=== PATIENT | female | born 1945 | race Caucasian/White ===

== ENCOUNTER 2020-06-10 08:52 | Outpatient (REF) | payer MEDICARE, SELFPAY ==
--- NOTE | 2020-06-10 09:02 | MM_ITS ---
EXAMINATION: MM SCREENING DIGITAL BREAST TOMOSYNTHESIS, BILATERAL CLINICAL INFORMATION: Screening. Asymptomatic. The lifetime risk of breast cancer based on the Tyrer-Cuzick Model is 2%. COMPARISON: Mammography: 06/05/2019, 04/11/2018, 03/24/2017 TECHNIQUE: Digital breast tomosynthesis is performed in both the craniocaudal and mediolateral oblique views along with computer-aided detection (CAD). Synthesized 2D images are generated from the tomosynthesis. Additional left MLO view is provided. FINDINGS: There are scattered areas of fibroglandular density (ACR BI-RADS breast composition Category b). Parenchymal pattern is similar to prior exams. There is chronic bilateral nipple retraction. No developing density, interval mass, or interval architectural abnormality. There are scattered benign calcifications. Pacemaker generator overlies and partly obscures left axilla on MLO view. No significant changes. MM/MM tomosynthesis screening BI IMPRESSION: No significant changes from prior studies. ASSESSMENT: BI-RADS 2: Benign RECOMMENDATION: Routine annual mammography screening. This patient's information was entered into a reminder system with a target due date for their next mammogram.
--- NOTE | 2020-06-10 09:02 | MM_ITS ---
EXAMINATION: BONE DENSITOMETRY CLINICAL INDICATION: Osteoporosis. COMPARISON: Previous BD dated 02/26/2016 and baseline BD dated 07/21/2008 (left hip), 05/27/2003 (lumbar spine). TECHNIQUE: Using a [employer] DXA System (software version: 13.1) manufactured by [employer], dual-energy x-ray absorptiometry was performed of the lumbar spine and left hip. The images are of good technical quality. Summary results are attached. FINDINGS: AP SPINE L1-L2 (excluding L3 and L4): The data of L1-L4 has been changed to exclude the L3 and L4 vertebral bodies, because at these levels may cause overestimation of lumbar spine density. Current: BMD 0.862 g/cm2, Z-score -1.0, T-score -2.5, osteoporosis, 2.3% increase from previous, 8.2% increase from baseline (<5% change is not significant). Prior: BMD 0.843 g/cm2. Baseline: BMD 0.797 g/cm2. LEFT FEMUR, NECK: Current: BMD 0.773 g/cm2, Z-score -0.2, T-score -1.9, osteopenia. Prior: BMD 0.796 g/cm2. Baseline: BMD 0.836 g/cm2. LEFT FEMUR, TOTAL: Current: BMD 0.888 g/cm2, Z-score 0.6, T-score -1.0, normal, 0.1% increase from previous, 4.2% increase from baseline (<5% change is not significant). Prior: BMD 0.887 g/cm2. Baseline: BMD 0.852 g/cm2. IDENTIFIED RISK FACTORS: Early menopause, hysterectomy, bilateral oophorectomy, osteoporosis. HISTORY OF FRACTURE: None listed. MEDICATIONS: Vitamin D, bisphosphonates. MM/XR DEXA axial skeleton IMPRESSION: 1. DIAGNOSIS: Osteoporosis based on the lowest T-score value of -2.5 in the lumbar spine applying World Health Organization criteria. 2. 10-YEAR FRACTURE RISK PREDICTION, FRAX: Major osteoporotic fracture (clinical spine, forearm, hip or shoulder) 12.1%. Hip fracture 2.8%. 3. Treatment Recommendations: NOF guidelines recommend consideration for treatment in postmenopausal women and men age 50 and older presenting with the following: -A hip or vertebral (clinical or morphometric) fracture. -T-score less than or equal to -2.5 at the femoral neck or spine after appropriate evaluation to exclude secondary causes. -Low bone mass at the hip or spine and a 10-year fracture probability by FRAX of greater than or equal to 3% for hip fracture or greater than or equal to 20% for major osteoporotic fracture based on the [place] adapted WHO algorithm. 4. Other Recommendations: All treatment decisions require clinical judgment and consideration of individual patient factors, including patient preferences, comorbidities, previous drug use, risk factors not captured in the FRAX model (e.g. frailty, falls, vitamin D deficiency, increased bone turnover, interval significant decline in bone density) and possible under or overestimation of fracture risk by FRAX. Additional medical evaluation for secondary cause of low bone mineral density may be appropriate. FUTURE SCAN RECOMMENDATION: People with diagnosed cases of osteoporosis or at high risk for fracture should have regular bone mineral density tests. For patients eligible for Medicare, routine testing is allowed once every 2 years. The testing frequency can be increased to one year for patients who have rapidly progressing disease, those who are receiving or discontinuing medical therapy to restore bone mass, or have additional risk factors.
== END 2020-06-10 08:53 | disposition home or self-care (01) ==
LOC: HO.MAMMO 08:52
PROVIDERS: PCP Internal Medicine; Visit Provider Nurse Practitioner Family
DX: Z12.31 Encounter for screening mammogram for malignant neoplasm of breast (principal); M81.0 Age-related osteoporosis without current pathological fracture; Z78.0 Asymptomatic menopausal state; Z90.710 Acquired absence of both cervix and uterus; Z90.722 Acquired absence of ovaries, bilateral
CPT/HCPCS: 77063; 77067; 77080

== ENCOUNTER → 2020-08-14 09:02 | Outpatient (BNVA) | payer MEDICARE, SELFPAY | PROVIDERS: PCP Internal Medicine; Visit Provider Internal Medicine Cardiovascular Disease | DX: Z45.018 Encounter for adjustment and management of other part of cardiac pacemaker (principal); I42.2 Other hypertrophic cardiomyopathy | CPT/HCPCS: 93005; 99212 ==

== ENCOUNTER → 2021-01-29 09:16 | Outpatient (REF) | payer MEDICARE, SELFPAY ==
--- NOTE | 2021-01-29 09:19 | CA_ITS ---
Transthoracic Echocardiogram Patient (Last, First, Middle): Kaycee Florence M Gender: Female Date of : 1945 Age: 75 Procedure Date: 01/29/2021 Procedure Type: Transthoracic Echocardiogram Location: OP Height: 154.94 cm Weight: 71.67 kg BSA: 1.71 m2 Heart Rate: bpm BP: 140 / 80 mmHg Field Map Technician: ABEL Referring MD: Gabe Tang MD Symptoms: I42.2 - Other hypertrophic cardiomyopathy Study Quality: Fair ECG Rhythm: Sinus Conclusions: - The left ventricular systolic function is normal. The calculated ejection fraction is 59% by biplane method. - Septal thickness is difficult to assess. In parasternal long, it appears severe, but in other views there is only mild hypertrophy. - No obvious valvular pathology seen on this study. - Consider cardiac MRI if clinically indicated. Findings Left Ventricle Normal left ventricular cavity size. The left ventricular systolic function is normal. The calculated ejection fraction is 59% by biplane method. There is no evidence of regional wall motion abnormalities. Evidence suggests grade I (mild) diastolic dysfunction. There is severe septal asymmetric hypertrophy. Septal thickness is difficult to assess. In parasternal long, it appears severe, but in other views there is only mild hypertrophy. Right Ventricle Normal right ventricular cavity size and systolic function. Atria Both atria are normal in size. Aortic Valve There is a normal trileaflet aortic valve. There is no aortic valve stenosis. There is trace (trivial) aortic valve regurgitation. Mitral Valve The mitral valve appears normal. There is no mitral valve regurgitation. There is no mitral valve stenosis. Pulmonic Valve The pulmonic valve was not well visualized. Tricuspid Valve There is mild tricuspid valve regurgitation. The pulmonary artery systolic pressure is normal. Great Vessels The asc aorta is normal in size. Venous The inferior vena cava is normal in size and collapses greater than 50% with inspiration. Pericardium/Pleural There is no evidence of pericardial effusion. Prior Study Comparison Changes noted compared to prior study dated: 01/11/2019. See comments on septum. Recommendations, Care & Conclusions No obvious valvular pathology seen on this study. Measurements 2D Linear Measurements IVSd: 1.00 0.6-0.9/0.6-1.0 cm LVIDd: 4.61 3.9-5.3/4.2-5.9 cm LVIDd Index: 2.70 2.4-3.2/2.2-3.1 cm/m2 LVIDs: 2.92 2.0-3.6 cm LVPWd: 1.04 0.7-1.1 cm Ao Root: 3.40 2.1-3.5 cm LA Diam: 3.70 2.7-3.8/3.0-4.0 cm LAIDs Index: 2.16 1.5-2.3 cm/m2 LV Mass: 203.95 67-162/88-224 g LV Mass Index: 119.27 43-95/49-115 g/m2 LVOT Diam: 2.00 3.0+(-)1.3 cm 2D Systolic Function EF 4C: 57.60 >55% EF 2C: 59.50 >55% EF BiP: 59.30 >55% Mitral Valve MV Pk E: 0.69 MV PK A: 0.85 MV Decel Time: 319.00 E/A: 0.80 E'Lateral: 6.42 E'Medial: 4.35 E/E' Med: 15.90 E/E' Lat: 10.80 PHT: 93.00 MVA PHT: 2.37 Decel [place]: 2.17 Aortic Valve AoV Pk Cheng: 1.62 AoV Mn Cheng: 0.96 AoV VTI: 0.33 AoV Pk Grad: 10.00 Aov Mn Grad: 4.00 KIP Cont.VTI: 2.45 LVOT LVOT Pk Cheng: 1.25 LVOT Mn Cheng: 0.73 LVOT VTI: 0.25 LVOT Pk Grad: 6.00 LVOT Mn Grad: 3.00 LVOT Diam: 2.00 LVOT Area: 3.14 Diastolic Function MV Pk E: 0.69 MV Pk A: 0.85 E/A: 0.80 E'Medial: 4.35 E/E' Med: 15.90 E' Laterial: 6.42 E/E' Lat: 10.80 Tricuspid Valve TR Pk Cheng: 2.29 TR Pk Grad: 21.00 RA Press: 3.00 RVSP: 24.00 Great Vessels Aorta Ao Root-2D: 3.40 2.0-3.7 cm Ao Asc: 3.30 2.1-3.4 cm Ao Arch: 2.80 Updated in Other Vendor System with Status of Final Jhon Cho MD electronically signed on 01/30/2021 1:10:12 PM with status of Final
== END ==
LOC: HO.CARD 09:16
PROVIDERS: PCP Internal Medicine; Visit Provider Internal Medicine Cardiovascular Disease
DX: I42.2 Other hypertrophic cardiomyopathy (principal); I10 Essential (primary) hypertension
CPT/HCPCS: 93306

== ENCOUNTER → 2021-02-17 10:07 | Outpatient (BNVA) | payer MEDICARE, SELFPAY | PROVIDERS: PCP Internal Medicine; Referring Provider Internal Medicine; Visit Provider Internal Medicine Cardiovascular Disease | DX: I42.2 Other hypertrophic cardiomyopathy (principal); Z45.018 Encounter for adjustment and management of other part of cardiac pacemaker | CPT/HCPCS: 99212 ==

== ENCOUNTER 2021-04-02 11:30 | Inpatient (IN) | payer MEDICARE, SELFPAY ==
[2021-04-02] VITALS (10 sets, daily range): BP systolic 91–140; BP diastolic 50–77; PULSE 60–208; RESP 16–20; TEMP 36.4–37.3; O2SAT 97–98; BMI 28.8; BMI 28.4
--- NOTE | 2021-04-02 | ECG_ITS ---
Test Reason : CP Blood Pressure : / mmHG Vent. Rate : 183 BPM Atrial Rate : 214 BPM P-R Int : 000 ms QRS Dur : 102 ms QT Int : 270 ms P-R-T Axes : 000 -54 114 degrees QTc Int : 471 ms Atrial fibrillation with rapid ventricular response Left anterior fascicular block Moderate voltage criteria for LVH, may be normal variant Cannot rule out Septal infarct , age undetermined Marked ST abnormality, possible lateral subendocardial injury Abnormal ECG No previous ECGs available Referred By: Generic ED Physician Electronically Signed By:LIV COLLAZO
--- NOTE | ~2021-04-02 | XR_ITS ---
EXAMINATION: XR CHEST CLINICAL INFORMATION: Dyspnea COMPARISON: None TECHNIQUE: Frontal view of the chest was obtained. FINDINGS: Lungs are clear. No focal consolidation or mass. Normal pulmonary vascularity. No pleural effusion or pneumothorax. Normal heart size. 2-lead pacemaker with contiguous, intact leads. XR/XR chest 1V IMPRESSION: No acute pulmonary disease.
--- NOTE | 2021-04-02 11:37 | ED_ITS ---
HPI - SOB/Dyspnea General Chief Complaint: Chest Pain Stated Complaint: SOB Time Seen by Provider: 04/02/21 11:37 Source: patient Mode of arrival: ambulatory Limitations: no limitations History of Present Illness MD elicited complaint: shortness of breath (weakness, malaise) Onset (ago): month(s) (1) Timing: constant Severity: moderate Exacerbating factors: exertion and movement Relieving factors: rest Known history of: other (HTN, DM, PPM) Associated symptoms: dizziness and other (weakness, shortness of breath, fatigue) Treatment prior to arrival: none Related Data Home Medications Medication Instructions Recorded Confirmed alendronate 70 mg tablet 70 mg PO QWEEK 08/14/20 04/02/21 atorvastatin 80 mg tablet 80 mg PO DAILY 08/14/20 04/02/21 cetirizine 5 mg tablet 5 mg PO DAILY 08/14/20 04/02/21 glipizide 10 mg tablet, extended 10 mg PO DAILY 08/14/20 04/02/21 release 24 hr hydrochlorothiazide 25 mg tablet 25 mg PO DAILY 08/14/20 04/02/21 lisinopril 40 mg tablet 40 mg PO DAILY 08/14/20 04/02/21 omeprazole 20 mg capsule,delayed 20 mg PO DAILY 08/14/20 04/02/21 release metformin 750 mg tablet,extended 750 mg PO DAILY 02/17/21 04/02/21 release 24 hr albuterol sulfate 90 mcg/actuation 1 - 2 puff PO Q4H PRN 04/02/21 04/02/21 aerosol inhaler cefpodoxime 200 mg tablet 1 tab PO BID 04/02/21 04/02/21 cholecalciferol (vitamin D3) 50 50 mcg PO DAILY 04/02/21 04/02/21 mcg (2,000 unit) tablet Allergies Allergy/AdvReac Type Severity Reaction Status Date / Time codeine [CODEINE] Allergy Unknown HIVES Unverified 04/09/20 14:36 Review of Systems Review of Systems: Constitutional : No Weight loss, No Fever, No Chills, pos malaise ENT/Mouth : No sore throat, No Rhinorrhea Eyes: No Eye Pain, No Swelling Cardiovascular :no Chest Pain, pos SOB, no Dyspnea on Exertion, No Orthopnea, No Edema, No Palpitations Respiratory : No Cough, No Sputum Gastrointestinal : no Nausea, No Vomiting, No Diarrhea, No abdominal Pain, No Hematochezia, No Melena Genitourinary : No Dysuria, No Urinary Frequency Musculoskeletal : No joint pain, No Myalgias, No Joint Swelling Skin : No Skin Lesions, No rash Neuro : pos Weakness, No Numbness, No Dizziness, No Headache Psych : No Anxiety/Panic, No Depression Heme/Lymph: No Bruising, No Lymphadenopathy Endocrine : No Polyuria, No Polydipsia All other systems reviewed and are negative [facility] Past Medical History Attestation statement: The following information was validated with the patient. Medical History Asymmetric septal hypertrophy Cardiac pacemaker in situ HTN (hypertension) Sick sinus syndrome Surgical History History of permanent cardiac pacemaker placement Hx of cataract Family History Family History Father CHF (congestive heart failure) Mother Diabetes Social History Social History Alcohol intake: never Patient Tobacco Use Status: Never used Tobacco Smoked in Last 30 Days: No Use of substances other than those prescribed or required for medical reasons: No Advance Directives: No Advance Directives Information Provided: No Physical Exam Vital Signs: Vital Signs: Last Vital Signs Temp 98.8 F 04/02/21 14:45 Pulse 141 H 04/02/21 14:45 Resp 17 04/02/21 14:45 BP 103/77 04/02/21 14:45 Pulse Ox 97 04/02/21 14:45 Body Mass Index 28.8 Appearance: Alert. Oriented X3. No acute distress. Eyes: Pupils equal, round and reactive to light. ENT: Pharynx normal. Neck: Normal inspection. Neck supple. CVS: irregular tachycardic heart rate and rhythm. Pulses normal. Respiratory: No respiratory distress. Breath sounds normal. Abdomen: Soft and nontender. Skin: Skin warm and dry. Normal skin color. Normal skin turgor. Extremities: No lower extremity edema. No calf ttp Neuro: Oriented X 3. No motor deficit. No sensory deficit. Course Course Course Narrative: on gtt down to 120-130s from 180s Marquis aware 1232 will come see patient denies bleeding issues - lovenox ordered recommends IV loading dose of 0.25 - Dr. Cho, 5mg of eliquis, if no improvement 2.5mg of lopressor cardioverted 303pm MDM - SOB/Dyspnea MDM Narrative Medical decision making narrative: 75 yo female with HTN, DM, PPM [facility] [facility] dual chamber for SSS low battery life in January comes in with 1 month of feelling isaac melchor, weak - found to be in afib with RVR is not reporting palpitations - IV dilt and gtt ordered, labs, lytes, will discuss with Cardiology Lab Data Result diagrams: 04/02/21 12:07 04/02/21 12:07 Labs: Lab Results 04/02/21 04/02/21 04/02/21 Range/Units 12:07 12:07 12:07 WBC 13.7 H (4.8-10.8) X10*3/uL RBC 5.28 (4.20-5.50) X10*6/uL Hgb 14.9 (12.0-16.0) g/dl Hct 44.3 (37-47) % MCV 83.9 (80-98) fL MCH 28.2 (27.0-33.0) pg MCHC 33.6 (31.0-35.0) g/dl RDW 13.9 (11.0-16.0) % Plt Count 346 (160-400) X10*3/uL MPV 9.8 (9.4-12.3) fL Immature Gran % (Auto) 1.9 H (0.0-0.4) % Neut % (Auto) 76.5 H (45-73) % Lymph % (Auto) 14.5 L (20-40) % [place] % (Auto) 6.1 (2-11) % Eos % (Auto) 0.6 (0-4) % Baso % (Auto) 0.4 (0-2) % Lymph # (Auto) 2.0 (1.2-4.9) X10*3/uL [place] # (Auto) 0.8 (0.1-1.2) X10*3/uL Eos # (Auto) 0.1 (0.0-0.4) X10*3/uL Baso # (Auto) 0.1 (0.0-0.2) X10*3/uL Abs Immat Gran (auto) 0.26 H (0.00-0.03) X10*3/uL Absolute Neuts (auto) 10.5 H (2.0-8.3) X10*3/uL Absolute Nucleated RBC 0.000 (0.0-0.012) X10*3/uL Nucleated RBC % (auto) 0.0 (0.0-0.2) /100WBC PT 11.3 (9.9-13.0) SEC INR 1.0 (0.9-1.1) APTT 30.3 (24.1-38.0) SEC Sodium 134 L (135-145) mmol/L Potassium 5.0 (3.3-5.1) mmol/L Chloride 100 (96-108) mmol/L Carbon Dioxide 22 (22-29) mmol/L Anion Gap 17 (12-20) BUN 39 H (9-16) mg/dL Creatinine 1.70 H (0.5-1.4) mg/dL Estim Creat Clear Calc 24.4 Estimated GFR 29 Random Glucose 522 H* (60-115) mg/dL Lactic Acid (0.5-2.0) mmol/L Calcium 11.3 H (8.4-10.2) mg/dL Magnesium 1.9 (1.6-2.6) mg/dL Total Bilirubin 0.9 (0.0-1.0) mg/dL Direct Bilirubin 0.3 (0.0-0.5) mg/dL AST 19 (5-31) U/L ALT 28 (0-31) U/L Alkaline Phosphatase 62 (39-117) U/L Troponin I High Sens (<3.5-17.0) ng/L B-Natriuretic Peptide (<100) pg/mL Total Protein 7.2 (6.5-8.0) g/dL Albumin 4.2 (3.5-5.0) g/dL Lipase 82 H (8-78) U/L TSH 1.24 (0.32-4.0) uIU/mL COVID-19 (RAEGAN) (Negative) COVID-19 Clin Com 04/02/21 04/02/21 04/02/21 Range/Units 12:07 12:07 12:07 WBC (4.8-10.8) X10*3/uL RBC (4.20-5.50) X10*6/uL Hgb (12.0-16.0) g/dl Hct (37-47) % MCV (80-98) fL MCH (27.0-33.0) pg MCHC (31.0-35.0) g/dl RDW (11.0-16.0) % Plt Count (160-400) X10*3/uL MPV (9.4-12.3) fL Immature Gran % (Auto) (0.0-0.4) % Neut % (Auto) (45-73) % Lymph % (Auto) (20-40) % [place] % (Auto) (2-11) % Eos % (Auto) (0-4) % Baso % (Auto) (0-2) % Lymph # (Auto) (1.2-4.9) X10*3/uL [place] # (Auto) (0.1-1.2) X10*3/uL Eos # (Auto) (0.0-0.4) X10*3/uL Baso # (Auto) (0.0-0.2) X10*3/uL Abs Immat Gran (auto) (0.00-0.03) X10*3/uL Absolute Neuts (auto) (2.0-8.3) X10*3/uL Absolute Nucleated RBC (0.0-0.012) X10*3/uL Nucleated RBC % (auto) (0.0-0.2) /100WBC PT (9.9-13.0) SEC INR (0.9-1.1) APTT (24.1-38.0) SEC Sodium (135-145) mmol/L Potassium (3.3-5.1) mmol/L Chloride (96-108) mmol/L Carbon Dioxide (22-29) mmol/L Anion Gap (12-20) BUN (9-16) mg/dL Creatinine (0.5-1.4) mg/dL Estim Creat Clear Calc Estimated GFR Random Glucose (60-115) mg/dL Lactic Acid 1.9 (0.5-2.0) mmol/L Calcium (8.4-10.2) mg/dL Magnesium (1.6-2.6) mg/dL Total Bilirubin (0.0-1.0) mg/dL Direct Bilirubin (0.0-0.5) mg/dL AST (5-31) U/L ALT (0-31) U/L Alkaline Phosphatase (39-117) U/L Troponin I High Sens 62.3 H* (<3.5-17.0) ng/L B-Natriuretic Peptide 255 H (<100) pg/mL Total Protein (6.5-8.0) g/dL Albumin (3.5-5.0) g/dL Lipase (8-78) U/L TSH (0.32-4.0) uIU/mL COVID-19 (RAEGAN) Negative (Negative) COVID-19 Clin Com See Note ECG Data Attestation: I personally reviewed and interpreted this ECG as follows: ECG interpretation date: 04/02/21 ECG interpretation time: 12:22 Interpretation: Rate: 180s Rhythm: afib with RVR [place]: left , LVH Normal P waves. Normal DERREK. wide QRS complex. ST T wave : no KYLIE, nonspecific qTC: normal prior studies: changed from prior The study has been interpreted contemporaneously by me. Rate: 60 Rhythm: NSR ?atrial paced - some spikes seen [place]: left LVH Normal P waves. Normal DERREK. Normal QRS complex. ST T wave : nonspecific, no KYLIE qTC: normal prior studies: The study has been interpreted contemporaneously by me. . Critical Care Time Critical Care Time Critical Care Time: Yes Total Critical Care Time: 60 Attestation: IV diltiazem boluses, IVF, IV insulin, medical consult I attest to this time spent taking care of the patient Discharge Plan Discharge Clinical Impression: CRUZ (acute kidney injury), Atrial fibrillation with rapid ventricular response, Acute hyperglycemia Patient Disposition: Admitted As Inpatient
[2021-04-02] MEDS: dilTIAZem HCL 50 MG/10 ML VIAL 10 MG IVPUSH (11:44)
[2021-04-02] MEDS: dilTIAZem HCL 125 MG in 0.9 % Sodium Chloride 100 ML 10 MG IVCONT (11:51)
[2021-04-02 12:20] LABS: MANUAL DIFF FLAG NO
[2021-04-02 12:23] LABS: Basophils Absolute Auto 0.1 X10*3/uL (0.0-0.2); Basophils Percent Auto 0.4 % (0-2); Eosinophils Absolute Auto 0.1 X10*3/uL (0.0-0.4); Eosinophils Percent Auto 0.6 % (0-4); Hematocrit 44.3 % (37-47); Hemoglobin 14.9 g/dl (12.0-16.0); Imm Gran Abs Auto 0.26 X10*3/uL (0.00-0.03); Imm Gran Pct Auto 1.9 % (0.0-0.4); Lymphocytes Percent Auto 14.5 % (20-40); Mean Corpuscular HGB Conc 33.6 g/dl (31.0-35.0); Mean Corpuscular Hemoglobin 28.2 pg (27.0-33.0); Mean Corpuscular Volume 83.9 fL (80-98); Mean Platelet Volume 9.8 fL (9.4-12.3); Monocytes Absolute Auto 0.8 X10*3/uL (0.1-1.2); Monocytes Percent Auto 6.1 % (2-11); Neutrophils Absolute Auto 10.5 X10*3/uL (2.0-8.3); Neutrophils Percent Auto 76.5 % (45-73); Platelet Count 346 X10*3/uL (160-400); Red Blood Count 5.28 X10*6/uL (4.20-5.50); Red Cell Distribution Width 13.9 % (11.0-16.0); White Blood Count 13.7 X10*3/uL (4.8-10.8)
[2021-04-02 12:29] LABS: Prothrombin Time 11.3 SEC (9.9-13.0)
[2021-04-02 12:31] LABS: Partial Thromboplastin Time 30.3 SEC (24.1-38.0)
[2021-04-02 12:37] LABS: COVID-19 Test Negative (Negative)
[2021-04-02 12:39] LABS: Lactic Acid 1.9 mmol/L (0.5-2.0)
[2021-04-02 12:48] LABS: Alanine Aminotransferase 28 U/L (0-31); Albumin Level 4.2 g/dL (3.5-5.0); Alkaline Phosphatase 62 U/L (39-117); Anion Gap 17 (12-20); Aspartate Amino Transferase 19 U/L (5-31); Bilirubin Direct 0.3 mg/dL (0.0-0.5); Bilirubin Total 0.9 mg/dL (0.0-1.0); Blood Urea Nitrogen 39 mg/dL (9-16); Carbon Dioxide 22 mmol/L (22-29); Chloride 100 mmol/L (96-108); Creatinine Clr Calc Pharmacy 24.4; Estimated Glomerular Filt Rate 29; Lipase 82 U/L (8-78); Magnesium 1.9 mg/dL (1.6-2.6); Sodium 134 mmol/L (135-145); Total Protein 7.2 g/dL (6.5-8.0)
--- NOTE | 2021-04-02 12:49 | PHA.MEDREC ---
Pharmacy Consult ? Medication Reconciliation Pharmacy has completed the medication reconciliation. There are no remarkable issue for provider's attention. Karena Marin, LisetteD
[2021-04-02 12:52] LABS: B Type Natriuretic Peptide 255 pg/mL (<100); Calcium 11.3 mg/dL (8.4-10.2); Glucose Random 522 mg/dL (60-115); Troponin-I High Sensitivity 62.3 ng/L (<3.5-17.0)
[2021-04-02] MEDS: 0.9 % Sodium Chloride 1,000 ML 999 ML IV ×2 (13:00→15:32)
[2021-04-02 13:04] LABS: TSH reflex Free T4 1.24 uIU/mL (0.32-4.0)
--- NOTE | 2021-04-02 13:36 | PM.CNCAR ---
History of Present Illness History of Present Illness Date of Service: 04/02/21 Chief complaint: SOB Narrative: This is a cardiology consultation regarding atrial fibrillation. Based on the last office note by Dr. Tang, she has a history of asymmetric septal hypertrophy but no congestive heart failure. She also has a pacemaker in place but better life was less than 3 months on the last check. She states that for the last few days, she has not been doing good. Multiple complaints including a pressure-type sensation in the chest, shortness of breath, palpitations, feeling dizzy, numbness in hands among others. In the ER, she has been found to have atrial fibrillation with rapid rate. She is currently on Cardizem drip. Review nausea. Based on review of records, it appears that this is a new finding. Review of Systems Review of Systems: Yes all other systems are reviewed and are negative Cardiovascular: Cardiovascular: Reports as per HPI, Reports no additional cardiovascular complaints, Denies acrocyanosis, Denies cool extremities, Denies painful fingertips, Reports chest pain, Denies chest pain at rest, Denies diaphoresis, Denies syncope, Reports irregular heart rhythm, Denies claudication, Denies leg edema, Reports lightheadedness, Reports palpitations and Reports dyspnea Respiratory: Respiratory: Reports dyspnea Neurologic: Denies syncope Endocrine: Endocrine: Reports palpitations PMFSH Past Medical History Medical History Asymmetric septal hypertrophy Cardiac pacemaker in situ HTN (hypertension) Sick sinus syndrome Family History Family History Father CHF (congestive heart failure) Mother Diabetes Surgical History Surgical History History of permanent cardiac pacemaker placement Hx of cataract Social History Social History Alcohol intake: never Patient Tobacco Use Status: Never used Tobacco Smoked in Last 30 Days: No Use of substances other than those prescribed or required for medical reasons: No Advance Directives: No Advance Directives Information Provided: No Meds Allergies Allergy/AdvReac Type Severity Reaction Status Date / Time codeine [CODEINE] Allergy Unknown HIVES Unverified 04/09/20 14:36 Active Medications: Current Medications Generic Name Dose Route Start Last Admin Trade Name Freq PRN Reason Stop Dose Admin Diltiazem HCl 125 mg/ Sodium 125 mls @ 0 mls/hr 04/02/21 12:00 04/02/21 12:01 Chloride IVCONT 15 mg/hr .Q0M IRISH 15 mls/hr Titration Protocol Per Protocol Sodium Chloride 1,000 mls @ 999 mls/hr 04/02/21 13:00 Ns IV 04/02/21 14:00 .Q1H1M [facility] Pharmacy Consult 1 each 04/02/21 11:38 Consult Rx Perform Med Rec MISCELLANE ONCE PRN Consult order Home Medications Medication Instructions Recorded Confirmed Last Taken Type alendronate 70 mg tablet 70 mg PO QWEEK 08/14/20 04/02/21 04/01/21 History atorvastatin 80 mg tablet 80 mg PO DAILY 08/14/20 04/02/21 04/01/21 History cetirizine 5 mg tablet 5 mg PO DAILY 08/14/20 04/02/21 04/01/21 History glipizide 10 mg tablet, extended 10 mg PO DAILY 08/14/20 04/02/21 04/01/21 History release 24 hr hydrochlorothiazide 25 mg tablet 25 mg PO DAILY 08/14/20 04/02/21 04/01/21 History lisinopril 40 mg tablet 40 mg PO DAILY 08/14/20 04/02/21 04/01/21 History omeprazole 20 mg capsule,delayed 20 mg PO DAILY 08/14/20 04/02/21 04/01/21 History release metformin 750 mg tablet,extended 750 mg PO DAILY 02/17/21 04/02/21 04/01/21 History release 24 hr albuterol sulfate 90 mcg/actuation 1 - 2 puff PO Q4H PRN 04/02/21 04/02/21 04/01/21 History aerosol inhaler cefpodoxime 200 mg tablet 1 tab PO BID 04/02/21 04/02/21 04/01/21 History cholecalciferol (vitamin D3) 50 50 mcg PO DAILY 04/02/21 04/02/21 04/01/21 History mcg (2,000 unit) tablet Physical Exam Vital Signs: Vital Signs: Last Vital Signs Temp 98.2 F 04/02/21 11:44 Pulse 160 H 04/02/21 11:51 Resp 16 04/02/21 11:44 BP 102/58 L 04/02/21 11:51 Pulse Ox 98 04/02/21 11:44 Body Mass Index 28.8 Const: General: cooperative and no acute distress HENMT: Other: Unremarkable Neck: Neck: Yes normal visual inspection Chest: Chest palpation & inspection: normal inspection of the chest Resp: Auscultation: clear to auscultation bilaterally, no crackles and no wheezes Cardio: Jugular venous distension: no JVD Palpation: normal PMI Heart sounds: S1 normal heart sound present, S2 normal heart sound present, no gallops, no murmurs and no rubs GI: Palpation (GI): Soft to palpation Back/Spine/Pelvis: Other: unremarkable Skin: General skin exam: no rashes or lesions noted Neuro: Cranial nerves: Yes Other cranial nerve findings present Extrem: General: Yes no clubbing, cyanosis or edema Psych: Mental Status: other Results Labs and Meds Result diagrams: 04/02/21 12:07 04/02/21 12:07 Lab results: Laboratory Results - last 24 hr 04/02/21 04/02/21 04/02/21 12:07 12:07 12:07 WBC 13.7 H RBC 5.28 Hgb 14.9 Hct 44.3 MCV 83.9 MCH 28.2 MCHC 33.6 RDW 13.9 Plt Count 346 MPV 9.8 Immature Gran % (Auto) 1.9 H Neut % (Auto) 76.5 H Lymph % (Auto) 14.5 L [place] % (Auto) 6.1 Eos % (Auto) 0.6 Baso % (Auto) 0.4 Lymph # (Auto) 2.0 [place] # (Auto) 0.8 Eos # (Auto) 0.1 Baso # (Auto) 0.1 Abs Immat Gran (auto) 0.26 H Absolute Neuts (auto) 10.5 H Absolute Nucleated RBC 0.000 Nucleated RBC % (auto) 0.0 PT 11.3 INR 1.0 APTT 30.3 Sodium 134 L Potassium 5.0 Chloride 100 Carbon Dioxide 22 Anion Gap 17 BUN 39 H Creatinine 1.70 H Estim Creat Clear Calc 24.4 Estimated GFR 29 Random Glucose 522 H* Lactic Acid Calcium 11.3 H Magnesium 1.9 Total Bilirubin 0.9 Direct Bilirubin 0.3 AST 19 ALT 28 Alkaline Phosphatase 62 Troponin I High Sens B-Natriuretic Peptide Total Protein 7.2 Albumin 4.2 Lipase 82 H TSH 1.24 COVID-19 ([facility]EGAN) COVID-19 Clin Com 04/02/21 04/02/21 04/02/21 12:07 12:07 12:07 WBC RBC Hgb Hct MCV MCH MCHC RDW Plt Count MPV Immature Gran % (Auto) Neut % (Auto) Lymph % (Auto) [place] % (Auto) Eos % (Auto) Baso % (Auto) Lymph # (Auto) [place] # (Auto) Eos # (Auto) Baso # (Auto) Abs Immat Gran (auto) Absolute Neuts (auto) Absolute Nucleated RBC Nucleated RBC % (auto) PT INR APTT Sodium Potassium Chloride Carbon Dioxide Anion Gap BUN Creatinine Estim Creat Clear Calc Estimated GFR Random Glucose Lactic Acid 1.9 Calcium Magnesium Total Bilirubin Direct Bilirubin AST ALT Alkaline Phosphatase Troponin I High Sens 62.3 H* B-Natriuretic Peptide 255 H Total Protein Albumin Lipase TSH COVID-19 ([facility]EGAN) Negative COVID-19 Clin Com See Note ECG Interpretation: EKG with atrial fibrillation at a rate of 183/Min. Imaging Radiologist's impression: Impressions Chest X-Ray 04/02/21 11:38 IMPRESSION: No acute pulmonary disease. Assessment and Plan (1) Atrial fibrillation with rapid ventricular response: Status: Acute (2) Asymmetric septal hypertrophy: Status: Acute (3) Cardiac pacemaker in situ: Status: Acute (4) CRUZ (acute kidney injury): Status: Acute (5) Acute hyperglycemia: Status: Acute Pertinent data reviewed. Creatinine is 1.7. BUN is 39. Potassium is 5. Sodium is 134. Glucose is 522. High sensitive troponin is 62. Cardiac BNP 255. TSH is 1.24. Pacemaker was checked and this shows better life between 0 2 3 months. With regard to the atrial fibrillation episode time of onset seems to be April 01 although patient's symptoms date back several days prior to that. Hence not clear. May hydrate the patient with IV fluids. Continue IV Cardizem drip at maximum tolerated dose. Can give a dose of digoxin 250 mcg. If blood pressure tolerates, some IV beta-blockers as well. Start Eliquis. If continues to be in atrial fibrillation with rapid rate, then we will need to do a KATLYN/cardioversion. Timing to be decided. We will follow up as an inpatient. Procedures Date of Service Date of Service: 04/02/21
[2021-04-02] MEDS: Insulin Regular, Human 100 UNIT/ML 3 ML VIAL 10 UNIT IVPUSH (13:39)
[2021-04-02] MEDS: Apixaban 5 MG TABLET PO (13:40)
[2021-04-02] MEDS: Digoxin 0.5 MG/2 ML AMPUL 0.25 MG IVPUSH (13:41)
--- NOTE | 2021-04-02 14:25 | PC.NURSE ---
dr. valentin at bedside, pt aware of plan of care
[2021-04-02 14:52] LABS: Glucose, Whole Blood 360 mg/dL (60-115)
--- NOTE | 2021-04-02 15:04 | PC.NURSE ---
dilt down to 5 per md montez, pt converted to nsr hr 60
--- NOTE | 2021-04-02 15:05 | ECG_ITS ---
Test Reason : REPEAT Blood Pressure : / mmHG Vent. Rate : 060 BPM Atrial Rate : 060 BPM P-R Int : 150 ms QRS Dur : 106 ms QT Int : 384 ms P-R-T Axes : 011 -38 077 degrees QTc Int : 384 ms Atrial-paced rhythm Left axis deviation Left ventricular hypertrophy with repolarization abnormality Lateral infarct , age undetermined Abnormal ECG When compared with ECG of 02-APR-2021 11:32, Atrial-paced rhythm has replaced Atrial fibrillation with rapid ventricular response Heart rate has decreased ST no longer depressed in Lateral leads Referred By: Adelaida Muniz Electronically Signed By:LIV COLLAZO
--- NOTE | 2021-04-02 15:53 | PM.IMHP ---
History of Present Illness Date of Service: 04/02/21 Chief Complaint: AFib with RVR, CRUZ, uncontrolled diabetes. 75-year-old female who has history of AFib, has pacemaker-question probably due to sick sinus syndrome, also diagnosed with diabetes recently: She said she is having 3-4 weeks of symptom of chest pressure lightheadedness specially with the walking and feeling generalized weak, she went to [facility] last week and she was told that she has UTI and given antibiotic she does not remember the name. Subsequently she went home but her symptoms was getting worse, so decided to come to the hospital. She says the chest pain is pressure/burning type, reproducible, nonradiating, continuously could not give will give me that time how much, says that her symptom of lightheadedness and palpitations and chest tightness worse with exertion, does not change with breathing. In addition feels generalized weak. Denies any new complaint of or shortness of breath or abdominal pain or fever or chills or nausea or vomiting Denies any cough Denies any weakness or numbness. Lab imaging and EKG reviewed personally and interpreted. In the ED: Patient was found to have hyperglycemia fingersticks in 522 range uncontrolled diabetes, CRUZ, AFib with RVR. Also has mild leukocytosis EKG showed: Initially AFib with RVR and repeated EKG also showed the paced rhythm. Patient received fluids 1 L normal saline bolus, digoxin IV, diltiazem drip in ED right now heart rate is running in 100-110 range and her symptoms of lightheadedness and chest pressure are improving, admission was called due to above reasons. Social history: Lives alone, independent, does not require any help with in ADLs. Review of Systems Review of Systems: Review of system is as per HPI ,all other review of system is negative. Yes all other systems are reviewed and are negative [facility] Medical History Asymmetric septal hypertrophy Cardiac pacemaker in situ HTN (hypertension) Sick sinus syndrome Family History Father CHF (congestive heart failure) Mother Diabetes Pertinent family history: Her brother and her father both because of PR per the patient. Father at is of 76 and brother dyes dies at the is of 61. Surgical History History of permanent cardiac pacemaker placement Hx of cataract Social History Household Members: Family Housing: House Do you presently have visiting nurse or other home services: No Alcohol intake: never Patient Tobacco Use Status: Never used Tobacco Smoked in Last 30 Days: No Use of substances other than those prescribed or required for medical reasons: No Have you been hit, kicked, punched, or otherwise hurt by someone within the past year? If so, by whom?: No Do you feel safe in your current relationship?: Yes Is there a partner from a previous relationship who is making you feel unsafe now?: No Are you made to feel afraid or neglected: No Advance Directives: No Advance Directives Information Provided: No Do you have thoughts of harming others: None Do you have a plan to hurt others: No Plan Recently lost weight without trying: No Patient : No : No Poor oral hygiene: No Meds Allergies Allergy/AdvReac Type Severity Reaction Status Date / Time codeine [CODEINE] Allergy Unknown HIVES Verified 04/02/21 17:41 Active Medications: Current Medications Generic Name Dose Route Start Last Admin Trade Name Freq PRN Reason Stop Dose Admin Dextrose 25 gm 04/02/21 15:48 Dextrose 50 % 25 Gm/50 Ml Vial IVPUSH Q15M PRN per Hypoglycemia Standing Ord. Protocol Glucose 15 gm 04/02/21 15:48 Glucose Gel 15 Gm Gel..Gram. PO Q15M PRN per Hypoglycemia Standing Ord. Protocol Diltiazem HCl 125 mg/ Sodium 125 mls @ 0 mls/hr 04/02/21 12:00 04/02/21 15:04 Chloride IVCONT 5 mg/hr .Q0M IRISH 5 mls/hr Titration Protocol Per Protocol Sodium Chloride 1,000 mls @ 999 mls/hr 04/02/21 15:00 04/02/21 15:32 Ns IV 04/02/21 16:00 999 mls/hr .Q1H1M IRISH Administration Lactated Ringer's 500 mls @ 80 mls/hr 04/02/21 16:00 Lr IV 04/02/21 16:00 .Q6H15M IRISH Lactated Ringer's 1,000 mls @ 80 mls/hr 04/02/21 16:00 Lr IVCONT .[id number] [facility] Insulin Human Lispro 0 unit 04/02/21 16:30 Insulin Lispro 100 Unit/Ml 3 Ml Vial SUBCUT QIDACHS [facility] Protocol Pharmacy Consult 1 each 04/02/21 11:38 Consult Rx Perform Med Rec MISCELLANE ONCE PRN Consult order Sodium Chloride 3 ml 04/02/21 16:00 04/02/21 15:33 0.9 % Sodium Chloride Flush 3 Ml Syringe IVFLUSH Not Given QSHIFT [facility] Home Medications Medication Instructions Recorded Confirmed Last Taken Type alendronate 70 mg tablet 70 mg PO QWEEK 08/14/20 04/02/21 04/01/21 History atorvastatin 80 mg tablet 80 mg PO DAILY 08/14/20 04/02/21 04/01/21 History cetirizine 5 mg tablet 5 mg PO DAILY 08/14/20 04/02/21 04/01/21 History glipizide 10 mg tablet, extended 10 mg PO DAILY 08/14/20 04/02/21 04/01/21 History release 24 hr hydrochlorothiazide 25 mg tablet 25 mg PO DAILY 08/14/20 04/02/21 04/01/21 History lisinopril 40 mg tablet 40 mg PO DAILY 08/14/20 04/02/21 04/01/21 History omeprazole 20 mg capsule,delayed 20 mg PO DAILY 08/14/20 04/02/21 04/01/21 History release metformin 750 mg tablet,extended 750 mg PO DAILY 02/17/21 04/02/21 04/01/21 History release 24 hr albuterol sulfate 90 mcg/actuation 1 - 2 puff PO Q4H PRN 04/02/21 04/02/21 04/01/21 History aerosol inhaler cefpodoxime 200 mg tablet 1 tab PO BID 04/02/21 04/02/21 04/01/21 History cholecalciferol (vitamin D3) 50 50 mcg PO DAILY 04/02/21 04/02/21 04/01/21 History mcg (2,000 unit) tablet Physical Exam Vital Signs and Narrative: Vital Signs: Last Vital Signs Temp 98 F 04/02/21 15:46 Pulse 60 04/02/21 15:46 Resp 18 04/02/21 15:46 BP 102/52 L 04/02/21 15:46 Pulse Ox 97 04/02/21 15:46 Body Mass Index 28.8 Physical exam: Constitutional: Not in acute distress but seems anxious HEENT: Eyes: Anicteric, no discharge Cvs: Regular rhythm [id number] , no murmur res: clear to auscultation ,no rhonchii or wheezing abd: no rebound or guarding ,nt, bs present. ext pulses present , no cyanosis neuro: axo3 , nonfocal. Results Labs CBC and Chem 7: 04/02/21 12:07 04/02/21 12:07 Labs: Laboratory Results - last 24 hr 04/02/21 04/02/21 04/02/21 12:07 12:07 12:07 MCV 83.9 MCH 28.2 MCHC 33.6 RDW 13.9 Plt Count 346 MPV 9.8 Immature Gran % (Auto) 1.9 H Neut % (Auto) 76.5 H Lymph % (Auto) 14.5 L [place] % (Auto) 6.1 Eos % (Auto) 0.6 Baso % (Auto) 0.4 Lymph # (Auto) 2.0 [place] # (Auto) 0.8 Eos # (Auto) 0.1 Baso # (Auto) 0.1 Abs Immat Gran (auto) 0.26 H Absolute Neuts (auto) 10.5 H Absolute Nucleated RBC 0.000 Nucleated RBC % (auto) 0.0 PT 11.3 INR 1.0 APTT 30.3 Anion Gap 17 Estim Creat Clear Calc 24.4 Estimated GFR 29 POC Glucose Random Glucose 522 H* Lactic Acid Calcium 11.3 H Magnesium 1.9 Total Bilirubin 0.9 Direct Bilirubin 0.3 AST 19 ALT 28 Alkaline Phosphatase 62 Troponin I High Sens B-Natriuretic Peptide Total Protein 7.2 Albumin 4.2 Lipase 82 H TSH 1.24 COVID-19 ([facility]) COVID-19 Clin Com 04/02/21 04/02/21 04/02/21 12:07 12:07 12:07 MCV MCH MCHC RDW Plt Count MPV Immature Gran % (Auto) Neut % (Auto) Lymph % (Auto) [place] % (Auto) Eos % (Auto) Baso % (Auto) Lymph # (Auto) [place] # (Auto) Eos # (Auto) Baso # (Auto) Abs Immat Gran (auto) Absolute Neuts (auto) Absolute Nucleated RBC Nucleated RBC % (auto) PT INR APTT Anion Gap Estim Creat Clear Calc Estimated GFR POC Glucose Random Glucose Lactic Acid 1.9 Calcium Magnesium Total Bilirubin Direct Bilirubin AST ALT Alkaline Phosphatase Troponin I High Sens 62.3 H* B-Natriuretic Peptide 255 H Total Protein Albumin Lipase TSH COVID-19 ([facility]EGAN) Negative COVID-19 Clin Com See Note 04/02/21 14:43 MCV MCH MCHC RDW Plt Count MPV Immature Gran % (Auto) Neut % (Auto) Lymph % (Auto) [place] % (Auto) Eos % (Auto) Baso % (Auto) Lymph # (Auto) [place] # (Auto) Eos # (Auto) Baso # (Auto) Abs Immat Gran (auto) Absolute Neuts (auto) Absolute Nucleated RBC Nucleated RBC % (auto) PT INR APTT Anion Gap Estim Creat Clear Calc Estimated GFR POC Glucose 360 H* Random Glucose Lactic Acid Calcium Magnesium Total Bilirubin Direct Bilirubin AST ALT Alkaline Phosphatase Troponin I High Sens B-Natriuretic Peptide Total Protein Albumin Lipase TSH COVID-19 ([facility]EGAN) COVID-19 Clin Com Imaging Radiologist's Impressions: Impressions Chest X-Ray 04/02/21 11:38 IMPRESSION: No acute pulmonary disease. Assessment and Plan (1) CRUZ (acute kidney injury): Status: Acute (2) Atrial fibrillation with rapid ventricular response: Status: Acute (3) Acute hyperglycemia: Status: Acute (4) HTN (hypertension): Status: Acute (5) Asymmetric septal hypertrophy: Status: Acute (6) Cardiac pacemaker in situ: Status: Acute 75-year-old female who came to the hospital because of uncontrolled diabetes, CRUZ, AFib with RVR. 1. AFib with RVR On Cardizem drip heart rate is improving to 100 and 110 range will continue to monitor. Troponin flat probably related to AFib, cruz. Cardiology evaluation TSH chadvasc around 2-3 Patient received dose of Eliquis already. In the ED echo:recent 04/01/21 The left ventricular systolic function is normal.? The ? calculated ejection fraction is 59% by biplane method. ? - Septal thickness is difficult to assess.? In parasternal long, it appears severe, but in other views there is only mild ? hypertrophy. ? - No obvious valvular pathology seen on this study.? - Consider cardiac MRI if clinically indicated.? 2. Uncontrolled diabetes Hemoglobin A1c Sliding scale coverage with insulin 3. CRUZ:? Question multifactorial Will check UA Hydration gentle Repeat BMP in the morning 4. Sick sinus syndrome: Status post pacemaker She says that she was supposed to get battery change in April Cardiology follow up. Patient management discussed with patient in detail length she understand and in agreement with the above plan, in addition goal of care was discussed with her in detail she is full code, also her management medically including AFib , uncontrolled diabetes acute kidney injury discussed with her also, total time spent 70 minutes. Quality Stroke Does the patient have a stroke diagnosis?: No VTE Prior VTE?: No VTE Risk Level:: Medical - moderate - high VTE Device Contraindication: N/A - Device Ordered VTE Drug Contraindication: N/A - Med Ordered
[2021-04-02 16:37] LABS: Troponin-I High Sensitivity 71.7 ng/L (<3.5-17.0)
--- NOTE | 2021-04-02 17:30 | PC.NURSE ---
Pt arrived to unit denying chest pain. cardizem drip at 5mg/hr HR 60S nsr. Stopped drip at 1730, MD aware. WALKED from wheelchair to bed 10 feet no issue.
[2021-04-02] MEDS: Lactated Ringers 1,000 ML 80 ML IVCONT (17:45)
[2021-04-02] MEDS: Insulin Lispro 100 UNIT/ML 3 ML VIAL SUBCUT ×2 (17:45→20:40)
[2021-04-02 17:46] LABS: Glucose, Whole Blood 248 mg/dL (60-115)
[2021-04-02 20:26] LABS: Glucose, Whole Blood 275 mg/dL (60-115)
[2021-04-02] MEDS: Apixaban 2.5 MG TABLET PO (20:39)
[2021-04-02] MEDS: 0.9 % Sodium Chloride Flush 3 ML SYRINGE IVFLUSH (20:51)
[2021-04-03 01:55] LABS: Appearance Urine CLEAR; Color Urine YELLOW; Glucose Urine UA >=1000 MG/DL (NEG); Leukocyte Esterase Urine TRACE (NEG); Nitrite Urine NEG (NEG); PH 5.5 (5.0-8.0); Specific Gravity - Urine 1.015 (1.005-1.025); Urine Blood NEG (NEG); Urine Ketones NEG (NEG); Urine Protein NEG (NEG-TRACE)
[2021-04-03 02:21] LABS: Mucus Urine TRACE /LPF; RBC Urine 0-2 /HPF (0); Squamous Epithelial Cell Urine TRACE /LPF
[2021-04-03 03:21] VITALS: BP 125/60; PULSE 60; RESP 18; TEMP 36.6; O2SAT 98
[2021-04-03] MEDS: Lactated Ringers 1,000 ML 80 ML IVCONT (03:47)
[2021-04-03 07:00] LABS: MANUAL DIFF FLAG NO
[2021-04-03 07:13] LABS: Basophils Percent Auto 0.3 % (0-2); Eosinophils Absolute Auto 0.1 X10*3/uL (0.0-0.4); Eosinophils Percent Auto 0.9 % (0-4); Hematocrit 35.9 % (37-47); Hemoglobin 12.6 g/dl (12.0-16.0); Imm Gran Abs Auto 0.12 X10*3/uL (0.00-0.03); Lymphocytes Absolute Auto 2.2 X10*3/uL (1.2-4.9); Lymphocytes Percent Auto 19.4 % (20-40); Mean Corpuscular HGB Conc 35.1 g/dl (31.0-35.0); Mean Corpuscular Hemoglobin 29.6 pg (27.0-33.0); Mean Corpuscular Volume 84.3 fL (80-98); Mean Platelet Volume 9.4 fL (9.4-12.3); Monocytes Absolute Auto 0.7 X10*3/uL (0.1-1.2); Monocytes Percent Auto 5.7 % (2-11); Neutrophils Absolute Auto 8.3 X10*3/uL (2.0-8.3); Neutrophils Percent Auto 72.7 % (45-73); Platelet Count 220 X10*3/uL (160-400); Red Blood Count 4.26 X10*6/uL (4.20-5.50); Red Cell Distribution Width 13.9 % (11.0-16.0); White Blood Count 11.5 X10*3/uL (4.8-10.8)
[2021-04-03 07:21] LABS: Glucose, Whole Blood 170 mg/dL (60-115)
[2021-04-03 07:27] LABS: Anion Gap 12 (12-20); Blood Urea Nitrogen 27 mg/dL (9-16); Calcium 9.1 mg/dL (8.4-10.2); Carbon Dioxide 19 mmol/L (22-29); Chloride 112 mmol/L (96-108); Creatinine Clr Calc Pharmacy 47.3; Estimated Glomerular Filt Rate > 60; Glucose Random 178 mg/dL (60-115); Potassium 4.5 mmol/L (3.3-5.1); Sodium 138 mmol/L (135-145)
[2021-04-03 07:40] LABS: Thyroid Stimulating Hormone 0.55 uIU/mL (0.32-4.0)
[2021-04-03 07:40] LABS: Estimated Average Glucose 332 mg/dL; Hemoglobin A1c % 13.2 %
[2021-04-03 08:00] VITALS: BP 117/58; PULSE 64; RESP 16; TEMP 36.4; O2SAT 98
[2021-04-03] MEDS: Insulin Lispro 100 UNIT/ML 3 ML VIAL SUBCUT ×2 (08:00→11:28)
[2021-04-03] MEDS: Apixaban 2.5 MG TABLET PO (08:01)
[2021-04-03] MEDS: 0.9 % Sodium Chloride Flush 3 ML SYRINGE IVFLUSH (08:01)
[2021-04-03] MEDS: Metoprolol Tartrate 25 MG TABLET PO (08:05)
--- NOTE | 2021-04-03 10:57 | MHC.CM.PN ---
IMM 04/03/21 Female 75 DX Afib RVR DM She lives with her family. She states that she does not require an A.D.. She is independent with all functional mobility. DP home no services with family providing transportation. HCP not on file, copy requested. CM will follow to assess for a change in needs at discharge.
[2021-04-03 11:14] LABS: Glucose, Whole Blood 223 mg/dL (60-115)
--- NOTE | 2021-04-03 11:18 | PM.PNCARD ---
Subjective Subjective Date of Service: 04/03/21 Interval history: She feels OK. No cardiac complaints. Review of Systems Review of Systems Yes all other systems are reviewed and are negative Cardiovascular: Reports as per HPI, Reports no additional cardiovascular complaints, Denies acrocyanosis, Denies cool extremities, Denies painful fingertips, Denies chest pain, Denies chest pain at rest, Denies diaphoresis, Denies syncope, Denies irregular heart rhythm, Denies claudication, Denies leg edema, Denies lightheadedness, Denies palpitations and Denies dyspnea Respiratory: Denies dyspnea Denies syncope Endocrine: Denies palpitations Physical Exam Vital Signs: Last Vital Signs Temp 97.6 F 04/03/21 08:00 Pulse 64 04/03/21 08:00 Resp 16 04/03/21 08:00 BP 117/58 L 04/03/21 08:00 Pulse Ox 98 04/03/21 08:00 Body Mass Index 28.4 Const General: cooperative and no acute distress HENSD Other: Unremarkable Neck Neck: Yes normal visual inspection Chest Chest palpation & inspection: normal inspection of the chest Resp Auscultation: clear to auscultation bilaterally, no crackles and no wheezes Cardio Jugular venous distension: no JVD Palpation: normal PMI Heart sounds: S1 normal heart sound present, S2 normal heart sound present, no gallops, no murmurs and no rubs GI Palpation (GI): Soft to palpation Back/Spine/Pelvis Other: unremarkable Skin General skin exam: no rashes or lesions noted Neuro Cranial nerves: Yes Other cranial nerve findings present Extrem General: Yes no clubbing, cyanosis or edema Psych Mental Status: other Results Labs and Meds Result diagrams: 04/03/21 06:53 04/03/21 06:53 Lab results: Laboratory Results - last 24 hr 04/02/21 04/02/21 04/02/21 12:07 12:07 12:07 WBC 13.7 H RBC 5.28 Hgb 14.9 Hct 44.3 MCV 83.9 MCH 28.2 MCHC 33.6 RDW 13.9 Plt Count 346 MPV 9.8 Immature Gran % (Auto) 1.9 H Neut % (Auto) 76.5 H Lymph % (Auto) 14.5 L [place] % (Auto) 6.1 Eos % (Auto) 0.6 Baso % (Auto) 0.4 Lymph # (Auto) 2.0 [place] # (Auto) 0.8 Eos # (Auto) 0.1 Baso # (Auto) 0.1 Abs Immat Gran (auto) 0.26 H Absolute Neuts (auto) 10.5 H Absolute Nucleated RBC 0.000 Nucleated RBC % (auto) 0.0 PT 11.3 INR 1.0 APTT 30.3 Sodium 134 L Potassium 5.0 Chloride 100 Carbon Dioxide 22 Anion Gap 17 BUN 39 H Creatinine 1.70 H Estim Creat Clear Calc 24.4 Estimated GFR 29 POC Glucose Random Glucose 522 H* Estimat Average Glucose Hemoglobin A1c % Lactic Acid Calcium 11.3 H Magnesium 1.9 Total Bilirubin 0.9 Direct Bilirubin 0.3 AST 19 ALT 28 Alkaline Phosphatase 62 Troponin I High Sens B-Natriuretic Peptide Total Protein 7.2 Albumin 4.2 Lipase 82 H TSH 1.24 Urine Color Urine Appearance Urine pH Ur Specific [place] Urine Protein Urine Glucose (UA) Urine Ketones Urine Blood Urine Nitrite Ur Leukocyte Esterase Urine RBC Urine WBC Ur Squamous Epith Cells Urine Bacteria Urine Mucus Urine Yeast COVID-19 (RAEGAN) [employer] 04/02/21 04/02/21 04/02/21 12:07 12:07 12:07 WBC RBC Hgb Hct MCV MCH MCHC RDW Plt Count MPV Immature Gran % (Auto) Neut % (Auto) Lymph % (Auto) [place] % (Auto) Eos % (Auto) Baso % (Auto) Lymph # (Auto) [place] # (Auto) Eos # (Auto) Baso # (Auto) Abs Immat Gran (auto) Absolute Neuts (auto) Absolute Nucleated RBC Nucleated RBC % (auto) PT INR APTT Sodium Potassium Chloride Carbon Dioxide Anion Gap BUN Creatinine Estim Creat Clear Calc Estimated GFR POC Glucose Random Glucose Estimat Average Glucose Hemoglobin A1c % Lactic Acid 1.9 Calcium Magnesium Total Bilirubin Direct Bilirubin AST ALT Alkaline Phosphatase Troponin I High Sens 62.3 H* B-Natriuretic Peptide 255 H Total Protein Albumin Lipase TSH Urine Color Urine Appearance Urine pH Ur Specific [place] Urine Protein Urine Glucose (UA) Urine Ketones Urine Blood Urine Nitrite Ur Leukocyte Esterase Urine RBC Urine WBC Ur Squamous Epith Cells Urine Bacteria Urine Mucus Urine Yeast COVID-19 (RAEGAN) Negative [employer] See Note 04/02/21 04/02/21 04/02/21 12:07 14:43 16:09 WBC RBC Hgb Hct MCV MCH MCHC RDW Plt Count MPV Immature Gran % (Auto) Neut % (Auto) Lymph % (Auto) [place] % (Auto) Eos % (Auto) Baso % (Auto) Lymph # (Auto) [place] # (Auto) Eos # (Auto) Baso # (Auto) Abs Immat Gran (auto) Absolute Neuts (auto) Absolute Nucleated RBC Nucleated RBC % (auto) PT INR APTT Sodium Potassium Chloride Carbon Dioxide Anion Gap BUN Creatinine Estim Creat Clear Calc Estimated GFR POC Glucose 360 H* Random Glucose Estimat Average Glucose 332 Hemoglobin A1c % 13.2 Lactic Acid Calcium Magnesium Total Bilirubin Direct Bilirubin AST ALT Alkaline Phosphatase Troponin I High Sens 71.7 H* B-Natriuretic Peptide Total Protein Albumin Lipase TSH Urine Color Urine Appearance Urine pH Ur Specific [place] Urine Protein Urine Glucose (UA) Urine Ketones Urine Blood Urine Nitrite Ur Leukocyte Esterase Urine RBC Urine WBC Ur Squamous Epith Cells Urine Bacteria Urine Mucus Urine Yeast COVID-19 (RAEGAN) COVID-19 [employer] 04/02/21 04/02/21 04/03/21 17:39 20:17 01:42 WBC RBC Hgb Hct MCV MCH MCHC RDW Plt Count MPV Immature Gran % (Auto) Neut % (Auto) Lymph % (Auto) [place] % (Auto) Eos % (Auto) Baso % (Auto) Lymph # (Auto) [place] # (Auto) Eos # (Auto) Baso # (Auto) Abs Immat Gran (auto) Absolute Neuts (auto) Absolute Nucleated RBC Nucleated RBC % (auto) PT INR APTT Sodium Potassium Chloride Carbon Dioxide Anion Gap BUN Creatinine Estim Creat Clear Calc Estimated GFR POC Glucose 248 H 275 H Random Glucose Estimat Average Glucose Hemoglobin A1c % Lactic Acid Calcium Magnesium Total Bilirubin Direct Bilirubin AST ALT Alkaline Phosphatase Troponin I High Sens B-Natriuretic Peptide Total Protein Albumin Lipase TSH Urine Color YELLOW Urine Appearance CLEAR Urine pH 5.5 Ur Specific [place] 1.015 Urine Protein NEG Urine Glucose (UA) >=1000 H Urine Ketones NEG Urine Blood NEG Urine Nitrite NEG Ur Leukocyte Esterase TRACE H Urine RBC 0-2 Urine WBC 1-4 Ur Squamous Epith Cells TRACE Urine Bacteria NONE Urine Mucus TRACE Urine Yeast 1+ COVID-19 (RAEGAN) COVID-19 [employer] 04/03/21 04/03/21 04/03/21 06:53 06:53 07:05 WBC 11.5 H RBC 4.26 Hgb 12.6 Hct 35.9 L MCV 84.3 MCH 29.6 MCHC 35.1 H RDW 13.9 Plt Count 220 D MPV 9.4 Immature Gran % (Auto) 1.0 H Neut % (Auto) 72.7 Lymph % (Auto) 19.4 L [place] % (Auto) 5.7 Eos % (Auto) 0.9 Baso % (Auto) 0.3 Lymph # (Auto) 2.2 [place] # (Auto) 0.7 Eos # (Auto) 0.1 Baso # (Auto) 0.0 Abs Immat Gran (auto) 0.12 H Absolute Neuts (auto) 8.3 Absolute Nucleated RBC 0.000 Nucleated RBC % (auto) 0.0 PT INR APTT Sodium 138 Potassium 4.5 Chloride 112 H Carbon Dioxide 19 L Anion Gap 12 BUN 27 H Creatinine 0.87 Estim Creat Clear Calc 47.3 Estimated GFR > 60 POC Glucose 170 H Random Glucose 178 H D Estimat Average Glucose Hemoglobin A1c % Lactic Acid Calcium 9.1 D Magnesium Total Bilirubin Direct Bilirubin AST ALT Alkaline Phosphatase Troponin I High Sens B-Natriuretic Peptide Total Protein Albumin Lipase TSH 0.55 Urine Color Urine Appearance Urine pH Ur Specific [place] Urine Protein Urine Glucose (UA) Urine Ketones Urine Blood Urine Nitrite Ur Leukocyte Esterase Urine RBC Urine WBC Ur Squamous Epith Cells Urine Bacteria Urine Mucus Urine Yeast COVID-19 (RAEGAN) COVID-19 [employer] 04/03/21 11:04 WBC RBC Hgb Hct MCV MCH MCHC RDW Plt Count MPV Immature Gran % (Auto) Neut % (Auto) Lymph % (Auto) [place] % (Auto) Eos % (Auto) Baso % (Auto) Lymph # (Auto) [place] # (Auto) Eos # (Auto) Baso # (Auto) Abs Immat Gran (auto) Absolute Neuts (auto) Absolute Nucleated RBC Nucleated RBC % (auto) PT INR APTT Sodium Potassium Chloride Carbon Dioxide Anion Gap BUN Creatinine Estim Creat Clear Calc Estimated GFR POC Glucose 223 H Random Glucose Estimat Average Glucose Hemoglobin A1c % Lactic Acid Calcium Magnesium Total Bilirubin Direct Bilirubin AST ALT Alkaline Phosphatase Troponin I High Sens B-Natriuretic Peptide Total Protein Albumin Lipase TSH Urine Color Urine Appearance Urine pH Ur Specific [place] Urine Protein Urine Glucose (UA) Urine Ketones Urine Blood Urine Nitrite Ur Leukocyte Esterase Urine RBC Urine WBC Ur Squamous Epith Cells Urine Bacteria Urine Mucus Urine Yeast COVID-19 (RAEGAN) COVID-19 [employer] Imaging Radiologist's impression: Impressions Chest X-Ray 04/02/21 11:38 IMPRESSION: No acute pulmonary disease. Progress Note: A&P Assessment and plan (1) Atrial fibrillation with rapid ventricular response: Status: Acute (2) Asymmetric septal hypertrophy: Status: Acute (3) Cardiac pacemaker in situ: Status: Acute (4) CRUZ (acute kidney injury): Status: Acute (5) Acute hyperglycemia: Status: Acute Assessment and Plan: She is back in normal sinus rhythm. Kidney function is also improved. Elevated troponins are probably from the atrial fibrillation with rapid rate but she may need a stress test as outpatient due to accompanying chest pain during atrial fibrillation. Last stress test from 2017 did not show any ischemia. Otherwise, with regard to atrial fibrillation, she is back in normal sinus rhythm. Metoprolol has been added. Eliquis is also new. On telemetry, she is atrially paced at about 60/Min. From cardiac, could be discharged home. We will arrange follow-up in the office. Fall Risk Details Current Medications: Current Medications Generic Name Dose Route Start Last Admin Trade Name Freq PRN Reason Stop Dose Admin Apixaban 5 mg 04/03/21 21:00 Apixaban 5 Mg Tablet PO BID [facility] Dextrose 25 gm 04/02/21 15:48 Dextrose 50 % 25 Gm/50 Ml Vial IVPUSH Q15M PRN per Hypoglycemia Standing Ord. Protocol Glucose 15 gm 04/02/21 15:48 Glucose Gel 15 Gm Gel..Gram. PO Q15M PRN per Hypoglycemia Standing Ord. Protocol Insulin Human Lispro 0 unit 04/02/21 16:30 04/03/21 08:00 Insulin Lispro 100 Unit/Ml 3 Ml Vial SUBCUT 2 unit QIDACHS [facility] Administration Protocol Metoprolol Tartrate 25 mg 04/03/21 09:00 04/03/21 08:05 Metoprolol Tartrate 25 Mg Tablet PO 25 mg BID [facility] Administration Protocol Nystatin 1 appl 04/03/21 09:00 Nystatin Cream 15 Gm Tube TOPICAL BID [facility] Protocol Pharmacy Consult 1 each 04/02/21 11:38 Consult Rx Perform Med Rec MISCELLANE ONCE PRN Consult order Sodium Chloride 3 ml 04/02/21 16:00 04/03/21 08:01 0.9 % Sodium Chloride Flush 3 Ml Syringe IVFLUSH 3 ml QSHIFT IRISH Administration Time Spent With Patient Time: Total time spent is greater than 50% in coordination of care (as documented) at patient's floor/unit and/or counseling patient: Time with patient: less than 15 minutes Progress Note: Quality Stroke Does the patient have a stroke diagnosis?: No Procedures Date of Service Date of Service: 04/03/21
[2021-04-03] MEDS: Nystatin Cream 15 GM TUBE 1 APPL TOPICAL (11:28)
--- NOTE | 2021-04-03 12:10 | P.DS_ITS ---
DS: Providers Provider Date of Service: 04/03/21 Date of admission: 04/02/21 14:02 Date of discharge: 04/03/21 Primary care physician: Michael Joiner MD Consults: 04/02/21 12:52 Consult to Cardiology Stat Consulting Provider: Jhon Cho Reason for consultation: afib with RVR Has provider been notified: Yes 04/02/21 16:08 Consult to Cardiology Routine Consulting Provider: Jhon Cho Reason for consultation: afib Has provider been notified: No DS: Diagnosis Discharge Diagnosis (1) Atrial fibrillation with rapid ventricular response: Status: Acute (2) Asymmetric septal hypertrophy: Status: Acute (3) Cardiac pacemaker in situ: Status: Acute (4) CRUZ (acute kidney injury): Status: Acute (5) Acute hyperglycemia: Status: Acute DS: Summary Hospital Course Hospital Course: 75-year-old female who has history of AFib,? has pacemaker-question probably due to sick sinus syndrome, also diagnosed with diabetes recently:? She said she is having 3-4 weeks of symptom of chest pressure lightheadedness specially with the walking and feeling generalized weak, she went to [facility] last week and she was told that she has UTI and given antibiotic she does not remember the name.? Subsequently she went home but her symptoms was getting worse, so decided to come to the hospital. She says the chest pain is pressure/burning type, reproducible, nonradiating, continuously could not give will give me that time how much, says that her symptom of lightheadedness and palpitations and chest tightness worse with exertion, does not change with breathing Hospital course: patient admitted to the hospital because of Afib, diabetes uncontrolled, acute kidney injury: Subsequently patient was started on parenteral rate control medications, gentle hydration and insulin sliding scale: subsequently patient's heart rate seems to be improving, also acute kidney injury seems to be improved significantly. HTn: Her blood pressure medications adjusted because blood pressure seems to be on softer side and as well as to avoid any further Cruz acute kidney injury- DC hydrochlorothiazide, and decrease lisinopril to 20 mg daily. Diabetes gee will continue home diabetic medication regimen advised for diet control as well as continue to use her home medications.Hba1c: 9 recently diagnosed with diabetes, advised to her in detail that she needs to follow strict diabetic diet and she needs to continue her medications, diabetic education given in detail. Above management discussed with the patient in detail length she understand and in agreement with the above plan, time spent 50 minutes and 50% time spent on counseling. Significant findings: As above. Procedures performed: None. Treatment and response: As above. Complications: None. Time Spent with Patient Time attestation: Total time spent providing and/or coordinating discharge services: Discharge coordination time: Greater than 30 minutes Quality: Stroke Does the patient have a stroke diagnosis?: No Physical Exam Vital Signs: Vital Signs: Last Vital Signs Temp 97.6 F 04/03/21 08:00 Pulse 64 04/03/21 08:00 Resp 16 04/03/21 08:00 BP 117/58 L 04/03/21 08:00 Pulse Ox 98 04/03/21 08:00 Body Mass Index 28.4 Physical exam: Appearance: Alert.? Oriented X3.? not in distress.? Eyes: Pupils equal, round and reactive to light.? Sclera nonicteric.? ENT: Pharynx normal.? Moist mucous membranes. cvs: rrr, [id number] , no murmur res: clear to auscultation ,no rhonchii or wheezing abd: no rebound or guarding ,nt, bs present. ext pulses present , no cyanosis ,Gait well balanced well coordinated. neuro: axo3 , nonfocal. DS: Data Data Completed and Pending Labs on day of discharge: Laboratory Results - last 24 hr 04/02/21 04/02/21 04/02/21 12:07 12:07 12:07 WBC 13.7 H RBC 5.28 Hgb 14.9 Hct 44.3 MCV 83.9 MCH 28.2 MCHC 33.6 RDW 13.9 Plt Count 346 MPV 9.8 Immature Gran % (Auto) 1.9 H Neut % (Auto) 76.5 H Lymph % (Auto) 14.5 L [place] % (Auto) 6.1 Eos % (Auto) 0.6 Baso % (Auto) 0.4 Lymph # (Auto) 2.0 [place] # (Auto) 0.8 Eos # (Auto) 0.1 Baso # (Auto) 0.1 Abs Immat Gran (auto) 0.26 H Absolute Neuts (auto) 10.5 H Absolute Nucleated RBC 0.000 Nucleated RBC % (auto) 0.0 PT 11.3 INR 1.0 APTT 30.3 Sodium 134 L Potassium 5.0 Chloride 100 Carbon Dioxide 22 Anion Gap 17 BUN 39 H Creatinine 1.70 H Estim Creat Clear Calc 24.4 Estimated GFR 29 POC Glucose Random Glucose 522 H* Estimat Average Glucose Hemoglobin A1c % Lactic Acid Calcium 11.3 H Magnesium 1.9 Total Bilirubin 0.9 Direct Bilirubin 0.3 AST 19 ALT 28 Alkaline Phosphatase 62 Troponin I High Sens B-Natriuretic Peptide Total Protein 7.2 Albumin 4.2 Lipase 82 H TSH 1.24 Urine Color Urine Appearance Urine pH Ur Specific [place] Urine Protein Urine Glucose (UA) Urine Ketones Urine Blood Urine Nitrite Ur Leukocyte Esterase Urine RBC Urine WBC Ur Squamous Epith Cells Urine Bacteria Urine Mucus Urine Yeast COVID-19 (RAEGAN) [employer] 04/02/21 04/02/21 04/02/21 12:07 12:07 12:07 WBC RBC Hgb Hct MCV MCH MCHC RDW Plt Count MPV Immature Gran % (Auto) Neut % (Auto) Lymph % (Auto) [place] % (Auto) Eos % (Auto) Baso % (Auto) Lymph # (Auto) [place] # (Auto) Eos # (Auto) Baso # (Auto) Abs Immat Gran (auto) Absolute Neuts (auto) Absolute Nucleated RBC Nucleated RBC % (auto) PT INR APTT Sodium Potassium Chloride Carbon Dioxide Anion Gap BUN Creatinine Estim Creat Clear Calc Estimated GFR POC Glucose Random Glucose Estimat Average Glucose Hemoglobin A1c % Lactic Acid 1.9 Calcium Magnesium Total Bilirubin Direct Bilirubin AST ALT Alkaline Phosphatase Troponin I High Sens 62.3 H* B-Natriuretic Peptide 255 H Total Protein Albumin Lipase TSH Urine Color Urine Appearance Urine pH Ur Specific [place] Urine Protein Urine Glucose (UA) Urine Ketones Urine Blood Urine Nitrite Ur Leukocyte Esterase Urine RBC Urine WBC Ur Squamous Epith Cells Urine Bacteria Urine Mucus Urine Yeast COVID-19 (RAEGAN) Negative COVID-19 [employer] See Note 04/02/21 04/02/21 04/02/21 12:07 14:43 16:09 WBC RBC Hgb Hct MCV MCH MCHC RDW Plt Count MPV Immature Gran % (Auto) Neut % (Auto) Lymph % (Auto) [place] % (Auto) Eos % (Auto) Baso % (Auto) Lymph # (Auto) [place] # (Auto) Eos # (Auto) Baso # (Auto) Abs Immat Gran (auto) Absolute Neuts (auto) Absolute Nucleated RBC Nucleated RBC % (auto) PT INR APTT Sodium Potassium Chloride Carbon Dioxide Anion Gap BUN Creatinine Estim Creat Clear Calc Estimated GFR POC Glucose 360 H* Random Glucose Estimat Average Glucose 332 Hemoglobin A1c % 13.2 Lactic Acid Calcium Magnesium Total Bilirubin Direct Bilirubin AST ALT Alkaline Phosphatase Troponin I High Sens 71.7 H* B-Natriuretic Peptide Total Protein Albumin Lipase TSH Urine Color Urine Appearance Urine pH Ur Specific [place] Urine Protein Urine Glucose (UA) Urine Ketones Urine Blood Urine Nitrite Ur Leukocyte Esterase Urine RBC Urine WBC Ur Squamous Epith Cells Urine Bacteria Urine Mucus Urine Yeast COVID-19 (RAEGAN) COVID-19 [employer] 04/02/21 04/02/21 04/03/21 17:39 20:17 01:42 WBC RBC Hgb Hct MCV MCH MCHC RDW Plt Count MPV Immature Gran % (Auto) Neut % (Auto) Lymph % (Auto) [place] % (Auto) Eos % (Auto) Baso % (Auto) Lymph # (Auto) [place] # (Auto) Eos # (Auto) Baso # (Auto) Abs Immat Gran (auto) Absolute Neuts (auto) Absolute Nucleated RBC Nucleated RBC % (auto) PT INR APTT Sodium Potassium Chloride Carbon Dioxide Anion Gap BUN Creatinine Estim Creat Clear Calc Estimated GFR POC Glucose 248 H 275 H Random Glucose Estimat Average Glucose Hemoglobin A1c % Lactic Acid Calcium Magnesium Total Bilirubin Direct Bilirubin AST ALT Alkaline Phosphatase Troponin I High Sens B-Natriuretic Peptide Total Protein Albumin Lipase TSH Urine Color YELLOW Urine Appearance CLEAR Urine pH 5.5 Ur Specific [place] 1.015 Urine Protein NEG Urine Glucose (UA) >=1000 H Urine Ketones NEG Urine Blood NEG Urine Nitrite NEG Ur Leukocyte Esterase TRACE H Urine RBC 0-2 Urine WBC 1-4 Ur Squamous Epith Cells TRACE Urine Bacteria NONE Urine Mucus TRACE Urine Yeast 1+ COVID-19 (RAEGAN) COVID-19 [employer] 04/03/21 04/03/21 04/03/21 06:53 06:53 07:05 WBC 11.5 H RBC 4.26 Hgb 12.6 Hct 35.9 L MCV 84.3 MCH 29.6 MCHC 35.1 H RDW 13.9 Plt Count 220 D MPV 9.4 Immature Gran % (Auto) 1.0 H Neut % (Auto) 72.7 Lymph % (Auto) 19.4 L [place] % (Auto) 5.7 Eos % (Auto) 0.9 Baso % (Auto) 0.3 Lymph # (Auto) 2.2 [place] # (Auto) 0.7 Eos # (Auto) 0.1 Baso # (Auto) 0.0 Abs Immat Gran (auto) 0.12 H Absolute Neuts (auto) 8.3 Absolute Nucleated RBC 0.000 Nucleated RBC % (auto) 0.0 PT INR APTT Sodium 138 Potassium 4.5 Chloride 112 H Carbon Dioxide 19 L Anion Gap 12 BUN 27 H Creatinine 0.87 Estim Creat Clear Calc 47.3 Estimated GFR > 60 POC Glucose 170 H Random Glucose 178 H D Estimat Average Glucose Hemoglobin A1c % Lactic Acid Calcium 9.1 D Magnesium Total Bilirubin Direct Bilirubin AST ALT Alkaline Phosphatase Troponin I High Sens B-Natriuretic Peptide Total Protein Albumin Lipase TSH 0.55 Urine Color Urine Appearance Urine pH Ur Specific [place] Urine Protein Urine Glucose (UA) Urine Ketones Urine Blood Urine Nitrite Ur Leukocyte Esterase Urine RBC Urine WBC Ur Squamous Epith Cells Urine Bacteria Urine Mucus Urine Yeast COVID-19 (RAEGAN) [employer] 04/03/21 11:04 WBC RBC Hgb Hct MCV MCH MCHC RDW Plt Count MPV Immature Gran % (Auto) Neut % (Auto) Lymph % (Auto) [place] % (Auto) Eos % (Auto) Baso % (Auto) Lymph # (Auto) [place] # (Auto) Eos # (Auto) Baso # (Auto) Abs Immat Gran (auto) Absolute Neuts (auto) Absolute Nucleated RBC Nucleated RBC % (auto) PT INR APTT Sodium Potassium Chloride Carbon Dioxide Anion Gap BUN Creatinine Estim Creat Clear Calc Estimated GFR POC Glucose 223 H Random Glucose Estimat Average Glucose Hemoglobin A1c % Lactic Acid Calcium Magnesium Total Bilirubin Direct Bilirubin AST ALT Alkaline Phosphatase Troponin I High Sens B-Natriuretic Peptide Total Protein Albumin Lipase TSH Urine Color Urine Appearance Urine pH Ur Specific [place] Urine Protein Urine Glucose (UA) Urine Ketones Urine Blood Urine Nitrite Ur Leukocyte Esterase Urine RBC Urine WBC Ur Squamous Epith Cells Urine Bacteria Urine Mucus Urine Yeast COVID-19 (RAEGAN) [employer] Discharge Plan Discharge Patient Disposition: Home, Self-Care Discharge Diagnosis: afib, dm, cruz Referrals: Michael Joiner MD [Primary Care Provider] - 1 Week Discharge Medications: New metoprolol tartrate 25 mg Tablet 25 mg PO BID Qty: 60 RF: 0 Eliquis 5 mg Tablet 5 mg PO BID Qty: 60 RF: 0 Continued albuterol sulfate 90 mcg/actuation HFA aerosol inhaler 1 - 2 puff PO Q4H PRN (Reason: wheezing) RF: 0 cholecalciferol (vitamin D3) 50 mcg (2,000 unit) Tablet 50 mcg PO DAILY RF: 0 omeprazole 20 mg capsule,delayed release(DR/EC) 20 mg PO DAILY RF: 0 atorvastatin 80 mg tablet 80 mg PO DAILY RF: 0 alendronate 70 mg tablet 70 mg PO QWEEK RF: 0 glipizide 10 mg tablet extended release 24hr 10 mg PO DAILY RF: 0 cetirizine 5 mg tablet 5 mg PO DAILY RF: 0 metformin 750 mg tablet extended release 24 hr 750 mg PO DAILY RF: 0 Changed lisinopril 40 mg tablet 20 mg PO DAILY Qty: 0 RF: 0 Discontinued cefpodoxime 200 mg tablet 1 tab PO BID RF: 0 hydrochlorothiazide 25 mg tablet 25 mg PO DAILY RF: 0 Discharge Orders: Discharge Order (Routine); Ordered 04/03/21 Ordered By: Mariana Bah Diet: advance to usual diet, diabetic diet, low fat, low cholesterol and low salt diet Activity on Discharge: As tolerated Stand Alone Forms: Patient Portal Discharge page Other Ambulatory Orders: Basic Metabolic Panel Fasting (Routine) Timeframe: [id number] Facility: [facility] - Location: Laboratory Ordered By: Mariana Bah Care Plan Goals: patient admitted to the hospital because of irregular heartbeat, diabetes uncontrolled, acute kidney injury: Subsequently patient was started on parenteral rate control medications, gentle hydration and insulin sliding scale: subsequently patient's heart rate seems to be improving, also acute kidney injury seems to be improved significantly. Her blood pressure medications adjusted because blood pressure seems to be on softer side and as well as to avoid any further Cruz acute kidney injury- DC hydrochlorothiazide, and decrease lisinopril to 20 mg daily. Diabetes gee will continue home diabetic medication regimen advised for diet control as well as continue to use her home medications.Hba1c: 9 recently diagnosed with diabetes, advised to her in detail that she needs to follow strict diabetic diet and she needs to continue her medications, diabetic education given in detail. follow up bmp with pcp in 1 week, Also advised to and and encouraged adequate hydration. Health Concerns: as above . Plan of Treatment: as above. Assessment: as above.
--- NOTE | 2021-04-03 12:43 | MHC.CM.PN ---
IMM 04/03/21 Female DX Afib w RVR. Patient is discharged to home today. She has been given a coupon for her new blood thinner, Eliquis. No services have been ordered. Family is proving transportation home.
== END 2021-04-03 14:10 | disposition home or self-care (01) | DRG 309 ==
LOC: HO.ED 13:03 → HO.EDOVER 14:46 → HO.IMC 16:37
PROVIDERS: Admitting Provider Internal Medicine; Emergency Provider Emergency Medicine; PCP Internal Medicine; Visit Provider Internal Medicine
DX: I48.91 Unspecified atrial fibrillation (principal); N17.9 Acute kidney failure, unspecified; E11.65 Type 2 diabetes mellitus with hyperglycemia; I42.2 Other hypertrophic cardiomyopathy; I49.5 Sick sinus syndrome; Z20.822 Contact with and (suspected) exposure to COVID-19; Z95.0 Presence of cardiac pacemaker; Z79.01 Long term (current) use of anticoagulants; Z79.84 Long term (current) use of oral hypoglycemic drugs; Z79.899 Other long term (current) drug therapy
CPT/HCPCS: 36415; 71045; 80048; 80076; 81001; 82947; 83036; 83605; 83690; 83735; 83880; 84443; 84484; 85025; 85610; 85730; 87635; 93005; 96361; 96365; 96375; 99285; 99291; J1160

== ENCOUNTER 2021-04-06 09:25 | Outpatient (REF) | payer MEDICARE, SELFPAY ==
[2021-04-06 11:34] LABS: Anion Gap 12 (12-20); Blood Urea Nitrogen 25 mg/dL (9-16); Calcium 9.8 mg/dL (8.4-10.2); Carbon Dioxide 22 mmol/L (22-29); Chloride 110 mmol/L (96-108); Estimated Glomerular Filt Rate 59; Glucose Fasting 118 mg/dL (60-99); Potassium 4.4 mmol/L (3.3-5.1); Sodium 140 mmol/L (135-145)
== END 2021-04-06 09:26 | disposition home or self-care (01) ==
LOC: HO.LAB 09:25
PROVIDERS: PCP Internal Medicine; Visit Provider Internal Medicine
DX: N17.9 Acute kidney failure, unspecified (principal)
CPT/HCPCS: 36415; 80048

== ENCOUNTER → 2021-04-26 13:38 | Outpatient (BNVA) | payer MEDICARE, SELFPAY | PROVIDERS: Referring Provider Internal Medicine; Visit Provider Internal Medicine Cardiovascular Disease ==

== ENCOUNTER → 2021-05-24 13:27 | Outpatient (BNVA) | payer MEDICARE, SELFPAY | PROVIDERS: PCP Internal Medicine; Referring Provider Internal Medicine; Visit Provider Internal Medicine Cardiovascular Disease ==

== ENCOUNTER → 2021-06-09 13:53 | Outpatient (BNVA) | payer MEDICARE, SELFPAY | PROVIDERS: PCP Internal Medicine; Referring Provider Internal Medicine; Visit Provider Nurse Practitioner Family | DX: Z45.010 Encounter for checking and testing of cardiac pacemaker pulse generator [battery] (principal); I48.91 Unspecified atrial fibrillation; I42.2 Other hypertrophic cardiomyopathy | CPT/HCPCS: 99212 ==

== ENCOUNTER 2021-07-01 06:04 | Day surgery (SDC) | payer MEDICARE, SELFPAY ==
--- NOTE | 2021-06-30 12:19 | P.CONAN_ITS ---
Documented by User: Sheryl Josue NP 06/30/21 12:30 HPI - Anesthesia Eval Consult details Narrative: 75yo F for Pacemaker Generator Change Pacer for SSS Xarelto for afib PMFSH Active Problems Active Problems: All Active Problems (Updated 06/10/21 @ 12:18 by Teresa Alves NP-C) Pacemaker at end of battery life (Acute) CRUZ (acute kidney injury) (Acute) Atrial fibrillation with rapid ventricular response (Acute) Acute hyperglycemia (Acute) HTN (hypertension) (Acute) Asymmetric septal hypertrophy (Acute) Cardiac pacemaker in situ (Acute) Past Medical History Medical History CRUZ (acute kidney injury) Asymmetric septal hypertrophy Atrial fibrillation with rapid ventricular response Cardiac pacemaker in situ Diabetes HTN (hypertension) Sick sinus syndrome Family History Family History Father CHF (congestive heart failure) Mother Diabetes Surgical History Surgical History History of permanent cardiac pacemaker placement Hx of cataract Social History Social History Household Members: Family Housing: House Do you presently have visiting nurse or other home services: No Alcohol intake: never Patient Tobacco Use Status: Never used Tobacco Use of substances other than those prescribed or required for medical reasons: No Are you DNR?: No Advance Directives: No Advance Directives Information Provided: Yes Recently lost weight without trying: No How much weight loss: 2-13 pounds Nutrition Risks: No Nutritional Risk Patient : No service: No Current occupational status: retired [employer] Allergies Allergy/AdvReac Type Severity Reaction Status Date / Time codeine [CODEINE] Allergy Unknown HIVES Verified 04/02/21 17:41 Home Medications Medication Instructions Recorded Confirmed Last Taken Type alendronate 70 mg tablet 70 mg PO QWEEK 08/14/20 06/10/21 04/01/21 History atorvastatin 80 mg tablet 80 mg PO DAILY 08/14/20 06/10/21 04/01/21 History cetirizine 5 mg tablet 5 mg PO DAILY 08/14/20 06/10/21 04/01/21 History glipizide 10 mg tablet, extended 10 mg PO DAILY 08/14/20 06/10/21 04/01/21 History release 24 hr omeprazole 20 mg capsule,delayed 20 mg PO DAILY 08/14/20 06/10/21 04/01/21 History release metformin 750 mg tablet,extended 750 mg PO DAILY 02/17/21 06/10/21 04/01/21 History release 24 hr albuterol sulfate 90 mcg/actuation 1 - 2 puff PO Q4H PRN 04/02/21 06/10/21 07/01/21 History aerosol inhaler cholecalciferol (vitamin D3) 50 50 mcg PO DAILY 04/02/21 06/10/21 04/01/21 History mcg (2,000 unit) tablet dulaglutide 1.5 mg/0.5 mL 1.5 mg SUBCUT QWEEK 06/09/21 06/10/21 Unknown History subcutaneous pen injector (Trulicity) Exam Exam Date and Time: June 30, 2021 1219 Narrative Narrative: EKG 03/2021 Vent. Rate : 060 BPM ? ? Atrial Rate : 060 BPM ?? P-R Int : 150 ms? QRS Dur : 106 ms ? ? QT Int : 384 ms ? ? ? P-R-T Axes : 011 -38 077 degrees ?? QTc Int : 384 ms ? Atrial-paced rhythm Left axis deviation Left ventricular hypertrophy with repolarization abnormality Lateral infarct , age undetermined Abnormal ECG When compared with ECG of 02-APR-2021 11:32, Atrial-paced rhythm has replaced Atrial fibrillation with rapid ventricular response Heart rate has decreased ST no longer depressed in Lateral leads ECHO 01/2021 Conclusions: - The left ventricular systolic function is normal.? The ? calculated ejection fraction is 59% by biplane method. ? - Septal thickness is difficult to assess.? In parasternal long, it appears severe, but in other views there is only mild ? hypertrophy. ? - No obvious valvular pathology seen on this study.? - Consider cardiac MRI if clinically indicated.? ?? Assessment and Plan Assessment Anesthesia Assessment: Chart Reviewed Documented by User: Sarina Vick MD 07/01/21 08:02 [facility] Past Medical History Medical History CRUZ (acute kidney injury) Asymmetric septal hypertrophy Atrial fibrillation with rapid ventricular response Cardiac pacemaker in situ Diabetes HTN (hypertension) Sick sinus syndrome Family History Family History Father CHF (congestive heart failure) Mother Diabetes Surgical History Surgical History History of permanent cardiac pacemaker placement Hx of cataract History of Problems with Anesthesia: No Social History Social History Household Members: Family Housing: House Do you presently have visiting nurse or other home services: No Alcohol intake: never Patient Tobacco Use Status: Never used Tobacco Use of substances other than those prescribed or required for medical reasons: No Are you DNR?: No Advance Directives: No Advance Directives Information Provided: Yes Recently lost weight without trying: No How much weight loss: 2-13 pounds Nutrition Risks: No Nutritional Risk Patient : No service: No Current occupational status: retired Meds Allergies Allergy/AdvReac Type Severity Reaction Status Date / Time codeine [CODEINE] Allergy Unknown HIVES Verified 04/02/21 17:41 Home Medications Medication Instructions Recorded Confirmed Last Taken Type alendronate 70 mg tablet 70 mg PO QWEEK 08/14/20 06/10/21 04/01/21 History atorvastatin 80 mg tablet 80 mg PO DAILY 08/14/20 06/10/21 04/01/21 History cetirizine 5 mg tablet 5 mg PO DAILY 08/14/20 06/10/21 04/01/21 History glipizide 10 mg tablet, extended 10 mg PO DAILY 08/14/20 06/10/21 04/01/21 History release 24 hr omeprazole 20 mg capsule,delayed 20 mg PO DAILY 08/14/20 06/10/21 04/01/21 History release metformin 750 mg tablet,extended 750 mg PO DAILY 02/17/21 06/10/21 04/01/21 History release 24 hr albuterol sulfate 90 mcg/actuation 1 - 2 puff PO Q4H PRN 04/02/21 06/10/21 07/01/21 History aerosol inhaler cholecalciferol (vitamin D3) 50 50 mcg PO DAILY 04/02/21 06/10/21 04/01/21 History mcg (2,000 unit) tablet dulaglutide 1.5 mg/0.5 mL 1.5 mg SUBCUT QWEEK 06/09/21 06/10/21 Unknown History subcutaneous pen injector (Trulicity) Exam Airway Mallampati Class: II TM Dist: >3cm Neck ROM: Full Heart: RRR Lungs: CTA Assessment and Plan Assessment Anesthesia Assessment: Anesthesia Plan Discussed Final Anesthetic Review History of Problems with Anesthesia: No NPO: Yes ASA Class: III Final Preanesthetic Review: Meds/Allgs Chart Reviewed, Consent Obtained/Reviewed and Anes Risks/Benef Reviewed Patient Risk: Intermediate Procedure Risk: Low Anesthetic Plan Anesthetic Plan: MAC: Disposition: Standard PACU
[2021-07-01 06:24] VITALS: BMI 28.0
[2021-07-01 06:34] VITALS: BP 169/67; PULSE 62; RESP 16; TEMP 36.9; O2SAT 96
[2021-07-01] MEDS: Lactated Ringers 1,000 ML 50 ML IVCONT (06:48)
[2021-07-01 06:51] LABS: Glucose, Whole Blood 193 mg/dL (60-115)
--- NOTE | 2021-07-01 07:19 | MHC.SHP ---
Pre-Procedural Eval Section A Date of Service: 07/01/21 The patient is an INPATIENT: No The History & Physical has been completed within 30 days and I have reviewed it.: Yes Section B Chief Complaint: end of life battery Allergies: Allergies Allergy/AdvReac Type Severity Reaction Status Date / Time codeine [CODEINE] Allergy Unknown HIVES Verified 04/02/21 17:41 Plan I have reviewed the history and physical and performed a pertinent physical examination on my patient. No changes have occurred unless specified. Cardiology note reviewed and no changes. Plan is for a pacemaker generator change.
--- NOTE | 2021-07-01 08:27 | P.OP_ITS ---
Operative Note Operative Note Date of Service: 07/01/21 Narrative: Preoperative diagnosis: Pacemaker end of life Postoperative diagnosis: Same Operation: Dual-chamber pacemaker generator change Surgeon: Derrick Gillette MD Anesthesia: Local with sedation Specimens: None EBL: Minimal Operative findings: The generator were removed was a [employer] with serial number [id number]. Pacemaker lead parameters were in the atrial lead threshold of 0.625 volts at 0.5 milliseconds, 400 Ohms impedance, 2.5 mV for P wave. In the ventricular lead threshold 0.75 volts at 0.5 milliseconds, 530 Ohms impedance, R-wave 6.6 mV. Patient tolerated the procedure well. Operation in detail: The patient was brought the operating room, placed supine on the operative table, anesthesia monitoring devices were placed, and the patient was gently sedated. The left infraclavicular area was then prepped and draped in a standard sterile fashion and a time-out was performed confirming the correct patient, site, and procedure. After injection of local anesthetic, a 3 cm incision was made directly over the old pacemaker generator which was palpable. This was carried down with combination of sharp dissection and minimal electrocautery to open up the capsule at the generator was within. The generator was were then removed from its pocket and the leads were taken out of the receptacles and placed directly into the new generator. These leads were then tested and were working appropriately. The pocket was then copiously irrigated with antibiotic solution and the excess wire and generator were then placed back into the pocket. The wound was then closed with a deep running 3-0 Vicryl suture followed by running 3-0 Vicryl suture and Dermabond glue on the skin. Patient tolerated the procedure well. Patient was then awoken from anesthesia and brought to the recovery room in stable condition.
[2021-07-01 08:35] VITALS: BP 133/50; PULSE 60; RESP 16; TEMP 37.2; O2SAT 96
[2021-07-01 08:50] VITALS: BP 156/62; PULSE 62; RESP 16; O2SAT 98
[2021-07-01 09:05] VITALS: BP 158/73; PULSE 61; RESP 16; TEMP 36.8; O2SAT 97
== END 2021-07-01 09:42 | disposition home or self-care (01) ==
PROVIDERS: PCP Internal Medicine; Visit Provider Surgery
PROC: (CPT 33228; principal; 2021-07-01 07:30)
DX: Z45.010 Encounter for checking and testing of cardiac pacemaker pulse generator [battery] (principal); I49.5 Sick sinus syndrome; I48.0 Paroxysmal atrial fibrillation; I42.2 Other hypertrophic cardiomyopathy; Z79.01 Long term (current) use of anticoagulants; I10 Essential (primary) hypertension; E11.9 Type 2 diabetes mellitus without complications; Z79.84 Long term (current) use of oral hypoglycemic drugs; Z79.899 Other long term (current) drug therapy; Z88.8 Allergy status to other drugs, medicaments and biological substances
CPT/HCPCS: 33228; 82947; C1785; J0690; J3010; J3370

== ENCOUNTER → 2021-07-09 10:20 | Outpatient (BNVA) | payer MEDICARE, SELFPAY | PROVIDERS: PCP Internal Medicine; Visit Provider Surgery | DX: I48.0 Paroxysmal atrial fibrillation (principal); I42.2 Other hypertrophic cardiomyopathy; Z95.0 Presence of cardiac pacemaker | CPT/HCPCS: 93005; 99212 ==

== ENCOUNTER → 2021-07-15 13:06 | Outpatient (BNVA) | payer MEDICARE, SELFPAY | PROVIDERS: PCP Internal Medicine; Referring Provider Internal Medicine; Visit Provider Internal Medicine Cardiovascular Disease ==

== ENCOUNTER → 2021-07-21 12:35 | Outpatient (BNVA) | payer MEDICARE, SELFPAY | PROVIDERS: PCP Internal Medicine; Referring Provider Internal Medicine; Visit Provider Internal Medicine Cardiovascular Disease ==

== ENCOUNTER → 2021-08-11 13:14 | Outpatient (BNVA) | payer MEDICARE, SELFPAY | PROVIDERS: PCP Internal Medicine; Referring Provider Internal Medicine; Visit Provider Nurse Practitioner Family | DX: I48.91 Unspecified atrial fibrillation (principal); I42.2 Other hypertrophic cardiomyopathy; Z95.0 Presence of cardiac pacemaker | CPT/HCPCS: 93005; 99212 ==

== ENCOUNTER 2021-08-13 11:30 | Outpatient (REF) | payer MEDICARE, SELFPAY ==
[2021-08-13 11:44] LABS: MANUAL DIFF FLAG NO
[2021-08-13 12:03] LABS: Basophils Absolute Auto 0.1 X10*3/uL (0.0-0.2); Basophils Percent Auto 0.9 % (0-2); Eosinophils Absolute Auto 0.1 X10*3/uL (0.0-0.4); Eosinophils Percent Auto 1.7 % (0-4); Hematocrit 43.6 % (37.0-47.0); Imm Gran Abs Auto 0.03 X10*3/uL (0.00-0.03); Imm Gran Pct Auto 0.4 % (0.0-0.4); Lymphocytes Absolute Auto 1.4 X10*3/uL (1.2-4.9); Lymphocytes Percent Auto 17.6 % (20-40); Mean Corpuscular HGB Conc 32.1 g/dl (31.0-35.0); Mean Corpuscular Hemoglobin 27.9 pg (27.0-33.0); Mean Corpuscular Volume 86.9 fL (80.0-98.0); Mean Platelet Volume 9.5 fL (9.4-12.3); Monocytes Absolute Auto 0.5 X10*3/uL (0.1-1.2); Monocytes Percent Auto 6.5 % (2-11); Neutrophils Absolute Auto 5.9 x10*3/uL (2.0-8.3); Neutrophils Percent Auto 72.9 % (45-73); Platelet Count 356 X10*3/uL (160-400); Red Blood Count 5.02 X10*6/uL (4.20-5.50); White Blood Count 8.1 X10*3/uL (4.8-10.8)
[2021-08-13 12:07] LABS: INTERNATIONAL NORM RATIO 1.6 (0.9-1.1)
[2021-08-13 12:43] LABS: Alanine Aminotransferase 15 U/L (0-31); Albumin Level 4.3 g/dL (3.5-5.0); Alkaline Phosphatase 64 U/L (39-117); Anion Gap 14 (12-20); Aspartate Amino Transferase 17 U/L (5-31); Bilirubin Total 0.3 mg/dL (0.0-1.0); Blood Urea Nitrogen 18 mg/dL (9-16); Calcium 10.4 mg/dL (8.4-10.2); Carbon Dioxide 26 mmol/L (22-29); Chloride 103 mmol/L (96-108); Estimated Glomerular Filt Rate 50; Glucose Random 161 mg/dL (60-115); Sodium 138 mmol/L (135-145); Total Protein 7.4 g/dL (6.5-8.0)
[2021-08-13 12:44] LABS: TSH reflex Free T4 1.21 uIU/mL (0.32-4.0)
== END 2021-08-13 11:31 | disposition home or self-care (01) ==
LOC: HO.LAB 11:30
PROVIDERS: PCP Internal Medicine; Visit Provider Nurse Practitioner Family
DX: I48.0 Paroxysmal atrial fibrillation (principal); Z95.0 Presence of cardiac pacemaker
CPT/HCPCS: 36415; 80053; 84443; 85025; 85610

== ENCOUNTER 2021-09-24 09:32 | Outpatient (REF) | payer MEDICARE, SELFPAY ==
[2021-09-24 10:30] LABS: Estimated Average Glucose 209 mg/dL; Hemoglobin A1c % 8.9 %
[2021-09-24 10:54] LABS: Cholesterol 210 mg/dL; HDL Cholesterol 68 mg/dL; LDL Cholesterol Calculated 121 mg/dl; Triglycerides 106 mg/dL
== END 2021-09-24 09:33 | disposition home or self-care (01) ==
LOC: HO.LAB 09:32
PROVIDERS: PCP Internal Medicine; Visit Provider Registered Nurse
DX: E11.65 Type 2 diabetes mellitus with hyperglycemia (principal); E78.5 Hyperlipidemia, unspecified
CPT/HCPCS: 36415; 80061; 83036

== ENCOUNTER → 2021-11-15 09:34 | Outpatient (BNVA) | payer MEDICARE, SELFPAY | PROVIDERS: PCP Internal Medicine; Referring Provider Internal Medicine; Visit Provider Internal Medicine Cardiovascular Disease | DX: I48.0 Paroxysmal atrial fibrillation (principal); I42.2 Other hypertrophic cardiomyopathy; Z79.01 Long term (current) use of anticoagulants; Z79.899 Other long term (current) drug therapy; Z45.018 Encounter for adjustment and management of other part of cardiac pacemaker | CPT/HCPCS: 93005; 99212 ==

== ENCOUNTER 2022-01-18 09:31 | Outpatient (REF) | payer MEDICARE, SELFPAY ==
[2022-01-18 09:49] LABS: MANUAL DIFF FLAG NO
[2022-01-18 10:33] LABS: Basophils Absolute Auto 0.1 X10*3/uL (0.0-0.2); Eosinophils Absolute Auto 0.2 X10*3/uL (0.0-0.4); Eosinophils Percent Auto 2.1 % (0-4); Hematocrit 41.4 % (37.0-47.0); Hemoglobin 13.5 g/dl (12.0-16.0); Imm Gran Abs Auto 0.03 X10*3/uL (0.00-0.03); Imm Gran Pct Auto 0.4 % (0.0-0.4); Lymphocytes Absolute Auto 1.7 X10*3/uL (1.2-4.9); Lymphocytes Percent Auto 22.4 % (20-40); Mean Corpuscular HGB Conc 32.6 g/dl (31.0-35.0); Mean Corpuscular Hemoglobin 28.7 pg (27.0-33.0); Mean Corpuscular Volume 87.9 fL (80.0-98.0); Mean Platelet Volume 9.6 fL (9.4-12.3); Monocytes Absolute Auto 0.5 X10*3/uL (0.1-1.2); Neutrophils Absolute Auto 5.2 x10*3/uL (2.0-8.3); Neutrophils Percent Auto 68.1 % (45-73); Platelet Count 326 X10*3/uL (160-400); Red Blood Count 4.71 X10*6/uL (4.20-5.50); Red Cell Distribution Width 13.7 % (11.0-16.0); White Blood Count 7.6 X10*3/uL (4.8-10.8)
[2022-01-18 10:55] LABS: INTERNATIONAL NORM RATIO 1.1 (0.9-1.1); Prothrombin Time 12.8 SEC (9.9-13.0)
[2022-01-18 11:16] LABS: Anion Gap 11 (12-20); Blood Urea Nitrogen 21 mg/dL (9-16); Calcium 9.8 mg/dL (8.4-10.2); Carbon Dioxide 27 mmol/L (22-29); Chloride 107 mmol/L (96-108); Estimated Glomerular Filt Rate 55; Glucose Random 133 mg/dL (60-115); Potassium 4.8 mmol/L (3.3-5.1); Sodium 140 mmol/L (135-145)
== END 2022-01-18 09:32 | disposition home or self-care (01) ==
LOC: HO.LAB 09:31
PROVIDERS: Nurse Practitioner Family; PCP Internal Medicine; Visit Provider Internal Medicine Cardiovascular Disease
DX: I49.5 Sick sinus syndrome (principal); Z95.0 Presence of cardiac pacemaker
CPT/HCPCS: 36415; 80048; 85025; 85610

== ENCOUNTER → 2022-01-31 10:07 | Outpatient (REF) | payer MEDICARE, SELFPAY ==
--- NOTE | 2022-01-31 10:10 | CA_ITS ---
Transthoracic Echocardiogram Patient (Last, First, Middle): Kaycee Florence M Gender: Female Date of : 1945 Age: 76 Procedure Date: 01/31/2022 Procedure Type: Transthoracic Echocardiogram Location: OP Height: 152.4 cm Weight: 58.97 kg BSA: 1.55 m2 Heart Rate: 60 bpm BP: 140 / 70 mmHg Objective C Developer: [email or web address] Referring MD: Gabe Tang MD [employer] Salesperson: Gabe Tang MD Symptoms: I42.2 - Other hypertrophic cardiomyopathy Study Quality: Fair ECG Rhythm: Sinus Conclusions: - 1. Normal LV systolic function with moderate asymmetric septal hypertrophy with grade 1 diastolic dysfunction, with reduced global longitudinal strain which is suggestive of systolic dysfunction 2. Mildly dilated left atrium 3. Mild aortic regurgitation 4. Normal RV systolic pressure 5. No pericardial effusion Findings Left Ventricle Normal left ventricular size and systolic function. The visually estimated ejection fraction is between 55-60%. Spectral Doppler is indicative of an impaired relaxation filling pattern. E/E prime ratio is <8, consistent with normal filling pressures. Evidence suggests grade I (mild) diastolic dysfunction. There is moderate septal asymmetric hypertrophy. Peak GLS is 10.2% which is reduced. Right Ventricle Normal right ventricular cavity size and systolic function. Atria The left atrium is mildly dilated. There is no evidence of interatrial shunt. The right atrium is normal in size. Aortic Valve The aortic valve structure and function is likely normal. There is no aortic valve stenosis. There is mild aortic valve regurgitation. Mitral Valve Normal mitral valve structure and function. There is trace mitral valve regurgitation. There is no mitral valve stenosis. Pulmonic Valve The pulmonic valve was not well visualized. Tricuspid Valve Likely normal tricuspid valve structure and function. There is mild tricuspid valve regurgitation. The right ventricular systolic pressure is normal. The right ventricular systolic pressure is 22 mmHg. Normal right atrial pressure. There is no evidence of pulmonary hypertension. Great Vessels All visible segments of the aorta are normal in size. The pulmonary artery was not well visualized. Venous The inferior vena cava is normal in size and collapses greater than 50% with inspiration. Pericardium/Pleural There is no evidence of pericardial effusion. Prior Study Comparison No significant change compared to prior study dated: 01/29/2021. Measurements 2D Linear Measurements IVSd: 1.60 0.6-0.9/0.6-1.0 cm LVIDd: 4.81 3.9-5.3/4.2-5.9 cm LVIDd Index: 3.10 2.4-3.2/2.2-3.1 cm/m2 LVIDs: 3.47 2.0-3.6 cm LVPWd: 0.83 0.7-1.1 cm LA Diam: 4.00 2.7-3.8/3.0-4.0 cm LAIDs Index: 2.58 1.5-2.3 cm/m2 LV Mass: 279.60 67-162/88-224 g LV Mass Index: 180.39 43-95/49-115 g/m2 LVOT Diam: 1.80 3.0+(-)1.3 cm 2D Systolic Function EF 4C: 51.90 >55% EF 2C: 62.00 >55% EF BiP: 56.60 >55% Mitral Valve MV Pk E: 0.54 MV PK A: 0.63 MV Decel Time: 270.00 E/A: 0.90 E'Lateral: 7.35 E'Medial: 3.71 E/E' Med: 14.70 E/E' Lat: 7.40 PHT: 79.00 MVA PHT: 2.78 Decel Dolores: 2.01 Aortic Valve AoV Pk Cheng: 1.38 AoV Mn Cheng: 0.89 AoV VTI: 0.25 AoV Pk Grad: 8.00 Aov Mn Grad: 4.00 KIP Cont.VTI: 2.41 LVOT LVOT Pk Cheng: 1.09 LVOT Mn Cheng: 0.77 LVOT VTI: 0.24 LVOT Pk Grad: 5.00 LVOT Mn Grad: 3.00 LVOT Diam: 1.80 LVOT Area: 2.54 Diastolic Function MV Pk E: 0.54 MV Pk A: 0.63 E/A: 0.90 E'Medial: 3.71 E/E' Med: 14.70 E' Laterial: 7.35 E/E' Lat: 7.40 Right Ventricle TAPSE (mm): 18.20 TVS' Cheng: 9.58 Tricuspid Valve TR Pk Cheng: 2.16 TR Pk Grad: 19.00 RA Press: 3.00 RVSP: 22.00 Great Vessels Aorta Sinus of Valsalva: 3.30 2.0-3.[address] Ridge: 2.83 1.7-3.4 cm Ao Asc: 3.50 2.1-3.4 cm Pulmonary Valve PV Pk Cheng: 1.08 Peak PV Grad: 5.00 Updated in Other Vendor System with Status of Final Gabe Tang MD electronically signed on 01/31/2022 5:25:51 PM with status of Final
== END ==
LOC: HO.CARD 10:07
PROVIDERS: PCP Internal Medicine; Visit Provider Internal Medicine Cardiovascular Disease
DX: I42.2 Other hypertrophic cardiomyopathy (principal)
CPT/HCPCS: 93306; 93356

== ENCOUNTER → 2022-02-14 10:32 | Outpatient (BNVA) | payer MEDICARE, SELFPAY | PROVIDERS: PCP Internal Medicine; Referring Provider Internal Medicine; Visit Provider Internal Medicine Cardiovascular Disease | DX: Z45.018 Encounter for adjustment and management of other part of cardiac pacemaker (principal); I48.0 Paroxysmal atrial fibrillation; I42.2 Other hypertrophic cardiomyopathy | CPT/HCPCS: 93005; 93280; 99212 ==

== ENCOUNTER 2022-06-24 10:37 | Outpatient (REF) | payer MEDICARE, SELFPAY ==
--- NOTE | ~2022-06-24 | MM_ITS ---
EXAMINATION: MM SCREENING DIGITAL BREAST TOMOSYNTHESIS, BILATERAL CLINICAL INFORMATION: Screening. Asymptomatic. The lifetime risk of breast cancer based on the Tyrer-Cuzick Model is 2%. COMPARISON: Mammography: 06/10/2020, 06/05/2019, 04/11/2018 TECHNIQUE: Digital breast tomosynthesis is performed in both the craniocaudal and mediolateral oblique views along with computer-aided detection (CAD). Synthesized 2D images are generated from the tomosynthesis. FINDINGS: There are scattered areas of fibroglandular density (ACR BI-RADS breast composition Category b). Parenchymal pattern is similar to prior exams and there is no developing density or interval mass or architectural abnormality. Chronic bilateral nipple retraction is again noted. No skin thickening or coarsening of the Cal's ligaments. No abnormal calcifications. There is a pacemaker generator overlying and partially obscuring the left axilla on MLO view. No significant changes. MM/MM tomosynthesis screening BI IMPRESSION: No mammographic evidence of malignancy. ASSESSMENT: BI-RADS 2: Benign RECOMMENDATION: Routine annual mammography screening. This patient's information was entered into a reminder system with a target due date for their next mammogram.
== END 2022-06-24 10:38 | disposition home or self-care (01) ==
LOC: HO.MAMMO 10:37
PROVIDERS: PCP Internal Medicine; Visit Provider Internal Medicine
DX: Z12.31 Encounter for screening mammogram for malignant neoplasm of breast (principal)
CPT/HCPCS: 77063; 77067

== ENCOUNTER 2022-08-01 10:46 | Outpatient (REF) | payer MEDICARE, SELFPAY ==
[2022-08-01 13:10] LABS: Anion Gap 13 (12-20); Blood Urea Nitrogen 19 mg/dL (9-16); Calcium 10.2 mg/dL (8.4-10.2); Carbon Dioxide 26 mmol/L (22-29); Chloride 106 mmol/L (96-108); Estimated Glomerular Filt Rate > 60; Glucose Random 137 mg/dL (60-115); Potassium 4.8 mmol/L (3.3-5.1); Sodium 140 mmol/L (135-145)
== END 2022-08-01 10:47 | disposition home or self-care (01) ==
LOC: HO.LAB 10:46
PROVIDERS: PCP Internal Medicine; Referring Provider Internal Medicine; Visit Provider Internal Medicine Cardiovascular Disease
DX: I48.0 Paroxysmal atrial fibrillation (principal)
CPT/HCPCS: 36415; 80048; 93005; 93280; 99212

== ENCOUNTER 2022-08-03 11:26 | Emergency (ER) | payer MEDICARE, SELFPAY ==
--- NOTE | ~2022-08-03 | XR_ITS ---
EXAMINATION: XR LUMBOSACRAL SPINE CLINICAL INFORMATION: Low back pain. COMPARISON: None TECHNIQUE: 3 views of the lumbar spine FINDINGS: Grade 1 anterolisthesis of L5 on S1 by 8 mm. There is marked degenerative facet arthropathy at this level. Mild degenerative disc disease at L5-S1 characterized by loss of vertebral disc height. Endplate osteophytes are evident at a few other levels including L4-L5. Vertebral bodies are well-preserved. No acute fractures. More moderate facet arthropathy is evident at L4-L5. SI joints appear relatively well-preserved. Bones are osteopenic. Calcific atherosclerosis in the abdominal aorta and iliac arteries. XR/XR lumbar spine 2-3V IMPRESSION: 1. Marked degenerative facet arthropathy in the lower lumbar spine with grade 1 anterolisthesis of L5 on S1. 2. Mild multilevel degenerative disc disease. 3. No acute osseous findings.
[2022-08-03 11:42] VITALS: BP 177/69; PULSE 60; RESP 18; TEMP 36.4; O2SAT 98; BMI 24.6
--- NOTE | 2022-08-03 11:42 | ED.BACK ---
HPI - Back Pain/Injury General Chief Complaint: Back Pain/Injury <CODY Davies - Last Filed: 08/03/22 11:47> Stated Complaint: hard to walk <CODY Davies - Last Filed: 08/03/22 11:47> Time Seen by Provider: 08/03/22 14:10 <CODY Davies - Last Filed: 08/03/22 11:47> Source: patient and family <Carlie Robledo NP - Last Filed: 08/03/22 16:35> Mode of arrival: ambulatory <Carlie Robledo NP - Last Filed: 08/03/22 16:35> Limitations: no limitations <Carlie Robledo NP - Last Filed: 08/03/22 16:35> History of Present Illness HPI Narrative: 76-year-old female with past medical history paroxysmal a fib, HTN, asymmetric septal hypertrophy, sick sinus syndrome, status post intrinsic pacemaker, and osteoporosis presents to the emergency department today complaining of low back pain that radiates to her shoulder that began 07/29/2022. She states she he bent over to shredder picker her shoes been heard a 'crack' at the time and was unable to stand back up. She denies falling at the time. Since Monday she has been having ongoing pain, difficulty getting out of bed, and difficulty walking due to pain and weakness. She denies any recent trauma or falls. She reports numbness at her left medial and lateral thigh. She states she has a history of urinary incontinence, however; she denies any worsening of symptoms. She denies any perineal numbness. She denies any recent illness, fever, infections, or sick contacts. <Carlie Robledo NP - Last Filed: 08/03/22 16:35> MD elicited complaint: back pain and back injury <Carlie Robledo NP - Last Filed: 08/03/22 16:35> Pertinent past history: arthritis <Carlie Robledo NP - Last Filed: 08/03/22 16:35> Onset (ago): day(s) (5) <Carlie Robledo NP - Last Filed: 08/03/22 16:35> Timing: constant <Carlie Robledo NP - Last Filed: 08/03/22 16:35> Severity: severe <Carlie Robledo NP - Last Filed: 08/03/22 16:35> Pain scale (0-10): 8 <Carlie Robledo NP - Last Filed: 08/03/22 16:35> Similar Symptoms Previously: No <Carlie Robledo NP - Last Filed: 08/03/22 16:35> Quality: sharp and aching <Carlie Robledo NP - Last Filed: 08/03/22 16:35> Location: lumbar spine and left lower back <Carlie Robledo NP - Last Filed: 08/03/22 16:35> Radiation: other (Left shoulder) <Carlie Robledo NP - Last Filed: 08/03/22 16:35> Exacerbating factors: movement, walking, deep breaths, coughing/sneezing and lifting <Carlie Robledo NP - Last Filed: 08/03/22 16:35> Relieving factors: none <Carlie Robledo NP - Last Filed: 08/03/22 16:35> Context: bending <Carlie Robledo NP - Last Filed: 08/03/22 16:35> Associated symptoms: denies other symptoms <Carlie Robledo NP - Last Filed: 08/03/22 16:35> Work related injury: No <Carlie Robledo NP - Last Filed: 08/03/22 16:35> Related Data Home Medications: Home Medications Medication Instructions Recorded Confirmed alendronate 70 mg tablet 70 mg PO QWEEK 08/14/20 08/01/22 atorvastatin 80 mg tablet 80 mg PO DAILY 08/14/20 08/01/22 cetirizine 5 mg tablet 5 mg PO DAILY 08/14/20 08/01/22 glipizide 10 mg tablet, extended 10 mg PO DAILY 08/14/20 08/01/22 release 24 hr omeprazole 20 mg capsule,delayed 20 mg PO DAILY 08/14/20 08/01/22 release metformin 750 mg tablet,extended 750 mg PO DAILY 02/17/21 08/01/22 release 24 hr albuterol sulfate 90 mcg/actuation 1 - 2 puff PO Q4H PRN wheezing 04/02/21 08/01/22 aerosol inhaler cholecalciferol (vitamin D3) 50 50 mcg PO DAILY 04/02/21 08/01/22 mcg (2,000 unit) tablet dulaglutide 1.5 mg/0.5 mL 1.5 mg subcut QWEEK 06/09/21 08/01/22 subcutaneous pen injector (Trulicity) blood sugar diagnostic (FreeStyle #10 ea 08/11/21 08/01/22 Lite Strips) methenamine hippurate 1 gram tablet 1 g PO BID 08/11/21 08/01/22 dulaglutide 3 mg/0.5 mL 3 mg subcut QWEEK 02/14/22 08/01/22 subcutaneous pen injector (Trulicity) Previous Rx's Medication Instructions Recorded metoprolol tartrate 25 mg tablet 25 mg PO BID #60 tabs 04/03/21 rivaroxaban 20 mg tablet (Xarelto) 20 mg PO DAILY #30 tabs 05/17/21 amiodarone 200 mg tablet 100 mg PO DAILY 30 days #20 tabs 08/01/22 lisinopril 10 mg tablet 10 mg PO DAILY #30 tabs 08/01/22 <CODY Davies - Last Filed: 08/03/22 11:47> Allergies/Adverse Reactions: Allergies Allergy/AdvReac Type Severity Reaction Status Date / Time codeine [CODEINE] Allergy Unknown HIVES Verified 08/03/22 11:46 <CODY Davies - Last Filed: 08/03/22 11:47> Review of Systems Review of Systems: In addition to documented HPI above, the additional ROS was obtained: Constitutional: No Weight loss, No Fever, No Chills ENT/Mouth: No Ear Pain, No Nasal Congestion, No Sinus Pain, No Hoarseness, No sore throat, No Rhinorrhea, No Swallowing Difficulty Cardiovascular: No Chest Pain, No SOB Respiratory: No Cough, No Sputum, No Wheezing Gastrointestinal: No Nausea, No Vomiting, No Diarrhea, No Constipation, No Abdominal pain Genitourinary: No Dysuria, No Urinary Frequency, No Hematuria, No Urinary Incontinence/retention, No Urgency, No Flank Pain Musculoskeletal: No joint pain, No Joint Swelling Skin: No Skin Lesions, No rash Neuro: No loss of consciousness. Denies headache. No dizziness. <Carlie Robledo NP - Last Filed: 08/03/22 16:35> Yes all other systems are reviewed and are negative <Carlie Robledo NP - Last Filed: 08/03/22 16:35> [facility] Past Medical History Attestation statement: The following information was validated with the patient. 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 Diabetes HTN (hypertension) Osteoporosis (~2013) Pacemaker at end of battery life Paroxysmal atrial fibrillation Sick sinus syndrome <CODY Davies - Last Filed: 08/03/22 11:47> Surgical History: Surgical History History of permanent cardiac pacemaker placement (~2008) Hx of cataract <CODY Davies - Last Filed: 08/03/22 11:47> Family History Family History: Family History Father CHF (congestive heart failure) Mother Diabetes <CODY Davies - Last Filed: 08/03/22 11:47> Social History Social History: Social History Household Members: Family Housing: House Do you presently have visiting nurse or other home services: No Alcohol intake: current Patient Tobacco Use Status: Never used Tobacco Smoked in Last 30 Days: No Advance Directives: Yes Advance Directives Information Provided: No Advance Directives on File: No service: No Current occupational status: retired <CODY Davies - Last Filed: 08/03/22 11:47> Physical Exam Vital Signs: Vital Signs: Last Vital Signs Temp 97.5 F 08/03/22 11:42 Pulse 65 08/03/22 15:00 Resp 16 08/03/22 15:00 BP 165/92 H 08/03/22 15:00 Pulse Ox 100 08/03/22 15:00 O2 Del Method 08/03/22 15:00 BMI result Body Mass Index 24.6 <CODY Davies - Last Filed: 08/03/22 11:47> Vital Signs: Last Vital Signs Temp 97.5 F 08/03/22 11:42 Pulse 65 08/03/22 15:00 Resp 16 08/03/22 15:00 BP 165/92 H 08/03/22 15:00 Pulse Ox 100 08/03/22 15:00 O2 Del Method 08/03/22 15:00 BMI result Body Mass Index 24.6 <Carlie Robledo NP - Last Filed: 08/03/22 16:35> Nursing notes and vital signs reviewed. GENERAL APPEARANCE: A&0 x 4, generally well appearing, no acute distress HENMT: Normal to inspection, atraumatic, face symmetrical. Normal external ears, nose, and oropharynx clear. EYE: PERRLA, EOM intact, structures appear normal NECK: Supple without lymphadenopathy. No stiffness or restricted ROM. CHEST: Normal to inspection HEART: Normal rate and regular rhythm, normal S1/S2, no M/R/G LUNGS: LS CTA, moving air well. Able to speak in complete sentences. No crackles, wheezes, or rhonchi auscultated ABDOMEN: Soft, nontender, nondistended. Normal bowel sounds noted BACK: No CVAT, no obvious deformity EXTREMITIES: Moving all extremities equally with diminished strength, 3/5, which is baseline for pt per her report and pt's . No cyanosis, clubbing, or edema. Normal capillary refill. NEUROLOGICAL: Alert and oriented, moving all 4 extremities with equal strength. CN not formally tested but appearing grossly intact. Observed to ambulate with normal gait. Cognition normal SKIN: Warm and dry without any lesions, rash, or visible sores PSYCH: Cooperative, normal affect, normal thought process <Carlie Robledo NP - Last Filed: 08/03/22 16:35> Course Course Course Narrative: RME - 76 yo female presents to the ER c/o lower back pain, worse on the left since 1/6 after bending down to pick something up. She heard a crack at the time and was unable to get up. Did not fall. Has had ongoing pain since, difficulty getting out of bed and walking. Hx osteoporosis. XR lumbar spine pending. <CODY Davies - Last Filed: 08/03/22 11:47> RME - 76 yo female presents to the ER c/o lower back pain, worse on the left since 1/6 after bending down to pick something up. She heard a crack at the time and was unable to get up. Did not fall. Has had ongoing pain since, difficulty getting out of bed and walking. Hx osteoporosis. XR lumbar spine pending. <Carlie Robledo NP - Last Filed: 08/03/22 16:35> Medical Decision Making Medical Decision Making MDM Narrative: 76-year-old female with past medical history paroxysmal a fib, HTN, asymmetric septal hypertrophy, sick sinus syndrome, status post intrinsic pacemaker, and osteoporosis presents to the emergency department today complaining of low back pain that radiates to her shoulder that began 07/29/2022. She states she he bent over to shredder picker her shoes been heard a 'crack' at the time and was unable to stand back up. She denies falling at the time. Since Monday she has been having ongoing pain, difficulty getting out of bed, and difficulty walking due to pain and weakness. Lumbar spine xray with marked degenerative facet arthropathy in the lower spine with grade 1 anterolisthesis of L5 on S1, mild multilevel degenerative disc disease, with no acute osseous findings. Physical exam with no step-offs or red flag symptoms.? Low back pain consistent with muscle strain.? Low suspicion of cauda equina, epidural abscess, lumbar stenosis. Pt is safe for discharge with plan for symptom management?with [id number] Tylenol and NSAIDs. Discussed pain management with narcotic pain medication and declined by patient. Educated to rest and use heat or ice packs for pain. HPI, physical exam, plan discussed with patient and family with no answer questions at this time.? Educated to return to the emergency department with new numbness, tingling, weakness, falls, fever, chills, or any other concerning symptoms.? Recommended follow-up with her primary care provider for further treatment and management. <Carlie Robledo NP - Last Filed: 08/03/22 16:35> Radiology Impression Radiologist Impression: EXAMINATION: XR LUMBOSACRAL SPINE CLINICAL INFORMATION: Low back pain. COMPARISON: None TECHNIQUE: 3 views of the lumbar spine FINDINGS: Grade 1 anterolisthesis of L5 on S1 by 8 mm. There is marked degenerative facet arthropathy at this level. Mild degenerative disc disease at L5-S1 characterized by loss of vertebral disc height. Endplate osteophytes are evident at a few other levels including L4-L5. Vertebral bodies are well-preserved.? No acute fractures. More moderate facet arthropathy is evident at L4-L5. SI joints appear relatively well-preserved. Bones are osteopenic. Calcific atherosclerosis in the abdominal aorta and iliac arteries. XR/XR lumbar spine 2-3V IMPRESSION: 1.? Marked degenerative facet arthropathy in the lower lumbar spine with grade 1 anterolisthesis of L5 on S1. 2.? Mild multilevel degenerative disc disease. 3.? No acute osseous findings. ? Dictated By: n Signed By: <Electronically signed by n in OV> 08/03/22 1403 DD/ 1240 TD/TT:? Lotus Notes Administrator: ANISH <Carlie Robledo NP - Last Filed: 08/03/22 16:35> Discharge Plan Discharge Clinical Impression: Acute lumbar back pain <CODY Davies - Last Filed: 08/03/22 11:47> Patient Disposition: Home, Self-Care <CODY Davies - Last Filed: 08/03/22 11:47> Instructions: Muscle Strain (ED), Fall Prevention for Older Adults (ED), Acute Low Back Pain (ED) <CODY Davies - Last Filed: 08/03/22 11:47> Additional Instructions: Your lumbar spine x-ray is negative for fracture. Your x-ray shows degenerative disc disease on on multiple levels of the spine and osteopenic bone. You may manage her discomfort at home with over the counter Tylenol and NSAID pain medication such as ibuprofen or Aleve. Please be cautious walking to prevent falls. Please follow-up with your primary care provider for further treatment and management <CODY Davies - Last Filed: 08/03/22 11:47> Prescriptions: No Action Xarelto 20 mg tablet 20 mg PO DAILY Qty: 30 5RF Rx Instructions: must administer with evening meal albuterol sulfate 90 mcg/actuation HFA aerosol inhaler 1 - 2 puff PO Q4H PRN (Reason: wheezing) cholecalciferol (vitamin D3) 50 mcg (2,000 unit) Tablet 50 mcg PO DAILY metoprolol tartrate 25 mg Tablet 25 mg PO BID Qty: 60 0RF Protocol: Hold for SBP/HR < HOLD for SBP < : 90 HOLD for HR < : 60 omeprazole 20 mg capsule,delayed release(DR/EC) 20 mg PO DAILY atorvastatin 80 mg tablet 80 mg PO DAILY alendronate 70 mg tablet 70 mg PO QWEEK glipizide 10 mg tablet extended release 24hr 10 mg PO DAILY cetirizine 5 mg tablet 5 mg PO DAILY metformin 750 mg tablet extended release 24 hr 750 mg PO DAILY Trulicity 1.5 mg/0.5 mL pen injector 1.5 mg subcut QWEEK Trulicity 3 mg/0.5 mL pen injector 3 mg subcut QWEEK amiodarone 200 mg tablet 100 mg PO DAILY 30 Days Qty: 20 5RF lisinopril 10 mg tablet 10 mg PO DAILY Qty: 30 5RF (DME) FreeStyle Lite Strips Strip See Rx Instructions Not Applicable DAILY Qty: 10 Rx Instructions: As directed methenamine hippurate 1 gram tablet 1 g PO BID <CODY Davies - Last Filed: 08/03/22 11:47> Referrals: Michael Joiner MD [Primary Care Provider] - <CODY Davies - Last Filed: 08/03/22 11:47> Stand Alone Forms: Work/School Release <CODY Davies - Last Filed: 08/03/22 11:47> Interventions: ED Discharge Assessment Last Done: 08/03/22 16:13 <CODY Davies - Last Filed: 08/03/22 11:47> Discharge Date/Time: 08/03/22 16:13 <CODY Davies - Last Filed: 08/03/22 11:47> Print Language: Czech <CODY Davies - Last Filed: 08/03/22 11:47>
[2022-08-03 15:00] VITALS: BP 165/92; PULSE 65; RESP 16; O2SAT 100
--- NOTE | 2022-08-03 16:12 | PC.NURSE ---
Patient discharged by provider .
== END 2022-08-03 16:13 | disposition home or self-care (01) ==
PROVIDERS: Emergency Provider Student in an Organized Health Care Education/Training Program; PCP Internal Medicine
DX: M54.50 Low back pain, unspecified (principal)
CPT/HCPCS: 72100; 99283; 99284

== ENCOUNTER → 2022-08-15 09:44 | Outpatient (BNVA) | payer MEDICARE, SELFPAY | PROVIDERS: PCP Internal Medicine; Referring Provider Internal Medicine; Visit Provider Internal Medicine Cardiovascular Disease | DX: Z13.89 Encounter for screening for other disorder (principal) ==

== ENCOUNTER 2023-02-08 10:52 | Outpatient (AMB) | payer MEDICARE, SELFPAY ==
[2023-02-08 10:58] VITALS: BP 120/80; PULSE 60; BMI 28.0
--- NOTE | 2023-02-08 10:58 | A.OFFVIS_ITS ---
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 Allergies codeine [CODEINE] Allergy (Unknown, Verified 08/15/22 10:13) HIVES Medication List - Last Reconciled 02/08/23 by Gabe Tang MD albuterol sulfate 90 mcg/actuation 1 - 2 puffs PO Q4H PRN alendronate 70 mg PO QWEEK amiodarone 100 mg (1/2 x 200 mg) PO DAILY 90 days blood sugar diagnostic (FreeStyle Lite Strips) As directed cetirizine 5 mg PO DAILY cholecalciferol (vitamin D3) 50 mcg PO DAILY glipizide ER 10 mg PO DAILY lisinopril 10 mg PO DAILY metformin ER 750 mg PO DAILY methenamine hippurate 1 g PO BID metoprolol tartrate 25 mg See Protocol PO BID omeprazole 20 mg PO DAILY pioglitazone 15 mg PO DAILY rivaroxaban (Xarelto) 20 mg PO DAILY rosuvastatin 40 mg PO DAILY HPI HPI Comments History of Present Illness Details Kaycee comes for follow-up. Patient denies any symptoms of palpitations. Denies any irregular heartbeat or prolonged fast heart rate. Denies any bleeding issues or neurologic events. Takes all her medications. Denies any exertional chest pain. No lightheadedness, syncope. Denies any heart failure symptoms. [facility] Medical History CRUZ (acute kidney injury) Asymmetric septal hypertrophy Atrial fibrillation with rapid ventricular response Cardiac pacemaker in situ (~2008) Current use of intermediate anticoagulation Diabetes HTN (hypertension) Osteoporosis (~2013) Pacemaker at end of battery life Paroxysmal atrial fibrillation Sick sinus syndrome Surgical History History of permanent cardiac pacemaker placement (~2008) Hx of cataract Family History Father CHF (congestive heart failure) Mother Diabetes Social History Household Members: Family Housing: House Do you presently have visiting nurse or other home services: No Alcohol intake: current Patient Tobacco Use Status: Never used Tobacco service: No Current occupational status: retired Review of Systems Const Denies chills, Denies fatigue, Denies fever(s), Denies frequent falls, Denies weakness, Denies weight gain and Denies weight loss ENT Denies dizziness Card Denies chest pain, Denies leg edema, Denies lightheadedness, Denies palpitations, Denies dyspnea, Denies dyspnea on exertion, Denies orthopnea and Denies other (loss of consciousness) Resp Denies cough, Denies dyspnea and Denies dyspnea on exertion GI Denies hematochezia and Denies change in stool character Musc Denies abnormal gait, Denies muscle weakness, Denies numbness, Denies radiating pain into limb and Denies tingling Neuro Denies abnormal gait, Denies dizziness, Denies frequent falls, Denies numbness, Denies tingling and Denies weakness Endo Denies fatigue and Denies palpitations Physical Exam Vital Signs: Last Vital Signs Pulse 60 02/08/23 10:58 BP 120/80 02/08/23 10:58 BMI result Body Mass Index 28.0 Const General: cooperative, comfortable and no acute distress Orientation/consciousness: patient oriented x3 Neck Neck: Yes normal visual inspection and Yes no JVD Resp Effort & Inspection: normal respiratory effort Auscultation: clear to auscultation bilaterally, no crackles, no rales, no rhonchi and no wheezes Cardio Rate: regular rate Rhythm: regular rhythm Heart sounds: S1 normal heart sound present, S2 normal heart sound present, no gallops, no murmurs and no rubs GI Inspection: Yes normal to inspection Neuro General: patient oriented x3 Extrem General: Yes normal to inspection and No no pedal edema Office Procedures Cardiac Device Check Cardiac Device Check Details: Dual-chamber [employer] pacemaker in place. Programmed in DDDR at 60 beats per minute. Atrial pacing 99% time. Minimal ventricular pacing noted. Minimal burden of atrial fibrillation noted. Atrial pacing thresholds are adequate and in our capture mode. RV pacing thresholds excellent and reprogrammed to enhance battery life. Atrial ventricular sensing is excellent. Pacing lead impedance is stable. Battery life is about 10 years 78062-[id number] Cardiac Device Check, pacemaker dual lead Procedure code (CPT) selection complete EKG Details: EKG shows atrially paced rhythm with left ventricular hypertrophy with left axis deviation with normal QT interval [id number], Complete Assessment & Plan Assessment & Plan (1) Paroxysmal atrial fibrillation: Code(s): I48.0 - Paroxysmal atrial fibrillation Plan: Paroxysmal atrial fibrillation highly symptomatic with prior lacunar stroke. Has remained with rhythm control after ablation and low-dose amiodarone therapy. Will switch to Multaq therapy to reduce long-term toxicity associated with amiodarone. Continue full oral anticoagulation, currently on Xarelto 20 mg daily. Semi annual renal function test should be pursued. Will follow for atrial fibrillation recurrence why a pacer telemetry every 3 months. Continue blood pressure control which is currently well optimized target goal blood pressure less than 130/84. Avoidance of stimulants was discussed. (2) Cardiac pacemaker in situ: Onset Date: ~2008 Comment: ([employer] DCPP - placed 2008, changed 2020) Code(s): Z95.0 - Presence of cardiac pacemaker Plan: Cardiac pacemaker in-situ for sick sinus syndrome. Pacemaker working well. Reprogrammed for adequate function. Follow-up remotely in 3 months. Follow up in the clinic in 6 months time. (3) Asymmetric septal hypertrophy: Code(s): I42.2 - Other hypertrophic cardiomyopathy Plan: Asymmetric septal hypertrophy without any obstructive physiology. Will follow- up by echocardiogram 6 months time. Continue aggressive control blood pressure. Will follow up in the clinic in 6 months time, sooner p.r.n.. Thank you for allowing me to partake in her care Orders: Orders Basic Metabolic Panel Today I48.0 - Paroxysmal atrial fibrillation CA echo transthoracic complete 6 Months I42.2 - Other hypertrophic car diomyopathy Medications: New dronedarone (Multaq) must administer with a meal/food 400 mg PO BID 60 tabs 5RF Coding Level of Care Code Est Pt Level 4 (19631) Diagnoses Paroxysmal atrial fibrillation I48.0 Cardiac pacemaker in situ Z95.0 Asymmetric septal hypertrophy I42.2 CPT Codes Cardiac Device Check - Cardiac Device 2: [id number] Cardiac Device Check, pacemaker dual lead ([id number]) EKG - CPT: 72187-[id number], Complete ([id number])
== END 2023-02-08 11:19 | disposition home or self-care (01) ==
PROVIDERS: PCP Internal Medicine; Visit Provider Internal Medicine Cardiovascular Disease
DX: I48.0 Paroxysmal atrial fibrillation (principal); Z95.0 Presence of cardiac pacemaker; I42.2 Other hypertrophic cardiomyopathy
CPT/HCPCS: 93010; 93280; 99214

== ENCOUNTER → 2023-02-08 10:52 | Outpatient (BNVA) | payer MEDICARE, SELFPAY | PROVIDERS: PCP Internal Medicine; Visit Provider Internal Medicine Cardiovascular Disease | DX: Z45.018 Encounter for adjustment and management of other part of cardiac pacemaker (principal); I48.0 Paroxysmal atrial fibrillation; I42.2 Other hypertrophic cardiomyopathy | CPT/HCPCS: 93005; 93280; 99212 ==

== ENCOUNTER 2023-02-24 09:51 | Outpatient (REF) | payer MEDICARE, SELFPAY ==
[2023-02-24 11:10] LABS: Anion Gap 15 (12-20); Blood Urea Nitrogen 25 mg/dL (9-16); Calcium 10.1 mg/dL (8.4-10.2); Carbon Dioxide 22 mmol/L (22-29); Chloride 108 mmol/L (96-108); Estimated Glomerular Filt Rate > 60; Glucose Random 154 mg/dL (60-115); Potassium 4.6 mmol/L (3.3-5.1); Sodium 140 mmol/L (135-145)
== END 2023-02-24 09:52 | disposition home or self-care (01) ==
LOC: HO.LAB 09:51
PROVIDERS: PCP Internal Medicine; Visit Provider Internal Medicine Cardiovascular Disease
DX: I48.0 Paroxysmal atrial fibrillation (principal)
CPT/HCPCS: 36415; 80048

== ENCOUNTER → 2023-04-05 23:59 | Outpatient (BNV) | payer MEDICARE, SELFPAY ==
--- NOTE | 2023-04-05 12:49 | MHC.OFFVIS ---
Intake Intake Visit Reasons: Remote Device Check- 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 Diabetes HTN (hypertension) Osteoporosis (~2013) Pacemaker at end of battery life Paroxysmal atrial fibrillation Sick sinus syndrome Surgical History History of permanent cardiac pacemaker placement (~2008) Hx of cataract Family History Father CHF (congestive heart failure) Mother Diabetes Social History Household Members: Family Housing: House Do you presently have visiting nurse or other home services: No Alcohol intake: current Patient Tobacco Use Status: Never used Tobacco service: No Current occupational status: retired Office Procedures Cardiac Device Check Cardiac Device Check Details: Remote pacemaker report generated 04/05/2023. Pacemaker function is adequate [id number] Cardiac Device Interrogation, pacemaker Procedure code (CPT) selection complete Coding Level of Care Code Procedure Only CPT Codes Cardiac Device Check - Cardiac Device 12: [id number] Cardiac Device Interrogation, pacemaker ([id number])
== END ==
PROVIDERS: PCP Internal Medicine; Visit Provider Internal Medicine Cardiovascular Disease
DX: I48.0 Paroxysmal atrial fibrillation (principal); Z95.0 Presence of cardiac pacemaker
CPT/HCPCS: 93294

== ENCOUNTER 2023-04-12 13:15 | Outpatient (REF) | payer MEDICARE, SELFPAY ==
--- NOTE | ~2023-04-12 | MM_ITS ---
EXAMINATION: BONE DENSITOMETRY CLINICAL INDICATION: Age-related osteoporosis without current pathological fracture. COMPARISON: Previous BD dated 06/10/2020 and baseline BD dated 07/21/2008, left hip; 05/27/2003, spine. TECHNIQUE: Using a [employer] DXA System (software version: 13.1) manufactured by [employer], dual-energy x-ray absorptiometry was performed of the lumbar spine and left hip. The images are of good technical quality. Summary results are attached. FINDINGS: LEFT FEMUR, NECK: Current: BMD 0.742 g/cm2, Z-score 0.0, T-score -2.1, osteopenia. Prior: BMD 0.773 g/cm2. Baseline: BMD 0.836 g/cm2. LEFT FEMUR, TOTAL: Current: BMD 0.747 g/cm2, Z-score -0.1, T-score -2.1, osteopenia, 15.9% decrease from previous, 12.3% decrease from baseline (<5% change is not significant). Prior: BMD 0.888 g/cm2. Baseline: BMD 0.852 g/cm2. AP SPINE L1-L2 (excluding L3 and L4): The data of L1-L4 has been changed to exclude the L3 and L4 vertebral bodies, because at these levels may cause overestimation of lumbar spine density. Current: BMD 0.810 g/cm2, Z-score -1.0, T-score -3.0, osteoporosis, 6.0% decrease from previous, 1.6% increase from baseline (<5% change is not significant). Prior: BMD 0.862 g/cm2. Baseline: BMD 0.797 g/cm2. IDENTIFIED RISK FACTORS: Early menopause, secondary osteoporosis, bilateral oophorectomy, hysterectomy, height loss, osteoporosis. HISTORY OF FRACTURE: None listed. MEDICATIONS: Vitamin D, bisphosphonate. MM/XR DEXA axial skeleton IMPRESSION: 1. DIAGNOSIS: Osteoporosis based on the lowest T-score value of -3.0 in the lumbar spine applying World Health Organization criteria. 2. 10-YEAR FRACTURE RISK PREDICTION, FRAX: According to the guidelines, FRAX calculation should only be performed on patients in the osteopenia bone density category. Therefore, FRAX was not performed on this patient. 3. Treatment Recommendations: NOF guidelines recommend consideration for treatment in postmenopausal women and men age 50 and older presenting with the following: -A hip or vertebral (clinical or morphometric) fracture. -T-score less than or equal to -2.5 at the femoral neck or spine after appropriate evaluation to exclude secondary causes. -Low bone mass at the hip or spine and a 10-year fracture probability by FRAX of greater than or equal to 3% for hip fracture or greater than or equal to 20% for major osteoporotic fracture based on the [place] adapted WHO algorithm. 4. Other Recommendations: All treatment decisions require clinical judgment and consideration of individual patient factors, including patient preferences, comorbidities, previous drug use, risk factors not captured in the FRAX model (e.g. frailty, falls, vitamin D deficiency, increased bone turnover, interval significant decline in bone density) and possible under or overestimation of fracture risk by FRAX. Additional medical evaluation for secondary cause of low bone mineral density may be appropriate. FUTURE SCAN RECOMMENDATION: People with diagnosed cases of osteoporosis or at high risk for fracture should have regular bone mineral density tests. For patients eligible for Medicare, routine testing is allowed once every 2 years. The testing frequency can be increased to one year for patients who have rapidly progressing disease, those who are receiving or discontinuing medical therapy to restore bone mass, or have additional risk factors.
== END 2023-04-12 13:16 | disposition home or self-care (01) ==
LOC: HO.MAMMO 13:15
PROVIDERS: PCP Internal Medicine; Visit Provider Internal Medicine Endocrinology, Diabetes & Metabolism
DX: Z13.820 Encounter for screening for osteoporosis (principal); M81.0 Age-related osteoporosis without current pathological fracture; Z78.0 Asymptomatic menopausal state
CPT/HCPCS: 77080

== ENCOUNTER 2023-06-28 09:29 | Outpatient (REF) | payer MEDICARE, SELFPAY ==
--- NOTE | ~2023-06-28 | MM_ITS ---
EXAMINATION: MM SCREENING DIGITAL BREAST TOMOSYNTHESIS, BILATERAL CLINICAL INFORMATION: Screening. Asymptomatic. COMPARISON: Mammography: This study is compared with prior exams dating back to 2018. TECHNIQUE: Digital breast tomosynthesis is performed in both the craniocaudal and mediolateral oblique views along with computer-aided detection (CAD). Synthesized 2D images are generated from the tomosynthesis. FINDINGS: There are scattered areas of fibroglandular density (ACR BI-RADS breast composition Category b). There is a pacemaker in the superior aspect of the left breast. There are no significant masses, abnormal calcifications, or other abnormalities. The patient has known, bilateral, nonpathologic, chronic nipple retraction. There are a few, bilateral, benign calcifications. MM/MM tomosynthesis screening BI IMPRESSION: No mammographic evidence of malignancy. ASSESSMENT: BI-RADS BI-RADS 2 - Benign Findings RECOMMENDATION: Routine annual mammography screening. 1 year F/U This examination should not preclude the clinical evaluation of a suspicious palpable abnormality. This patient's information was entered into a reminder system with a target due date for their next mammogram.
== END 2023-06-28 09:30 | disposition home or self-care (01) ==
LOC: HO.MAMMO 09:29
PROVIDERS: PCP Internal Medicine; Visit Provider Internal Medicine
DX: Z12.31 Encounter for screening mammogram for malignant neoplasm of breast (principal)
CPT/HCPCS: 77063; 77067

== ENCOUNTER → 2023-06-28 09:45 | Outpatient (BNV) | payer MEDICARE, SELFPAY | PROVIDERS: PCP Internal Medicine; Visit Provider Radiology Diagnostic Radiology | DX: Z12.31 Encounter for screening mammogram for malignant neoplasm of breast (principal) | CPT/HCPCS: 77063; 77067 ==

== ENCOUNTER → 2023-07-03 10:36 | Outpatient (REF) | payer MEDICARE, SELFPAY ==
--- NOTE | 2023-07-03 10:38 | CA_ITS ---
Transthoracic Echocardiogram Patient (Last, First, Middle): Kaycee Florence M Gender: Female Date of : 1945 Age: 77 Procedure Date: 07/03/2023 Procedure Type: Transthoracic Echocardiogram Location: OP Height: 149.86 cm Weight: 65.77 kg BSA: 1.61 m2 Heart Rate: bpm BP: 124 / 74 mmHg Milking Machine Mechanic: [id number] Referring MD: Gabe Tang MD Symptoms: I42.2 - Other hypertrophic cardiomyopathy Study Quality: Adequate Conclusions: - The left ventricular systolic function is normal. The calculated ejection fraction is 66% by biplane method. - There is severe septal asymmetric hypertrophy(2.1cm). However, not clear if this technical as it is not seen in all views. - No obvious valvular pathology seen on this study. Findings Left Ventricle Normal left ventricular cavity size. The left ventricular systolic function is normal. The calculated ejection fraction is 66% by biplane method. There is no evidence of regional wall motion abnormalities. Diastolic function is indeterminate on the basis of available data. There is severe septal asymmetric hypertrophy. Right Ventricle Normal right ventricular cavity size and systolic function. There is a pacemaker wire seen in the right ventricle. Atria The left atrium is mildly dilated. The right atrium is normal in size. Aortic Valve There is a normal trileaflet aortic valve. There is no aortic valve stenosis. There is trace (trivial) aortic valve regurgitation. Mitral Valve The mitral valve appears normal. There is no mitral valve regurgitation. There is no mitral valve stenosis. Pulmonic Valve The pulmonic valve is likely normal. Tricuspid Valve Normal tricuspid valve structure. There is mild tricuspid valve regurgitation. Mild pulmonary hypertension is present. Great Vessels The asc aorta and aortic arch are normal in size. Venous The inferior vena cava is normal in size and collapses greater than 50% with inspiration. Pericardium/Pleural There is no evidence of pericardial effusion. Prior Study Comparison No significant change compared to prior study dated: 01/31/2022. Recommendations, Care & Conclusions No obvious valvular pathology seen on this study. Measurements 2D Linear Measurements IVSd: 2.15 0.6-0.9/0.6-1.0 cm LVIDd: 4.02 3.9-5.3/4.2-5.9 cm LVIDd Index: 2.50 2.4-3.2/2.2-3.1 cm/m2 LVIDs: 2.56 2.0-3.6 cm LVPWd: 1.23 0.7-1.1 cm LA Diam: 4.00 2.7-3.8/3.0-4.0 cm LAIDs Index: 2.48 1.5-2.3 cm/m2 LV Mass: 353.87 67-162/88-224 g LV Mass Index: 219.79 43-95/49-115 g/m2 LVOT Diam: 1.90 3.0+(-)1.3 cm 2D Systolic Function EF 4C: 67.60 >55% EF 2C: 63.50 >55% EF BiP: 66.30 >55% Mitral Valve MV Pk E: 0.82 MV PK A: 0.37 MV Decel Time: 259.00 E/A: 2.20 E'Lateral: 12.60 E'Medial: 5.19 E/E' Med: 15.80 E/E' Lat: 6.50 PHT: 76.00 MVA PHT: 2.89 Decel Levy: 3.16 Aortic Valve AoV Pk Cheng: 1.58 AoV Pk Grad: 10.00 KIP: 2.10 AI Pk Cheng: 3.28 AI Levy: 1.36 LVOT LVOT Pk Cheng: 1.23 LVOT Mn Cheng: 0.80 LVOT VTI: 0.27 LVOT Pk Grad: 6.00 LVOT Mn Grad: 3.00 LVOT Diam: 1.90 LVOT Area: 2.84 Diastolic Function MV Pk E: 0.82 MV Pk A: 0.37 E/A: 2.20 E'Medial: 5.19 E/E' Med: 15.80 E' Laterial: 12.60 E/E' Lat: 6.50 Right Ventricle TAPSE (mm): 29.50 TVS' Cheng: 14.70 Tricuspid Valve TR Pk Cheng: 2.87 TR Pk Grad: 33.00 RA Press: 3.00 RVSP: 36.00 Great Vessels Aorta Sinus of Valsalva: 3.30 2.0-3.5 cm Ao Asc: 3.40 2.1-3.4 cm Ao Arch: 3.40 Pulmonary Valve PV Pk Cheng: 1.22 Peak PV Grad: 6.00 Updated in Other Vendor System with Status of Final Jhon Cho MD electronically signed on 07/03/2023 12:25:04 PM with status of Final
== END ==
LOC: HO.CARD 10:36
PROVIDERS: PCP Internal Medicine; Visit Provider Internal Medicine Cardiovascular Disease
DX: I42.2 Other hypertrophic cardiomyopathy (principal)
CPT/HCPCS: 93306

== ENCOUNTER → 2023-07-03 10:38 | Outpatient (BNV) | payer MEDICARE, SELFPAY | PROVIDERS: PCP Internal Medicine; Visit Provider Internal Medicine | DX: I42.2 Other hypertrophic cardiomyopathy (principal) | CPT/HCPCS: 93306 ==

== ENCOUNTER → 2023-07-04 23:59 | Outpatient (BNV) | payer MEDICARE, SELFPAY ==
--- NOTE | 2023-07-06 16:04 | A.OFFVIS_ITS ---
Intake Intake Visit Reasons: Remote Device Check- 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 Diabetes HTN (hypertension) Osteoporosis (~2013) Pacemaker at end of battery life Paroxysmal atrial fibrillation Sick sinus syndrome Surgical History History of permanent cardiac pacemaker placement (~2008) Hx of cataract Family History Father CHF (congestive heart failure) Mother Diabetes Social History Household Members: Family Housing: House Do you presently have visiting nurse or other home services: No Alcohol intake: current Patient Tobacco Use Status: Never used Tobacco service: No Current occupational status: retired Office Procedures Cardiac Device Check Cardiac Device Check Details: Remote pacemaker report generated 07/04/2023. Pacemaker function is adequate. Two high ventricular rate episode consistent with either PMT or SVT. [id number] Cardiac Device Interrogation, pacemaker Procedure code (CPT) selection complete Assessment & Plan Assessment & Plan (1) Cardiac pacemaker in situ: Onset Date: ~2008 Comment: ([facility] [facility] DCPP - placed 2008, changed 2020) Code(s): Z95.0 - Presence of cardiac pacemaker Plan: See above Coding Level of Care Code Procedure Only Diagnoses Cardiac pacemaker in situ Z95.0 CPT Codes Cardiac Device Check - Cardiac Device 12: [id number] Cardiac Device Interrogation, pacemaker ([id number])
== END ==
PROVIDERS: PCP Internal Medicine; Visit Provider Internal Medicine Cardiovascular Disease
DX: I48.0 Paroxysmal atrial fibrillation (principal); Z95.0 Presence of cardiac pacemaker
CPT/HCPCS: 93294

== ENCOUNTER 2023-08-28 14:01 | Outpatient (AMB) | payer MEDICARE, SELFPAY ==
[2023-08-28 14:44] VITALS: BP 124/82; PULSE 60; BMI 29.7
--- NOTE | 2023-08-28 14:44 | MHC.OFFVIS ---
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: No Allergies codeine [CODEINE] Allergy (Unknown, Verified 08/28/23 14:47) HIVES Medication List - Last Reconciled 08/28/23 by Teresa Alves NP-C albuterol sulfate 90 mcg/actuation 1 - 2 puffs PO Q4H PRN alendronate 70 mg PO QWEEK amiodarone 100 mg (1/2 x 200 mg) PO DAILY 90 days cetirizine 5 mg PO DAILY cholecalciferol (vitamin D3) 50 mcg PO DAILY glipizide ER 10 mg PO DAILY insulin glargine U-300 conc (Toujeo SoloStar U-300 Insulin) units subcut lisinopril 10 mg PO DAILY metformin ER 750 mg PO DAILY methenamine hippurate 1 g PO BID metoprolol tartrate 25 mg See Protocol PO BID omeprazole 20 mg PO DAILY pioglitazone 15 mg PO DAILY rivaroxaban (Xarelto) 20 mg PO DAILY rosuvastatin 40 mg PO DAILY HPI 6 mth fu w/ st josh HPI Romina Benoit is a 77-year-old female with past medical history of hypertension, diabetes, sick sinus syndrome status post pacemaker placement, asymmetric septal hypertrophy, symptomatic paroxysmal atrial fibrillation status post AFib ablation 03/24/2023 who presents for follow-up. Today she reports that she has been feeling generally well. She has no chest discomfort, shortness of breath, palpitations, lightheadedness, presyncope, syncope, PND, orthopnea or edema. She has no bleeding issues reported. Takes meds as directed. Maintains light physical activity. She continues to work part-time at [employer], 15-20 hours weekly. 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 Diabetes Pacemaker at end of battery life Atrial fibrillation with rapid ventricular response CRUZ (acute kidney injury) HTN (hypertension) Asymmetric septal hypertrophy Cardiac pacemaker in situ (~2008) Sick sinus syndrome Surgical History History of permanent cardiac pacemaker placement (~2008) Hx of cataract Family History Father CHF (congestive heart failure) Mother Diabetes Social History Household Members: Family Housing: House Do you presently have visiting nurse or other home services: No Alcohol intake: current Patient Tobacco Use Status: Never used Tobacco service: No Current occupational status: retired Review of Systems Const All systems reviewed & are unremarkable except as noted in HPI and below ENT Denies dizziness Card Denies chest pain, Denies chest pain at rest, Denies chest pain with activity, Denies rapid heart rate, Denies pedal edema, Denies edema, Denies leg edema, Denies lightheadedness, Denies palpitations, Denies dyspnea, Denies dyspnea on exertion and Denies orthopnea Resp Denies cough, Denies dyspnea and Denies dyspnea on exertion GI Denies hematochezia and Denies change in stool character Musc Denies abnormal gait, Denies limited range of motion, Denies muscle cramps, Denies muscle weakness, Denies numbness, Denies radiating pain into limb, Denies stiffness and Denies tingling Neuro Denies abnormal gait, Denies dizziness, Denies numbness and Denies tingling Endo Denies palpitations Physical Exam Vital Signs: Last Vital Signs Pulse 60 08/28/23 14:44 BP 124/82 08/28/23 14:44 BMI result Body Mass Index 29.7 Const General: cooperative, healthy appearing, comfortable and no acute distress Orientation/consciousness: patient oriented x3 Neck Neck: Yes normal visual inspection Resp Effort & Inspection: normal respiratory effort Auscultation: clear to auscultation bilaterally, no crackles, no rales, no rhonchi and no wheezes Cardio Jugular venous distension: no JVD Rate: regular rate Rhythm: regular rhythm Heart sounds: S1 normal heart sound present, S2 normal heart sound present, no gallops, Murmur heart sound present (systolic) and no rubs Neuro General: patient oriented x3 Extrem General: Yes normal to inspection, No no pedal edema and No calf tenderness Psych Appearance: grossly normal Mental Status: mental status grossly normal Speech and movement: Normal speech and movement present Office Procedures Cardiac Device Check Cardiac Device Check Details: [facility] [employer] dual-chamber pacemaker in place, interrogation today, battery 10 years, DDDR mode, low rate 60, a threshold 0.75 volts at 0.5 milliseconds, V threshold 0.75 volts at 0.5 milliseconds, no alerts, brief high V rates consistent with atrial tach and atrial flutter AF burden less than 1%, a paced 96%, V paced 1.1% [id number] Cardiac Device Check, pacemaker dual lead Procedure code (CPT) selection complete EKG Details: Today, read by me, atrial paced, ventricular sensed rhythm, left axis LVH can not exclude septal infarct, rate 60, QTC 432 millisecond [id number], Complete Assessment & Plan Assessment & Plan (1) Paroxysmal atrial fibrillation: Code(s): I48.0 - Paroxysmal atrial fibrillation Plan: History of paroxysmal atrial fibrillation, symptomatic. She was initially treated with heart rate control then amiodarone added for rhythm control. She is currently on low-dose amiodarone. She underwent AFib ablation with Dr. Johnson hernandez on 03/24/2023. Pacemaker interrogation today does show short runs of mode switch consistent with atrial fibrillation/flutter with overall burden less than 1% since 04/05/2023. She denies having heart palpitations consistent with AFib. She is due for lab work as part of amiodarone monitoring. Will give her lab slip today for CMP, TSH. She tells me she will be having lab work done in 2 weeks for her dietitian. She is on Xarelto for anticoagulation. No bleeding issues reported. At this time will continue on low-dose metoprolol, amiodarone 100 mg daily and Xarelto 20 mg daily. Cardiology follow-up in 6 months, sooner if needed (2) Asymmetric septal hypertrophy: Code(s): I42.2 - Other hypertrophic cardiomyopathy Plan: History of asymmetric septal hypertrophy. Last echo done 07/03/2023 shows EF 66%, severe septal asymmetric hypertrophy, overall no change from 01/31/2022. She denies symptoms of shortness of breath. On exam she has no clinical signs of heart failure. Blood pressure is currently well controlled. (3) Cardiac pacemaker in situ: Onset Date: ~2008 Comment: ([employer] DCPP - placed 2008, changed 2020) Code(s): Z95.0 - Presence of cardiac pacemaker Plan: [facility] [employer] dual-chamber pacemaker in place. Interrogation today shows device is functioning normally. Battery life approximately 10 years. Remote monitoring in use. Next office interrogation due in 6 months. Pacer site benign. (4) HTN (hypertension): Code(s): I10 - Essential (primary) hypertension Plan: Well controlled at present. No med changes made. (5) Current use of residential anticoagulation: Comment: (Xarelto) Code(s): Z79.01 - senior living (current) use of anticoagulants Plan: On Xarelto for stroke risk reduction with paroxysmal AFib Plan Time spent on chart review, documentation, interview and assessment Orders: Orders Comprehensive Met. Panel 08/28/23 I48.0 - Paroxysmal atrial fibrillation TSH reflex Free T4 08/28/23 I48.0 - Paroxysmal atrial fibrillation Lipid Panel 08/28/23 I42.2 - Other hypertrophic cardiomyopathy, I48.0 - Paroxysmal atrial fibrillation Coding Level of Care Code Est Pt Level 4 (75891) Diagnoses Paroxysmal atrial fibrillation I48.0 Asymmetric septal hypertrophy I42.2 Cardiac pacemaker in situ Z95.0 HTN (hypertension) I10 Current use of residential anticoagulation Z79.01 CPT Codes Cardiac Device Check - Cardiac Device 2: 75053-[id number] Cardiac Device Check, pacemaker dual lead ([id number]) EKG - CPT: 34879-[id number], Complete ([id number]) Time Spent (min) 28
== END 2023-08-28 15:24 | disposition home or self-care (01) ==
PROVIDERS: PCP Internal Medicine; Visit Provider Nurse Practitioner Family
DX: I48.0 Paroxysmal atrial fibrillation (principal); Z95.0 Presence of cardiac pacemaker
CPT/HCPCS: 93280; 99214

== ENCOUNTER → 2023-08-28 14:01 | Outpatient (BNVA) | payer MEDICARE, SELFPAY | PROVIDERS: PCP Internal Medicine; Visit Provider Nurse Practitioner Family | DX: I48.0 Paroxysmal atrial fibrillation (principal); I42.2 Other hypertrophic cardiomyopathy; I10 Essential (primary) hypertension; Z79.01 Long term (current) use of anticoagulants; Z79.899 Other long term (current) drug therapy; Z45.018 Encounter for adjustment and management of other part of cardiac pacemaker | CPT/HCPCS: 93005; 93280; 99212 ==

== ENCOUNTER 2023-09-25 09:30 | Outpatient (REF) | payer MEDICARE, SELFPAY ==
[2023-09-25 11:38] LABS: Alanine Aminotransferase 12 U/L (0-31); Albumin Level 3.9 g/dL (3.5-5.0); Alkaline Phosphatase 56 U/L (39-117); Anion Gap 11 (12-20); Aspartate Amino Transferase 16 U/L (5-31); Bilirubin Total 0.4 mg/dL (0.0-1.0); Blood Urea Nitrogen 26 mg/dL (9-16); Calcium 10.4 mg/dL (8.4-10.2); Carbon Dioxide 27 mmol/L (22-29); Chloride 106 mmol/L (96-108); Cholesterol 193 mg/dL (<200); Estimated Glomerular Filt Rate > 60; Glucose Random 112 mg/dL (60-115); HDL Cholesterol 69 mg/dL (>40); LDL Cholesterol Calculated 112 mg/dL (<100); Potassium 4.2 mmol/L (3.3-5.1); Sodium 140 mmol/L (135-145); Total Protein 6.7 g/dL (6.5-8.0); Triglycerides 63 mg/dL (<150)
[2023-09-25 11:42] LABS: TSH reflex Free T4 1.19 uIU/mL (0.32-4.0)
== END 2023-09-25 09:31 | disposition home or self-care (01) ==
LOC: HO.LAB 09:30
PROVIDERS: PCP Internal Medicine; Visit Provider Nurse Practitioner Family
DX: I48.0 Paroxysmal atrial fibrillation (principal); I42.2 Other hypertrophic cardiomyopathy
CPT/HCPCS: 36415; 80053; 80061; 84443

== ENCOUNTER 2024-02-26 13:48 | Outpatient (AMB) | payer MEDICARE, SELFPAY ==
--- NOTE | 2024-02-26 15:01 | A.OFFVIS_ITS ---
Vital Signs 02/26/24 15:02 Height 4 ft 11 in Weight 139 lb BMI 28.1 BP 114/70 Blood Pressure Location Rt brachial Position Sitting Pulse 113 H Pulse Source Monitor Intake Visit Reasons: [facility] check Technical Delivery Manager: Technical Delivery Manager Present Allergies codeine [CODEINE] Allergy (Unknown, Verified 02/26/24 15:06) HIVES Medication List - Last Reconciled 02/27/24 by FAUZIA Nicole albuterol sulfate 90 mcg/actuation 1 - 2 puffs PO Q4H PRN amiodarone 200 mg orally 2 tabs twice a day for 1 week, then reduce dose to 1 tab daily; 30 days apixaban (Eliquis) 5 mg PO BID cetirizine 5 mg PO DAILY cholecalciferol (vitamin D3) 50 mcg PO DAILY glipizide ER 10 mg PO DAILY insulin glargine U-300 conc ([employer]ou[employer] SoloStar U-300 Insulin) units subcut lisinopril 10 mg PO DAILY metformin ER 750 mg PO DAILY methenamine hippurate 1 g PO BID metoprolol tartrate 25 mg See Protocol PO BID omeprazole 20 mg PO DAILY pioglitazone 15 mg PO DAILY rosuvastatin 40 mg PO DAILY HPI HPI [facility] with [facility] check: Details: Kaycee is a 78-year-old female with past medical history of hypertension, diabetes, sick sinus syndrome status post pacemaker placement, asymmetric septal hypertrophy, symptomatic paroxysmal atrial fibrillation status post AFib ablation 03/24/2023 who was recently noted to have recurrent AFib on remote pacemaker monitoring. She was on amiodarone 100 mg daily and she was started on a partial amiodarone load with plan for follow-up in office. Days after that she was out shopping and became lightheaded. Her son brought her to the emergency room where she collapsed and was found to have AFib RVR. It was found at that time she was not taking her anticoagulation as directed. They did a transesophageal echo as part of plan for cardioversion and a clot was noted on her pacer lead. She was treated with metoprolol for heart rate control and continued on her amiodarone load. Today she reports that she has been doing well since her hospital discharge on 02/13/2024. She will notice occasional heart palpitations. She has not had any recurrent lightheadedness. No presyncope, recurrent syncope or falls. No chest discomfort at rest or with activity. No shortness of breath, PND, orthopnea or edema. She has been doing only light physical activities. She tells me she was not taking her Xarelto because of the high co-pay. She has since been changed to Eliquis and is able to afford the co-pay. She has been on a leave of absence from her part-time job at [employer]. Significant other is present. [facility] Medical History Paroxysmal atrial fibrillation Osteoporosis (~2013) Current use of long-term anticoagulation Diabetes Pacemaker at end of battery life Atrial fibrillation with rapid ventricular response CRUZ (acute kidney injury) HTN (hypertension) Asymmetric septal hypertrophy Cardiac pacemaker in situ (~2008) Sick sinus syndrome Surgical History History of permanent cardiac pacemaker placement (~2008) Hx of cataract Family History Father CHF (congestive heart failure) Mother Diabetes Social History Household Members: Family Housing: House Do you presently have visiting nurse or other home services: No Alcohol intake: current Patient Tobacco Use Status: Never used Tobacco service: No Current occupational status: retired Review of Systems Const All systems reviewed & are unremarkable except as noted in HPI and below ENT Denies dizziness Card Details: heart palpitations at times Denies chest pain, Denies chest pain at rest, Denies chest pain with activity, Denies rapid heart rate, Denies pedal edema, Denies edema, Denies leg edema, Denies lightheadedness, Denies palpitations, Denies dyspnea, Denies dyspnea on exertion and Denies orthopnea Resp Denies cough, Denies dyspnea and Denies dyspnea on exertion GI Denies hematochezia and Denies change in stool character Musc Denies abnormal gait, Denies limited range of motion, Denies muscle cramps, Denies muscle weakness, Denies numbness, Denies radiating pain into limb, Denies stiffness and Denies tingling Neuro Denies abnormal gait, Denies dizziness, Denies numbness and Denies tingling Endo Denies palpitations Physical Exam Vital Signs: Last Vital Signs Pulse 113 H 02/26/24 15:02 BP 114/70 02/26/24 15:02 BMI result Body Mass Index 28.1 Const General: cooperative, healthy appearing, comfortable and no acute distress Orientation/consciousness: patient oriented x3 Neck Neck: Yes normal visual inspection Resp Effort & Inspection: normal respiratory effort Auscultation: clear to auscultation bilaterally, no crackles, no rales, no rhonchi and no wheezes Cardio Jugular venous distension: no JVD Rate: tachycardic Rhythm: abnormal rhythm Heart sounds: S1 normal heart sound present, S2 normal heart sound present, no gallops, Murmur heart sound present (systolic) and no rubs Neuro General: patient oriented x3 Extrem General: Yes normal to inspection, No no pedal edema and No calf tenderness Psych Appearance: grossly normal Mental Status: mental status grossly normal Speech and movement: Normal speech and movement present Office Procedures Cardiac Device Check Cardiac Device Check Details: [employer] dual-chamber pacemaker interrogation today shows battery 6.8-7.3 years, DDDR mode, low rate 60, atrial threshold 0.75 volts at 0.5 milliseconds, atrial paced 38%, ventricular paced 4.6%, atrial burden 38% on 02/25 44801-[id number] Cardiac Device Check, pacemaker dual lead Procedure code (CPT) selection complete EKG Details: Today, read by me, atrial flutter, left axis deviation, LVH with QRS widening, Q-wave lead 1 and aVL, can not exclude prior infarct, rate 113, QTC 455 milliseconds [id number], Complete Assessment & Plan Assessment & Plan (1) Paroxysmal atrial fibrillation: Code(s): I48.0 - Paroxysmal atrial fibrillation Category: Medical Plan: History of paroxysmal atrial fibrillation, symptomatic. Her condition had been stable and AFib suppressed with low-dose amiodarone. She underwent AFib ablation with Dr. Nix on 03/24/2023. Remote monitoring of her pacemaker recently showed recurrent and seemingly persistent AFib. She was directed to take a partial load of amiodarone, 400 mg b.i.d. for 1 week then go back to 200 mg daily. Days later she had lightheadedness and collapsed in the [facility] emergency room. Notes reviewed. She was found to have AFib RVR. She admitted to not taking her anticoagulation as directed due to high co-pay days. They did do a transesophageal echocardiogram which showed a thrombus on her pacemaker lead. They were unable to do a cardioversion. They treated her with heart rate control using IV Lopressor then discharged her with metoprolol and continued her amiodarone load. She was directed to follow-up with her pediatric np. Today she reports that she has been doing well since her hospital discharge on 02/12. She has not had recurrent syncope, falls. She will feel intermittent heart palpitations. EKG done today has computer reading of sinus tachycardia however appears to be atrial flutter, rate 113, QTC 455 milliseconds. Device interrogation shows frequent episodes of paroxysmal atrial fibrillation however I still have concerns for possible persistent AFib as V rates have been elevated recently. At this time will have her start on amiodarone 200 mg daily. Will increase metoprolol up to 50 mg b.i.d. from 25 mg b.i.d. to help with rate cont rol. Instructed to continue Eliquis 5 mg b.i.d. without interruption. That dose is appropriate for her age and current weight. Will continue to watch rhythm remotely. If she is confirmed to have persistent AFib then will plan for cardioversion after a minimum of 1 month uninterrupted anticoagulation, after 03/16/2024 she is agreeable to this plan. Will plan for Holter monitor after cardioversion with follow-up 4 weeks postprocedure. (2) Asymmetric septal hypertrophy: Code(s): I42.2 - Other hypertrophic cardiomyopathy Category: Medical Plan: History of asymmetric septal hypertrophy. Last echo done in our system 07/03/2023 shows EF 66%, severe septal asymmetric hypertrophy, overall no change from 01/31/2022. She denies symptoms of shortness of breath. On exam she has no clinical signs of heart failure. Blood pressure is currently well controlled. (3) Cardiac pacemaker in situ: Onset Date: ~2008 Comment: (St[employer] Josh DCPP - placed 2008, changed 2020) Code(s): Z95.0 - Presence of cardiac pacemaker Category: Medical Plan: [employer] dual-chamber pacemaker in place. Interrogation today shows device is functioning normally. Battery life approximately 6.8-7.3 years. Remote monitoring in use. Next office interrogation due in 6 months. Pacer site benign. (4) HTN (hypertension): Code(s): I10 - Essential (primary) hypertension Category: Medical Plan: Well controlled at present. Increasing metoprolol to help with heart rate co ntrol. 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 She previously stopped her Xarelto on her own due to high co-pay. A KATLYN that was done at [facility] on 02/13/2024 did show thrombus on pacemaker lead. She now reports taking Eliquis without interruption since that time. (6) Syncope: Code(s): R55 - Syncope and collapse Category: Medical Plan: Patient reports she collapsed in the [facility] emergency room 02/13/2024 and was found to have AFib RVR. (7) Hospital discharge follow-up: Code(s): Z09 - Encounter for follow-up examination after completed treatment for conditions other than malignant neoplasm Category: Medical Plan: As above Plan Time spent on chart review, documentation, interview and assessment Medications: New metoprolol tartrate dose increase 50 mg PO BID 60 tabs 3RF Changed From amiodarone 200 mg orally 2 tabs twice a day for 1 week, then reduce dose to 1 tab daily; 30 days 49 tabs 1RF To amiodarone 200 mg PO DAILY 30 tabs 5RF 30 days Discontinued metoprolol tartrate Discontinued Reason: Doctor's Order 25 mg See Protocol PO BID 60 tabs 0RF Coding Level of Care Code Est Pt Level 4 (95791) Diagnoses Paroxysmal atrial fibrillation I48.0 Asymmetric septal hypertrophy I42.2 Cardiac pacemaker in situ Z95.0 HTN (hypertension) I10 Current use of adjunct faculty for medical terminology anticoagulation Z79.01 Syncope R55 Hospital discharge follow-up Z09 CPT Codes Cardiac Device Check - Cardiac Device 2: [id number] Cardiac Device Check, pacemaker dual lead ([id number]) EKG - CPT: 47630-[id number], Complete ([id number]) Time Spent (min) 36
[2024-02-26 15:02] VITALS: BP 114/70; PULSE 113; BMI 28.1
== END 2024-02-26 15:31 | disposition home or self-care (01) ==
PROVIDERS: PCP Internal Medicine; Visit Provider Nurse Practitioner Family
DX: I48.0 Paroxysmal atrial fibrillation (principal); I42.2 Other hypertrophic cardiomyopathy; Z95.0 Presence of cardiac pacemaker; I10 Essential (primary) hypertension; Z79.01 Long term (current) use of anticoagulants; R55 Syncope and collapse; Z09 Encounter for follow-up examination after completed treatment for conditions other than malignant neoplasm
CPT/HCPCS: 93010; 93280; 99214

== ENCOUNTER → 2024-02-26 13:48 | Outpatient (BNVA) | payer MEDICARE, SELFPAY | PROVIDERS: PCP Internal Medicine; Visit Provider Nurse Practitioner Family | DX: I10 Essential (primary) hypertension (principal); I48.0 Paroxysmal atrial fibrillation; I42.2 Other hypertrophic cardiomyopathy; R55 Syncope and collapse; Z45.018 Encounter for adjustment and management of other part of cardiac pacemaker; Z79.01 Long term (current) use of anticoagulants | CPT/HCPCS: 36415; 80048; 82040; 93005; 93280; 99212 ==

== ENCOUNTER 2024-02-26 15:53 | Outpatient (REF) | payer MEDICARE, SELFPAY ==
[2024-02-26 17:26] LABS: Albumin Level 3.9 g/dL (3.5-5.0); Anion Gap 15 (12-20); Blood Urea Nitrogen 50 mg/dL (9-16); Calcium 10.2 mg/dL (8.4-10.2); Carbon Dioxide 19 mmol/L (22-29); Chloride 110 mmol/L (96-108); Estimated Glomerular Filt Rate 37; Glucose Random 254 mg/dL (60-115); Sodium 139 mmol/L (135-145)
== END 2024-02-26 15:54 | disposition home or self-care (01) ==
LOC: HO.LAB 15:53
PROVIDERS: PCP Internal Medicine; Visit Provider Internal Medicine
DX: Z13.89 Encounter for screening for other disorder (principal)
CPT/HCPCS: 36415; 80048; 82040

== ENCOUNTER 2024-03-14 09:07 | Outpatient (REF) | payer MEDICARE, SELFPAY ==
[2024-03-14 09:17] LABS: MANUAL DIFF FLAG NO
[2024-03-14 09:31] LABS: Basophils Absolute Auto 0.1 X10*3/uL (0.0-0.2); Basophils Percent Auto 0.5 % (0-2); Eosinophils Absolute Auto 0.1 X10*3/uL (0.0-0.4); Eosinophils Percent Auto 0.7 % (0-4); Hematocrit 37.2 % (37.0-47.0); Hemoglobin 12.2 g/dl (12.0-16.0); Imm Gran Abs Auto 0.18 X10*3/uL (0.00-0.03); Imm Gran Pct Auto 1.5 % (0.0-0.4); Lymphocytes Absolute Auto 1.2 X10*3/uL (1.2-4.9); Lymphocytes Percent Auto 9.9 % (20-40); Mean Corpuscular HGB Conc 32.8 g/dl (31.0-35.0); Mean Corpuscular Hemoglobin 29.2 pg (27.0-33.0); Mean Platelet Volume 8.8 fL (9.4-12.3); Monocytes Percent Auto 8.2 % (2-11); Neutrophils Absolute Auto 9.6 x10*3/uL (2.0-8.3); Neutrophils Percent Auto 79.2 % (45-73); Platelet Count 281 X10*3/uL (160-400); Red Blood Count 4.18 X10*6/uL (4.20-5.50); Red Cell Distribution Width 15.8 % (11.0-16.0); White Blood Count 12.1 X10*3/uL (4.8-10.8)
[2024-03-14 09:58] LABS: Anion Gap 14 (12-20); Blood Urea Nitrogen 27 mg/dL (9-16); Carbon Dioxide 25 mmol/L (22-29); Chloride 107 mmol/L (96-108); Estimated Glomerular Filt Rate 49; Glucose Random 174 mg/dL (60-115); Potassium 4.5 mmol/L (3.3-5.1); Sodium 141 mmol/L (135-145)
== END 2024-03-14 09:08 | disposition home or self-care (01) ==
LOC: HO.LAB 09:07
PROVIDERS: PCP Internal Medicine; Visit Provider Internal Medicine
DX: R04.0 Epistaxis (principal)
CPT/HCPCS: 36415; 80048; 85025

== ENCOUNTER → 2024-04-03 23:59 | Outpatient (BNV) | payer MEDICARE, SELFPAY ==
--- NOTE | 2024-04-15 09:35 | A.OFFVIS_ITS ---
Intake Visit Reasons: Remote Device Check- [facility] Allergies codeine [CODEINE] Allergy (Unknown, Verified 04/12/24 10:29) HIVES [facility] Medical History Paroxysmal atrial fibrillation Osteoporosis (~2013) Current use of residential anticoagulation Diabetes Pacemaker at end of battery life Atrial fibrillation with rapid ventricular response CRUZ (acute kidney injury) HTN (hypertension) Asymmetric septal hypertrophy Cardiac pacemaker in situ (~2008) Sick sinus syndrome Surgical History History of permanent cardiac pacemaker placement (~2008) Hx of cataract Family History Father CHF (congestive heart failure) Mother Diabetes Social History Household Members: Family Housing: House Do you presently have visiting nurse or other home services: No Alcohol intake: current Alcohol intake frequency: does not drink Patient Tobacco Use Status: Never used Tobacco Smoked in Last 30 Days: No Patient Interested in Nicotine Replacement: No Patient Given Instructions on How to Stop Smoking: No Second Hand Smoke Exposure: No Use of substances other than those prescribed or required for medical reasons: No Currently Displaying Signs/Symptoms of Drug Intoxication Withdrawal: No Any prior treatment program specific to substance use: No Have you been hit, kicked, punched, or otherwise hurt by someone within the past year? If so, by whom?: No Do you feel safe in your current relationship?: Yes Is there a partner from a previous relationship who is making you feel unsafe now?: No Are you made to feel afraid or neglected: No Advance Directives: No Advance Directives Information Provided: Yes Do you have a plan to hurt others: No Plan Recently lost weight without trying: No Nutrition Risks: No Nutritional Risk Patient : No : No Poor oral hygiene: No service: No Current occupational status: retired Office Procedures Cardiac Device Check Cardiac Device Check Details: Remote pacemaker report generated 04/03/2024. I was requested to read this report on 04/12/2024. Underlying persistent atrial fibrillation noted. Pacemaker function otherwise adequate [id number] Cardiac Device Interrogation, pacemaker Procedure code (CPT) selection complete Assessment & Plan Assessment & Plan (1) Cardiac pacemaker in situ: Onset Date: ~2008 Comment: ([facility] [facility] DCPP - placed 2008, changed 2020) Code(s): Z95.0 - Presence of cardiac pacemaker Category: Medical Plan: See above Coding Level of Care Code Procedure Only Diagnoses Cardiac pacemaker in situ Z95.0 CPT Codes Cardiac Device Check - Cardiac Device 12: [id number] Cardiac Device Interrogation, pacemaker ([id number])
== END ==
PROVIDERS: PCP Internal Medicine; Visit Provider Internal Medicine Cardiovascular Disease
DX: I48.19 Other persistent atrial fibrillation (principal); Z95.0 Presence of cardiac pacemaker
CPT/HCPCS: 93294

== ENCOUNTER 2024-04-10 09:55 | Day surgery (SDC) | payer MEDICARE, SELFPAY ==
[2024-04-10] VITALS (7 sets, daily range): BP systolic 101–167; BP diastolic 47–93; PULSE 60–188; RESP 16–20; TEMP 36.1–37.1; O2SAT 97–98; BMI 26.9
[2024-04-10 10:59] LABS: Glucose, Whole Blood 163 mg/dL (60-115)
--- NOTE | 2024-04-10 11:23 | MHC.SHP ---
Pre-Procedural Eval Section A - 24 Hr Update-Section A only Date of Service: 04/10/24 Section B - Complete if H&P > 30 days Chief Complaint: Shortness of breath Details of Present Illness: Patient with prior history of paroxysmal atrial fibrillation with recent recurrence after hospitalization remaining persistent atrial fibrillation. Has been on oral anticoagulation since January. Persistent atrial fibrillation with symptoms of shortness of breath. Plan for synchronized cardioversion to achieve rhythm control. She was loaded with amiodarone again Relevant Family History (Specify if Yes): No Relevant Social History: None Present Medications: see Short Stay Collaborative assessment Medical History: Significant History (As before) Allergies: Allergies Allergy/AdvReac Type Severity Reaction Status Date / Time codeine [CODEINE] Allergy Unknown HIVES Verified 02/26/24 15:06 Review of Systems Sugical H&P ROS: Negative: Constitution, Neurological, Psychiatric, Hem-Onc, Allergic/Immunologic, Gastrointestinal, Genitourinary, Musculoskeletal, Integumentary, Endocrine and Eyes/Ears/Nose/Throat and Yes, Specify: Cardiovascular (Fast heart rate) and Respiratory (Shortness of breath) Exam Surgical H&P Exam: Normal: HEENT, Normal: Lungs, Normal: Extremities, Normal: Abdomen, Normal: Skin and Normal: Neurological and Significant Findings: Heart (Rapid irregular heartbeat, elevated blood pressure) Plan Diagnosis/Plan: Unchanged I have reviewed the history and physical and performed a pertinent physical examination on my patient. Plan cardioversion to achieve AV synchrony. Pacemaker will be reprogrammed after cardioversion Time Spent With Patient Time: Total time managing care of this patient today ____ minutes.
[2024-04-10] MEDS: dilTIAZem HCL 50 MG/10 ML VIAL 10 MG IVPUSH (11:29)
[2024-04-10] MEDS: Amiodarone/Dextrose 150 MG/100 ML PLAST..BAG 600 MG IV (11:39)
--- NOTE | 2024-04-10 11:40 | HO.ANESPROP2 ---
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 Diabetes Pacemaker at end of battery life Atrial fibrillation with rapid ventricular response CRUZ (acute kidney injury) HTN (hypertension) Asymmetric septal hypertrophy Cardiac pacemaker in situ (~2008) Sick sinus syndrome Family History Family History Father CHF (congestive heart failure) Mother Diabetes Surgical History Surgical History History of permanent cardiac pacemaker placement (~2008) Hx of cataract History of Problems with Anesthesia: No Social History Social History Household Members: Family Housing: House Do you presently have visiting nurse or other home services: No Alcohol intake: current Alcohol intake frequency: does not drink Patient Tobacco Use Status: Never used Tobacco Have you been hit, kicked, punched, or otherwise hurt by someone within the past year? If so, by whom?: No Are you DNR?: No Advance Directives: No Advance Directives Information Provided: Yes Recently lost weight without trying: No Nutrition Risks: No Nutritional Risk service: No Current occupational status: retired Meds Allergies Allergy/AdvReac Type Severity Reaction Status Date / Time codeine [CODEINE] Allergy Unknown HIVES Verified 02/26/24 15:06 Home Medications ?Medication ?Instructions ?Recorded ?Confirmed ?Last Taken ?Type cetirizine 5 mg tablet 5 mg PO DAILY 08/14/20 02/27/24 04/09/24 History glipizide 10 mg tablet, extended 10 mg PO DAILY 08/14/20 02/27/24 04/09/24 History release 24 hr omeprazole 20 mg capsule,delayed 20 mg PO DAILY 08/14/20 02/27/24 04/09/24 History release metformin 750 mg tablet,extended 750 mg PO DAILY 02/17/21 02/27/24 04/09/24 History release 24 hr albuterol sulfate 90 mcg/actuation 1 - 2 puff PO Q4H PRN wheezing 04/02/21 02/27/24 04/09/24 History aerosol inhaler cholecalciferol (vitamin D3) 50 50 mcg PO DAILY 04/02/21 02/27/24 04/09/24 History mcg (2,000 unit) tablet methenamine hippurate 1 gram tablet 1 g PO BID 08/11/21 02/27/24 04/09/24 History pioglitazone 15 mg tablet 15 mg PO DAILY 02/08/23 02/27/24 04/09/24 History rosuvastatin 40 mg tablet 40 mg PO DAILY 02/08/23 02/27/24 04/09/24 History insulin glargine U-300 conc 300 unit subcut 08/28/23 02/27/24 04/09/24 History unit/mL (1.5 mL) subcutaneous pen ([place] [employer] SoloStar U-300 Insulin) apixaban 5 mg tablet (Eliquis) 5 mg PO BID 02/27/24 02/27/24 04/10/24 History Exam Pertinent Lab Results Pertinent Lab Results: Laboratory Tests 03/14/24 09:15 WBC 12.1 H Hgb 12.2 Hct 37.2 Plt Count 281 Sodium 141 Potassium 4.5 Chloride 107 Carbon Dioxide 25 BUN 27 H Creatinine 1.08 Narrative Narrative: Cardiac Device Check 02/2024 Details: [employer] dual-chamber pacemaker interrogation today shows battery 6.8-7.3 years, DDDR mode, low rate 60, atrial threshold 0.75 volts at 0.5 milliseconds, atrial paced 38%, ventricular paced 4.6%, atrial burden 38% on 02/25 [id number] Cardiac Device Check, pacemaker dual lead Procedure code (CPT) selection complete EKG 02/2024 Details: atrial flutter, left axis deviation, LVH with QRS widening, Q-wave lead 1 and aVL, can not exclude prior infarct, rate 113, QTC 455 milliseconds ECHO 06/2023 Conclusions: - The left ventricular systolic function is normal. The calculated ejection fraction is 66% by biplane method. - There is severe septal asymmetric hypertrophy(2.1cm). However, not clear if this technical as it is not seen in all views. - No obvious valvular pathology seen on this study. 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 Diabetes Pacemaker at end of battery life Atrial fibrillation with rapid ventricular response CRUZ (acute kidney injury) HTN (hypertension) Asymmetric septal hypertrophy Cardiac pacemaker in situ (~2008) Sick sinus syndrome Family History Family History Father CHF (congestive heart failure) Mother Diabetes Family history of problems with anesthesia: No Surgical History Surgical History History of permanent cardiac pacemaker placement (~2008) Hx of cataract History of Problems with Anesthesia: No Social History Social History Household Members: Family Housing: House Do you presently have visiting nurse or other home services: No Alcohol intake: current Alcohol intake frequency: does not drink Patient Tobacco Use Status: Never used Tobacco Have you been hit, kicked, punched, or otherwise hurt by someone within the past year? If so, by whom?: No Are you DNR?: No Advance Directives: No Advance Directives Information Provided: Yes Recently lost weight without trying: No Nutrition Risks: No Nutritional Risk service: No Current occupational status: retired Meds Allergies Allergy/AdvReac Type Severity Reaction Status Date / Time codeine [CODEINE] Allergy Unknown HIVES Verified 02/26/24 15:06 Home Medications ?Medication ?Instructions ?Recorded ?Confirmed ?Last Taken ?Type cetirizine 5 mg tablet 5 mg PO DAILY 08/14/20 02/27/24 04/09/24 History glipizide 10 mg tablet, extended 10 mg PO DAILY 08/14/20 02/27/24 04/09/24 History release 24 hr omeprazole 20 mg capsule,delayed 20 mg PO DAILY 08/14/20 02/27/24 04/09/24 History release metformin 750 mg tablet,extended 750 mg PO DAILY 02/17/21 02/27/24 04/09/24 History release 24 hr albuterol sulfate 90 mcg/actuation 1 - 2 puff PO Q4H PRN wheezing 04/02/21 02/27/24 04/09/24 History aerosol inhaler cholecalciferol (vitamin D3) 50 50 mcg PO DAILY 04/02/21 02/27/24 04/09/24 History mcg (2,000 unit) tablet methenamine hippurate 1 gram tablet 1 g PO BID 08/11/21 02/27/24 04/09/24 History pioglitazone 15 mg tablet 15 mg PO DAILY 02/08/23 02/27/24 04/09/24 History rosuvastatin 40 mg tablet 40 mg PO DAILY 02/08/23 02/27/24 04/09/24 History insulin glargine U-300 conc 300 unit subcut 08/28/23 02/27/24 04/09/24 History unit/mL (1.5 mL) subcutaneous pen (Naun Talley U-300 Insulin) apixaban 5 mg tablet (Eliquis) 5 mg PO BID 02/27/24 02/27/24 04/10/24 History Exam Exam Date and Time: 04/10/24 1145 Height,Weight and Vital Signs: Height 4 ft 11 in Weight 60.419 kg Vital Signs Temperature 98.7 F 04/10/24 11:04 Pulse Rate 169 H 04/10/24 11:04 Respiratory Rate 20 04/10/24 11:04 Blood Pressure 167/87 H 04/10/24 11:04 Pulse Oximetry 97 04/10/24 11:04 Oxygen Delivery Method Room Air 04/10/24 11:04 Temperature 98.7 F 04/10/24 11:10 Pulse Rate 172 H 04/10/24 11:29 Respiratory Rate 18 04/10/24 11:10 Blood Pressure 155/93 H 04/10/24 11:29 Pulse Oximetry 97 04/10/24 11:10 Oxygen Delivery Method Room Air 04/10/24 11:10 Airway Mallampati Class: II TM Dist: >3cm Neck ROM: Full Loose/Missing/Broken Teeth: No (patient denies any loose or broken teeth) Heart: S1S2 Lungs: CTAB Assessment and Plan Assessment Anesthesia Assessment: Anesthesia Plan Discussed and Chart Reviewed Final Anesthetic Review Family History of Problems with Anesthesia: No History of Problems with Anesthesia: No NPO: Yes ASA Class: III Final Preanesthetic Review: No Changes in Pt Med Stat, Meds/Allgs Chart Reviewed, Consent Obtained/Reviewed and Anes Risks/Benef Reviewed Patient Risk: Intermediate Procedure Risk: Low Anesthetic Plan Anesthetic Plan: MAC: and Agree w/ Assess. and Plan Disposition: Standard PACU
--- NOTE | 2024-04-10 12:09 | ECG_ITS ---
Test Reason : POST CARDIOVERSION Blood Pressure : / mmHG Vent. Rate : 060 BPM Atrial Rate : 060 BPM P-R Int : 160 ms QRS Dur : 112 ms QT Int : 438 ms P-R-T Axes : 000 -38 -85 degrees QTc Int : 438 ms Atrial-paced rhythm Left axis deviation Incomplete left bundle branch block Moderate voltage criteria for LVH, may be normal variant ( R in aVL , [place] product ) ST & T wave abnormality, consider anterolateral ischemia Abnormal ECG When compared with ECG of 02-APR-2021 15:10, Nonspecific T wave abnormality now evident in Inferior leads T wave inversion more evident in Anterolateral leads QT has lengthened Referred By: Gabe Tang Electronically Signed By:LIV COLLAZO
--- NOTE | 2024-04-10 13:05 | HO.CARDIVERS ---
Cardioversion Procedure Note Cardioversion Date of Procedure: Today Ordering Provider: Teresa Alves Performing Provider: Myself Indication for Procedure: Persistent symptomatic atrial fibrillation with difficult control rate Pre-Op Diagnosis: Same Post-Op Diagnosis: Atrially paced rhythm Performed with Transesophageal Echo: No History: See the office note Consent: Verbal and Written consent was obtained from the patient before starting and after confirming oral anticoagulation use. The patient was made aware of the risk of synchronized cardioversion including benefits and risks Procedure: After consent obtained, cardioversion pads were attached in anteroposterior configuration and the patient was sedated by the anesthesia team. Once adequate sedation achieved, patient was delivered 200 joules of biphasic synchronized energy in anteroposterior configuration. Pacemaker was checked post cardioversion. Pacing lead impedance remained stable. Rhythm converted from rapid atrial flutter to atrially paced rhythm. Atrial ventricular sensing was excellent. Complications: None Impression: Successful conversion to atrially paced rhythm Recommendations: 1. Will increase amiodarone to 400 mg daily for 2 weeks 2. Continue full oral anticoagulation with Eliquis 3. Follow up in the office in 4 weeks
== END 2024-04-10 13:16 | disposition home or self-care (01) ==
PROVIDERS: PCP Internal Medicine; Visit Provider Internal Medicine Cardiovascular Disease
PROC: 5A2204Z Restoration of Cardiac Rhythm, Single (ICD-10-PCS; principal; 2024-04-10 12:00)
DX: R06.02 Shortness of breath (principal); I48.19 Other persistent atrial fibrillation; Z45.018 Encounter for adjustment and management of other part of cardiac pacemaker; I10 Essential (primary) hypertension; E11.9 Type 2 diabetes mellitus without complications; Z79.01 Long term (current) use of anticoagulants; Z79.4 Long term (current) use of insulin; Z79.84 Long term (current) use of oral hypoglycemic drugs; Z79.899 Other long term (current) drug therapy; Z88.5 Allergy status to narcotic agent
CPT/HCPCS: 82947; 92960; 93005; J0283; J2704

== ENCOUNTER → 2024-04-10 09:55 | Outpatient (BNV) | payer MEDICARE, SELFPAY | PROVIDERS: PCP Internal Medicine; Visit Provider Internal Medicine Cardiovascular Disease | DX: I48.19 Other persistent atrial fibrillation (principal) | CPT/HCPCS: 92960 ==

== ENCOUNTER 2024-04-12 10:03 | Inpatient (IN) | payer MEDICARE, SELFPAY ==
[2024-04-12] VITALS (7 sets, daily range): BP systolic 123–181; BP diastolic 69–85; PULSE 60; RESP 16–23; TEMP 36.4–36.9; O2SAT 94–97; BMI 30.1
--- NOTE | ~2024-04-12 | XR_ITS ---
EXAMINATION: XR CHEST CLINICAL INFORMATION: Pain. COMPARISON: Chest radiograph 04/02/2021. TECHNIQUE: Frontal view of the chest was obtained. FINDINGS: Left-sided pacer with leads overlying the expected location of the right atrium and right ventricle. Prominent cardiomediastinal silhouette, increased since prior. Increased central peribronchial thickening and bibasilar streaky opacities. No dense consolidation. Equivocal trace amount of bilateral pleural fluid. No acute osseous findings. XR/XR chest 1V IMPRESSION: 1. Findings are suggestive of infectious/inflammatory small airways disease or pulmonary edema with bibasilar subsegmental atelectasis. 2. Suspect trace amount of bilateral pleural fluid. 3. Prominent cardiomediastinal silhouette which could indicate cardiomegaly in the appropriate clinical context. Electronically signed by: Krista Velazquez MD 04/12/2024 01:04 PM EDT
--- NOTE | 2024-04-12 10:05 | ECG_ITS ---
Test Reason : cp Blood Pressure : / mmHG Vent. Rate : 060 BPM Atrial Rate : 060 BPM P-R Int : 188 ms QRS Dur : 118 ms QT Int : 522 ms P-R-T Axes : 018 -44 -66 degrees QTc Int : 522 ms Atrial-paced rhythm Left axis deviation Left ventricular hypertrophy with QRS widening ( R in aVL , [place] product ) T wave abnormality, consider inferior ischemia T wave abnormality, consider anterolateral ischemia Prolonged QT Abnormal ECG When compared with ECG of 10-APR-2024 12:09, Inverted T waves have replaced nonspecific T wave abnormality in Inferior leads QT has lengthened Referred By: Generic ED Physician Electronically Signed By:LIV COLLAZO
--- NOTE | 2024-04-12 10:14 | ED.CHESTPAIN ---
HPI - Chest Pain General Chief Complaint: Chest Pain Stated Complaint: Chest pressure Time Seen by Provider: 04/12/24 10:13 Source: patient and old records reviewed Mode of arrival: ambulatory Limitations: no limitations History of Present Illness ED Provider: CHARLENE VILLAFUERTE narrative: 78 yo female with PMH of PAF on eliquis s/p cardioversion on 04/10 200J DC on continued eliquis and amiodarone 400mg daily for 2 weeks, DM, hypertrophic cardiomyopathy, HTN, SSS s/p PPM, prior cardiac ablation 2021, who presents today with c/o chest pain. She notes last night she started to have central chest pressure worsening with any exertion she felt a little short of breath and then nauseated. She couldn't sleep all night. She notes the pain returns any time she exerts herself. She has no pain currently. No prior cardiac cath per her reports. She has had dry cough but no fevers or sputum. Onset (ago): day(s) (last night) Timing of current episode: now resolved Prior episodes: No Onset: during exertion Pain location: substernal Pain radiation: none Severity: moderate Quality: other (pressure) Relieving factors: rest Exacerbating factors: exertion Context: other Associated symptoms: nausea and dyspnea Treatment prior to arrival: none Related Data Home Medications ?Medication ?Instructions ?Recorded ?Confirmed cetirizine 5 mg tablet 5 mg PO DAILY 08/14/20 02/27/24 glipizide 10 mg tablet, extended 10 mg PO DAILY 08/14/20 02/27/24 release 24 hr omeprazole 20 mg capsule,delayed 20 mg PO DAILY 08/14/20 02/27/24 release metformin 750 mg tablet,extended 750 mg PO DAILY 02/17/21 02/27/24 release 24 hr albuterol sulfate 90 mcg/actuation 1 - 2 puff PO Q4H PRN wheezing 04/02/21 02/27/24 aerosol inhaler cholecalciferol (vitamin D3) 50 50 mcg PO DAILY 04/02/21 02/27/24 mcg (2,000 unit) tablet methenamine hippurate 1 gram tablet 1 g PO BID 08/11/21 02/27/24 pioglitazone 15 mg tablet 15 mg PO DAILY 02/08/23 02/27/24 rosuvastatin 40 mg tablet 40 mg PO DAILY 02/08/23 02/27/24 insulin glargine U-300 conc 300 unit subcut 08/28/23 02/27/24 unit/mL (1.5 mL) subcutaneous pen (Touravino SoloStar U-300 Insulin) apixaban 5 mg tablet (Eliquis) 5 mg PO BID 02/27/24 02/27/24 Previous Rx's ?Medication ?Instructions ?Recorded lisinopril 10 mg tablet 10 mg PO DAILY #90 tabs 07/14/23 amiodarone 200 mg tablet 200 mg PO DAILY 30 days #30 tabs 02/27/24 metoprolol tartrate 50 mg tablet 50 mg PO BID #60 tabs 02/27/24 Allergies Allergy/AdvReac Type Severity Reaction Status Date / Time codeine [CODEINE] Allergy Unknown HIVES Verified 04/12/24 10:29 Review of Systems Review of Systems: Constitutional : No Weight loss, No Fever, No Chills ENT/Mouth : No sore throat, No Rhinorrhea Eyes: No Eye Pain, No Swelling Cardiovascular : pos Chest Pain, pos SOB, no Dyspnea on Exertion, No Orthopnea, No Edema, No Palpitations Respiratory : pos Cough, No Sputum Gastrointestinal : pos Nausea, No Vomiting, No Diarrhea, No abdominal Pain, No Hematochezia, No Melena Genitourinary : No Dysuria, No Urinary Frequency Musculoskeletal : No joint pain, No Myalgias, No Joint Swelling Skin : No Skin Lesions, No rash Neuro : No Weakness, No Numbness, No Dizziness, No Headache Psych : No Anxiety/Panic, No Depression All other systems reviewed and are negative [facility] Past Medical History Attestation statement: The following information was validated with the patient. Source: old records reviewed Medical History Paroxysmal atrial fibrillation Osteoporosis (~2013) Current use of usp anticoagulation Diabetes Pacemaker at end of battery life Atrial fibrillation with rapid ventricular response CRUZ (acute kidney injury) HTN (hypertension) Asymmetric septal hypertrophy Cardiac pacemaker in situ (~2008) Sick sinus syndrome Surgical History History of permanent cardiac pacemaker placement (~2008) Hx of cataract Family History Family History Father CHF (congestive heart failure) Mother Diabetes Social History Social History Household Members: Family Housing: House Do you presently have visiting nurse or other home services: No Alcohol intake: current Alcohol intake frequency: does not drink Patient Tobacco Use Status: Never used Tobacco Advance Directives: No Advance Directives Information Provided: Yes Do you have a plan to hurt others: No Plan service: No Current occupational status: retired Physical Exam Vital Signs: Vital Signs: Last Vital Signs Temp 98.4 F 04/12/24 11:29 Pulse 60 04/12/24 12:30 Resp 16 04/12/24 12:30 BP 170/82 H 04/12/24 12:30 Pulse Ox 96 04/12/24 12:30 O2 Del Method Room Air 04/12/24 12:30 BMI result Body Mass Index 30.1 Appearance: Alert. Oriented X3. No acute distress. Eyes: Pupils equal, round and reactive to light. ENT: Pharynx normal. Neck: Normal inspection. Neck supple. CVS: Normal heart rate and rhythm. Pulses normal. Respiratory: No respiratory distress. Breath sounds rales in both bases. Abdomen: Soft and nontender. Skin: Skin warm and dry. Normal skin color. Normal skin turgor. Extremities: No lower extremity edema. No calf ttp Neuro: Oriented X 3. No motor deficit. No sensory deficit. Medications Administered Discontinued Medications Generic Name Dose Route Start Last Admin Trade Name Freq PRN Reason Stop Dose Admin Furosemide 40 mg 04/12/24 11:12 04/12/24 11:28 Furosemide 40 Mg/4 Ml Vial IVPUSH 04/12/24 11:13 40 mg STAT STA Administration Protocol Nitroglycerin 0.5 inch 04/12/24 11:47 04/12/24 12:32 Nitroglycerin 2 % Oint 1 Gm Packet TRANSDERMA 04/12/24 11:48 0.5 inch ONCE ONE Administration Procedures Procedure Narrative Procedure Narrative: bedside limited ECHO - apical parasternal no effusion overall her EF appears low on my limited exam under 40% Medical Decision Making Medical Decision Making MDM Narrative: 78 yo female with PMH of PAF on eliquis s/p cardioversion on 04/10 200J DC on continued eliquis and amiodarone 400mg daily for 2 weeks, DM, hypertrophic cardiomyopathy, HTN, SSS s/p PPM, prior cardiac ablation 2021 here with chest pressure all night, dyspnea and nausea. She has dry cough. She has no effusion on bedside ECHO. She has not missed a dose of eliquis doubt VTE. Pain is related to exertion which is concerning. At this time she is currently pain free. Will obtain labs, troponin, CXR, viral panel, discuss with cardiology her bedside ECHO as well shows what I suspect is poor EF Differential Diagnosis Differential Diagnoses: The differential diagnosis associated with the presentation includes ACS, angina, doubt VTE compliant with eliquis, URI Admission/Observation Consideration of admission/observation: Escalation of care including admission/observation considered admit for ECHO, IV diuresis Consult Healthcare Provider Management of the patient was discussed with: Hospitalist (will admit for further workup) and [facility] Dr. Tang aware admit for CHF, get ECHO patient already on eliquis this AM I am going to hold aspirin start nitro paste as well could be takotsubo per ECHO Lab Data MDM Lab Attestation statement: I reviewed the patient's lab results. 04/12/24 10:18 04/12/24 10:18 Labs: Lab Results 04/12/24 Range/Units 10:18 WBC 6.9 (4.8-10.8) X10*3/uL RBC 3.86 L (4.20-5.50) X10*6/uL Hgb 11.7 L (12.0-16.0) g/dl Hct 35.5 L (37.0-47.0) % MCV 92.0 (80.0-98.0) fL MCH 30.3 (27.0-33.0) pg MCHC 33.0 (31.0-35.0) g/dl RDW 17.4 H (11.0-16.0) % Plt Count 300 (160-400) X10*3/uL MPV 8.8 L (9.4-12.3) fL Immature Gran % (Auto) 1.4 H (0.0-0.4) % Neut % (Auto) 69.3 (45-73) % Lymph % (Auto) 22.1 (20-40) % Wilkinson % (Auto) 6.4 (2-11) % Eos % (Auto) 0.4 (0-4) % Baso % (Auto) 0.4 (0-2) % Lymph # (Auto) 1.5 (1.2-4.9) X10*3/uL Wilkinson # (Auto) 0.4 (0.1-1.2) X10*3/uL Eos # (Auto) 0.0 (0.0-0.4) X10*3/uL Baso # (Auto) 0.0 (0.0-0.2) X10*3/uL Abs Immat Gran (auto) 0.10 H (0.00-0.03) X10*3/uL Absolute Neuts (auto) 4.8 (2.0-8.3) x10*3/uL Absolute Nucleated RBC 0.000 (0.0-0.012) X10*3/uL Nucleated RBC % (auto) 0.0 (0.0-0.2) /100WBC Smear Tech's Comments VERIFIED PT 15.0 H (10.9-12.4) SEC INR 1.3 H (0.9-1.1) APTT 39.7 H (26.0-36.8) SEC Sodium 138 (135-145) mmol/L Potassium 4.2 (3.3-5.1) mmol/L Chloride 109 H (96-108) mmol/L Carbon Dioxide 22 (22-29) mmol/L Anion Gap 11 L (12-20) BUN 16 (9-16) mg/dL Creatinine 0.80 (0.5-1.4) mg/dL Estim Creat Clear Calc 48.5 Estimated GFR > 60 Random Glucose 217 H (60-115) mg/dL Calcium 9.0 D (8.4-10.2) mg/dL Magnesium 1.8 (1.6-2.6) mg/dL Troponin I High Sens 18.5 H (<3.5-17.0) ng/L B-Natriuretic Peptide 2138 H (<100) pg/mL COVID-19 (RAEGAN) Positive A (Negative) COVID-19 Clin Com See Note Independent Interpretation I performed an independent interpretation of an: EKG and Plain X-Ray Interpretation: Rate: 60 Rhythm: a paced [place]: left Normal P waves. Normal DERREK. widened QRS complex. ST T wave : no KYLIE, anterior, inferior and lateral t wave inversions - V1 and V2 are new. T wave inversions are more deep and pronounced compared to prior qTC: 522 prior studies: changed The study has been interpreted contemporaneously by me. . Radiology Impression Discussion of test interpretation with radiology: I have reviewed the radiologist's reading. Discharge Plan Discharge Clinical Impression: COVID-19 Chest pain Qualifiers: Chest pain type: precordial pain Qualified Code(s): R07.2 - Precordial pain Acute CHF Qualifiers: Heart failure type: unspecified Qualified Code(s): I50.9 - Heart failure, unspecified Patient Disposition: Admitted As Inpatient Print Language: Citizen Of [place]
[2024-04-12 10:25] LABS: Basophils Percent Auto 0.4 % (0-2); Eosinophils Percent Auto 0.4 % (0-4); Hematocrit 35.5 % (37.0-47.0); Hemoglobin 11.7 g/dl (12.0-16.0); Imm Gran Pct Auto 1.4 % (0.0-0.4); Lymphocytes Absolute Auto 1.5 X10*3/uL (1.2-4.9); Lymphocytes Percent Auto 22.1 % (20-40); MANUAL DIFF FLAG SCAN; Mean Corpuscular Hemoglobin 30.3 pg (27.0-33.0); Mean Platelet Volume 8.8 fL (9.4-12.3); Monocytes Absolute Auto 0.4 X10*3/uL (0.1-1.2); Monocytes Percent Auto 6.4 % (2-11); Neutrophils Absolute Auto 4.8 x10*3/uL (2.0-8.3); Neutrophils Percent Auto 69.3 % (45-73); Platelet Count 300 X10*3/uL (160-400); Red Blood Count 3.86 X10*6/uL (4.20-5.50); Red Cell Distribution Width 17.4 % (11.0-16.0); SCAN SMEAR FLAG 1; White Blood Count 6.9 X10*3/uL (4.8-10.8)
[2024-04-12 10:30] LABS: INTERNATIONAL NORM RATIO 1.3 (0.9-1.1)
[2024-04-12 10:33] LABS: Partial Thromboplastin Time 39.7 SEC (26.0-36.8)
[2024-04-12 10:37] LABS: COVID-19 Test Positive (Negative); IDNOW Serial# 152EDE1D
[2024-04-12 10:45] LABS: Anion Gap 11 (12-20); Blood Urea Nitrogen 16 mg/dL (9-16); Carbon Dioxide 22 mmol/L (22-29); Chloride 109 mmol/L (96-108); Creatinine Clr Calc Pharmacy 48.5; Estimated Glomerular Filt Rate > 60; Glucose Random 217 mg/dL (60-115); Magnesium 1.8 mg/dL (1.6-2.6); Potassium 4.2 mmol/L (3.3-5.1); Sodium 138 mmol/L (135-145)
[2024-04-12 10:56] LABS: Troponin-I High Sensitivity 18.5 ng/L (<3.5-17.0)
[2024-04-12 11:04] LABS: B Type Natriuretic Peptide 2138 pg/mL (<100); SLIDE REVIEW VERIFIED
--- NOTE | 2024-04-12 11:12 | CA_ITS ---
Transthoracic Echocardiogram Patient (Last, First, Middle): Kaycee Florence M Gender: Female Date of : 1945 Age: 78 Procedure Date: 04/12/2024 Procedure Type: Transthoracic Echocardiogram Location: ER Height: 149.86 cm Weight: 67.59 kg BSA: 1.63 m2 Heart Rate: 60 bpm BP: 153 / 69 mmHg Rn Perioperative: Referring MD: Maribel Muniz DO Communications Editor: Gabe Tang MD Symptoms: chest pain, dyspnea, elevated BNP Study Quality: Adequate w contrast ECG Rhythm: Sinus Conclusions: - 1. Moderate to severe LV systolic dysfunction with LVEF of 30 35% with grade 2 diastolic dysfunction with wall motion abnormality suggestive of stress-induced cardiomyopathy 2. Moderately dilated left atrium 3. Mild aortic and mitral regurgitation 4. Moderately elevated right ventricular systolic pressure with mildly elevated right atrial pressures 5. Upper limits of normal ascending aortic size 6. No gross pericardial effusion Findings Procedure Information Contrast agent, definity, is being given per protocol without apparent complications. Left Ventricle Normal left ventricular cavity size. There is normal left ventricular wall thickness. The left ventricular systolic function is moderate to severely decreased. The visually estimated ejection fraction is between 30-35%. Spectral Doppler is indicative of a pseudonormal filling pattern. E/E prime ratio is >15, consistent with elevated filling pressures. Evidence suggests grade II (moderate) diastolic dysfunction. Wall Motion Rest Echo Findings The inferoseptal wall, anterolateral wall, inferolateral wall, the basal inferior, basal anterior, mid anterior, mid inferior, basal anteroseptal, and mid anteroseptal segments are hypokinetic. The entire apex is akinetic. Right Ventricle Mildly increased right ventricular cavity size. There is normal right ventricular systolic function. The right ventricular apex is hypokinetic. There is a pacemaker wire seen in the right ventricle. Atria The left atrium is moderately dilated. There is no evidence of interatrial shunt. The right atrium is mildly dilated. A pacemaker wire is identified in the right atrium. Aortic Valve Normal aortic valve structure and function. There is no aortic valve stenosis. There is mild aortic valve regurgitation. Mitral Valve Normal mitral valve structure and function. There is mild mitral valve regurgitation. There is no mitral valve stenosis. Pulmonic Valve The pulmonic valve is likely normal. There is mild pulmonic valve regurgitation. Tricuspid Valve Normal tricuspid valve structure. There is mild to moderate tricuspid valve regurgitation. Mildly elevated right atrial pressure. Moderate pulmonary hypertension is present. Great Vessels All visible segments of the aorta are normal in size. The pulmonary artery was not well visualized. There is no dilatation of the ascending aorta measuring 3.60 cm. Venous The inferior vena cava is mildly dilated and collapses less than 50% with inspiration. Pericardium/Pleural There is no evidence of pericardial effusion. Prior Study Comparison Changes noted compared to prior study dated: 07/03/2023. LV systolic function is significantly reduced Measurements 2D Linear Measurements IVSd: 1.01 0.6-0.9/0.6-1.0 cm LVIDd: 4.93 3.9-5.3/4.2-5.9 cm LVIDd Index: 3.02 2.4-3.2/2.2-3.1 cm/m2 LVIDs: 3.60 2.0-3.6 cm LVPWd: 1.15 0.7-1.1 cm LA Diam: 3.90 2.7-3.8/3.0-4.0 cm LAIDs Index: 2.39 1.5-2.3 cm/m2 LV Mass: 246.04 67-162/88-224 g LV Mass Index: 150.95 43-95/49-115 g/m2 LVOT Diam: 1.90 3.0+(-)1.3 cm 2D Systolic Function EF 4C: 27.10 >55% EF 2C: 29.90 >55% EF BiP: 32.20 >55% Mitral Valve MV Pk E: 0.81 MV PK A: 0.32 MV Decel Time: 109.00 E/A: 2.50 E'Lateral: 4.79 E'Medial: 2.39 E/E' Med: 34.10 E/E' Lat: 17.00 PHT: 32.00 MVA PHT: 6.88 Decel [place]: 7.46 Aortic Valve AoV Pk Cheng: 1.34 AoV Mn Cheng: 0.86 AoV VTI: 0.25 AoV Pk Grad: 7.00 Aov Mn Grad: 4.00 KIP Cont.VTI: 2.04 LVOT LVOT Pk Cheng: 0.91 LVOT Mn Cheng: 0.52 LVOT VTI: 0.18 LVOT Pk Grad: 3.00 LVOT Mn Grad: 1.00 LVOT Diam: 1.90 LVOT Area: 2.84 Diastolic Function MV Pk E: 0.81 MV Pk A: 0.32 E/A: 2.50 E'Medial: 2.39 E/E' Med: 34.10 E' Laterial: 4.79 E/E' Lat: 17.00 Right Ventricle TAPSE (mm): 26.90 Tricuspid Valve TR Pk Cheng: 3.38 TR Pk Grad: 46.00 RA Press: 8.00 RVSP: 54.00 Great Vessels Aorta Sinus of Valsalva: 3.30 2.0-3.5 cm Ao Asc: 3.60 2.1-3.4 cm Pulmonary Valve PV Pk Cheng: 1.13 Peak PV Grad: 5.00 Updated in Other Vendor System with Status of Final Gabe Tang MD electronically signed on 04/13/2024 9:26:41 AM with status of Final
[2024-04-12] MEDS: Furosemide 40 MG/4 ML VIAL IVPUSH (11:28)
[2024-04-12] MEDS: Nitroglycerin 2 % Oint 1 GM Packet 0.5 INCH TRANSDERMA (12:32)
--- NOTE | 2024-04-12 13:30 | PHA.MEDREC ---
Addendum entered by Andreas Wiggins 04/12/24 13:46: Reviewed by [facility] Original Note: Pharmacy Consult ? Medication Reconciliation Pharmacy has completed the medication reconciliation. Spoke to patient's family at bedside to confirm med list. Family stated patient takes Lantus 20 units at bedtime.
--- NOTE | 2024-04-12 13:59 | P.HPHOSP_ITS ---
<Statement entered by Carrington Gomez MD - 04/13/24 15:33> the patient was seen and evaluated with CODY Terry. I agree with his note, assessment and plan with the following. A 78 years old lady with recent cardioversion on 04/10 presenting with chest tightness and cough. found to have covid infection and mild fluid overload in CXR. Not hypoxic Start Lasix Hold on steroids Echo Cardiology consult Rest of evaluations by PA note. History of Present Illness Date of Service: 04/12/24 Attending physician on admission: Carrington Gomez Chief Complaint: SOB, chest tightness/pressure Pt is a 78-year-old female with a PMH significant for?symptomatic paroxysmal AFib on Eliquis s/p ablation 03/24/2023, sick sinus syndrome s/p pacemaker in place, HTN, asymmetric septal hypertrophy, HLD, insulin-dependent type 2 diabetes, and asthma who presents to the ED for evaluation of SOB and chest tightness/pain since last night. Pt has significant cardiac history and was admitted to [facility] in January of this year for a flutter with RVR. Patient has been noncompliant with her Xarelto due to high co-pay and at [facility] underwent a KATLYN which showed thrombus on pacemaker leads so was not cardioverted. Was discharged on Eliquis and just received cardioversion for AFib here at [facility] by Dr. Tang 2 days prior on 04/12/2024. Reports was feeling well after the procedure until last night when she laid down and experienced chest pressure that felt like something was laying on her chest. Was having difficulty breathing and could not sleep all night. When symptoms persisted this morning patient decided to present to the ED for further evaluation. Patient reports has been experiencing shortness a breath and SHULTZ especially with going upstairs since January hospitalization. Was initially sent home with services that helped improve her ambulation around her home. Has chronic nonproductive, occasional cough at baseline. Denies fever, chills, or myalgias. No known sick contacts. Denies nausea, vomiting, abdominal pain. ?Denies any PMH of heart failure. In the ED pt was hypertensive up to 170/82, otherwise WNL. Labs were significant for initial troponin 18.5, BNP 2138, and testing positive for COVID. No leukocytosis. Stable H&H. No significant electrolyte abnormalities. Renal and hepatic function WNL. CXR showed likely infectious/inflammatory small airway disease or pulmonary edema with bibasilar atelectasis, possible cardiomegaly, and suspected bilateral trace pleural effusions. EKG demonstrated atrial paced rhythm with T-wave inversions in anterior lateral and inferior leads with QTc of 522. Pt was treated with Lasix 40 mg IV and nitro paste. Pt will be admitted to the hospital under observation for treatment and further evaluation of likely new onset heart failure in the setting COVID infection. Review of Systems 2 Review of Systems: Chest pressure/tightness SOB, SHULTZ Chronic nonproductive cough at baseline Denies fever, chills, myalgias No nausea, vomiting, abdominal pain [facility] Medical History Paroxysmal atrial fibrillation Osteoporosis (~2013) Current use of assisted anticoagulation Diabetes Pacemaker at end of battery life Atrial fibrillation with rapid ventricular response CRUZ (acute kidney injury) HTN (hypertension) Asymmetric septal hypertrophy Cardiac pacemaker in situ (~2008) Sick sinus syndrome Family History Father CHF (congestive heart failure) Mother Diabetes Surgical History History of permanent cardiac pacemaker placement (~2008) Hx of cataract Social History Household Members: Family Housing: House Do you presently have visiting nurse or other home services: No Alcohol intake: current Alcohol intake frequency: does not drink Patient Tobacco Use Status: Never used Tobacco Advance Directives: No Advance Directives Information Provided: Yes Do you have a plan to hurt others: No Plan service: No Current occupational status: retired Meds Allergies Allergy/AdvReac Type Severity Reaction Status Date / Time codeine [CODEINE] Allergy Unknown HIVES Verified 04/12/24 10:29 Home Medications ?Medication ?Instructions ?Recorded ?Confirmed ?Last Taken ?Type cetirizine 5 mg tablet 5 mg PO DAILY 08/14/20 04/12/24 04/11/24 History omeprazole 20 mg capsule,delayed 20 mg PO DAILY@0630 08/14/20 04/12/24 04/11/24 History release metformin 750 mg tablet,extended 750 mg PO DAILY 02/17/21 04/12/24 04/11/24 History release 24 hr albuterol sulfate 90 mcg/actuation 1 - 2 puff PO Q4H PRN wheezing 04/02/21 04/12/24 04/11/24 History aerosol inhaler cholecalciferol (vitamin D3) 50 50 mcg PO DAILY 04/02/21 04/12/24 04/11/24 History mcg (2,000 unit) tablet pioglitazone 15 mg tablet 15 mg PO DAILY 02/08/23 04/12/24 04/11/24 History rosuvastatin 40 mg tablet 40 mg PO DAILY 02/08/23 04/12/24 04/11/24 History apixaban 5 mg tablet (Eliquis) 5 mg PO BID 02/27/24 04/12/24 04/11/24 History ezetimibe 10 mg tablet 10 mg PO DAILY 04/12/24 04/12/24 04/11/24 History insulin glargine 100 unit/mL (3 20 unit subcut BEDTIME 04/12/24 04/12/24 04/11/24 History mL) subcutaneous pen (Lantus Solostar U-100 Insulin) Physical Exam 2 Vital Signs and Narrative: Vital Signs: Last Vital Signs Temp 98.4 F 04/12/24 11:29 Pulse 60 04/12/24 12:30 Resp 16 04/12/24 12:30 BP 170/82 H 04/12/24 12:30 Pulse Ox 96 04/12/24 12:30 O2 Del Method Room Air 04/12/24 12:30 BMI result Body Mass Index 30.1 Constitutional: Alert, in no acute distress. Mental Status: Oriented to person, place and time. Eyes: Pupils are equal, round, and reactive to light. Ear, Nose, and Throat: Oropharynx clear, mucous membranes moist. Ears and nose without deformities. Trachea midline. Respiratory: Bibasilar crackles. Cardiovascular: S1, S2 regular. No murmurs, rubs, or gallops. Gastrointestinal: Abdomen soft, non-tender, non-distended. Normal bowel sounds. Neurologic: Cranial nerves II-XII are grossly intact bilaterally. No focal neurological deficits. Moves all extremities spontaneously. Skin: Warm, dry. Musculoskeletal: No cyanosis or clubbing. Extremities: No edema. Psychiatric: Normal mood and affect. Results Labs 04/12/24 10:18 04/12/24 10:18 Labs: Laboratory Results - last 24 hr 04/12/24 10:18 MCV 92.0 MCH 30.3 MCHC 33.0 RDW 17.4 H Plt Count 300 MPV 8.8 L Immature Gran % (Auto) 1.4 H Neut % (Auto) 69.3 Lymph % (Auto) 22.1 Stewart % (Auto) 6.4 Eos % (Auto) 0.4 Baso % (Auto) 0.4 Lymph # (Auto) 1.5 Stewart # (Auto) 0.4 Eos # (Auto) 0.0 Baso # (Auto) 0.0 Abs Immat Gran (auto) 0.10 H Absolute Neuts (auto) 4.8 Absolute Nucleated RBC 0.000 Nucleated RBC % (auto) 0.0 Smear Tech's Comments VERIFIED PT 15.0 H INR 1.3 H APTT 39.7 H Anion Gap 11 L Estim Creat Clear Calc 48.5 Estimated GFR > 60 Random Glucose 217 H Calcium 9.0 D Magnesium 1.8 Troponin I High Sens 18.5 H B-Natriuretic Peptide 2138 H COVID-19 (RAEGAN) Positive A COVID-19 Clin Com See Note Imaging Radiologist's Impressions: Impressions Chest X-Ray 04/12/24 11:02 IMPRESSION: 1. Findings are suggestive of infectious/inflammatory small airways disease or pulmonary edema with bibasilar subsegmental atelectasis. 2. Suspect trace amount of bilateral pleural fluid. 3. Prominent cardiomediastinal silhouette which could indicate cardiomegaly in the appropriate clinical context. Electronically signed by: Krista Velazquez MD 04/12/2024 01:04 PM EDT Assessment and Plan (1) Acute CHF: Qualifiers: Heart failure type: unspecified Qualified Code(s): I50.9 - Heart failure, unspecified Status: Acute (2) COVID-19: Status: Acute Plan Pt is a 78-year-old female with a PMH significant for?symptomatic paroxysmal AFib on Eliquis s/p ablation 03/24/2023, sick sinus syndrome s/p pacemaker in place, HTN, asymmetric septal hypertrophy, HLD, insulin-dependent type 2 diabetes, and asthma who presents to the ED for evaluation of SOB and chest tightness/pain since last night. Pt will be admitted to the hospital under observation for treatment and further evaluation of likely new onset heart failure in the setting COVID infection. CHF exacerbation Pt with increased SOB, SHULTZ, chest tightness/pressure, elevated BNP, CXR with passive edema and effusions S/P cardioverson 2 days prior on 04/[address] Tang Will treat with Lasix 40 mg IV daily Echocardiogram Monitor I/O, daily weights, lytes Cardiology consult Monitor on telemetry COVID infection Patient with SOB, SHULTZ, chronic nonproductive cough at baseline Not hypoxic No known sick contacts Treat symptomatically No indication for remdesivir, systemic steroids, supplemental O2 at this time Airborne and contact precautions Prolonged QT EKG with QTc of 522 Avoid QT-prolonging agents Monitor on telemetry AFib Continue amiodarone, metoprolol, Eliquis HLD Continue statin Insulin-dependent type 2 diabetes Hold metformin Sliding-scale insulin, Lantus Diabetic diet GERD PPI Full Code Attending:?Dr. Gomez DVT Prophylaxis: Lovenox Patient admitted to the hospital under observation for treatment and further evaluation of likely new onset CHF in the setting COVID infection and recent ablation AFib. Quality Stroke Does the patient have a stroke diagnosis?: No VTE Prior VTE?: No VTE Risk Level:: Medical - moderate - high VTE Device Contraindication: Treatment Not Indicated VTE Drug Contraindication: N/A - Med Ordered
--- NOTE | 2024-04-12 18:31 | MHC.EDTECH ---
Patient was given dinner
[2024-04-12] MEDS: Amiodarone HCL 200 MG TABLET PO (18:41)
[2024-04-12] MEDS: Metoprolol Tartrate 50 MG TABLET PO ×2 (18:41→22:07)
[2024-04-12] MEDS: Ezetimibe 10 MG TABLET PO (18:41)
[2024-04-12] MEDS: lisinopriL 10 MG TABLET PO (18:41)
[2024-04-12] MEDS: Apixaban 5 MG TABLET PO ×2 (18:42→22:07)
--- NOTE | 2024-04-12 19:02 | PC.NURSE ---
patient poc not done, patient ate dinner before poc and insulin admin.
[2024-04-12 21:03] LABS: Troponin-I High Sensitivity 49.4 ng/L (<3.5-17.0)
[2024-04-12 21:22] LABS: Glucose, Whole Blood 204 mg/dL (60-115)
[2024-04-12] MEDS: Insulin Lispro 100 UNIT/ML 3 ML VIAL SUBCUT (22:06)
[2024-04-12] MEDS: Insulin Glargine,Hum.rec.anlog 100 UNIT/ML 10 ML VIAL 14 UNIT SUBCUT (22:07)
[2024-04-13] VITALS (7 sets, daily range): BP systolic 96–146; BP diastolic 51–76; PULSE 57–62; RESP 16–20; TEMP 35.3–37; O2SAT 94–97; BMI 25.8
[2024-04-13] MEDS: 0.9 % Sodium Chloride Flush 3 ML SYRINGE IVFLUSH ×4 (00:01→20:37)
[2024-04-13] MEDS: Omeprazole 20 MG CAPSULE.DR PO (06:10)
[2024-04-13 07:31] LABS: Glucose, Whole Blood 82 mg/dL (60-115)
[2024-04-13 07:48] LABS: Anion Gap 13 (12-20); Blood Urea Nitrogen 19 mg/dL (9-16); Carbon Dioxide 27 mmol/L (22-29); Chloride 107 mmol/L (96-108); Creatinine Clr Calc Pharmacy 40.8; Estimated Glomerular Filt Rate > 60; Glucose Random 78 mg/dL (60-115); Potassium 3.5 mmol/L (3.3-5.1); Sodium 143 mmol/L (135-145)
[2024-04-13] MEDS: Ezetimibe 10 MG TABLET PO (07:55)
[2024-04-13] MEDS: Atorvastatin Calcium 80 MG TABLET PO (07:56)
[2024-04-13] MEDS: Metoprolol Tartrate 50 MG TABLET PO ×2 (07:56→20:34)
[2024-04-13] MEDS: Cholecalciferol (Vitamin D3) 25 MCG TABLET 50 MCG PO (07:56)
[2024-04-13] MEDS: Amiodarone HCL 200 MG TABLET PO (07:56)
[2024-04-13] MEDS: Loratadine 10 MG TABLET PO (07:57)
[2024-04-13] MEDS: Apixaban 5 MG TABLET PO ×2 (07:57→20:34)
[2024-04-13] MEDS: lisinopriL 10 MG TABLET PO (07:57)
[2024-04-13] MEDS: Furosemide 40 MG/4 ML VIAL IVPUSH (07:57)
[2024-04-13 11:08] LABS: Glucose, Whole Blood 144 mg/dL (60-115)
--- NOTE | 2024-04-13 13:07 | PM.CNCAR ---
History of Present Illness History of Present Illness Date of Service: 04/13/24 Requesting physician: Carrington Gomez Consult reason: atrial fibrillation and congestive heart failure Chief complaint: CHF exacerbation Narrative: I was consulted to see Kaycee in cardiology consultation today for new onset congestive heart failure. Patient is a 78-year-old female who on Monday underwent synchronized cardioversion for persistent symptomatic atrial fibrillation with difficult control rate. Following day she called our office and says she was getting more short of breath. We did advised her to have a BNP and BNP done. However following day she continued to get more symptomatic and significantly short of breath and having chest pressure. Came to the emergency room. Was noted to have minimally elevated troponin but significant elevated BNP. She was therefore admitted for decompensated congestive heart failure. Patient has prior history of asymmetric septal hypertrophy with nonobstructive hypertrophic cardiomyopathy, paroxysmal atrial fibrillation, cardiac pacemaker, [place] for sick sinus syndrome. Patient has nonobstructive CAD by prior cardiac catheterization. Patient will also diagnose with COVID. She said she has been suffering from sinus and upper respiratory infection in the past prior to cardioversion but her COVID testing was negative. She denies any other cardiac complaints. Says since admission and diuresis she has felt better and her shortness of breath is improved. No more chest pain. However unfortunately there is no intake and output chart maintained. She has remained with atrially paced rhythm. EKG shows deep T-wave inversions. Echocardiogram shows LV systolic dysfunction with moderate to severe LV systolic dysfunction with apical regionality which could represent stress-induced cardiomyopathy. Review of Systems Constitutional: Constitutional: Denies chills, Reports fatigue and Denies fever(s) ENT: Reports nasal congestion Cardiovascular: Cardiovascular: Reports chest pain, Denies syncope, Denies leg edema, Denies lightheadedness, Denies Loss of Consciousness, Denies palpitations and Reports dyspnea Respiratory: Respiratory: Reports cough and Reports dyspnea Gastrointestinal: Gastrointestinal: Reports diarrhea Musculoskeletal: Musculoskeletal: Reports no additional musculoskeletal complaints Integumentary/Breasts: Skin/Breast: Reports system reviewed and no additional complaints, except as docu Neurologic: Reports system reviewed and no additional complaints, except as documented and Denies syncope Psychiatric: Psychiatric: Reports no additional psychiatric complaints Endocrine: Endocrine: Reports fatigue and Denies palpitations PMFSH Past Medical History Medical History Paroxysmal atrial fibrillation Osteoporosis (~2013) 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 Diabetes Pacemaker at end of battery life Atrial fibrillation with rapid ventricular response CRUZ (acute kidney injury) HTN (hypertension) Asymmetric septal hypertrophy Cardiac pacemaker in situ (~2008) Sick sinus syndrome Family History Family History Father CHF (congestive heart failure) Mother Diabetes Surgical History Surgical History History of permanent cardiac pacemaker placement (~2008) Hx of cataract Social History Social History Household Members: Family Housing: House Do you presently have visiting nurse or other home services: No Alcohol intake: current Alcohol intake frequency: does not drink Patient Tobacco Use Status: Never used Tobacco Smoked in Last 30 Days: No Patient Interested in Nicotine Replacement: No Patient Given Instructions on How to Stop Smoking: No Second Hand Smoke Exposure: No Use of substances other than those prescribed or required for medical reasons: No Currently Displaying Signs/Symptoms of Drug Intoxication Withdrawal: No Any prior treatment program specific to substance use: No Have you been hit, kicked, punched, or otherwise hurt by someone within the past year? If so, by whom?: No Do you feel safe in your current relationship?: Yes Is there a partner from a previous relationship who is making you feel unsafe now?: No Are you made to feel afraid or neglected: No Advance Directives: No Advance Directives Information Provided: Yes Do you have a plan to hurt others: No Plan Recently lost weight without trying: No Nutrition Risks: No Nutritional Risk Patient : No : No Poor oral hygiene: No service: No Current occupational status: retired [employer] Allergies Allergy/AdvReac Type Severity Reaction Status Date / Time codeine [CODEINE] Allergy Unknown HIVES Verified 04/12/24 10:29 Active Medications: Current Medications Acetaminophen (Acetaminophen 325 Mg Tablet) 650 mg PO Q6H PRN PRN Reason: Pain, Mild (Pain Scale 1-3), fever or headache Albuterol Sulfate (Albuterol Sulfate 90 Mcg 8 Gm Inhaler) 1 - 2 puff INHALE Q4H PRN PRN Reason: wheezing Amiodarone HCl (Amiodarone Hcl 200 Mg Tablet) 200 mg PO DAILY [facility] Last Admin: 04/13/24 07:56 Dose: 200 mg Apixaban (Apixaban 5 Mg Tablet) 5 mg PO BID [facility] Last Admin: 04/13/24 07:57 Dose: 5 mg Atorvastatin Calcium (Atorvastatin Calcium 80 Mg Tablet) 80 mg PO DAILY [facility] Last Admin: 04/13/24 07:56 Dose: 80 mg Benzonatate (Benzonatate 100 Mg Capsule) 100 mg PO TID PRN PRN Reason: Cough Calcium Carbonate (Calcium Carbonate 750 Mg Tab.Chew) 750 mg PO Q4H PRN PRN Reason: Heartburn Ezetimibe (Ezetimibe 10 Mg Tablet) 10 mg PO DAILY [facility] Last Admin: 04/13/24 07:55 Dose: 10 mg Furosemide (Furosemide 40 Mg/4 Ml Vial) 40 mg IVPUSH DAILY [facility]; Protocol Last Admin: 04/13/24 07:57 Dose: 40 mg Glucose (Glucose Gel 15 Gm Gel..Gram.) 15 gm PO Q15M PRN; Protocol PRN Reason: per Hypoglycemia Standing Ord. Dextrose (D10) 250 mls @ 750 mls/hr IV Q15M PRN; Protocol PRN Reason: per Hypoglycemia Standing Ord. Insulin Glargine (Insulin Glargine,Hum.Rec.Anlog 100 Unit/Ml 10 Ml Vial) 14 unit SUBCUT BEDTIME [facility] Last Admin: 04/12/24 22:07 Dose: 14 unit Insulin Human Lispro (Insulin Lispro 100 Unit/Ml 3 Ml Vial) 0 unit SUBCUT QIDACHS [facility]; Protocol Last Admin: 04/13/24 11:13 Dose: Not Given Lisinopril (Lisinopril 10 Mg Tablet) 10 mg PO DAILY [facility]; Protocol Last Admin: 04/13/24 07:57 Dose: 10 mg Loratadine (Loratadine 10 Mg Tablet) 10 mg PO DAILY [facility] Last Admin: 04/13/24 07:57 Dose: 10 mg Magnesium Hydroxide (Milk Of Magnesia 30 Ml Oral.Susp) 30 ml PO DAILY PRN PRN Reason: Constipation Melatonin (Melatonin 3 Mg Tablet) 6 mg PO BEDTIME PRN PRN Reason: Insomnia Metoprolol Tartrate (Metoprolol Tartrate 50 Mg Tablet) 50 mg PO BID [facility]; Protocol Last Admin: 04/13/24 07:56 Dose: 50 mg Omeprazole (Omeprazole 20 Mg Capsule.) 20 mg PO DAILY@0630 [facility] Last Admin: 04/13/24 06:10 Dose: 20 mg Pioglitazone HCl (Pioglitazone Hcl 15 Mg Tablet) 15 mg PO DAILY [facility] Last Admin: 04/13/24 07:56 Dose: 15 mg Sodium Chloride (0.9 % Sodium Chloride Flush 3 Ml Syringe) 3 ml IVFLUSH QSHIFT [facility] Last Admin: 04/13/24 07:57 Dose: 3 ml Vitamin D (Cholecalciferol (Vitamin D3) 25 Mcg Tablet) 50 mcg PO DAILY [facility] Last Admin: 04/13/24 07:56 Dose: 50 mcg Home Medications ?Medication ?Instructions ?Recorded ?Confirmed ?Last Taken ?Type cetirizine 5 mg tablet 5 mg PO DAILY 08/14/20 04/12/24 04/11/24 History omeprazole 20 mg capsule,delayed 20 mg PO DAILY@0630 08/14/20 04/12/24 04/11/24 History release metformin 750 mg tablet,extended 750 mg PO DAILY 02/17/21 04/12/24 04/11/24 History release 24 hr albuterol sulfate 90 mcg/actuation 1 - 2 puff PO Q4H PRN wheezing 04/02/21 04/12/24 04/11/24 History aerosol inhaler cholecalciferol (vitamin D3) 50 50 mcg PO DAILY 04/02/21 04/12/24 04/11/24 History mcg (2,000 unit) tablet pioglitazone 15 mg tablet 15 mg PO DAILY 02/08/23 04/12/24 04/11/24 History rosuvastatin 40 mg tablet 40 mg PO DAILY 02/08/23 04/12/24 04/11/24 History apixaban 5 mg tablet (Eliquis) 5 mg PO BID 02/27/24 04/12/24 04/11/24 History ezetimibe 10 mg tablet 10 mg PO DAILY 04/12/24 04/12/24 04/11/24 History insulin glargine 100 unit/mL (3 20 unit subcut BEDTIME 04/12/24 04/12/24 04/11/24 History mL) subcutaneous pen (Lantus Solostar U-100 Insulin) Physical Exam Vital Signs: Vital Signs: Last Vital Signs Temp 97.4 F 04/13/24 11:40 Pulse 60 04/13/24 11:40 Resp 20 04/13/24 11:40 BP 126/73 04/13/24 11:40 Pulse Ox 96 04/13/24 11:40 O2 Del Method Room Air 04/13/24 11:40 BMI result Body Mass Index 25.8 Const: General: cooperative, comfortable, no acute distress, alert and awake Nutritional Appearance: average body habitus and well nourished Orientation/consciousness: patient oriented x3 HEENT: Head: Yes normocephalic and Yes atraumatic Neck: Neck: Yes trachea midline, Yes supple and Yes no JVD Resp: Effort & Inspection: normal respiratory effort Auscultation: clear to auscultation bilaterally Cardio: Jugular venous distension: no JVD Palpation: normal PMI Rate: regular rate Rhythm: regular rhythm Heart sounds: S1 normal heart sound present, S2 normal heart sound present, no click, no gallops and no murmurs GI: Auscultation: normal bowel sounds Skin: General skin exam: no rashes or lesions noted Neuro: General: patient oriented x3 and no focal motor deficits Extrem: General: Yes no clubbing, cyanosis or edema Objective Labs and Meds 04/12/24 10:18 04/13/24 06:50 Lab results: Laboratory Results - last 24 hr 04/12/24 04/12/24 04/13/24 20:35 21:16 06:50 Hold Purple Top SEE NOTE Sodium 143 Potassium 3.5 Chloride 107 Carbon Dioxide 27 Anion Gap 13 BUN 19 H Creatinine 0.88 Estim Creat Clear Calc 40.8 Estimated GFR > 60 POC Glucose 204 H Random Glucose 78 Calcium 9.0 Troponin I High Sens 49.4 H D 04/13/24 04/13/24 07:26 10:54 Hold Purple Top Sodium Potassium Chloride Carbon Dioxide Anion Gap BUN Creatinine Estim Creat Clear Calc Estimated GFR POC Glucose 82 144 H Random Glucose Calcium Troponin I High Sens Conclusions: - 1. Moderate to severe LV systolic dysfunction with LVEF of 30 35% with grade 2 diastolic dysfunction with wall motion abnormality suggestive of stress-induced cardiomyopathy 2. Moderately dilated left atrium 3. Mild aortic and mitral regurgitation 4. Moderately elevated right ventricular systolic pressure with mildly elevated right atrial pressures 5. Upper limits of normal ascending aortic size 6. No gross pericardial effusion Imaging Radiologist's impression: Impressions Chest X-Ray 04/12/24 11:02 IMPRESSION: 1. Findings are suggestive of infectious/inflammatory small airways disease or pulmonary edema with bibasilar subsegmental atelectasis. 2. Suspect trace amount of bilateral pleural fluid. 3. Prominent cardiomediastinal silhouette which could indicate cardiomegaly in the appropriate clinical context. Electronically signed by: Krista Velazquez MD 04/12/2024 01:04 PM EDT Assessment and Plan (1) Acute CHF: Qualifiers: Heart failure type: unspecified Qualified Code(s): I50.9 - Heart failure, unspecified Status: Acute Acute CHF status post cardioversion this elderly woman most likely either represent stress-induced cardiomyopath and/or tachycardia mediated cardiomyopathy pre-existing prior to cardioversion with stunned atrial kick causing acute CHF. Clinically appears well compensated. Given her LV systolic dysfunction will start on neurohormonal modulation with valsartan and metoprolol. Both of these condition should improve. Will follow-up limited echocardiogram in 6 weeks time. Continue supportive care. Continue 1 more day of diuresis. Strict intake and output chart needs to be pursued. Check BMP and BNP tomorrow. Will pursue ischemic workup as outpatient. Anticipate discharge tomorrow if she is doing well. (2) Paroxysmal atrial fibrillation: Status: Acute Recent persistent atrial fibrillation requiring synchronized cardioversion after amiodarone loading. Currently maintaining rhythm. Continue amiodarone therapy. Continue full oral anticoagulation with apixaban. (3) Cardiac pacemaker in situ: Status: Acute Cardiac pacemaker in-situ, working well. Reprogrammed for adequate function. Will follow up in the clinic in 4 weeks time, sooner p.r.n.. Thank you for allowing me to partake in his care Procedures Date of Service Date of Service: 04/13/24
[2024-04-13] MEDS: Loperamide HCl 2 MG CAPSULE 4 MG PO (13:20)
--- NOTE | 2024-04-13 13:37 | HO.PM.IMPN ---
Subjective Subjective Date of Service: 04/13/24 Interval History: seen and evaluated feels better still congested and coughing having diarrhea no other events Review of Systems Review of Systems: Yes all other systems are reviewed and are negative Physical Exam Vital Signs: Vital Signs: Last Vital Signs Temp 97.4 F 04/13/24 11:40 Pulse 60 04/13/24 11:40 Resp 20 04/13/24 11:40 BP 126/73 04/13/24 11:40 Pulse Ox 96 04/13/24 11:40 O2 Del Method Room Air 04/13/24 11:40 BMI result Body Mass Index 25.8 Const: Other: Constitutional : interactive, not in distress Cardiovascular : no JVP, no lower extremity edema Respiratory : bilateral chest movement, not in resp distress Gastrointestinal: soft, lax, Non tender Skin : Warm, Dry Neurological : Alert & oriented , No focal deficit Objective Data Active Medications Acetaminophen (Acetaminophen 325 Mg Tablet) 650 mg PO Q6H PRN PRN Reason: Pain, Mild (Pain Scale 1-3), fever or headache Albuterol Sulfate (Albuterol Sulfate 90 Mcg 8 Gm Inhaler) 1 - 2 puff INHALE Q4H PRN PRN Reason: wheezing Amiodarone HCl (Amiodarone Hcl 200 Mg Tablet) 200 mg PO DAILY [facility] Last Admin: 04/13/24 07:56 Dose: 200 mg Documented By: SARAH Apixaban (Apixaban 5 Mg Tablet) 5 mg PO BID [facility] Last Admin: 04/13/24 07:57 Dose: 5 mg Documented By: SARAH Atorvastatin Calcium (Atorvastatin Calcium 80 Mg Tablet) 80 mg PO DAILY [facility] Last Admin: 04/13/24 07:56 Dose: 80 mg Documented By: SARAH Benzonatate (Benzonatate 100 Mg Capsule) 100 mg PO TID PRN PRN Reason: Cough Calcium Carbonate (Calcium Carbonate 750 Mg Tab.Chew) 750 mg PO Q4H PRN PRN Reason: Heartburn Ezetimibe (Ezetimibe 10 Mg Tablet) 10 mg PO DAILY [facility] Last Admin: 04/13/24 07:55 Dose: 10 mg Documented By: SARAH Furosemide (Furosemide 40 Mg/4 Ml Vial) 40 mg IVPUSH DAILY [facility]; Protocol Last Admin: 04/13/24 07:57 Dose: 40 mg Documented By: SARAH Glucose (Glucose Gel 15 Gm Gel..Gram.) 15 gm PO Q15M PRN; Protocol PRN Reason: per Hypoglycemia Standing Ord. Dextrose (D10) 250 mls @ 750 mls/hr IV Q15M PRN; Protocol PRN Reason: per Hypoglycemia Standing Ord. Insulin Glargine (Insulin Glargine,Hum.Rec.Anlog 100 Unit/Ml 10 Ml Vial) 14 unit SUBCUT BEDTIME [facility] Last Admin: 04/12/24 22:07 Dose: 14 unit Documented By: RAFAEL Insulin Human Lispro (Insulin Lispro 100 Unit/Ml 3 Ml Vial) 0 unit SUBCUT QIDACHS [facility]; Protocol Last Admin: 04/13/24 11:13 Dose: Not Given Documented By: SARAH Non-Admin Reason: No Insulin Coverage Comments: per sliding scale Lisinopril (Lisinopril 10 Mg Tablet) 10 mg PO DAILY [facility]; Protocol Last Admin: 04/13/24 07:57 Dose: 10 mg Documented By: SARAH Loperamide HCl (Loperamide Hcl 2 Mg Capsule) 2 mg PO Q4H PRN PRN Reason: diarrhe Loratadine (Loratadine 10 Mg Tablet) 10 mg PO DAILY [facility] Last Admin: 04/13/24 07:57 Dose: 10 mg Documented By: SARAH Magnesium Hydroxide (Milk Of Magnesia 30 Ml Oral.Susp) 30 ml PO DAILY PRN PRN Reason: Constipation Melatonin (Melatonin 3 Mg Tablet) 6 mg PO BEDTIME PRN PRN Reason: Insomnia Metoprolol Tartrate (Metoprolol Tartrate 50 Mg Tablet) 50 mg PO BID [facility]; Protocol Last Admin: 04/13/24 07:56 Dose: 50 mg Documented By: SARAH Omeprazole (Omeprazole 20 Mg Capsule.Dr) 20 mg PO DAILY@0630 [facility] Last Admin: 04/13/24 06:10 Dose: 20 mg Documented By: RAFAEL Pioglitazone HCl (Pioglitazone Hcl 15 Mg Tablet) 15 mg PO DAILY [facility] Last Admin: 04/13/24 07:56 Dose: 15 mg Documented By: SARAH Sodium Chloride (0.9 % Sodium Chloride Flush 3 Ml Syringe) 3 ml IVFLUSH QSHIFT [facility] Last Admin: 04/13/24 07:57 Dose: 3 ml Documented By: SARAH Vitamin D (Cholecalciferol (Vitamin D3) 25 Mcg Tablet) 50 mcg PO DAILY [facility] Last Admin: 04/13/24 07:56 Dose: 50 mcg Documented By: SARAH Labs 04/12/24 10:18 04/13/24 06:50 Labs: Laboratory Results - last 24 hr 04/12/24 04/12/24 04/13/24 20:35 21:16 06:50 Hold Purple Top SEE NOTE Anion Gap 13 Estim Creat Clear Calc 40.8 Estimated GFR > 60 POC Glucose 204 H Random Glucose 78 Calcium 9.0 Troponin I High Sens 49.4 H D 04/13/24 04/13/24 07:26 10:54 Hold Purple Top Anion Gap Estim Creat Clear Calc Estimated GFR POC Glucose 82 144 H Random Glucose Calcium Troponin I High Sens Assessment and Plan (1) COVID-19: Status: Acute (2) Acute CHF: Status: Acute Plan Pt is a 78-year-old female with a PMH significant for?symptomatic paroxysmal AFib on Eliquis s/p ablation 03/24/2023, sick sinus syndrome s/p pacemaker in place, HTN, asymmetric septal hypertrophy, HLD, insulin-dependent type 2 diabetes, and asthma who presents to the ED for evaluation of SOB and chest tightness/pain since last night. Pt will be admitted to the hospital under observation for treatment and further evaluation of likely new onset heart failure in the setting COVID infection. CHF exacerbation S/P recent cardioverson on 04/[address] Tang looks euvolumic ECHO showing decrease EF to 30-35%, likely post cardioversion dc Lasix 40 mg IV daily Monitor I/O, daily weights, lytes Cardiology input appreciated, ischemic work up as outpatient, follow in 4 weeks Monitor on telemetry COVID infection Not hypoxic Treat symptomatically No indication for remdesivir, systemic steroids, supplemental O2 at this time Airborne and contact precautions Prolonged QT EKG with QTc of 522 w pacing Monitor on telemetry paroxysmal AFib Continue amiodarone, metoprolol, Eliquis HLD Continue statin Insulin-dependent type 2 diabetes Hold metformin Sliding-scale insulin, Lantus Diabetic diet GERD PPI Full Code DVT Prophylaxis: Lovenox Patient admitted to the hospital under observation for treatment and further evaluation of likely new onset CHF in the setting COVID infection and recent ablation AFib. Quality Stroke Does the patient have a stroke diagnosis?: No VTE Prior VTE?: No VTE Risk Level:: Medical - moderate - high VTE Device Contraindication: Treatment Not Indicated VTE Drug Contraindication: N/A - Med Ordered
[2024-04-13 17:00] LABS: Glucose, Whole Blood 103 mg/dL (60-115)
[2024-04-13] MEDS: Gabapentin 100 MG CAPSULE 200 MG PO (17:15)
[2024-04-13] MEDS: Insulin Glargine,Hum.rec.anlog 100 UNIT/ML 10 ML VIAL 14 UNIT SUBCUT (20:34)
[2024-04-13] MEDS: Benzonatate 100 MG CAPSULE PO (20:34)
[2024-04-13 20:49] LABS: Glucose, Whole Blood 135 mg/dL (60-115)
[2024-04-14 04:00] VITALS: BP 101/53; PULSE 62; RESP 16; TEMP 36.6; O2SAT 94
[2024-04-14] MEDS: Omeprazole 20 MG CAPSULE.DR PO (05:08)
[2024-04-14 06:56] LABS: Anion Gap 12 (12-20); Blood Urea Nitrogen 27 mg/dL (9-16); Calcium 8.9 mg/dL (8.4-10.2); Carbon Dioxide 28 mmol/L (22-29); Chloride 106 mmol/L (96-108); Creatinine Clr Calc Pharmacy 30.4; Estimated Glomerular Filt Rate 44; Potassium 3.2 mmol/L (3.3-5.1); Sodium 143 mmol/L (135-145)
[2024-04-14 07:17] LABS: Glucose Random 56 mg/dL (60-115)
[2024-04-14 07:22] VITALS: BP 131/67; PULSE 70; RESP 20; TEMP 36.2; O2SAT 96
[2024-04-14] MEDS: Cholecalciferol (Vitamin D3) 25 MCG TABLET 50 MCG PO (08:04)
[2024-04-14] MEDS: Loratadine 10 MG TABLET PO (08:04)
[2024-04-14] MEDS: Atorvastatin Calcium 80 MG TABLET PO (08:05)
[2024-04-14] MEDS: Potassium Chloride ER 20 MEQ TAB.ER.PRT PO (08:05)
[2024-04-14] MEDS: Apixaban 5 MG TABLET PO ×2 (08:05→22:43)
[2024-04-14] MEDS: 0.9 % Sodium Chloride Flush 3 ML SYRINGE IVFLUSH ×2 (08:05→18:16)
[2024-04-14] MEDS: lisinopriL 10 MG TABLET PO (08:05)
[2024-04-14] MEDS: Metoprolol Tartrate 50 MG TABLET PO ×2 (08:05→22:42)
[2024-04-14] MEDS: Amiodarone HCL 200 MG TABLET PO (08:05)
[2024-04-14] MEDS: Ezetimibe 10 MG TABLET PO (08:05)
[2024-04-14 08:28] LABS: Glucose, Whole Blood 124 mg/dL (60-115)
[2024-04-14 10:13] LABS: B Type Natriuretic Peptide 287 pg/mL (<100)
[2024-04-14 11:11] LABS: Glucose, Whole Blood 86 mg/dL (60-115)
[2024-04-14 11:29] VITALS: BP 104/50; PULSE 60; RESP 18; TEMP 36.2; O2SAT 97
--- NOTE | 2024-04-14 13:32 | P.PNIM_ITS ---
Subjective Subjective Date of Service: 04/14/24 Interval History: seen and evaluated still congested and coughing less diarrhea no other events Review of Systems Review of Systems: Yes all other systems are reviewed and are negative Physical Exam 2 Vital Signs: Vital Signs: Last Vital Signs Temp 97.2 F 04/14/24 11:29 Pulse 60 04/14/24 11:29 Resp 18 04/14/24 11:29 BP 104/50 L 04/14/24 11:29 Pulse Ox 97 04/14/24 11:29 O2 Del Method Room Air 04/14/24 11:29 BMI result Body Mass Index 25.8 Const: Other: Constitutional : interactive, not in distress Cardiovascular : no JVP, no lower extremity edema Respiratory : bilateral chest movement, not in resp distress Gastrointestinal: soft, lax, Non tender Skin : Warm, Dry Neurological : Alert & oriented , No focal deficit Objective Data Active Medications Acetaminophen (Acetaminophen 325 Mg Tablet) 650 mg PO Q6H PRN PRN Reason: Pain, Mild (Pain Scale 1-3), fever or headache Albuterol Sulfate (Albuterol Sulfate 90 Mcg 8 Gm Inhaler) 1 - 2 puff INHALE Q4H PRN PRN Reason: wheezing Amiodarone HCl (Amiodarone Hcl 200 Mg Tablet) 200 mg PO DAILY [facility] Last Admin: 04/14/24 08:05 Dose: 200 mg Documented By: SARAH Apixaban (Apixaban 5 Mg Tablet) 5 mg PO BID [facility] Last Admin: 04/14/24 08:05 Dose: 5 mg Documented By: SARAH Atorvastatin Calcium (Atorvastatin Calcium 80 Mg Tablet) 80 mg PO DAILY [facility] Last Admin: 04/14/24 08:05 Dose: 80 mg Documented By: SARAH Benzonatate (Benzonatate 100 Mg Capsule) 100 mg PO TID PRN PRN Reason: Cough Last Admin: 04/13/24 20:34 Dose: 100 mg Documented By: RAFAEL Calcium Carbonate (Calcium Carbonate 750 Mg Tab.Chew) 750 mg PO Q4H PRN PRN Reason: Heartburn Ezetimibe (Ezetimibe 10 Mg Tablet) 10 mg PO DAILY [facility] Last Admin: 04/14/24 08:05 Dose: 10 mg Documented By: SARAH Glucose (Glucose Gel 15 Gm Gel..Gram.) 15 gm PO Q15M PRN; Protocol PRN Reason: per Hypoglycemia Standing Ord. Dextrose (D10) 250 mls @ 750 mls/hr IV Q15M PRN; Protocol PRN Reason: per Hypoglycemia Standing Ord. Insulin Glargine (Insulin Glargine,Hum.Rec.Anlog 100 Unit/Ml 10 Ml Vial) 12 unit SUBCUT BEDTIME [facility] Insulin Human Lispro (Insulin Lispro 100 Unit/Ml 3 Ml Vial) 0 unit SUBCUT QIDACHS [facility]; Protocol Last Admin: 04/14/24 11:19 Dose: Not Given Documented By: SARAH Non-Admin Reason: No Insulin Coverage Lisinopril (Lisinopril 10 Mg Tablet) 10 mg PO DAILY [facility]; Protocol Last Admin: 04/14/24 08:05 Dose: 10 mg Documented By: SARAH Loperamide HCl (Loperamide Hcl 2 Mg Capsule) 2 mg PO Q4H PRN PRN Reason: diarrhe Loratadine (Loratadine 10 Mg Tablet) 10 mg PO DAILY [facility] Last Admin: 04/14/24 08:04 Dose: 10 mg Documented By: SARAH Magnesium Hydroxide (Milk Of Magnesia 30 Ml Oral.Susp) 30 ml PO DAILY PRN PRN Reason: Constipation Melatonin (Melatonin 3 Mg Tablet) 6 mg PO BEDTIME PRN PRN Reason: Insomnia Metoprolol Tartrate (Metoprolol Tartrate 50 Mg Tablet) 50 mg PO BID [facility]; Protocol Last Admin: 04/14/24 08:05 Dose: 50 mg Documented By: SARAH Omeprazole (Omeprazole 20 Mg Capsule.Dr) 20 mg PO DAILY@0630 [facility] Last Admin: 04/14/24 05:08 Dose: 20 mg Documented By: RAFAEL Pioglitazone HCl (Pioglitazone Hcl 15 Mg Tablet) 15 mg PO DAILY [facility] Last Admin: 04/14/24 08:05 Dose: 15 mg Documented By: SARAH Sodium Chloride (0.9 % Sodium Chloride Flush 3 Ml Syringe) 3 ml IVFLUSH QSHIFT [facility] Last Admin: 04/14/24 08:05 Dose: 3 ml Documented By: SARAH Vitamin D (Cholecalciferol (Vitamin D3) 25 Mcg Tablet) 50 mcg PO DAILY [facility] Last Admin: 04/14/24 08:04 Dose: 50 mcg Documented By: SARAH Labs 04/12/24 10:18 04/14/24 05:51 Labs: Laboratory Results - last 24 hr 04/13/24 04/13/24 04/14/24 16:52 20:32 05:51 Anion Gap 12 Estim Creat Clear Calc 30.4 Estimated GFR 44 POC Glucose 103 135 H Random Glucose 56 L* Calcium 8.9 B-Natriuretic Peptide 04/14/24 04/14/24 04/14/24 08:23 09:45 11:02 Anion Gap Estim Creat Clear Calc Estimated GFR POC Glucose 124 H 86 Random Glucose Calcium B-Natriuretic Peptide 287 H Assessment and Plan (1) COVID-19: Status: Acute (2) Acute CHF: Status: Acute Plan Pt is a 78-year-old female with a PMH significant for?symptomatic paroxysmal AFib on Eliquis s/p ablation 03/24/2023, sick sinus syndrome s/p pacemaker in place, HTN, asymmetric septal hypertrophy, HLD, insulin-dependent type 2 diabetes, and asthma who presents to the ED for evaluation of SOB and chest tightness/pain since last night. Pt will be admitted to the hospital under observation for treatment and further evaluation of likely new onset heart failure in the setting COVID infection. CHF exacerbation S/P recent cardioverson on 04/[address] Tang looks euvolumic , BNP down to 200s ECHO showing decrease EF to 30-35%, likely post cardioversion dc Lasix 40 mg IV daily Monitor I/O, daily weights, lytes Cardiology input appreciated, ischemic work up as outpatient, follow in 4 weeks Monitor on telemetry COVID infection Not hypoxic, Treat symptomatically No indication for remdesivir, systemic steroids, supplemental O2 at this time Airborne and contact precautions Prolonged QT EKG with QTc of 522 w pacing Monitor on telemetry paroxysmal AFib Continue amiodarone, metoprolol, Eliquis HLD Continue statin Insulin-dependent type 2 diabetes Hold metformin Sliding-scale insulin, Lantus Diabetic diet GERD PPI Full Code DVT Prophylaxis: Lovenox Patient admitted to the hospital under observation for treatment and further evaluation of likely new onset CHF in the setting COVID infection and recent ablation AFib. Quality Stroke Does the patient have a stroke diagnosis?: No VTE Prior VTE?: No VTE Risk Level:: Medical - moderate - high VTE Device Contraindication: Treatment Not Indicated VTE Drug Contraindication: N/A - Med Ordered
[2024-04-14 15:43] LABS: Glucose, Whole Blood 89 mg/dL (60-115)
[2024-04-14 15:47] VITALS: BP 130/60; PULSE 60; RESP 18; TEMP 36.5; O2SAT 97
--- NOTE | 2024-04-14 16:36 | MHC.CM.PN ---
PT COVID +, CM CALLED THE NUMBER ON FILE [phone] AND SPOKE TO HER , QUIN HE CONFIRMS PT LIVES AT HOME WITH HIM AND IS INDEPENDENT WITH CARE SHE HAD NO SERVICES AND A CANE FOR DME COPY OF HCP REQUESTED PCP: ARMANDO JENSEN IMM DELIVERED DCP: HOME VIA PRIVATE TRANSPORT
[2024-04-14 20:00] VITALS: BP 101/57; PULSE 60; RESP 20; TEMP 36.8; O2SAT 94
[2024-04-14 21:43] LABS: Glucose, Whole Blood 149 mg/dL (60-115)
[2024-04-14 22:42] VITALS: BP 101/57; PULSE 60
[2024-04-14] MEDS: Insulin Glargine,Hum.rec.anlog 100 UNIT/ML 10 ML VIAL 12 UNIT SUBCUT (22:43)
[2024-04-15] VITALS: BP 94/53; PULSE 60; RESP 20; TEMP 36.6; O2SAT 94
[2024-04-15] MEDS: 0.9 % Sodium Chloride Flush 3 ML SYRINGE IVFLUSH ×2 (00:09→08:10)
[2024-04-15 04:00] VITALS: BP 108/58; PULSE 55; RESP 20; TEMP 36.9; O2SAT 93
[2024-04-15 06:00] VITALS: BMI 25.6
[2024-04-15] MEDS: Omeprazole 20 MG CAPSULE.DR PO (06:25)
[2024-04-15 06:43] LABS: Anion Gap 11 (12-20); Blood Urea Nitrogen 32 mg/dL (9-16); Calcium 8.7 mg/dL (8.4-10.2); Carbon Dioxide 26 mmol/L (22-29); Chloride 109 mmol/L (96-108); Creatinine Clr Calc Pharmacy 34.1; Estimated Glomerular Filt Rate 51; Glucose Random 114 mg/dL (60-115); Potassium 3.6 mmol/L (3.3-5.1); Sodium 142 mmol/L (135-145)
[2024-04-15 07:35] LABS: Glucose, Whole Blood 99 mg/dL (60-115)
[2024-04-15 07:52] VITALS: BP 124/60; PULSE 62; RESP 16; TEMP 36.1; O2SAT 94
[2024-04-15] MEDS: Cholecalciferol (Vitamin D3) 25 MCG TABLET 50 MCG PO (08:09)
[2024-04-15] MEDS: Atorvastatin Calcium 80 MG TABLET PO (08:09)
[2024-04-15] MEDS: Apixaban 5 MG TABLET PO (08:10)
[2024-04-15] MEDS: Metoprolol Tartrate 25 MG TABLET PO (08:10)
[2024-04-15] MEDS: Loratadine 10 MG TABLET PO (08:10)
[2024-04-15] MEDS: Amiodarone HCL 200 MG TABLET PO (08:10)
[2024-04-15] MEDS: Ezetimibe 10 MG TABLET PO (08:10)
[2024-04-15 12:00] VITALS: BP 118/84; PULSE 60; RESP 16; TEMP 36.6; O2SAT 98
[2024-04-15 12:26] LABS: Glucose, Whole Blood 180 mg/dL (60-115)
--- NOTE | 2024-04-15 12:39 | P.DS_ITS ---
DS: Providers Provider Date of Service: 04/15/24 Date of admission: 04/14/24 14:15 Date of discharge: 04/15/24 Primary care physician: Michael Joiner MD Consults: 04/12/24 14:41 Consult to Cardiology Routine Consulting Provider: [facility] Reason for consultation: New onset CHF, s/p cardioversion on Monday DS: Diagnosis Discharge Diagnosis (1) COVID-19: Status: Acute (2) Acute CHF: Status: Acute (3) Chest pain: Status: Acute DS: Summary Hospital Course Hospital Course: Admission note HPI Pt is a 78-year-old female with a PMH significant for?symptomatic paroxysmal AFib on Eliquis s/p ablation 03/24/2023, sick sinus syndrome s/p pacemaker in place, HTN, asymmetric septal hypertrophy, HLD, insulin-dependent type 2 diabetes, and asthma who presents to the ED for evaluation of SOB and chest tightness/pain since last night. Pt has significant cardiac history and was admitted to [facility] in January of this year for a flutter with RVR. Patient has been noncompliant with her Xarelto due to high co-pay and at [facility] underwent a KATLYN which showed thrombus on pacemaker leads so was not cardioverted. Was discharged on Eliquis and just received cardioversion for AFib here at [facility] by Dr. Tang 2 days prior on 04/12/2024. Reports was feeling well after the pr ocedure until last night when she laid down and experienced chest pressure that felt like something was laying on her chest. Was having difficulty breathing and could not sleep all night. When symptoms persisted this morning patient decided to present to the ED for further evaluation. Patient reports has been experiencing shortness a breath and SHLUTZ especially with going upstairs since January hospitalization. Was initially sent home with services that helped improve her ambulation around her home. Has chronic nonproductive, occasional cough at baseline. Denies fever, chills, or myalgias. No known sick contacts. Denies nausea, vomiting, abdominal pain. ?Denies any PMH of heart failure. In the ED pt was hypertensive up to 170/82, otherwise WNL. Labs were significant for initial troponin 18.5, BNP 2138, and testing positive for COVID. No leukocytosis. Stable H&H. No significant electrolyte abnormalities. Renal and hepatic function WNL. CXR showed likely infectious/inflammatory small airway disease or pulmonary edema with bibasilar atelectasis, possible cardiomegaly, and suspected bilateral trace pleural effusions. EKG demonstrated atrial paced rhythm with T-wave inversions in anterior lateral and inferior leads with QTc of 522. Pt was treated with Lasix 40 mg IV and nitro paste. Pt will be admitted to the hospital under observation for treatment and further evaluation of likely new onset heart failure in the setting COVID infection. Hospital course - Acute CHF exacerbation The patient had recent cardioverson on 04/[address] Tang. ECHO showing decr ease EF to 30-35%, likely post cardioversion with elevated BNP >2000 on admission. Treated with IV Lasix with fair response as she looks euvolumic , BNP down to 200s. Evaluated by Cardiology who recommended ischemic work up as outpatient. - COVID infection Not hypoxic, No indication for remdesivir, systemic steroids. kept on Airborne and contact precautions. To use Tylenol, imodium and cough medications as needed. Discharge plan Stay well hydrated Take Tylenol as needed for pain Cough medication as needed Imodium for diarrhea increase physical activity as tolerated To follow with dr Tang office to schedule for stress test. Time Attestation Discharge Coordination Time (in mins): 37 Quality: Safe Use of Opioids Does Pt have an Active Cancer Diagnosis on the Problem List?: No Quality: Stroke Does the patient have a stroke diagnosis?: No Physical Exam Vital Signs: Vital Signs: Last Vital Signs Temp 97.0 F 04/15/24 07:52 Pulse 62 04/15/24 07:52 Resp 16 04/15/24 07:52 BP 124/60 04/15/24 07:52 Pulse Ox 94 04/15/24 07:52 O2 Del Method Room Air 04/15/24 07:52 BMI result Body Mass Index 25.6 Const: Other: Constitutional : interactive, not in distress Cardiovascular : no JVP, no lower extremity edema Respiratory : bilateral chest movement, not in resp distress Gastrointestinal: soft, lax, Non tender Skin : Warm, Dry Neurological : Alert & oriented , No focal deficit DS: Data Data Completed and Pending Labs on day of discharge: Laboratory Results - last 24 hr 04/14/24 04/14/24 04/15/24 15:36 21:29 06:06 Hold Purple Top SEE NOTE Sodium 142 Potassium 3.6 Chloride 109 H Carbon Dioxide 26 Anion Gap 11 L BUN 32 H Creatinine 1.05 Estim Creat Clear Calc 34.1 Estimated GFR 51 POC Glucose 89 149 H Random Glucose 114 Calcium 8.7 04/15/24 04/15/24 07:21 11:49 Hold Purple Top Sodium Potassium Chloride Carbon Dioxide Anion Gap BUN Creatinine Estim Creat Clear Calc Estimated GFR POC Glucose 99 180 H Random Glucose Calcium Imaging Chest x-ray: Radiologist's impression: ITS Impressions Chest X-Ray 04/12/24 11:02 IMPRESSION: 1. Findings are suggestive of infectious/inflammatory small airways disease or pulmonary edema with bibasilar subsegmental atelectasis. 2. Suspect trace amount of bilateral pleural fluid. 3. Prominent cardiomediastinal silhouette which could indicate cardiomegaly in the appropriate clinical context. Electronically signed by: Krista Velazquez MD 04/12/2024 01:04 PM EDT RP Discharge Plan Discharge Anticipated Discharge Date/Time: 04/15/24 12:14 Patient Disposition: Home, Self-Care Discharge Diagnosis: Covid19 infection Heart failure exacerbation Referrals: Michael Joiner MD [Primary Care Provider] - 1 Week Discharge Medications: New loperamide 2 mg Capsule 2 mg PO Q4H PRN (Reason: diarrhe) Qty: 20 0RF benzonatate 100 mg Capsule 100 mg PO TID PRN (Reason: Cough) Qty: 20 0RF Continued lisinopril 10 mg tablet 10 mg PO DAILY Qty: 90 3RF albuterol sulfate 90 mcg/actuation HFA aerosol inhaler 1 - 2 puff PO Q4H PRN (Reason: wheezing) cholecalciferol (vitamin D3) 50 mcg (2,000 unit) Tablet 50 mcg PO DAILY ezetimibe 10 mg tablet 10 mg PO DAILY insulin glargine [Lantus Solostar U-100 Insulin] 100 unit/mL (3 mL) insulin pen 20 unit subcut BEDTIME omeprazole 20 mg capsule,delayed release(DR/EC) 20 mg PO DAILY@0630 cetirizine 5 mg tablet 5 mg PO DAILY metformin 750 mg tablet extended release 24 hr 750 mg PO DAILY Eliquis 5 mg tablet 5 mg PO BID amiodarone 200 mg tablet 200 mg PO DAILY 30 Days Qty: 30 5RF metoprolol tartrate 50 mg tablet 50 mg PO BID Qty: 60 3RF Rx Instructions: dose increase pioglitazone 15 mg tablet 15 mg PO DAILY rosuvastatin 40 mg tablet 40 mg PO DAILY Discharge Orders: Discharge Order (Routine); Ordered 04/15/24 Ordered By: Carrington Gomez Diet: Advance to usual diet Activity on Discharge: As tolerated Stand Alone Forms: Patient Portal Discharge page Print Language: Bots[place] Care Plan Goals: Stay well hydrated Take Tylenol as needed for pain Cough medication as needed Imodium for diarrhea increase physical activity as tolerated To follow with dr Tang office to schedule for stress test. Health Concerns: Read below Plan of Treatment: Read below Assessment: Read below
--- NOTE | 2024-04-15 13:16 | MHC.CM.PN ---
PT WILL DC HOME TODAY WITH NO SERVICES VIA PRIVATE TRANSPORT
== END 2024-04-15 14:57 | disposition home or self-care (01) | DRG 179 ==
LOC: HO.ED 11:24 → HO.EDOVER 15:01 → HO.IMC 19:27
PROVIDERS: Internal Medicine; Admitting Provider Student in an Organized Health Care Education/Training Program; Emergency Provider Emergency Medicine; PCP Internal Medicine; Visit Provider Student in an Organized Health Care Education/Training Program
DX: U07.1 COVID-19 (principal); I48.0 Paroxysmal atrial fibrillation; Z95.0 Presence of cardiac pacemaker; I49.5 Sick sinus syndrome; R94.31 Abnormal electrocardiogram [ECG] [EKG]; I50.9 Heart failure, unspecified; Z79.4 Long term (current) use of insulin; Z79.01 Long term (current) use of anticoagulants; Z79.84 Long term (current) use of oral hypoglycemic drugs; Z79.899 Other long term (current) drug therapy
CPT/HCPCS: 36415; 71045; 80048; 82947; 83735; 83880; 84484; 85025; 85610; 85730; 87635; 87906; 93005; 93306; 99285; J1940; Q9957

== ENCOUNTER → 2024-04-12 11:12 | Outpatient (BNV) | payer MEDICARE, SELFPAY | PROVIDERS: Admitting Provider Student in an Organized Health Care Education/Training Program; Emergency Provider Emergency Medicine; PCP Internal Medicine; Visit Provider Internal Medicine Cardiovascular Disease | DX: I35.1 Nonrheumatic aortic (valve) insufficiency (principal); I34.0 Nonrheumatic mitral (valve) insufficiency; I37.1 Nonrheumatic pulmonary valve insufficiency; I36.1 Nonrheumatic tricuspid (valve) insufficiency | CPT/HCPCS: 93306 ==

== ENCOUNTER → 2024-04-12 14:48 | Outpatient (BNV) | payer MEDICARE, SELFPAY | PROVIDERS: Admitting Provider Student in an Organized Health Care Education/Training Program; Emergency Provider Emergency Medicine; PCP Internal Medicine; Visit Provider Internal Medicine Cardiovascular Disease | DX: I50.9 Heart failure, unspecified (principal); I48.0 Paroxysmal atrial fibrillation; Z95.0 Presence of cardiac pacemaker | CPT/HCPCS: 99222 ==

== ENCOUNTER → 2024-04-12 14:48 | Outpatient (BNV) | payer MEDICARE, SELFPAY | PROVIDERS: Admitting Provider Student in an Organized Health Care Education/Training Program; Emergency Provider Emergency Medicine; PCP Internal Medicine; Visit Provider Student in an Organized Health Care Education/Training Program | DX: U07.1 COVID-19 (principal); I50.9 Heart failure, unspecified | CPT/HCPCS: 99222; 99232; 99233; 99239 ==

== ENCOUNTER 2024-04-25 13:33 | Outpatient (AMB) | payer MEDICARE, SELFPAY ==
--- NOTE | 2024-04-25 13:42 | MHC.OFFVIS ---
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 Accompanied by: Self / Same As Patient Allergies codeine [CODEINE] Allergy (Unknown, Verified 04/12/24 10:29) HIVES Medication List - Last Reconciled 04/25/24 by FAUZIA Nicole albuterol sulfate 90 mcg/actuation 1 - 2 puffs PO Q4H PRN amiodarone 200 mg PO DAILY 90 days apixaban (Eliquis) 5 mg PO BID benzonatate 100 mg PO TID PRN cetirizine 5 mg PO DAILY cholecalciferol (vitamin D3) 50 mcg PO DAILY ezetimibe 10 mg PO DAILY insulin glargine (Lantus Solostar U-100 Insulin) 20 units subcut BEDTIME lisinopril 10 mg PO DAILY loperamide 2 mg PO Q4H PRN metformin ER 750 mg PO DAILY metoprolol tartrate 50 mg PO BID omeprazole 20 mg PO DAILY@0630 pioglitazone 15 mg PO DAILY rosuvastatin 40 mg PO DAILY HPI HPI Follow up post cardioversion: Details: Kaycee is a 78-year-old female with past medical history of hypertension, diabetes, sick sinus syndrome status post pacemaker placement, symptomatic paroxysmal atrial fibrillation status post AFib ablation 03/24/2023 who had recurrent atrial fibrillation, that required a partial reload of amiodarone and use of her anticoagulation uninterrupted for 4 weeks. She then underwent cardioversion on 04/10/2024 with successful conversion back to atrial paced rhythm. Two days later she was admitted with increased shortness of breath and treated for acute heart failure. Her troponin was mildly elevated. An echocardiogram did show reduced EF 30-35% which could be stress cardiomyopathy.. She was diuresed and continued on lisinopril and metoprolol. She now presents for follow-up. Today she reports that she has been doing well since her hospital discharge. She says her breathing is back to normal. She has not had any recurrent heart palpitations like she has with she denies chest discomfort at rest or with activity. No lightheadedness, presyncope, syncope, falls. No PND, orthopnea or edema. She is hoping to go back to work at [employer] in about 2 weeks. on 02/13/2024. She has been taking all her meds as directed. [facility] Medical History Paroxysmal atrial fibrillation Osteoporosis (~2013) Current use of long term acute care registered nurse anticoagulation Diabetes Pacemaker at end of battery life Atrial fibrillation with rapid ventricular response CRUZ (acute kidney injury) HTN (hypertension) Asymmetric septal hypertrophy Cardiac pacemaker in situ (~2008) Sick sinus syndrome Surgical History History of permanent cardiac pacemaker placement (~2008) Hx of cataract Family History Father CHF (congestive heart failure) Mother Diabetes Social History Household Members: Family Housing: House Do you presently have visiting nurse or other home services: No Alcohol intake: current Alcohol intake frequency: does not drink Patient Tobacco Use Status: Never used Tobacco Second Hand Smoke Exposure: No service: No Current occupational status: retired Review of Systems Const Denies chills, Denies fatigue, Denies fever(s), Denies frequent falls, Denies weakness, Denies weight gain and Denies weight loss ENT Denies dizziness Card Denies chest pain, Denies leg edema, Denies lightheadedness, Denies palpitations, Denies dyspnea and Denies dyspnea on exertion Resp Denies cough, Denies dyspnea and Denies dyspnea on exertion GI Denies hematochezia Musc Denies abnormal gait, Denies muscle weakness, Denies numbness, Denies radiating pain into limb and Denies tingling Neuro Denies abnormal gait, Denies dizziness, Denies frequent falls, Denies numbness, Denies tingling and Denies weakness Endo Denies fatigue and Denies palpitations Physical Exam Vital Signs: Last Vital Signs Pulse 62 04/25/24 13:43 BP 120/70 04/25/24 13:43 BMI result Body Mass Index 28.9 Const General: cooperative, healthy appearing, comfortable and no acute distress Orientation/consciousness: patient oriented x3 Neck Neck: Yes normal visual inspection Chest Chest palpation & inspection: normal inspection of the chest Resp Effort & Inspection: normal respiratory effort Auscultation: clear to auscultation bilaterally, no rales, no rhonchi and no wheezes Cardio Rate: regular rate Rhythm: regular rhythm Heart sounds: S1 normal heart sound present, S2 normal heart sound present, no murmurs and no rubs Neuro General: patient oriented x3 Extrem General: Yes normal to inspection, No no pedal edema and No calf tenderness Psych Appearance: grossly normal Mental Status: mental status grossly normal Speech and movement: Normal speech and movement present Office Procedures EKG Details: Today, read by me, atrial paced rhythm, T-wave abnormality V2, lateral infarct, rate 62, QTC 416 milliseconds [id number], Complete Assessment & Plan Assessment & Plan (1) Paroxysmal atrial fibrillation: Code(s): I48.0 - Paroxysmal atrial fibrillation Category: Medical Plan: History of paroxysmal atrial fibrillation, symptomatic. Her condition had been stable and AFib suppressed with low-dose amiodarone. She underwent AFib ablation with Dr. Nix on 03/24/2023. Remote monitoring of her pacemaker recently showed recurrent and persistent AFib. She was directed to take a partial load of amiodarone, 400 mg b.i.d. for 1 week then go back to 200 mg daily. Days later she had lightheadedness and collapsed in the [facility] emergency room. She was found to have AFib RVR. At that time She admitted to not taking her anticoagulation as directed due to high co-pay days. They did do a transesophageal echocardiogram which showed a thrombus on her pacemaker lead. They were unable to do a cardioversion. They treated her with heart rate control using IV Lopressor then discharged her with metoprolol and continued her amiodarone load. 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 On follow-up visit she was noted to have ongoing persistent AFib, with RVR. Her metoprolol dose was increased. She did see EP about a repeat ablation but this has not been scheduled. She finally underwent cardioversion on 04/10/2024 with successful conversion to atrial paced rhythm. Two days later she was admitted to [facility] [place] with increasing shortness of breath and had heart failure with reduced EF. Echocardiogram showed EF 30-35%, grade 2 diastolic dysfunction, wall motion abnormality suggesting stress cardiomyopathy. She was diuresed and continued on her usual lisinopril and metoprolol. Today she reports that she has been doing well since her hospital discharge on 04/15/24. She says her breathing is back to normal and she is not having any heart palpitations. Pulse is regular on examination. She does not appear fluid overloaded. Will order a pharmacological nuclear stress test to evaluate for any ischemia due to reduced EF and wall motion abnormality. Will order a limited echo to be done in 1 month to reassess EF and wall motion. Blood pressure and heart rate appear well controlled. No med changes made today. Continue Eliquis for anticoagulation without interruption. Will continue to follow remote monitoring of her pacemaker to see if she has recurrent AF. Cardiology follow-up 3 months, sooner if needed. (2) Asymmetric septal hypertrophy: Code(s): I42.2 - Other hypertrophic cardiomyopathy Category: Medical Plan: History of asymmetric septal hypertrophy. Last echo done in our system 07/03/2023 shows EF 66%, severe septal asymmetric hypertrophy, overall no change from 01/31/2022. This finding is not mentioned on most recent echo 04/12/2024. She denies symptoms of shortness of breath. On exam she has no clinical signs of heart failure. Blood pressure is currently well controlled. (3) Cardiac pacemaker in situ: Onset Date: ~2008 Comment: ([employer] DCPP - placed 2008, changed 2020) Code(s): Z95.0 - Presence of cardiac pacemaker Category: Medical Plan: [employer] dual-chamber pacemaker in place. Interrogation last visit shows device is functioning normally. Battery life approximately 6.8-7.3 years. Remote monitoring in use. Next office interrogation due in 4 months. Pacer site benign. (4) HTN (hypertension): Code(s): I10 - Essential (primary) hypertension Category: Medical Plan: Well controlled at present. (5) Current use of long term acute care registered nurse anticoagulation: Comment: (Xarelto) Code(s): Z79.01 - FPC (current) use of anticoagulants Category: Medical Plan: On Eliquis for stroke risk reduction with paroxysmal AFib. She previously stopped her Xarelto on her own due to high co-pay. A KATLYN that was done at [facility] on 02/13/2024 did show thrombus on pacemaker lead. She now reports taking Eliquis without interruption since that time. Most recent [facility] echo does not mention the presence of a thrombus. (6) Syncope: Code(s): R55 - Syncope and collapse Category: Medical Plan: Patient reports she collapsed in the [facility] emergency room 02/13/2024 and was found to have AFib RVR. No recurrent presyncope or syncope since that time. (7) Hospital discharge follow-up: Code(s): Z09 - Encounter for follow-up examination after completed treatment for conditions other than malignant neoplasm Category: Medical Plan: As above (8) Cardiomyopathy: Code(s): I42.9 - Cardiomyopathy, unspecified Category: Medical Plan: As above. Most recent EF 30-35%. Could be related to stress-induced cardiomyopathy. Checking for ischemia. Rechecking echo in 1 month. Plan Time spent on chart review, documentation, interview and assessment Orders: Orders CA lexiscan stress w marisol Today I42.9 - Cardiomyopathy, unspecified NM cardiolite stress test Today I42.9 - Cardiomyopathy, unspecified CA Echo Limited 4 Weeks I42.9 - Cardiomyopathy, unspecified Medications: Changed From amiodarone 200 mg PO DAILY 30 days 30 tabs 5RF To amiodarone 200 mg PO DAILY 90 days 90 tabs 3RF Coding Level of Care Code Est Pt Level 4 (94431) Diagnoses Paroxysmal atrial fibrillation I48.0 Asymmetric septal hypertrophy I42.2 Cardiac pacemaker in situ Z95.0 HTN (hypertension) I10 Current use of usp anticoagulation Z79.01 Syncope R55 Hospital discharge follow-up Z09 Cardiomyopathy I42.9 CPT Codes EKG - CPT: 18817-[id number], Complete ([id number]) Time Spent (min) 36
[2024-04-25 13:43] VITALS: BP 120/70; PULSE 62; BMI 28.9
== END 2024-04-25 14:26 | disposition home or self-care (01) ==
PROVIDERS: PCP Internal Medicine; Visit Provider Nurse Practitioner Family
DX: I48.0 Paroxysmal atrial fibrillation (principal); I42.2 Other hypertrophic cardiomyopathy; Z95.0 Presence of cardiac pacemaker; I10 Essential (primary) hypertension; Z79.01 Long term (current) use of anticoagulants; R55 Syncope and collapse; Z09 Encounter for follow-up examination after completed treatment for conditions other than malignant neoplasm; I42.9 Cardiomyopathy, unspecified
CPT/HCPCS: 93010; 99214

== ENCOUNTER → 2024-04-25 13:33 | Outpatient (BNVA) | payer MEDICARE, SELFPAY | PROVIDERS: PCP Internal Medicine; Visit Provider Nurse Practitioner Family | DX: Z09 Encounter for follow-up examination after completed treatment for conditions other than malignant neoplasm (principal); I48.0 Paroxysmal atrial fibrillation; I42.2 Other hypertrophic cardiomyopathy; I10 Essential (primary) hypertension; I42.9 Cardiomyopathy, unspecified; R55 Syncope and collapse; Z95.0 Presence of cardiac pacemaker; Z79.01 Long term (current) use of anticoagulants; R94.31 Abnormal electrocardiogram [ECG] [EKG] | CPT/HCPCS: 93005; 99212 ==

== ENCOUNTER → 2024-05-23 14:45 | Outpatient (REF) | payer MEDICARE, SELFPAY ==
--- NOTE | 2024-05-23 14:49 | CA_ITS ---
Transthoracic Echocardiogram Patient (Last, First, Middle): Kaycee Florence M Gender: Female Date of : 1945 Age: 78 Procedure Date: 05/23/2024 Procedure Type: Transthoracic Echocardiogram Location: OP Height: 149.86 cm Weight: 62.6 kg BSA: 1.57 m2 Heart Rate: bpm BP: 148 / 78 mmHg Sql Server Bi Developer: TO Referring MD: Teresa Alves SUBJECT SCIENTIFIC RESEARCHRadha Symptoms: I42.9 - Cardiomyopathy, unspecified Study Quality: Fair/No IV access ECG Rhythm: Sinus Conclusions: - The left ventricular systolic function is normal. The calculated ejection fraction is 57% by biplane method. - There is severe septal asymmetric hypertrophy. Findings Left Ventricle Normal left ventricular cavity size. There is mildly increased left ventricular wall thickness. The left ventricular systolic function is normal. The calculated ejection fraction is 57% by biplane method. There is no evidence of regional wall motion abnormalities. There is severe septal asymmetric hypertrophy. Venous The inferior vena cava is normal in size and collapses greater than 50% with inspiration. Prior Study Comparison Changes noted compared to prior study dated: 04/12/2024. Improved LVEF. Measurements 2D Linear Measurements IVSd: 1.53 0.6-0.9/0.6-1.0 cm LVIDd: 4.24 3.9-5.3/4.2-5.9 cm LVIDd Index: 2.70 2.4-3.2/2.2-3.1 cm/m2 LVIDs: 3.02 2.0-3.6 cm LVPWd: 1.11 0.7-1.1 cm LA Diam: 3.70 2.7-3.8/3.0-4.0 cm LAIDs Index: 2.36 1.5-2.3 cm/m2 LV Mass: 259.41 67-162/88-224 g LV Mass Index: 165.23 43-95/49-115 g/m2 LVOT Diam: 2.00 3.0+(-)1.3 cm 2D Systolic Function EF 4C: 55.40 >55% EF 2C: 56.00 >55% EF BiP: 57.10 >55% LVOT LVOT Pk Cheng: 0.98 LVOT Mn Cheng: 0.70 LVOT VTI: 0.23 LVOT Pk Grad: 4.00 LVOT Mn Grad: 2.00 LVOT Diam: 2.00 LVOT Area: 3.14 Tricuspid Valve RA Press: 3.00 Updated in Other Vendor System with Status of Final Jhon Cho MD electronically signed on 05/24/2024 4:59:05 PM with status of Final
== END ==
LOC: HO.CARD 14:45
PROVIDERS: PCP Internal Medicine; Visit Provider Nurse Practitioner Family
DX: I42.9 Cardiomyopathy, unspecified (principal)
CPT/HCPCS: 93308

== ENCOUNTER → 2024-05-23 14:49 | Outpatient (BNV) | payer MEDICARE, SELFPAY | PROVIDERS: PCP Internal Medicine; Visit Provider Internal Medicine | DX: I42.2 Other hypertrophic cardiomyopathy (principal) | CPT/HCPCS: 93308 ==

== ENCOUNTER → 2024-07-03 23:59 | Outpatient (BNV) | payer MEDICARE, SELFPAY ==
--- NOTE | 2024-07-18 16:16 | A.OFFVIS_ITS ---
Intake Visit Reasons: Remote Device Check- [facility] Allergies codeine [CODEINE] Allergy (Unknown, Verified 04/12/24 10:29) HIVES [facility] Medical History (Updated 07/18/24 @ 16:17 by Gabe Tang MD) Cardiac pacemaker in situ (~2008) Paroxysmal atrial fibrillation Osteoporosis (~2013) Current use of group home anticoagulation Diabetes Pacemaker at end of battery life Atrial fibrillation with rapid ventricular response CRUZ (acute kidney injury) HTN (hypertension) Asymmetric septal hypertrophy Sick sinus syndrome Surgical History History of permanent cardiac pacemaker placement (~2008) Hx of cataract Family History Father CHF (congestive heart failure) Mother Diabetes Social History Household Members: Family Housing: House Do you presently have visiting nurse or other home services: No Alcohol intake: current Alcohol intake frequency: does not drink Patient Tobacco Use Status: Never used Tobacco Second Hand Smoke Exposure: No service: No Current occupational status: retired Office Procedures Cardiac Device Check Cardiac Device Check Details: Remote pacemaker report generated 07/05/2024. Pacemaker function is adequate. Total burden of atrial fibrillation at 3.9% 06857-Ezqntz Cardiac Device Interrogation, pacemaker Procedure code (CPT) selection complete Assessment & Plan Assessment & Plan (1) Cardiac pacemaker in situ: Onset Date: ~2008 Comment: ([facility] DCPP - placed 2008, changed 2020) Code(s): Z95.0 - Presence of cardiac pacemaker Category: Medical Plan: See above Coding Level of Care Code Procedure Only Diagnoses Cardiac pacemaker in situ Z95.0 CPT Codes Cardiac Device Check - Cardiac Device 12: [id number]-[id number] Cardiac Device Interrogation, pacemaker ([id number])
== END ==
PROVIDERS: Visit Provider Internal Medicine Cardiovascular Disease
DX: I48.91 Unspecified atrial fibrillation (principal); Z95.0 Presence of cardiac pacemaker
CPT/HCPCS: 93294

== ENCOUNTER → 2024-07-04 08:42 | Outpatient (REF) | payer MEDICARE, SELFPAY ==
--- NOTE | ~2024-07-04 | NM_ITS ---
Lexiscan Myocardial perfusion study Indication: Coronary artery disease Technique: The patient was brought in for a Lexiscan perfusion study on 07/04/2024 and was injected 0.4 mg of Lexiscan intravenously. Within a minute of this injection 25 mCi of sestamibi was given intravenously. Images were obtained using the SPECT gamma camera interlaced with the gating device. Images were obtained in supine position. Resting perfusion study was performed on 07/08/2024. Patient was administered 25 mCi of sestamibi intravenously at rest. Images were then obtained in supine position. Total DLP 138 mGy-cm. Images were processed with the software and compared side to side in short axis, horizontal long axis and vertical long axis views. Findings: Raw aquisition reviewed. Arms by the patient's side. The stress perfusion study showed diminished tracer uptake along the inferior and inferolateral crawford. There is improvement with CT attenuation correction suggestive of diaphragmatic attenuation artifact. The gated study shows normal LV systolic function with calculated LVEF of 58%. LV cavity is normal in size. The gated study shows normal wall thickening and contraction of segments. Resting study shows diminished tracer uptake along the inferior as well as inferolateral crawford. There is improvement with CT attenuation correction suggestive of diaphragmatic attenuation artifact. Gating at rest reveals normal wall motion with ejection fraction at 66%. The findings are consistent with fixed inferior perfusion defect, probably related to diaphragmatic attenuation artifact. No clear reversible defects. NM/NM cardiolite stress test Impression: 1. Myocardial perfusion imaging study shows probably normal myocardial perfusion. 2. Gated LVEF is 58% during stress and 68% during rest. 3. Transient ischemic dilatation not present. EKG component of the test reported separately. Electronically signed by: Jhon Cho MD 07/08/2024 04:01 PM YUDI
--- OUTSIDE RECORDS SUMMARY | 2024-07-04 08:56 | XMS_ITS ---
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 Role Phone Michael Joiner MD Primary Care Provider Sole Clement Unavailable [phone] Allergies Allergen (clinical drug ingredient) Drug/Non Drug Allergy documented on EMR Reaction Allergy Type Onset Date Status sulfamethoxazole / trimethoprim Bactrim anaphylaxis Drug Allergy Active codeine Codeine Unknown Drug Allergy Active REASON FOR VISIT At Risk Footcare, Ingrown nail(s), Open sore Medications Medication SIG (Take, Route, Frequency, Duration) Notes Start Date End Date Status HYDROcodone-Acetaminophen PRN Active ProAir HFA PRN Active Aciphex Active Simvastatin Active Cyclobenzaprine HCl Active Atorvastatin Calcium 40 MG 1 tablet Orally Once a day Active Lotrisone 1-0.05 % 1 application to affected area Externally Twice a day Active Naproxen Active Multi Vitamin/Minerals Orally Active Calcium + D 315-200 MG-UNIT 1 tablet with meals Orally Twice a day Active Omeprazole 20 MG 1 capsule Orally Onc e a day Active Ventolin HFA Active Lisinopril Active Vitamin D Active Eliquis Active Extra Depth Orthopedic Shoes (1 Pair) with Customized Heat Molded Multidensity Innersoles (3 Pair) as directed Dx: NIDDM/Polyneuropathy (E11.42), Hammertoe Foot Deformity (M20.41,M20.42), Preulcerative Skin Lesion(s) (L85.1 04/24/2017 Not-Taking Extra Depth Orthopedic Shoes (1 Pair) with Customized Heat Molded Multidensity Innersoles (3 Pair) as directed Dx: NIDDM/Polyneuropathy (E11.42), Hammertoe Foot Deformity (M20.41,M20.42), Preulcerative Skin Lesion(s) (L85.1 2017 Not-Taking Extra-Depth Diabetic Shoes with 3 Pair Custom heat-molded multi-density innersoles . for 1 year . Dx:hammertoes and calloused lesions,tailors bunion b/l for . 09/17/2014 Not-Taking Keflex 500 MG 1 capsule Orally lance ry 12 hrs for 10 day(s) 04/20/2017 Not-Taking Triamcinolone Acetonide 0.1 % 1 application to affected area Externally Twice a day Not-Baljeet cruz zzzExtra Depth Orthopedic Shoes (1 Pair) with Customized Heat Molded Multidensity Innersoles (3 Pair) . . . Dx: NIDDM/Polyneuropathy (E11.42), Hammertoe Foot Deformity (M20.41,M20.42), Preulcerative Skin Lesion(s) (L85.1) for . 11/11/2015 Not-Giovanni bryson Extra-Depth Diabetic Shoes with 3 Pair Custom heat-molded multi-density innersoles . 1pair shoes/3sets inserts . . for 1 year 05/08/2013 Not-Baljeet cruz Alendronate Sodium N ot-Taking Insulin Pen Needle N ot-Taking Calcium Not-Taking metFORMIN HCl 500 MG 1 tablet with meals Orally Twice a day Active Extra Depth Orthopedic Shoes (1 Pair) with Customized Heat Molded Multidensity Innersoles (3 Pair) as directed Dx: NIDDM/Polyneuropathy (E11.42), Hammertoe Foot Deformity (M20.41,M20.42), Preulcerative Skin Lesion(s) (L85.1 12/30/2022 Active Extra Depth Orthopedic Shoes (1 Pair) with Customized Heat Molded Multidensity Innersoles (3 Pair) as directed Dx: NIDDM/Polyneuropathy (E11.42), Hammertoe Foot Deformity (M20.41,M20.42), Preulcerative Skin Lesion(s) (L85.1 01/19/2024 Active Toujeo SoloStar 300 UNIT/ML Subcutaneous for 82 Days Active Ammonium Lactate 12 % 1 application Externally Twice a day for 30 days Active Social History Tobacco Use: Social History Observation Description Date Details (start date - stop date) Never Smoker NA - NA Tobacco Use/Smoking Question Answer Notes Are you a: nonsmoker Alcohol Screen Question Answer Notes Did you have a drink containing alcohol in the p ast year? No Points 0 Interpretation Negative Tobacco use other than smoking: Question Answer Notes Are you an other tobacco user? No Problems Problem Type SNOMED Code ICD Code Onset Dates Problem Status W/U Status Risk Notes Problem [id number] Skin ulcer of toe of left foot, limited to breakdown of skin (L97.521) Active confirmed Vital Signs Height 5 ft 1 in in 05/22/2024 Weight 153 lbs 05/22/2024 BMI 28.91 kg/m2 05/22/2024 Procedures Procedure Date Ordered Date Performed Result Body Sit e 90307-ETAKDXN NAIL, 6 OR MORE 05/22/2024 N/A 61739-Xdza Destruction, 1-14 05/22/2024 N/A 15812-Ecujzcmj Plate 05/22/2024 N/A 56857-Ppncafhq Plate Each Additional 05/22/2024 N/A 66944- Debride <25 sq cm 05/22/2024 N/A 01350-YPUC SKIN LESIONS, OVER 4 05/22/2024 N/A Encounters Encounter Location Date Provider Diagnosis [facility] [address] [address] 05/22/2024 Sole Black Type 2 diabetes reyes itus with diabetic polyneuropathy E11.42 ; Other viral warts B07.8 ; Tinea unguium B35.1 ; Pain in right toe(s) M79.674 ; Ingrown nail L60.0 and Skin ulcer of toe of left foot, limited to breakdown of skin L97.521 Assessments Encounter Date Diagnosis (ICD Code) Assessment Notes Treatment Notes Treatment Clinical Notes Section Notes 05/22/2024 Type 2 diabetes mellitus with diabetic polyneuropathy (ICD-10 - E11.42) 05/22/2024 Other viral warts (ICD-10 - B07.8) 05/22/2024 Tinea unguium (ICD-10 - B35.1) 05/22/2024 Pain in right toe(s) (ICD-10 - M79.674) 05/22/2024 Ingrown nail (ICD-10 - L60.0) 05/22/2024 Skin ulcer of toe of left foot, limited to breakdown of skin (ICD-10 - L97.521) 05/22/2024 Other Plan Of Treatment Pending Test Test Name Order Date 83670-JJYEQKK NAIL, 6 OR MORE 05/22/2024 90697-Hdgq Destruction, 1-14 05/22/2024 33252-Apbaestt Plate 05/22/2024 70118-Uxryaxcb Plate Each Additional 40331- Debride <25 sq cm 05/22/2024 68882-ZUFO SKIN LESIONS, OVER 4 05/22/20 24 Next Appt Details Follow Up: 2 Weeks, Reason: Provider Name:Sole A Joaquin , 08/21/2024 10:00:00 AM, [address] [facility], [place], [address], Procedure Notes * Category Sub-Category Detail Notes Wart Treatment Procedure Verrucae(s) were debrided to pin-point bleeding margins with sterile surgical blade, silver nitrate chemocautery applied, recomm. immune-boosting meds such as zinc, recomm. follow up with topical chemosurgical agents, Pt CONT, , defers any other forms of tx (23963) Nail Avulsion Procedure A fine sterile e levator was placed between the eponychium, nail fold, and nail plate to separate the the structures. A sterile nail splitter, and/or sterile 316 blade, was then used to longitudinally section the nail along its entire length through the eponychium to the area under the nail fold. The offending portion of each nail was from the nail bed with a rolling action and then removed with a hemostat. No underlying bone was identified. There was minimal bleeding as hemostasis was achieved through use of either a digital tournaquet or the aforementioned local with epinephrine. A bacitracin sterile dressing was applied. Local wound aftercare instructions were discussed and dispensed. The patient was informed of both conservative and future surgical procedures to prevent recurrence (93436/32) , DIABETES: Matricectomy deferred at this time due to diabetes risk Anesthesia , was deferred - TRACEE ROPATHY: patient has medically documented neuropathic condition affecting sensation Location Bilateral nail borde r , TA , T5 Debride Nail 6-10 Nail debridement Performance o f this nail treatment by a nonprofessional would put this patients foot and overall health at risk. Therefore, nail debridement was performed extensively to reduce/remove overall nail length, girth, thickness, subungual debris, and necrotic tissue, by manual and/or electrical means through the use of a nail nipper and/or dremel-type billet grinder, to a more viable healthy nail plate or bed tissue 6-10. Silver nitrate used for any petechial bleeding as necessary. Definitive antifungal treatment options have been reviewed and discussed with the patient. The patient chooses, no pharmaceutical tx - 7[address]67 Debride skin< 25 sq cm Open wound NEUROPATH Y: Physician of record performed open wound selective debridement of first 25 sq cm or less, of devitilized necrotic/nonviable soft tissue, fibrin, and exudate extending from the epidermis through the dermis, utilizing sharp dissection with sterile 15 blade, and/or tissue nippers. Hemostasis was controlled through direct pressure. Sterile antibiotic dressing applied, ANESTHESIA was not required due to presence of NEUROPATHY. Post debridement measurements: 5mm x 4 mm x 2mm. Character of the wound post debridement is stable (64167) Keratoma Treatment Parring or Cutting o f Benign Hyperkeratotic Lesion(s) 40263 ( >4 Lesions) - The Benign hyperkeratotic lesions, as described above were pared, and/or cut utilizing a sterile #15 blade, tissue nippers, and/or dremel Progress Notes * Kaycee CLIFFORD MDOB:[birth year] (78 yo F)Acc No.[id number]:05/22/2024 Progress Note Patient:?Kaycee Clifford Provider:?Sole Nuñez DPM :1945???Age:78 Y???Sex:Female D ate:05/22/2024 Address:[address] [place], [place] [id number] Pcp:Michael Joiner MD Subjective: * Chief Complaints: * ???At Risk FootcareIngrown n ail(s)Open sore * HPI: ???At Risk footcare:?Pt States Last PCP Visit:?Date?05/16/2024 * Medical History:? * Surgical History:?hysterecto my cataract surgery - Bilateral 11/2017colonoscopy 06/27/19 * Hospitalization/Major Diagno stic Procedure:?childbirth x2 [facility]- [facility] [place] * Family History:?Mother: dece ased, diagnosed with Other specified conditions influencing health status.?Father: , diagnosed with Diabetic - NIDDM, Unspecified heart disease, Unspecified cerebral artery occlusion with cerebral infarction.? * Social History:?Tobacco Use:?Tobacco Use/Smoking?Are you a:?nonsmoker ?Tobacco use other than smoking?Are you an other tobacco user??No ???Drugs/Alcohol:?Drugs?Have you used drugs other than those for medical reasons in the past 12 months??No ?Alcohol Screen?Did you have a drink containing alcohol in the past year??No ?Points?0 ?Interpretation?Negative ???Miscellaneous:?Caffeine: yes, frequency:, 3-4 cups per day. ?Children: yes, 2. ?Exercise: yes, walking, work. ?Marital status: . 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 * Medications:?TakingEliquis V itamin D Ventolin HFA Lisinopril Omeprazole 20 MG Capsule Delayed Release 1 capsule Orally Once a dayAtorvastatin Calcium 40 MG Tablet 1 tablet Orally Once a dayMulti Vitamin/Minerals Tablet Orally Calcium + D 315-200 MG- UNIT Tablet 1 tablet with meals Orally Twice a dayLotrisone 1-0.05 % Cream 1 application to affected area Externally Twice a dayNaproxen Simvastatin Cyclobenzaprine HCl HYDROcodone-Acetaminophen , Notes: PRNProAir HFA , Notes: PRNAciphex metFORMIN HCl 500 MG Tablet 1 tablet with meals Orally Twice a dayExtra Depth Orthopedic Shoes (1 Pair) with Customized Heat Molded Multidensity Innersoles (3 Pair) as directed Dx: NIDDM/Polyneuropathy (E11.42), Hammertoe Foot Deformity (M20.41,M20.42), Preulcerative Skin Lesion(s) (L85.1Toujeo SoloStar 300 UNIT/ML Solution Pen- injector Subcutaneous Ammonium Lactate 12 % Cream 1 application Externally Twice a dayExtra Depth Orthopedic Shoes (1 Pair) with Customized Heat Molded Multidensity Innersoles (3 Pair) as directed Dx: NIDDM/Polyneuropathy (E11.42), Hammertoe Foot Deformity (M20.41,M20.42), Preulcerative Skin Lesion(s) (L85.1Taking Eliquis Taking Vitamin D Taking Ventolin HFA Taking Lisinopril Taking Omeprazole 20 MG Capsule Delayed Release 1 capsule Orally Once a dayTaking Atorvastatin Calcium 40 MG Tablet 1 tablet Orally Once a dayTaking Multi Vitamin/Minerals Tablet Orally Taking Calcium + D 315-200 MG-UNIT Tablet 1 tablet with meals Orally Twice a dayTaking Lotrisone 1-0.05 % Cream 1 application to affected area Externally Twice a dayTaking Naproxen Taking Simvastatin Taking Cyclobenzaprine HCl Taking HYDROcodone-Acetaminophen , Notes: PRNTaking ProAir HFA , Notes: PRNTaking Aciphex Taking metFORMIN HCl 500 MG Tablet 1 tablet with meals Orally Twice a dayTaking Extra Depth Orthopedic Shoes (1 Pair) with Customized Heat Molded Multidensity Innersoles (3 Pair) as directed Dx: NIDDM/Polyneuropathy (E11.42), Hammertoe Foot Deformity (M20.41,M20.42), Preulcerative Skin Lesion(s) (L85.1Taking Toujeo SoloStar 300 UNIT/ML Solution Pen-injector Subcutaneous Taking Ammonium Lactate 12 % Cream 1 application Externally Twice a dayTaking Extra Depth Orthopedic Shoes (1 Pair) with Customized Heat Molded Multidensity Innersoles (3 Pair) as directed Dx: NIDDM/Polyneuropathy (E11.42), Hammertoe Foot Deformity (M20.41,M20.42), Preulcerative Skin Lesion(s) (L85.1Not-Taking/PRNInsulin Pen Needle Calcium zzzExtra Depth Orthopedic Shoes (1 Pair) with Customized Heat Molded Multidensity Innersoles (3 Pair) . . . . Dx: NIDDM/Polyneuropathy (E11.42), Hammertoe Foot Deformity (M20.41,M20.42), Preulcerative Skin Lesion(s) (L85.1)Extra-Depth Diabetic Shoes with 3 Pair Custom heat-molded multi-density innersoles . . 1pair shoes/3sets inserts . .Alendronate Sodium Extra-Depth Diabetic Shoes with 3 Pair Custom heat-molded multi-density innersoles . . for 1 year . Dx:hammertoes and calloused lesions,tailors bunion b/lExtra Depth Orthopedic Shoes (1 Pair) with Customized Heat Molded Multidensity Innersoles (3 Pair) as directed Dx: NIDDM/Polyneuropathy (E11.42), Hammertoe Foot Deformity (M20.41,M20.42), Preulcerative Skin Lesion(s) (L85.1Extra Depth Orthopedic Shoes (1 Pair) with Customized Heat Molded Multidensity Innersoles (3 Pair) as directed Dx: NIDDM/Polyneuropathy (E11.42), Hammertoe Foot Deformity (M20.41,M20.42), Preulcerative Skin Lesion(s) (L85.1Keflex 500 MG Capsule 1 capsule Orally every 12 hrsTriamcinolone Acetonide 0.1 % Cream 1 application to affected area Externally Twice a dayMedication List reviewed and reconciled with the patientNot- Taking/PRN Insulin Pen Needle Not-Taking/PRN Calcium Not-Taking/PRN zzzExtra Depth Orthopedic Shoes (1 Pair) with Customized Heat Molded Multidensity Innersoles (3 Pair) . . . . Dx: NIDDM/Polyneuropathy (E11.42), Hammertoe Foot Deformity (M20.41,M20.42), Preulcerative Skin Lesion(s) (L85.1)Not-Taking/PRN Extra-Depth Diabetic Shoes with 3 Pair Custom heat-molded multi-density innersoles . . 1pair shoes/3sets inserts . .Not-Taking/PRN Alendronate Sodium Not-Taking/PRN Extra-Depth Diabetic Shoes with 3 Pair Custom heat-molded multi-density innersoles . . for 1 year . Dx:hammertoes and calloused lesions,tailors bunion b/lNot-Taking/PRN Extra Depth Orthopedic Shoes (1 Pair) with Customized Heat Molded Multidensity Innersoles (3 Pair) as directed Dx: NIDDM/Polyneuropathy (E11.42), Hammertoe Foot Deformity (M20.41,M20.42), Preulcerative Skin Lesion(s) (L85.1Not-Taking/PRN Extra Depth Orthopedic Shoes (1 Pair) with Customized Heat Molded Multidensity Innersoles (3 Pair) as directed Dx: NIDDM/Polyneuropathy (E11.42), Hammertoe Foot Deformity (M20.41,M20.42), Preulcerative Skin Lesion(s) (L85.1Not-Taking/PRN Keflex 500 MG Capsule 1 capsule Orally every 12 hrsNot-Taking/PRN Triamcinolone Acetonide 0.1 % Cream 1 application to affected area Externally Twice a dayMedication List reviewed and reconciled with the patient * Allergies:?Bactrim: anaphyla xisCodeineyes[Allergies Verified] Objective: * Vitals:?Ht: 5 ft 1 in, Wt: 1 53, BMI: 28.91, Shoe size: 7.5, BS: 131, Wt-k.4 kg. * ???Past Orders: ???Lab:HEMOGLOBIN A1C (GLYCO HEMOGLOBIN) (Order Date - 04/23/2024) (Collection Date - 04/23/2024) ? Value Reference Range ?TOTAL HEMOGLOBIN (HGBA1C) 7.9 * Examination: ???Ophthalmology Referral: ?DIABETES EYE EXAM?Neurological: ?SENSORY:?exam demonstrates. reduced vibration lower extremity, reduced light touch sensation, reduced sharp/dull pin prick discrimination , 5.07 monofilament test performed at plantar aspects of 5 varied sites per foot shows sensation, reduced, at Forefoot, B/L, Pt relates cont.?, burning, pins and needles sensation, tingling, especially in the evening, B/L ,.?Vascular: ?DP PULSES(B):?2/4, B/L.?PT PULSES(B):?2/4, B/L.?Dermatologic: ?SKIN FINDINGS:?Skin exam reveals keratotic lesion(s) located at, SUB MTH (s), 1, 4 ,5 Left 1-5 R ,.?VERRUCA:? Reveals a Single , multi-loculated , mosaically patterned, round, raised, flat-topped, petechial bleeding papulae(s), with cauliflower appearance and interrruption of skin lines, pain to lateral compression, and size estimated at 1-2 mm diameter, 1st toe, LEFT.?ULCER:?Medial , T1 , LOCATION, SIZE, 4mm X 3mm X 2mm, BASE, granular, RIM, hyperkeratotic, UNDERMINING, absent, TRACKING, Full thickness breakdown of skin, DRAINAGE, serosanguineous, mild, NECROTIC TISSUE, loosely-adherent, yellow slough, MALODOR, absent, CALOR, absent, ERYTHEMA, absent, PAIN ON PALPATION, present.?Nails: ?NAILS are:?elongated,overgrown,dystrophic,greater than 3mm thick,discolored and friable with crumbly malodorous subungual debris, with dull to no pain on palpation due to neuropathy, , T2 , T3 , T4 , T6 , T7 , T8 , T9.?Ingrown Nail: ?INSPECTION:?Reveals nail incurvation, pain on palpation, groove hypertrophy , groove ischemia , Bilateral nail borders , TA , T5.? Assessment: * Assessment: 1.?Type 2 diabetes mellitus with diabetic polyneuropathy - E11.42?2.?Other viral warts - B07.8 (Primary)?3.?Tinea unguium - B35.1?4.?Pain in right toe(s) - M79.674?5.?Ingrown nail - L60.0?6.?Skin ulcer of toe of left foot, limited to breakdown of skin - L97.521? Plan: * Treatment: 2.?Type 2 diabetes mellitus with diabetic polyneuropathy?Procedure: 04237-FDVR SKIN LESIONS, OVER 4 3.?Tinea unguium?Procedure: 37399-SZBHMBS NAIL, 6 OR MORE 4.?Ingrown nail?Procedure: 13717-Fpajmisi Plate ?Procedure: 72653-Scacwffk Plate Each Additional 5.?Skin ulcer of toe of left foot, limited to breakdown of skin?Procedure: 01773- Debride <25 sq cm * Procedures:?Debride Nail 6-10:?Nail debridement?Performance of this nail treatment by a nonprofessional would put this patients foot and overall health at risk. Therefore, nail debridement was performed extensively to reduce/remove overall nail length, girth, thickness, subungual debris, and necrotic tissue, by manual and/or electrical means through the use of a nail nipper and/or dremel-type billet grinder, to a more viable healthy nail plate or bed tissue 6-10. Silver nitrate used for any petechial bleeding as necessary. Definitive antifungal treatment options have been reviewed and discussed with the patient. The patient chooses, no pharmaceutical tx - 90843.?Debride skin< 25 sq cm:?Open wound?NEUROPATHY: Physician of record performed open wound selective debridement of first 25 sq cm or less, of devitilized necrotic/nonviable soft tissue, fibrin, and exudate extending from the epidermis through the dermis, utilizing sharp dissection with sterile 15 blade, and/or tissue nippers. Hemostasis was controlled through direct pressure. Sterile antibiotic dressing applied, ANESTHESIA was not required due to presence of NEUROPATHY. Post debridement measurements: 5mm x 4 mm x 2mm. Character of the wound post debridement is stable (30495).?Keratoma Treatment:?Parring or Cutting of Benign Hyperkeratotic Lesion(s)?31652 ( >4 Lesions) - The Benign hyperkeratotic lesions, as described above were pared, and/or cut utilizing a sterile #15 blade, tissue nippers, and/or dremel.?Nail Avulsion:?Location?Bilateral nail border , TA , T5.?Anesthesia?, was deferred - NEUROPATHY: patient has medically documented neuropathic condition affecting sensation.?Procedure?A fine sterile elevator was placed between the eponychium, nail fold, and nail plate to separate the the structures. A sterile nail splitter, and/or sterile 316 blade, was then used to longitudinally section the nail along its entire length through the eponychium to the area under the nail fold. The offending portion of each nail was from the nail bed with a rolling action and then removed with a hemostat. No underlying bone was identified. There was minimal bleeding as hemostasis was achieved through use of either a digital tournaquet or the aforementioned local with epinephrine. A bacitracin sterile dressing was applied. Local wound aftercare instructions were discussed and dispensed. The patient was informed of both conservative and future surgical procedures to prevent recurrence (22939/32) , DIABETES: Matricectomy deferred at this time due to diabetes risk.?Wart Treatment:?Procedure?Verrucae(s) were debrided to pin-point bleeding margins with sterile surgical blade, silver nitrate chemocautery applied, recomm. immune-boosting meds such as zinc, recomm. follow up with topical chemosurgical agents, Pt CONT, , defers any other forms of tx (68994).? * Procedure Codes:?85490 Avuls ion Plate, [place]: [place] [address] DEBRIDE NAIL, 6 OR MORE, Modifiers: XS 81451 Avulsion Plate Each Additional, Modifiers: T5 23934 Wart Destruction, 1-14, Modifiers: XS 29002 TRIM SKIN LESIONS, OVER 4, Modifiers: XS 65767 ACTIVE WOUND CARE/20 CM OR <, Modifiers: T1 * Preventive Medicine:? ??Counseling:?Ulcer:?A detailed plan of care was reviewed with the patient. We emphasized the fact that the patient takes on an active participating role in the treatment process and emphasized to them that they are an included, valued, and important member of the wound healing team in order to reach an expedient successful outcome. The patient agreed to follow their medically recommended diet while increasing their protein intake if safely able to do so, maintain proper bodily hydaration, abide by weight-bearing restrictions at all times, quit all current smoking habits if any, and diligently follow any/all dressing change instructions. It was clearly made known to the patient that if they fail to do their part, they will likely extend their course of treatment as well as possibly increase their risk of adverse events including amputation. The patient was instructed on importance of proper wound care consisting of pressure reduction, and proper maintainance of a moist wound environment. The patient is to cleanse the wound with warm soapy water/peroxide/saline, or betadine BID based on product availability. The patient is to apply ( _ Neosporin, Polysporin, or Triple, ) Antibiotic to the wound and cover with a DSD as directed. The patient was instructed to change dressings according to orders, or PRN saturation, leaks. The patient was instructed to monitor and report any signs or symptoms of infection or any untoward reactions. Precautions Taken: Offloading/Pressure reduction via rest/ limited activity to essential to daily life only, cane/ crutches/ walker/ knee scooter/ wheel chair, shoe modification, accommodative padding, sharp debridement, and take/apply medication as directed. THE GOALS of wound debridement to remove devitilized tissue, decrease risk for infection, promote wound healing and prevent further complication were discussed/reviewed. Debridement frequency as indicated, Every 5-8 weeks until healed.? * Follow Up:?2 Weeks * Images: * Sign off status: Completed true * Provider:?Sole Nuñez DPM Date:?2023 Generated for Brina bryson/Axel/Ammon on:?07/04/2024 08:56 AM EST History and Physical Notes * HPI (History of Present Illness) Category Sub-Category Detail Notes Category Not es At Risk footcare Pt States Last PCP Visit: Date: 4 Examination Category Sub-Category Detail Notes Category Not es Ingrown Nail INSPECTION: Reveals nail inc urvation, pain on palpation, groove hypertrophy , groove ischemia , Bilateral nail borders , TA , T5 Neurological SENSORY: exam demonstrate s. reduced vibration lower extremity, reduced light touch sensation, reduced sharp/dull pin prick discrimination , 5.07 monofilament test performed at plantar aspects of 5 varied sites per foot shows sensation, reduced, at Forefoot, B/L, Pt relates cont. , burning, pins and needles sensation, tingling, especially in the evening, B/L , TINEL'S COMPRESSION: Dermatologic SKIN FINDINGS: Skin exam reveal s keratotic lesion(s) located at, SUB MTH (s), 1, 4 ,5 Left 1-5 R , ULCER: Medial , T1 , LOCATI ON, SIZE, 4mm X 3mm X 2mm, BASE, granular, RIM, hyperkeratotic, UNDERMINING, absent, TRACKING, Full thickness breakdown of skin, DRAINAGE, serosanguineous, mild, NECROTIC TISSUE, loosely- adherent, yellow slough, MALODOR, absent, CALOR, absent, ERYTHEMA, absent, PAIN ON PALPATION, present VERRUCA: Reveals a Single , m ulti-loculated , mosaically patterned, round, raised, flat-topped, petechial bleeding papulae(s), with cauliflower appearance and interrruption of skin lines, pain to lateral compression, and size estimated at 1-2 mm diameter, 1st toe, LEFT Orthopedic FOOTWEAR: Ophthalmology Referral DIABETES EYE EXAM Diabetic Retinopa thy Screening:: Yes Findings of Diabetic Eye Exam:: no retin opathy Vascular DP PULSES(B): 2/4, B/L PT PULSES(B): 2/4, B/L CAPILLARY FILL TIME: Nails NAILS are: elongated,overgr own,dystrophic,greater than 3mm thick,discolored and friable with crumbly malodorous subungual debris, with dull to no pain on palpation due to neuropathy, , T2 , T3 , T4 , T6 , T7 , T8 , T9
--- OUTSIDE RECORDS SUMMARY | 2024-07-04 08:57 | XMS_ITS | Patient Health Record ---
Author Organization [facility] Address [address] [place] [address] Care Team Providers Care Huc Name Role Phone Michael Joiner MD Primary Care Provider Unavaila nicolas NuñezAliciae Unavailable [phone] Allergies Allergen (clinical drug ingredient) Drug/Non Drug Allergy documented on EMR Reaction Allergy Type Onset Date Status sulfamethoxazole / trimethoprim Bactrim anaphylaxis Drug Allergy Active codeine Codeine Unknown Drug Allergy Active Results Component Value Reference Range Notes HEMOGLOBIN A1C (GLYCOHEMOGLO BIN) Reviewed date:05/22/2024 08:36:13 AM Interpretation: Performing Lab: Notes/Report: TOTAL HEMOGLOBIN (HGBA1C) 7.9 Reason For Referral No Information Medications Medication SIG (Take, Route, Frequency, Duration) Notes Start Date End Date Status HYDROcodone-Acetaminophen PRN Active metFORMIN HCl 500 MG 1 tablet with meals Orally Twice a day Active Extra Depth Orthopedic Shoes (1 Pair) with Customized Heat Molded Multidensity Innersoles (3 Pair) as directed Dx: NIDDM/Polyneuropathy (E11.42), Hammertoe Foot Deformity (M20.41,M20.42), Preulcerative Skin Lesion(s) (L85.1 12/30/2022 Active ProAir HFA PRN Active Aciphex Active Lotrisone 1-0.05 % 1 application to affected area Externally Twice a day Active Naproxen Active Multi Vitamin/Minerals Orally Active Keflex 500 MG 1 capsule Orally lance ry 12 hrs for 10 day(s) 04/20/2017 Not-Taking Calcium + D 315-200 MG-UNIT 1 tablet with meals Orally Twice a day Active Triamcinolone Acetonide 0.1 % 1 application to affected area Externally Twice a day Not-Takin g Simvastatin Active Cyclobenzaprine HCl Active zzzExtra Depth Orthopedic Shoes (1 Pair) with Customized Heat Molded Multidensity Innersoles (3 Pair) . . . Dx: NIDDM/Polyneuropathy (E11.42), Hammertoe Foot Deformity (M20.41,M20.42), Preulcerative Skin Lesion(s) (L85.1) for . 11/11/2015 Not-Takluz ng Extra-Depth Diabetic Shoes with 3 Pair Custom heat-molded multi-density innersoles . 1pair shoes/3sets inserts . . for 1 year 05/08/2013 Not-Takin g Omeprazole 20 MG 1 capsule Orally Onc e a day Active Extra Depth Orthopedic Shoes (1 Pair) with Customized Heat Molded Multidensity Innersoles (3 Pair) as directed Dx: NIDDM/Polyneuropathy (E11.42), Hammertoe Foot Deformity (M20.41,M20.42), Preulcerative Skin Lesion(s) (L85.1 04/24/2017 Not-Taking Atorvastatin Calcium 40 MG 1 tablet Orally Once a day Active Extra Depth Orthopedic Shoes (1 Pair) with Customized Heat Molded Multidensity Innersoles (3 Pair) as directed Dx: NIDDM/Polyneuropathy (E11.42), Hammertoe Foot Deformity (M20.41,M20.42), Preulcerative Skin Lesion(s) (L85.1 2017 Not-Taking Ventolin HFA Active Alendronate Sodium N ot-Taking Lisinopril Active Extra-Depth Diabetic Shoes with 3 Pair Custom heat-molded multi-density innersoles . for 1 year . Dx:hammertoes and calloused lesions,tailors bunion b/l for . 09/17/2014 Not-Taking Extra Depth Orthopedic Shoes (1 Pair) with Customized Heat Molded Multidensity Innersoles (3 Pair) as directed Dx: NIDDM/Polyneuropathy (E11.42), Hammertoe Foot Deformity (M20.41,M20.42), Preulcerative Skin Lesion(s) (L85.1 01/19/2024 Active Insulin Pen Needle N ot-Taking Toujeo SoloStar 300 UNIT/ML Subcutaneous for 82 Days Active Ammonium Lactate 12 % 1 application Externally Twice a day for 30 days Active Vitamin D Active Calcium Not-Taking Eliquis Active Immunizations Vaccine Route Administration Date Status Comme nts COVID-19 Pfizer BioNTech Vaccine Unknown 04/20/2021 Administered first dose: 03/30/2021 Influenza Unknown 06/02/2015 Refused Influenza Unknown 04/20/2017 Refused Pt refuses Influenza Unknown 05/17/2018 Refused Influenza Unknown 11/22/2018 Refused Influenza Unknown 09/27/2019 Refused Influenza Unknown 10/30/2020 Refused Social History Tobacco Use: Social History Observation [...] Problem Status W/U Status Risk Notes Problem Acquired hammer toe of right foot (0192471187819885) Other hammer toe(s) (acquired), right foot (M20.41) Active confirmed Problem Acquired hammer toe of left foot (2032849366255373) Other hammer toe(s) (acquired), left foot (M20.42) Active confirmed Problem Ulcer of foot (20275822) Non-pressure chronic ulcer of other part of left foot limited to breakdown of skin (L97.521) Active confirmed Problem Localized, primary osteoarthritis of the ankle and/or foot (459627178) Primary osteoarthritis, left ankle and foot (M19.072) Active confirmed Problem 986902998215234 Hallux valgus (acquired), left foot (M20.12) Active confirmed Problem 304902246689449 Hallux valgus (acquired), right foot (M20.11) Active confirmed Problem Polyneuropathy due to type 2 diabetes mellitus (946749091) Type 2 diabetes mellitus with diabetic polyneuropathy (E11.42) Active confirmed Problem Acquired deformity of left foot (55432438563017401) PlantarFlexion of metatarsal of left foot (M21.6X2) Active confirmed Problem 86858887185710685 Skin ulcer of toe of left foot, limited to breakdown of skin (L97.521) Active confirmed Vital Signs Height 5 ft 1 in in 05/22/2024 Weight 153 lbs 05/22/2024 BMI 28.91 kg/m2 05/22/2024 Procedures Procedure Date Ordered Date Performed Result Body Sit e 12733-KWMDKBZ NAIL, 6 OR MORE 10/06/2023 N/A 49539-Dhxm Destruction, 1-14 10/06/2023 N/A 67332-KWSC SKIN LESIONS, OVER 4 10/06/2023 N/A 89511-XQAZIMY NAIL, 6 OR MORE 01/19/2024 N/A 77443-Gfkf Destruction, 1-14 01/19/2024 N/A 11439-AYBT SKIN LESIONS, OVER 4 01/19/2024 N/A 63861-CECNAOS NAIL, 6 OR MORE 05/22/2024 N/A 98900-Dlwj Destruction, 1-14 05/22/2024 N/A 67214-Qaxraeok Plate 05/22/2024 N/A 44859-Tzvclwcy Plate Each Additional 05/22/2024 N/A 34629- Debride <25 sq cm 05/22/2024 N/A 59172-FZMY SKIN LESIONS, OVER 4 05/22/2024 N/A Encounters Encounter Location Date Provider Diagnosis [address] [address] 10/06/2023 Sole Black Type 2 diabetes reyes itus with diabetic polyneuropathy E11.42 ; Tinea unguium B35.1 ; Other viral warts B07.8 ; Pain in right toe(s) M79.674 and Xerosis of skin L85.[address] [address] 01/19/2024 Sole Black Type 2 diabetes reyes itus with diabetic polyneuropathy E11.42 ; Tinea unguium B35.1 ; Other viral warts B07.8 ; Pain in right toe(s) M79.674 ; Xerosis of skin L85.3 ; Other hammer toe(s) (acquired), right foot M20.41 and Other hammer toe(s) (acquired), left foot M20.[address] [address] 05/22/2024 Sole Black Type 2 diabetes reyes itus with diabetic polyneuropathy E11.42 ; Other viral warts B07.8 ; Tinea unguium B35.1 ; Pain in right toe(s) M79.674 ; Ingrown nail L60.0 and Skin ulcer of toe of left foot, limited to breakdown of skin L97.521 Assessments Encounter Date Diagnosis (ICD Code) Assessment Notes Treatment Notes Treatment Clinical Notes Section Notes 10/06/2023 Type 2 diabetes mellitus with diabetic polyneuropathy (ICD-10 - E11.42) 10/06/2023 Tinea unguium (ICD-10 - B35.1) 01/19/2024 Type 2 diabetes mellitus with diabetic polyneuropathy (ICD-10 - E11.42) 05/22/2024 Type 2 diabetes mellitus with diabetic polyneuropathy (ICD-10 - E11.42) 05/22/2024 Other viral warts (ICD-10 - B07.8) 05/22/2024 Tinea unguium (ICD-10 - B35.1) 01/19/2024 Tinea unguium (ICD-10 - B35.1) 10/06/2023 Other viral warts (ICD-10 - B07.8) 10/06/2023 Pain in right toe(s) (ICD-10 - M79.674) 05/22/2024 Pain in right toe(s) (ICD-10 - M79.674) 01/19/2024 Other viral warts (ICD-10 - B07.8) 01/19/2024 Pain in right toe(s) (ICD-10 - M79.674) 05/22/2024 Ingrown nail (ICD-10 - L60.0) 10/06/2023 Xerosis of skin (ICD-10 - L85.3) 05/22/2024 Skin ulcer of toe of left foot, limited to breakdown of skin (ICD-10 - L97.521) 01/19/2024 Xerosis of skin (ICD-10 - L85.3) Response to treatment - Improvement 01/19/2024 Other hammer toe(s) (acquired), right foot (ICD-10 - M20.41) Patient Educated with: DIABETIC FOOT CARE INSTRUCTIONS. pdf (DIABETIC FOOT CARE INSTRUCTIONS. pdf) 01/19/2024 Other hammer toe(s) (acquired), left foot (ICD-10 - M20.42) 05/22/2024 Other Plan Of Treatment Pending Test Test Name Order Date X ray : Foot, right 2V 03/28/2019 X ray : Foot, right 2V 12/03/2021 Tc99 3 phase Bone Scan 03/26/2014 *Uric Acid, Serum 04/20/2017 *CBC With Differential/Platelet 04/20/20 17 *Sedimentation Rate-Westergren 7 *Wound Culture 04/20/2017 X ray : Foot, left 3V 04/13/2011 23188-JXMCWZR NAIL, 6 OR MORE 08/04/2011 38187-TSIVDLO NAIL, 6 OR MORE 04/13/2011 55920-ZHKIJLD NAIL, 6 OR MORE 11/16/2011 76675-HLOVMHU NAIL, 6 OR MORE 04/11/2012 12008-HQJZVHA NAIL, 6 OR MORE 10/10/2012 69264-JNNDDIZ NAIL, 6 OR MORE 01/30/2013 43024-NWUZDLK NAIL, 6 OR MORE 05/08/2013 13590-TFKWOIU NAIL, 6 OR MORE 09/25/2013 67738-GSETIMZ NAIL, 6 OR MORE 01/08/2014 75077-XKYOMBW NAIL, 6 OR MORE 03/26/2014 24687-EUIZXXH NAIL, 6 OR MORE 04/09/2014 78197-BCTMAOH NAIL, 6 OR MORE 05/07/2014 90296-ONXZXBR NAIL, 6 OR MORE 09/17/2014 35108-OMHSSDV NAIL, 6 OR MORE 02/18/2015 36937-RMTPUHK NAIL, 6 OR MORE 08/12/2015 25928-HJHSIDH NAIL, 6 OR MORE 11/11/2015 06066-FOPPTJA NAIL, 6 OR MORE 07/10/2017 52251-EVYGGON NAIL, 6 OR MORE 04/20/2017 90724-TOOYWZC NAIL, 6 OR MORE 2017 67833-IDVPZUG NAIL, 6 OR MORE 02/08/2018 35658-CCTNWTZ NAIL, 6 OR MORE 05/17/2018 00983-VAIROPU NAIL, 6 OR MORE 02/10/2016 79366-YTYNZOJ NAIL, 6 OR MORE 05/12/2016 91989-WNUFZHR NAIL, 6 OR MORE 08/11/2016 44996-GGUTIYO NAIL, 6 OR MORE 11/10/2016 29081-VBQGBSM NAIL, 6 OR MORE 03/28/2019 29784-VZMDAZC NAIL, 6 OR MORE 07/04/2019 01667-CJZXMDH NAIL, 6 OR MORE 09/27/2019 62943-MGVQSUA NAIL, 6 OR MORE 08/23/2018 83698-MQLWTFX NAIL, 6 OR MORE 11/22/2018 29386-QICURLY NAIL, 6 OR MORE 01/17/2020 87782-MGGTAGZ NAIL, 6 OR MORE 04/17/2020 14113-BYGNKCL NAIL, 6 OR MORE 07/31/2020 46939-SWIZDFH NAIL, 6 OR MORE 10/30/2020 05847-PXIZUWG NAIL, 6 OR MORE 02/19/2021 29193-NVOENWJ NAIL, 6 OR MORE 05/21/2021 77554-JWGEWKH NAIL, 6 OR MORE 12/03/2021 25936-GHBOTRX NAIL, 6 OR MORE 09/03/2021 73984-PNCNMXQ NAIL, 6 OR MORE 03/11/2022 06269-MAFPACH NAIL, 6 OR MORE 06/10/2022 11758-ZVBIHUV NAIL, 6 OR MORE 09/14/2022 58929-VPPCTYH NAIL, 6 OR MORE 12/30/2022 30141-YOMZXET NAIL, 6 OR MORE 04/26/2023 85881-JSMCKVZ NAIL, 6 OR MORE 10/06/2023 19509-LXPMUAA NAIL, 6 OR MORE 01/19/2024 05765-BFJVWKT NAIL, 6 OR MORE 05/22/2024 52855-Vdte Destruction, 1-14 10/06/2023 28767-Yiar Destruction, -14 01/19/2024 80907-Phql Destruction, -14 05/22/2024 64857-Kzpl Destruction, -14 04/26/2023 81734-Evgr Destruction, -14 09/14/2022 64994-Tmbq Destruction, -14 12/30/2022 69885-Vact Destruction, -14 03/11/2022 44221-Kcbi Destruction, -14 06/10/2022 04630-Vipx Destruction, -14 09/03/2021 13297-Poqb Destruction, -14 12/03/2021 43982-Iord Destruction, -14 03/28/2019 43730-Ohhk Destruction, -14 08/23/2018 80817-Izrn Destruction, -14 07/04/2019 68361-Akre Destruction, -14 11/10/2016 26282-Azet Destruction, -08/11/2016 57452-Pleg Destruction, -14 05/12/2016 61450-Pwoy Destruction, 08-0602/10/2016 07465-Ouix Destruction, 08-0611/11/2015 39612-Fxra Destruction, -08/12/2015 41020-Hunu Destruction, 08-0604/13/2011 86552-Ihep Destruction, 15 OR MORE 11/22 26159-Pkvcikci Plate 07/31/2020 60702-Riuetvzo Plate 02/19/2021 71229-Knufujzo Plate 02/10/2016 66188-Zckfpxvo Plate 05/12/2016 25021-Zgghzihk Plate 08/11/2016 93933-Cdrtztgp Plate 11/10/2016 54880-Gvthrtgx Plate 2017 04858-Zkugduri Plate 10/10/2012 92653-Mezdrdze Plate 04/11/2012 28480-Zxkmxgqp Plate 01/08/2014 83504-Pxisaffl Plate 09/25/2013 77526-Fmwmqclf Plate 05/08/2013 25001-Pbzygfny Plate 01/30/2013 30553-Ozsilewx Plate 11/11/2015 14503-Oxvlcpoj Plate 08/12/2015 25292-Vvvhdloz Plate 02/18/2015 64819-Mffxjcei Plate 09/17/2014 73166-Rthacyfd Plate 05/07/2014 89528-Wnspcvee Plate 04/09/2014 37634-Xlfbklhx Plate 03/26/2014 43922-Obhwxwfi Plate 09/03/2021 63179-Vvmbmezs Plate 05/22/2024 59507-Wfudsrws Plate Each Additional 31945-Gpiczqgt Plate Each Additional 09/2013 63727-Rutvqybt Plate Each Additional 57876-Wsfdhsxl Plate Each Additional 28058-Ytjmxvpk Plate Each Additional 37798-Bjgtsfkq Plate Each Additional 27398-Iddienmm Plate Each Additional 16439-Upowblbe Plate Each Additional 20209-Extkarun Plate Each Additional 04/2013 21733-Jaojnoui Plate Each Additional 87858-Czsqvjxk Plate Each Additional 11/2013 36067-Kdmwywfw Plate Each Additional 54371-Yksdygur Plate Each Additional 26425-Mwspmfos Plate Each Additional 41005-Qhqvtvos Plate Each Additional 87216-Yadjrfbn Plate Each Additional 48099-Hsbpqsda Plate Each Additional 05/2022 30935- Debride <25 sq cm 09/03/2021 35003- Debride <25 sq cm 05/21/2021 16148- Debride <25 sq cm 02/19/2021 92401- Debride <25 sq cm 10/30/2020 78673- Debride <25 sq cm 07/31/2020 17127- Debride <25 sq cm 04/17/2020 41800- Debride <25 sq cm 08/23/2018 68518- Debride <25 sq cm 01/17/2020 26540- Debride <25 sq cm 09/27/2019 23554- Debride <25 sq cm 02/08/2018 63952- Debride <25 sq cm 05/17/2018 95274- Debride <25 sq cm 2017 53381- Debride <25 sq cm 01/08/2014 19713- Debride <25 sq cm 09/25/2013 61062- Debride <25 sq cm 11/16/2011 41363- Debride <25 sq cm 05/08/2013 84381- Debride <25 sq cm 02/18/2015 24173- Debride <25 sq cm 09/17/2014 40782- Debride <25 sq cm 05/07/2014 96802- Debride <25 sq cm 04/09/2014 71689- Debride <25 sq cm 03/26/2014 84260- Debride <25 sq cm 05/22/2024 45228- Debride <25 sq cm 12/03/2021 76464- Debride <25 sq cm 03/11/2022 65646- Debride <25 sq cm 06/10/2022 95938- Debride <25 sq cm 09/14/2022 40053 I&D ABSCESS- SIMPLE,SINGLE 012 49356 I&D ABSCESS- SIMPLE,SINGLE 012 91865 I&D ABSCESS- SIMPLE,SINGLE 017 40099-VTWX SKIN LESIONS, OVER 4 02/09/20 18 46661-ZYGR SKIN LESIONS, OVER 4 05/17/20 18 65747-ESJJ SKIN LESIONS, OVER 4 11/07/19 18 56848-SBUQ SKIN LESIONS, OVER 4 07/10/20 17 69861-YNGT SKIN LESIONS, OVER 4 04/20/20 17 23974-NEAO SKIN LESIONS, OVER 4 02/10/20 16 66090-PFWA SKIN LESIONS, OVER 4 05/12/20 16 10304-WIRQ SKIN LESIONS, OVER 4 08/11/19 17 14811-XIJC SKIN LESIONS, OVER 4 11/11/19 17 95954-BAGV SKIN LESIONS, OVER 4 09/27/19 20 49377-LZRK SKIN LESIONS, OVER 4 01/17/20 20 71061-ONVO SKIN LESIONS, OVER 4 07/04/20 19 58488-SVVF SKIN LESIONS, OVER 4 08/23/19 19 48078-XUYH SKIN LESIONS, OVER 4 11/23/19 19 75403-TUJW SKIN LESIONS, OVER 4 03/28/20 19 62914-SVFN SKIN LESIONS, OVER 4 04/17/20 20 30478-MLAJ SKIN LESIONS, OVER 4 07/31/19 21 40799-NSBK SKIN LESIONS, OVER 4 10/31/19 21 21087-NQZS SKIN LESIONS, OVER 4 02/20/20 21 62525-LVYJ SKIN LESIONS, OVER 4 05/21/20 21 83440-RAFU SKIN LESIONS, OVER 4 09/03/19 22 95659-XKGE SKIN LESIONS, OVER 4 11/16/19 12 36920-NDIY SKIN LESIONS, OVER 4 04/11/20 12 24762-ZLHJ SKIN LESIONS, OVER 4 10/11/19 13 98705-MYKY SKIN LESIONS, OVER 4 09/26/19 14 48557-MNSD SKIN LESIONS, OVER 4 01/09/20 14 37660-RYOR SKIN LESIONS, OVER 4 05/08/20 13 78076-XANP SKIN LESIONS, OVER 4 01/31/20 13 94774-MOPE SKIN LESIONS, OVER 4 03/26/20 14 86134-UZZH SKIN LESIONS, OVER 4 09/17/19 15 76058-OXWM SKIN LESIONS, OVER 4 02/19/20 15 19688-MQKU SKIN LESIONS, OVER 4 11/11/19 16 80695-YJWE SKIN LESIONS, OVER 4 08/12/19 16 19665-PIEO SKIN LESIONS, OVER 4 09/14/19 23 19166-UESD SKIN LESIONS, OVER 4 12/31/19 23 25068-AJRA SKIN LESIONS, OVER 4 06/10/20 22 76317-QIVI SKIN LESIONS, OVER 4 03/11/20 22 87236-WMLY SKIN LESIONS, OVER 4 12/04/19 22 70919-KXLJ SKIN LESIONS, OVER 4 05/22/20 24 49279-DQLX SKIN LESIONS, OVER 4 04/26/20 23 78708-ETFG SKIN LESIONS, OVER 4 10/06/19 24 39601-OOJO SKIN LESIONS, OVER 4 01/19/20 24 91111-ASBG SKIN LESIONS, 2 TO 4 08/04/19 12 18693, Q6276-HLTVD/INJECT, JOINT/BURSA 0 04/13/2011 Next Appt Details Provider Name:Sole Nuñez , 08/21/2024 10:00:00 AM, [address], [place], [address], Insurance Providers Payer Name Payer Address Payer Phone Subscriber Number Group Number Insured Name Patient Relationship to Insured Coverage Start Date Coverage End Date [employer] [address] [place] [place] [address] [id number] Kaycee Florence Self - patient is the insured Medical (General) History Medical History History ICD Code mumps measles chicken pox diabetic asthma Surgical History Surgery Date(Month/Year) hysterectomy cataract surgery - Bilateral 11/2017 colonoscopy 06/27/19 Hospitalization History Reason Date(Month/Year) [facility] [place] 03/2024 [facility]- heart 2023 [facility]- heart attack 04/02/21 childbirth x2
--- OUTSIDE RECORDS SUMMARY | 2024-07-04 08:57 | XMS_ITS ---
Author Organization [facility] Address [address] [place] [address] Care Team Providers Care Manager Publishing Name Role Phone Michael Joiner MD Primary Care Provider Terry Nuñez Sole Unavailable [phone] Allergies Allergen (clinical drug ingredient) Drug/Non Drug Allergy documented on EMR Reaction Allergy Type Onset Date Status sulfamethoxazole / trimethoprim Bactrim anaphylaxis Drug Allergy Active codeine Codeine Unknown Drug Allergy Active REASON FOR VISIT At Risk Footcare, Skin problem(s), Toe Irritation Medications Medication SIG (Take, Route, Frequency, Duration) Notes Start Date End Date Status Extra Depth Orthopedic Shoes (1 Pair) with Customized Heat Molded Multidensity Innersoles (3 Pair) as directed Dx: NIDDM/Polyneuropathy (E11.42), Hammertoe Foot Deformity (M20.41,M20.42), Preulcerative Skin Lesion(s) (L85.1 04/24/2017 Not-Taking Extra Depth Orthopedic Shoes (1 Pair) with Customized Heat Molded Multidensity Innersoles (3 Pair) as directed Dx: NIDDM/Polyneuropathy (E11.42), Hammertoe Foot Deformity (M20.41,M20.42), Preulcerative Skin Lesion(s) (L85.1 01/19/2024 Active Keflex 500 MG 1 capsule Orally lance ry 12 hrs for 10 day(s) 04/20/2017 Not-Taking Extra Depth Orthopedic Shoes (1 Pair) with Customized Heat Molded Multidensity Innersoles (3 Pair) as directed Dx: NIDDM/Polyneuropathy (E11.42), Hammertoe Foot Deformity (M20.41,M20.42), Preulcerative Skin Lesion(s) (L85.1 2017 Not-Taking Triamcinolone Acetonide 0.1 % 1 application to affected area Externally Twice a day Not-Takdeanne cruz zzzExtra Depth Orthopedic Shoes (1 Pair) with Customized Heat Molded Multidensity Innersoles (3 Pair) . . . Dx: NIDDM/Polyneuropathy (E11.42), Hammertoe Foot Deformity (M20.41,M20.42), Preulcerative Skin Lesion(s) (L85.1) for . 11/11/2015 Not-Giovanni ng Alendronate Sodium N ot-Taking Extra-Depth Diabetic Shoes with 3 Pair Custom heat-molded multi-density innersoles . 1pair shoes/3sets inserts . . for 1 year 05/08/2013 Not-Takdeanne g Extra-Depth Diabetic Shoes with 3 Pair Custom heat-molded multi-density innersoles . for 1 year . Dx:hammertoes and calloused lesions,tailors bunion b/l for . 09/17/2014 Not-Taking Calcium Not-Taking Extra Depth Orthopedic Shoes (1 Pair) with Customized Heat Molded Multidensity Innersoles (3 Pair) as directed Dx: NIDDM/Polyneuropathy (E11.42), Hammertoe Foot Deformity (M20.41,M20.42), Preulcerative Skin Lesion(s) (L85.1 12/30/2022 Active metFORMIN HCl 500 MG 1 tablet with meals Orally Twice a day Active Ammonium Lactate 12 % 1 application Externally Twice a day for 30 days Active Toujeo SoloStar 300 UNIT/ML Subcutaneous for 82 Days Active Insulin Pen Needle N ot-Taking HYDROcodone-Acetaminophen PRN Active Cyclobenzaprine HCl Active Aciphex Active ProAir HFA PRN Active Simvastatin Active Atorvastatin Calcium 40 MG 1 tablet Orally Once a day Active Calcium + D 315-200 MG-UNIT 1 tablet with meals Orally Twice a day Active Multi Vitamin/Minerals Orally Active Naproxen Active Lotrisone 1-0.05 % 1 application to affected area Externally Twice a day Active Vitamin D Active Lisinopril Active Ventolin HFA Active Omeprazole 20 MG 1 capsule Orally Onc e a day Active Eliquis Active Social History Tobacco Use: Social History [...] Are you an other tobacco user? No Vital Signs Height 5 ft 1 in in 01/19/2024 Weight 153 lbs 01/19/2024 BMI 28.91 kg/m2 01/19/2024 Procedures Procedure Date Ordered Date Performed Result Body Sit e 40178-WMUZYVV NAIL, 6 OR MORE 01/19/2024 N/A 81804-Tush Destruction, 1-14 01/19/2024 N/A 35557-TBIM SKIN LESIONS, OVER 4 01/19/2024 N/A Encounters Encounter Location Date Provider Diagnosis [facility] [address] [address] 01/19/2024 Sole Black Type 2 diabetes reyes itus with diabetic polyneuropathy E11.42 ; Tinea unguium B35.1 ; Other viral warts B07.8 ; Pain in right toe(s) M79.674 ; Xerosis of skin L85.3 ; Other hammer toe(s) (acquired), right foot M20.41 and Other hammer toe(s) (acquired), left foot M20.42 Assessments Encounter Date Diagnosis (ICD Code) Assessment Notes Treatment Notes Treatment Clinical Notes Section Notes 01/19/2024 Type 2 diabetes mellitus with diabetic polyneuropathy (ICD-10 - E11.42) 01/19/2024 Tinea unguium (ICD-10 - B35.1) 01/19/2024 Other viral warts (ICD-10 - B07.8) 01/19/2024 Pain in right toe(s) (ICD-10 - M79.674) 01/19/2024 Xerosis of skin (ICD-10 - L85.3) Response to treatment - Improvement 01/19/2024 Other hammer toe(s) (acquired), right foot (ICD-10 - M20.41) Patient Educated with: DIABETIC FOOT CARE INSTRUCTIONS. pdf (DIABETIC FOOT CARE INSTRUCTIONS. pdf) 01/19/2024 Other hammer toe(s) (acquired), left foot (ICD-10 - M20.42) Plan Of Treatment Medication Medication Name Sig Start Date Stop Date Notes Extra Depth Orthopedic Shoes (1 Pair) with Customized Heat Molded Multidensity Innersoles (3 Pair) as directed Dx: NIDDM/Polyneuropathy (E11.42), Hammertoe Foot Deformity (M20.41,M20.42), Preulcerative Skin Lesion(s) (L85.1 01/19/2024 Treatment Notes Assessment Notes Other hammer toe(s) (acquired), right fo ot Patient Educated with: DIABETIC FOOT CARE INSTRUCTIONS.pdf (DIABETIC FOOT CARE INSTRUCTIONS.pdf) Pending Test Test Name Order Date [id number]-FYOLTMF NAIL, 6 OR MORE 01/19/2024 35137-Jvrh Destruction, 1-14 01/19/2024 10440-PWNS SKIN LESIONS, OVER 4 01/19/20 24 Next Appt Details Follow Up: prn, Reason: Provider Name:Sole Nuñez , 08/21/2024 10:00:00 AM, [address] [facility], [place], [address], Procedure Notes * Category Sub-Category Detail Notes Wart Treatment Procedure Verrucae(s) were debrided to pin-point bleeding margins with sterile surgical blade, silver nitrate chemocautery applied, recomm. immune-boosting meds such as zinc, recomm. follow up with topical chemosurgical agents, Pt CONT, , defers any other forms of tx (88831) Debride Nail 6-10 Nail debridement Nail debridem ent performed extensively to reduce/remove overall nail length and girth, subungual debris, and necrotic tissue, by manual and electrical means with use of a nail nipper and/or dremel, to more viable healthy nail plate or bed tissue 6-10. Silver nitrate used for any petechial bleeding as necessary. Patient chooses, no pharmaceutical tx (12585) Keratoma Treatment Parring or Cutting o f Benign Hyperkeratotic Lesion(s) 23964 ( >4 Lesions) - The Benign hyperkeratotic lesions, as described above were pared, and/or cut utilizing a sterile #15 blade, tissue nippers, and/or dremel Progress Notes * Kaycee CLIFFORD MDOB:[birth year] (78 yo F)Acc No.[id number]:01/19/2024 Progress Note Patient:?Kaycee Clifford Provider:?Sole Nuñez DPM :1945???Age:78 Y???Sex:Female D ate:01/19/2024 Address:[address] [place] [address], [place], [id number] Pcp:Michael Joiner MD Subjective: * Chief Complaints: * ???At Risk FootcareSkin prob leda(s)Toe Irritation * HPI: ???At Risk footcare:?Pt States Last PCP Visit:?Date?2023 ???Skin problems:?Nature:?dryness , scaling.?Location:?B/L .?Duration:?several days.?Course:?, improved , at _80_ %.?Treatments:?medication ( AM Lactin ).?Toe pain:?Location:?B/L feet.?Duration:?several years.?Course:?worse.?Aggrevated by:?shoes, any pressure.?Treatments:?change in shoes.? * ROS:?General/Constitutional:?Nausea?denies.?Vomiting?denies.?Hunger Thirst?denies.?Loss appetite?denies.?Chills?denies.?Fatigue?denies.?Fever?denies.?Night Sweats?denies.?Unexplained weight loss?denies.?Ophthalmologic:?Blurred vision?denies.?Red eye?denies.?HEENTM:?Dentures?denies.?Dizziness?denies.?Glasses/contacts?admits.?Retinopathy?de nies.?Blurred/double vision?denies.?TMJ?denies.?Discharge/drainage?denies.?Implants?denies.?Hard of hearing denies.?Difficulty chewing/swallowing/speaking?denies.?Nose bleeds?denies.?Sore mouth?denies.?Swollen glands?denies.?Respiratory:?On Oxygen?denies.?Pneumonia/pleurisy?denies.?Bronchitis?denies.?Emphysema?denies.?C oughing?denies.?Cough blood?denies.?Shortness of breath?denies.?Wheezing?denies.?Cardiovascular:?Pacemaker?denies.?MVP?denies.?WPW?denies.?CHF?denies.?Heart attack?denies.?Septal defect?denies.?Rapid beat?denies.?Chest pain ?denies.?Atrial Fib.?denies.?Murmur/Palpitations?denies.?Gastrointestinal:?Hemorrhoids?denies.?Stomach/Abdominal pain?denies.?Dark blood stool?denies.?Irritable bowel ?denies.?Constipation?denies.?Diarrhea?denies.?Vomiting?denies.?Hematology:?Swelling?admits.?Bruising?denies.?Bleeding problem?denies.?Genitourinary:?Blood urine?denies.?Frequent/Painfu/urination/bladder control?denies.?Kidney stones?denies.?Infection (UTI)?denies.?Nephropathy?denies.?Musculoskeletal:?Hammertoes?admits.?Bunions?admits.?Scoliosis/kyphosis?denies.?Muscle cramps / walking?denies.?Generalized aches and pains?denies.?Weakness?denies.?Integ.:?Sin?denies.?Scars?denies.?Corns/calluses?admits.?Ingrown nails?denies.?Painful nails?admits.?Rashes?denies.?Neurologic:?Difficulty sleeping?denies.?Bipolar?denies.?Brain disorder?denies.?Balance trouble?denies.?Confusion?denies.?Fainting/blackouts?denies.?Headache?denies.?Tr emors?denies.? * Medical History:? * Surgical History:?hysterecto my cataract surgery - Bilateral 11/2017colonoscopy 06/27/19 * Hospitalization/Major Diagno stic Procedure:?childbirth x2 [facility]- heart attack 04/02/21 * Family History:?Mother: dece ased, diagnosed with [...] status: . 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 * Medications:?TakingEliquis V itamin D Ventolin HFA [...] Cream 1 application Externally Twice a dayTaking Eliquis Taking Vitamin D Taking Ventolin HFA [...] % Cream 1 application Externally Twice a dayNot-Taking/PRNInsulin Pen Needle Calcium zzzExtra Depth Orthopedic Shoes [...] dayMedication List reviewed and reconciled with the patientNot-Taking/PRN Insulin Pen Needle Not-Taking/PRN Calcium Not-Taking/PRN zzzExtra [...] year . Dx:hammertoes and calloused lesions,tailors bunion b/lNot- Taking/PRN Extra Depth Orthopedic Shoes (1 Pair) with [...] 5 ft 1 in, Wt: 1 53, BMI:28.91, Shoe size: 7.5, BS: 130. * Examination: ???Ophthalmology Referral: ?DIABETES EYE EXAM?Neurological: ?SENSORY:?exam demonstrates. reduced vibration lower extremity, reduced light touch sensation, reduced sharp/dull pin prick discrimination , 5.07 monofilament test performed at plantar aspects of 5 varied sites per foot shows sensation, reduced, at Forefoot, B/L, Pt relates, burning, pins and needles sensation, tingling, especially in the evening, B/L ,.?Vascular: ?DP PULSES:?2/4, B/L.?PT PULSES:?2/4, B/L.?CAPILLARY FILL TIME:?3 secs. per digit, B/L.?Dermatologic: ?SKIN FINDINGS:?Skin exam reveals keratotic lesion(s) located at, SUB MTH (s), 1, 4 ,5 Left 1-5 R , T5, TA , plantar, IPJ , Skin shows sign(s) of, dryness, scaling, in a stocking fashion, no fissure(s) present, B/L , approximately 80_% LESS.?VERRUCA:? Reveals a Single , multi-loculated , mosaically patterned, round, raised, flat-topped, petechial bleeding papulae(s), with cauliflower appearance and interrruption of skin lines, pain to lateral compression, and size estimated at 1-2 mm diameter, 1st toe, LEFT.?Nails: ?NAILS are:?elongated,overgrown,dystrophic,greater than 3mm thick,discolored and friable with crumbly malodorous subungual debris, with dull to no pain on palpation due to neuropathy, 2-5 B/L .?Orthopedic: ?DIGITAL DEFORMITIES:?Digital contracture, PIPJ, 2-5 B/L, incompl-reducible to push-up test, no over, nor underlapping, with evidence of shoe producing skin irritation.?FOOTWEAR:?worn, non-supportive, shoe gear properties exacerbate patient's foot/toe deformity.?General Examination: ?FOOT EXAM:?Footwear Evaluation? Assessment: * Assessment: 1.?Type 2 diabetes mellitus with diabetic polyneuropathy - E11.42?2.?Tinea unguium - B35.1?3.?Other viral warts - B07.8?4.?Pain in right toe(s) - M79.674?5.?Xerosis of skin - L85.3, Response to treatment - Improvement?6.?Other hammer toe(s) (acquired), right foot - M20.41 (Primary), Chronic problem, Worse (4),Rx Management (4)?7.?Other hammer toe(s) (acquired), left foot - M20.42, Chronic problem, Worse (4),Rx Management (4)? Plan: * Treatment: 2.?Type 2 diabetes mellitus with diabetic polyneuropathy?Procedure: 32009-SZFS SKIN LESIONS, OVER 4 3.?Tinea unguium?Procedure: 87120-SKWGCTQ NAIL, 6 OR MORE 4.?Other viral warts?Procedure: 39257-Smet Destruction, 1-14 * Procedures:?Debride Nail 6-10:?Nail debridement?Nail debridement performed extensively to reduce/remove overall nail length and girth, subungual debris, and necrotic tissue, by manual and electrical means with use of a nail nipper and/or dremel, to more viable healthy nail plate or bed tissue 6-10. Silver nitrate used for any petechial bleeding as necessary. Patient chooses, no pharmaceutical tx (70187).?Keratoma Treatment:?Parring or Cutting of Benign Hyperkeratotic Lesion(s)?98050 ( >4 Lesions) - The Benign hyperkeratotic lesions, as described above were pared, and/or cut utilizing a sterile #15 blade, tissue nippers, and/or dremel.?Wart Treatment:?Procedure?Verrucae(s) were debrided to pin-point bleeding margins with sterile surgical blade, silver nitrate chemocautery applied, recomm. immune-boosting meds such as zinc, recomm. follow up with topical chemosurgical agents, Pt CONT, , defers any other forms of tx (66658).? * Procedure Codes:?54586 DEBRI DE NAIL, 6 OR MORE, Modifiers: XS 93748 Wart Destruction, 1-14, Modifiers: XS 17464 TRIM SKIN LESIONS, OVER 4, Modifiers: XS * Preventive Medicine:? ??Counseling:?Discussion:?-14: Office or other outpatient visit for the evaluation and management of an established patient, which required a medically appropriate history and/or examination and MODERATE level of DECISION MAKING for: 1 OR MORE CHRONIC PROBLEM(S) THATS WORSENING, 2 STABLE CHRONIC PROBLEMS, A NEWLY DIAGNOSED PROBLEM WITH UNCERTAIN PROGNOSIS, AN ACUTE COMPLICATED INJURY WITH MULTIPLE TREATMENT OPTIONS, OR AN ACUTE PROBLEM WITH ACCOMPANYING SYSTEMIC SYMPTOMS, THAT POSE(S) A MODERATE RISK OF MORBIDITY. THIS CONDITION MAY ALSO INCLUDE RX DRUG MANAGEMENT, OR A DECISON FOR MINOR SURGERY. The visit on the day of the encounter encompassed interpreting the data and educating the patient as to the nature of their condition, treatment options available according to their individual PMH, meds, allergies, and overall health/living conditions, as well as any potential risks or complications that may occur from a failure to adhere to, and participate in, the recommended course of therapy. The discussion included a complete verbal, and/or written explanation of the examination results, any x-rays taken, the proposed diagnosis, and outline of the treatment plan. A schedule for future care needs was also explained. The patient verbalized an understanding of the instructions at this time and agreed to be an active participant in their treatment. If the patient should think of any questions or concerns after the visit, I have encouraged the patient to call the office.?Digital Treatment:?HT- I explained to the patient the possible etiologies of Hammertoes, including genetics/foot type/shoegear/activity level/exercise routine and the risks/benefits of all the different treatment options for their pain including: No treatment at all, Rest, Ice, New/supportive/wider/deeper Shoegear, Digital Padding/Strapping/Taping/Bracing/Gel protective sleeves, Foot/Ankle AFO Bracing, Stretching exercises, Deep Tissue Massage, Arch support/shoe inserts with splay metatarsal padding, and Custom orthoses. I insisted that any digital devices be removed daily and not worn overnight for safety. The patient is to carefully examine the toes daily for any skin irritation while using any splinting or padding device. The advantages and disadvantages of each option were discussed and the patients questions re: shoegear, padding, custom vs prefabricated inserts, activity level, and consistency in home treatment regimens for optimal success were answered to their verbally confirmed satisfaction, Rx: Extra Depth Diabetic Shoes with 3 pair of custom heat-molded inserts.?Xerosis:?Given recent successful results to treatment, The patient is to cont the rx cream as directed.? * Follow Up:?prn * Images: * Sign off status: Completed true * Provider:?Sole Nuñez DPM Date:?2023 Generated for Brina bryson/Axel/Ammon on:?07/04/2024 08:57 AM EST History and Physical Notes * HPI (History of Present Illness) Category Sub-Category Detail Notes Category Not es Toe pain Location: B/L feet Duration: several years Course: worse Aggravated by: shoes, any pressure Treatments: change in shoes Skin problems Nature: dryness , scaling Location: B/L Duration: several days Course: , improved , at _80_ % Aggravated by: Treatments: medication ( AM Lact in ) At Risk footcare Pt States Last PCP Visit: Date: 4 Examination Category Sub-Category Detail Notes Category Not es Neurological SENSORY: exam demonstrate s. reduced vibration lower extremity, reduced light touch sensation, reduced sharp/dull pin prick discrimination , 5.07 monofilament test performed at plantar aspects of 5 varied sites per foot shows sensation, reduced, at Forefoot, B/L, Pt relates, burning, pins and needles sensation, tingling, especially in the evening, B/L , TINEL'S COMPRESSION: Dermatologic SKIN FINDINGS: Skin exam reveal s keratotic lesion(s) located at, SUB MTH (s), 1, 4 ,5 Left 1-5 R , T5, TA , plantar, IPJ , Skin shows sign(s) of, dryness, scaling, in a stocking fashion, no fissure(s) present, B/L , approximately 80_% LESS ULCER: VERRUCA: Reveals a Single , m ulti-loculated , mosaically patterned, round, raised, flat-topped, petechial bleeding papulae(s), with cauliflower appearance and interrruption of skin lines, pain to lateral compression, and size estimated at 1-2 mm diameter, 1st toe, LEFT Orthopedic FOOTWEAR: worn, non-suppor tive, shoe gear properties exacerbate patient's foot/toe deformity DIGITAL DEFORMITIES: Digital contracture , PIPJ, 2-5 B/L, incompl-reducible to push-up test, no over, nor underlapping, with evidence of shoe producing skin irritation General Examination FOOT EXAM: Lower Extrem ity Neurological Exam performed:: Yes Footwear Evaluation Footwear Evaluation performe d:: Yes Ophthalmology Referral DIABETES EYE EXAM Diabetic Retinopa thy Screening:: Yes Vascular DP PULSES(B): 2/4, B/L PT PULSES(B): 2/4, B/L CAPILLARY FILL TIME: 3 secs. per digit, B/L Nails NAILS are: elongated,overgr own,dystrophic,greater than 3mm thick,discolored and friable with crumbly malodorous subungual debris, with dull to no pain on palpation due to neuropathy, 2-5 B/L
--- OUTSIDE RECORDS SUMMARY | 2024-07-04 08:57 | XMS_ITS ---
Author Organization [facility] Address [address] [place] [address] Care Team Providers Care Engineer Systems Name Role Phone Rhys MURDOCK, Michael Primary Care Provider Sole Clement [phone] Encounters Encounter Location Date Provider Diagnosis [address] [address] 04/19/2024 Sole Nuñez Plan Of Treatment Next Appt Details Provider Name:Sole Nuñez , 08/21/2024 10:00:00 AM, [address] [facility], [place], [address], Progress Notes * Kaycee CLIFFORD MDOB:[birth year] (78 yo F)Acc No.[id number]:04/19/2024 Progress Note Patient:?Sarah CLIFFORDkacy Godoy Provider:?Sole Nuñez DPM :1945???Age:78 Y???Sex:Female D ate:04/19/2024 Address:[address] [place] [address] [id number] Pcp:Michael Joiner MD Subjective: * Chief Complaints: * ??? * Medical History:? Objective: * Vitals:? Assessment: Plan: * Treatment: * Images: * The named appointment provid er may or may not be the originator of this progress note, and it is not deemed complete until electronically signed by the appointment provider. Sign off status: Pending * Provider:?Sole Nuñez DPM Date:?2023 Generated for Brina bryson/Axel/Ammon on:?07/04/2024 08:56 AM EST
== END ==
LOC: HO.CARD 08:42
PROVIDERS: PCP Internal Medicine; Visit Provider Nurse Practitioner Family
DX: I42.9 Cardiomyopathy, unspecified (principal); I25.10 Atherosclerotic heart disease of native coronary artery without angina pectoris
CPT/HCPCS: 78452; A9500; J0280; J2785

== ENCOUNTER 2024-07-04 08:44 | Outpatient (REF) | payer MEDICARE, SELFPAY ==
--- NOTE | 2024-07-04 08:49 | CA_ITS ---
Acquisition Time: 2024-07-04 09:00:33 Total Exercise Time: 00:02:00 Test Indications: Cardiomyopathy Medications: See Med list Protocol: LEXISCAN Max HR: 061 BPM 42% of Pred: 142 BPM Max BP: 194/086 mmHG Max Work Load: 1.0 METS Pharmacologic stress test with Lexiscan, while pt kicks her legs in the chair, with reports of SOB and dizziness, without any arrythmias, with normotensive reposnse to injection. Nondiagnostic EKG for ischemia. In recovery, breathing back to baseline and dizziness resolved. Nuclear images pending. Test reviewed with Dr. Tang. Referred By: Teresa Alves Overread By: TERESA ALVES
== END 2024-07-04 08:45 | disposition home or self-care (01) ==
LOC: HO.MAMMO 08:44
PROVIDERS: Visit Provider Internal Medicine
DX: I42.9 Cardiomyopathy, unspecified (principal)
CPT/HCPCS: 93017

== ENCOUNTER → 2024-07-04 08:49 | Outpatient (BNV) | payer MEDICARE, SELFPAY | PROVIDERS: Visit Provider Nurse Practitioner Family | DX: R06.02 Shortness of breath (principal); R42 Dizziness and giddiness | CPT/HCPCS: 78452; 93016; 93018 ==

== ENCOUNTER 2024-07-31 10:41 | Outpatient (AMB) | payer MEDICARE, SELFPAY ==
[2024-07-31 10:50] VITALS: BP 138/80; PULSE 60; BMI 27.6
--- NOTE | 2024-07-31 10:50 | MHC.OFFVIS ---
Vital Signs 07/31/24 10:50 Height 4 ft 11 in Weight 136 lb 10.986 oz BMI 27.6 BP 138/80 Blood Pressure Location Lt brachial Position Sitting Pulse 60 Pulse Source Monitor Intake Visit Reasons: 3m follow up Allergies codeine [CODEINE] Allergy (Unknown, Verified 04/12/24 10:29) HIVES Medication List - Last Reconciled 07/31/24 by Gabe Tang MD albuterol sulfate 90 mcg/actuation 1 - 2 puffs PO Q4H PRN amiodarone 200 mg PO DAILY 90 days apixaban (Eliquis) 5 mg PO BID benzonatate 100 mg PO TID PRN cetirizine 5 mg PO DAILY cholecalciferol (vitamin D3) 50 mcg PO DAILY ezetimibe 10 mg PO DAILY insulin glargine (Lantus Solostar U-100 Insulin) 20 units subcut BEDTIME lisinopril 10 mg PO DAILY loperamide 2 mg PO Q4H PRN metformin ER 750 mg PO DAILY metoprolol tartrate 50 mg PO BID omeprazole 20 mg PO DAILY@0630 pioglitazone 15 mg PO DAILY rosuvastatin 40 mg PO DAILY HPI Comments Details: Kaycee comes for follow-up. She has been doing well over the last 3 months. She denies any symptoms of prolonged palpitation irregular heartbeat. No symptoms of heart failure. No lightheadedness, syncope. No leg edema, orthopnea, PND. Takes all her medications. Her last echocardiogram shows normalized LV ejection fraction with maintenance of rhythm. She comes for further evaluation. No bleeding issues or neurologic events. [facility] Medical History (Updated 07/31/24 @ 11:15 by Gabe Tang MD) Paroxysmal atrial fibrillation Cardiac pacemaker in situ (~2008) Osteoporosis (~2013) Current use of half-way anticoagulation Diabetes Pacemaker at end of battery life Atrial fibrillation with rapid ventricular response CRUZ (acute kidney injury) HTN (hypertension) Asymmetric septal hypertrophy Sick sinus syndrome Surgical History History of permanent cardiac pacemaker placement (~2008) Hx of cataract Family History Father CHF (congestive heart failure) Mother Diabetes Social History Household Members: Family Housing: House Do you presently have visiting nurse or other home services: No Alcohol intake: current Alcohol intake frequency: does not drink Patient Tobacco Use Status: Never used Tobacco Second Hand Smoke Exposure: No service: No Current occupational status: retired Review of Systems Const Denies weakness ENT Denies dizziness Card Denies chest pain, Denies chest pain with activity, Denies syncope, Denies rapid heart rate, Denies pedal edema, Denies edema, Denies leg edema, Denies lightheadedness, Denies palpitations, Denies dyspnea, Denies dyspnea on exertion and Denies orthopnea Resp Denies cough, Denies dyspnea and Denies dyspnea on exertion GI Denies hematochezia and Denies change in stool character Musc Denies abnormal gait, Denies muscle cramps, Denies muscle weakness, Denies numbness, Denies radiating pain into limb and Denies tingling Neuro Denies abnormal gait, Denies dizziness, Denies syncope, Denies numbness, Denies tingling and Denies weakness Endo Denies palpitations Physical Exam Vital Signs: Last Vital Signs Pulse 60 07/31/24 10:50 BP 138/80 07/31/24 10:50 BMI result Body Mass Index 27.6 Const General: cooperative, healthy appearing, comfortable and no acute distress Orientation/consciousness: patient oriented x3 Neck Neck: Yes normal visual inspection Chest Chest palpation & inspection: normal inspection of the chest Resp Effort & Inspection: normal respiratory effort Auscultation: clear to auscultation bilaterally, no rales, no rhonchi and no wheezes Cardio Rate: regular rate Rhythm: regular rhythm Heart sounds: S1 normal heart sound present, S2 normal heart sound present, no murmurs and no rubs Neuro General: patient oriented x3 Extrem General: Yes normal to inspection, No no pedal edema and No calf tenderness Psych Appearance: grossly normal Mental Status: mental status grossly normal Speech and movement: Normal speech and movement present Office Procedures Cardiac Device Check Cardiac Device Check Details: Dual-chamber [employer] pacemaker in place. Programmed in DDDR at 60 beats per minute. Atrial pacing 99% of the time. Atrial capture thresholds are adequate and in auto capture mode. Ventricular capture thresholds are excellent and reprogrammed to enhance battery life. Atrial ventricular sensing is excellent. Pacing lead impedance is stable. Battery life is at about 6 and half years 48291-IX Cardiac Device Check, pacemaker dual lead Procedure code (CPT) selection complete EKG Details: EKG shows normal sinus rhythm with left axis deviation with left ventricular hypertrophy with high lateral Q-waves consistent with asymmetric septal hypertrophy with repolarization abnormality 68939-Xxnziieflkcygcrml, Complete Assessment & Plan Assessment & Plan (1) Paroxysmal atrial fibrillation: Code(s): I48.0 - Paroxysmal atrial fibrillation Category: Medical Plan: Highly symptomatic atrial fibrillation especially causing cardiomyopathy process. Has done well with rhythm control approach with normalized LV ejection fraction. Has had history of ablation in the past. Will re-referred to electrophysiology to consider further treatment plan given that she is currently on amiodarone therapy. Discussed with the patient that she may be requiring amiodarone therapy for half-way with associated potential long-term toxicity. Continue full oral anticoagulation, currently on Eliquis 5 mg b.i.d.. Quarterly renal function test should be pursued. CHADSVASc score of at least 6. (2) Cardiomyopathy: Code(s): I42.9 - Cardiomyopathy, unspecified Category: Medical Plan: Cardiomyopathy process which normalized with rhythm control and rate control most likely tachycardia mediated. Continue current neurohormonal modulation with metoprolol and lisinopril. Continue rhythm control approach. No signs or symptoms of heart failure at this point in time. (3) Cardiac pacemaker in situ: Onset Date: ~2008 Comment: ([employer] DCPP - placed 2008, changed 2020) Code(s): Z95.0 - Presence of cardiac pacemaker Category: Medical Plan: Cardiac pacemaker in-situ, working well. Reprogrammed for adequate function. Will follow up remotely. Follow up in the clinic in 6 months time. (4) Asymmetric septal hypertrophy: Code(s): I42.2 - Other hypertrophic cardiomyopathy Category: Medical Plan: Asymmetric septal hypertrophy, severe suggestive of hypertrophic cardiomyopathy without obstructive physiology. Continue aggressive blood pressure control. No other interventions required. Will follow up in the clinic in 6 months time, sooner p.r.n.. Thank you for allowing me to partake in her care Coding Level of Care Code Est Pt Level 4 (67686) Complex EM visit Add On G2211 Diagnoses Paroxysmal atrial fibrillation I48.0 Cardiomyopathy I42.9 Cardiac pacemaker in situ Z95.0 Asymmetric septal hypertrophy I42.2 CPT Codes Cardiac Device Check - Cardiac Device 2: 94493-AB Cardiac Device Check, pacemaker dual lead ([id number]) EKG - CPT: 99920-Wmxxhdgobgubuwmdu, Complete ([id number])
--- OUTSIDE RECORDS SUMMARY | 2024-07-31 11:07 | XMS_ITS | Patient Health Record ---
Author Organization [facility] Address [address] [place] [address] Care Team Providers Care Pediatric Speech Language Pathologist Name Role Phone Michael Joiner MD Primary Care Provider Unavaila nicolas NuñezAliciae Unavailable [phone] Allergies Allergen (clinical drug ingredient) Drug/Non Drug [...] Vaccine Route Administration Date Status Comme nts Influenza Unknown 06/02/2015 Refused Influenza Unknown 04/20/2017 Refused Pt refuses Influenza Unknown 05/17/2018 Refused Influenza Unknown 11/22/2018 Refused Influenza Unknown 09/27/2019 Refused Influenza Unknown 10/30/2020 Refused COVID-19 Pfizer BioNTech Vaccine Unknown 04/20/2021 Administered first dose: 03/30/2021 Social History Tobacco Use: Social History Observation [...] Problem Acquired hammer toe of right foot (2529794387543780) Other hammer toe(s) (acquired), right foot (M20.41) Active confirmed Problem Acquired hammer toe of left foot (5129510656686876) Other hammer toe(s) (acquired), left foot (M20.42) Active confirmed Problem Ulcer of foot (88153257) Non-pressure chronic ulcer of other part of left foot limited to breakdown of skin (L97.521) Active confirmed Problem Localized, primary osteoarthritis of the ankle and/or foot (163620149) Primary osteoarthritis, left ankle and foot (M19.072) Active confirmed Problem 177381368083401 Hallux valgus (acquired), left foot (M20.12) Active confirmed Problem 755926462356622 Hallux valgus (acquired), right foot (M20.11) Active confirmed Problem Polyneuropathy due to type 2 diabetes mellitus (438392461) Type 2 diabetes mellitus with diabetic polyneuropathy (E11.42) Active confirmed Problem Acquired deformity of left foot (53157552815220919) PlantarFlexion of metatarsal of left foot (M21.6X2) Active confirmed Problem 40625142885545118 Skin ulcer of toe of left foot, limited to breakdown of skin (L97.521) Active confirmed Vital Signs Height 5 ft 1 in in 05/22/2024 Weight 153 lbs 05/22/2024 BMI 28.91 kg/m2 05/22/2024 Procedures Procedure Date Ordered Date Performed Result Body Sit e 86524-XFGAWNN NAIL, 6 OR MORE 10/06/2023 N/A 73727-Evdf Destruction, 1-14 10/06/2023 N/A 34526-CVGF SKIN LESIONS, OVER 4 10/06/2023 N/A 98611-VEYHZHN NAIL, 6 OR MORE 01/19/2024 N/A 62378-Uqui Destruction, 1-14 01/19/2024 N/A 63727-EXLM SKIN LESIONS, OVER 4 01/19/2024 N/A 75120-YUISJNV NAIL, 6 OR MORE 05/22/2024 N/A 84663-Ucxy Destruction, 1-14 05/22/2024 N/A 14874-Bbuvwcjb Plate 05/22/2024 N/A 16515-Bsceglnv Plate Each Additional 05/22/2024 N/A 27670- Debride <25 sq cm 05/22/2024 N/A 57994-YEMJ SKIN LESIONS, OVER 4 05/22/2024 N/A Encounters Encounter Location Date Provider Diagnosis [address] [address] 10/06/2023 Sole Black Type 2 diabetes reyes itus with diabetic polyneuropathy E11.42 ; Tinea unguium B35.1 ; Other viral warts B07.8 ; Pain in right toe(s) M79.674 and Xerosis of skin L85.[address] [address] 01/19/2024 Sole Black Type 2 diabetes reyes itus with diabetic polyneuropathy E11.42 ; Tinea unguium B35.1 ; Other viral warts B07.8 ; Pain in right toe(s) M79.674 ; Xerosis of skin L85.3 ; Other hammer toe(s) (acquired), right foot M20.41 and Other hammer toe(s) (acquired), left foot M20.[address] [address] 05/22/2024 Sole Black Type 2 diabetes reyes [...] 01/19/2024 Other viral warts (ICD-10 - B07.8) 05/22/2024 Ingrown nail (ICD-10 - L60.0) 01/19/2024 Pain in right toe(s) (ICD-10 - M79.674) 10/06/2023 Xerosis of skin (ICD-10 - L85.3) [...] Date X ray : Foot, right 2V 12/03/2021 X ray : Foot, right 2V 03/28/2019 Tc99 3 phase Bone Scan 03/26/2014 *Uric Acid, Serum 04/20/2017 *CBC With Differential/Platelet 04/20/20 17 *Sedimentation Rate-Westergren 7 *Wound Culture 04/20/2017 X ray : Foot, left 3V 04/13/2011 05095-CPPTECT NAIL, 6 OR MORE 04/13/2011 31706-WJVCGPU NAIL, 6 OR MORE 10/10/2012 92762-NVBVUCJ NAIL, 6 OR MORE 03/26/2014 18827-YNEUDTJ NAIL, 6 OR MORE 01/08/2014 09778-INWEANE NAIL, 6 OR MORE 03/28/2019 31897-RIBIGNT NAIL, 6 OR MORE 11/11/2015 78307-AUDHTJX NAIL, 6 OR MORE 05/07/2014 07816-GWUPGNG NAIL, 6 OR MORE 04/09/2014 97081-NQBHAMO NAIL, 6 OR MORE 04/20/2017 06994-UKDLXXW NAIL, 6 OR MORE 07/10/2017 24118-IGXEYTE NAIL, 6 OR MORE 2017 21979-NDFIVQP NAIL, 6 OR MORE 02/08/2018 23153-WOWBUUK NAIL, 6 OR MORE 08/12/2015 58747-JDFLORJ NAIL, 6 OR MORE 02/10/2016 24918-OEDVZRM NAIL, 6 OR MORE 05/12/2016 76041-AZIEZTU NAIL, 6 OR MORE 08/11/2016 42624-VFYTHIU NAIL, 6 OR MORE 11/10/2016 86049-XGJOEHE NAIL, 6 OR MORE 08/04/2011 50356-JJVNUSH NAIL, 6 OR MORE 11/16/2011 89229-OXPXITC NAIL, 6 OR MORE 04/11/2012 09841-GAZGSRY NAIL, 6 OR MORE 01/30/2013 93318-DGXVAPF NAIL, 6 OR MORE 05/08/2013 57814-KXCVFBC NAIL, 6 OR MORE 09/25/2013 16300-ZSNWWJL NAIL, 6 OR MORE 09/17/2014 09187-JKUWWBH NAIL, 6 OR MORE 02/18/2015 62313-EQMBGOZ NAIL, 6 OR MORE 03/11/2022 67924-NHHVVOL NAIL, 6 OR MORE 09/03/2021 45605-FUEHTIE NAIL, 6 OR MORE 12/03/2021 60090-GKGFZEU NAIL, 6 OR MORE 06/10/2022 04708-IRHERRS NAIL, 6 OR MORE 09/14/2022 57412-KHDTEQK NAIL, 6 OR MORE 12/30/2022 62009-YILVNBC NAIL, 6 OR MORE 04/26/2023 79007-GOVDSIV NAIL, 6 OR MORE 10/06/2023 41165-LRKHLBU NAIL, 6 OR MORE 01/19/2024 53350-UARNWXY NAIL, 6 OR MORE 05/22/2024 46268-HQLDWRN NAIL, 6 OR MORE 05/17/2018 40215-FCVJIKE NAIL, 6 OR MORE 08/23/2018 31154-MSONUQL NAIL, 6 OR MORE 11/22/2018 75115-OAGWFMM NAIL, 6 OR MORE 07/04/2019 56090-PVFXCUY NAIL, 6 OR MORE 09/27/2019 18420-XVSGBEL NAIL, 6 OR MORE 01/17/2020 46626-DZSEWAX NAIL, 6 OR MORE 04/17/2020 62148-OSWVKSB NAIL, 6 OR MORE 07/31/2020 28660-UTBMPFZ NAIL, 6 OR MORE 10/30/2020 36135-JZICORL NAIL, 6 OR MORE 02/19/2021 73862-IRNBBHL NAIL, 6 OR MORE 05/21/2021 97623-Ncqf Destruction, 1-14 09/03/2021 29448-Eqku Destruction, -14 07/04/2019 02326-Xtjg Destruction, -14 08/23/2018 58929-Heed Destruction, -14 05/22/2024 27666-Snhx Destruction, -14 10/06/2023 64384-Ltgr Destruction, -14 01/19/2024 23756-Hmux Destruction, -14 04/26/2023 79989-Oapk Destruction, -14 09/14/2022 47667-Fige Destruction, -14 12/30/2022 79968-Khzu Destruction, -14 03/11/2022 30409-Ovgb Destruction, -06/10/2022 92404-Blkk Destruction, -12/03/2021 31711-Nhju Destruction, -11/10/2016 01698-Axfe Destruction, -08/11/2016 52895-Nola Destruction, -05/12/2016 27011-Xidt Destruction, -02/10/2016 69813-Zviv Destruction, -08/12/2015 90881-Erba Destruction, 08-0603/28/2019 53770-Itof Destruction, -11/11/2015 74010-Dfxq Destruction, 08-0604/13/2011 68756-Axvb Destruction, 15 OR MORE 11/22 97487-Gkupjrmg Plate 09/03/2021 97988-Pasycuqd Plate 07/31/2020 64697-Auurujez Plate 02/19/2021 64381-Qxqsqbdi Plate 05/22/2024 96640-Dhpbmqvu Plate 2017 15292-Xwormwtj Plate 02/10/2016 15466-Nxxwqyrk Plate 05/12/2016 31954-Eknpbvak Plate 08/11/2016 85201-Zvjdcigf Plate 11/10/2016 28276-Jcsxbkis Plate 08/12/2015 36090-Mhhrkhqf Plate 02/18/2015 63323-Hfvhoexj Plate 09/17/2014 73473-Wtffuhmp Plate 09/25/2013 68293-Ihjhqzto Plate 05/08/2013 05988-Fdlmucgd Plate 01/30/2013 96390-Jqbysqby Plate 04/11/2012 55716-Hfdhgisr Plate 10/10/2012 52356-Cqeddicb Plate 01/08/2014 51747-Sgaqmdli Plate 03/26/2014 26526-Wmfoojig Plate 11/11/2015 25822-Mewilwhb Plate 04/09/2014 32190-Lsiumsrj Plate 05/07/2014 24516-Rjrqnnnr Plate Each Additional 38658-Yscvthwu Plate Each Additional 08123-Sjkvakor Plate Each Additional 59170-Etfvquhh Plate Each Additional 09/2013 83994-Agggvyea Plate Each Additional 19592-Icczznra Plate Each Additional 77017-Mnzamgkx Plate Each Additional 04/2013 80916-Kojrrhql Plate Each Additional 66213-Zbgmfanb Plate Each Additional 11/2013 49909-Xggrikqj Plate Each Additional 12055-Otggylbu Plate Each Additional 96049-Hujwkexm Plate Each Additional 47172-Mybeoasg Plate Each Additional 12866-Ajjawdqr Plate Each Additional 49498-Vwzeicsn Plate Each Additional 53754-Jlkmxxhr Plate Each Additional 82411-Hlvzanbu Plate Each Additional 05/2022 02449- Debride <25 sq cm 09/03/2021 88257- Debride <25 sq cm 05/21/2021 53943- Debride <25 sq cm 02/19/2021 64593- Debride <25 sq cm 10/30/2020 71065- Debride <25 sq cm 07/31/2020 30693- Debride <25 sq cm 09/27/2019 08125- Debride <25 sq cm 04/17/2020 65533- Debride <25 sq cm 01/17/2020 60267- Debride <25 sq cm 08/23/2018 06843- Debride <25 sq cm 05/17/2018 92799- Debride <25 sq cm 05/22/2024 07291- Debride <25 sq cm 12/03/2021 86448- Debride <25 sq cm 06/10/2022 02649- Debride <25 sq cm 03/11/2022 08645- Debride <25 sq cm 09/14/2022 45062- Debride <25 sq cm 2017 06099- Debride <25 sq cm 02/08/2018 70896- Debride <25 sq cm 02/18/2015 39385- Debride <25 sq cm 05/08/2013 56877- Debride <25 sq cm 09/17/2014 80312- Debride <25 sq cm 09/25/2013 36968- Debride <25 sq cm 11/16/2011 37708- Debride <25 sq cm 01/08/2014 79092- Debride <25 sq cm 03/26/2014 34487- Debride <25 sq cm 04/09/2014 60674- Debride <25 sq cm 05/07/2014 36966 I&D ABSCESS- SIMPLE,SINGLE 012 40771 I&D ABSCESS- SIMPLE,SINGLE 012 12414 I&D ABSCESS- SIMPLE,SINGLE 017 00184-NFKG SKIN LESIONS, OVER 4 11/07/19 18 29402-XJNS SKIN LESIONS, OVER 4 02/09/20 18 95198-KAXN SKIN LESIONS, OVER 4 05/17/20 18 74274-NLJV SKIN LESIONS, OVER 4 08/12/19 16 03752-ILDY SKIN LESIONS, OVER 4 04/20/20 17 58696-VARP SKIN LESIONS, OVER 4 07/10/20 17 14548-ICJN SKIN LESIONS, OVER 4 02/10/20 16 85297-MMAM SKIN LESIONS, OVER 4 05/12/20 16 32988-EYNI SKIN LESIONS, OVER 4 08/11/19 17 89054-OWGD SKIN LESIONS, OVER 4 11/11/19 17 35734-XOIX SKIN LESIONS, OVER 4 02/19/20 15 05634-NUHD SKIN LESIONS, OVER 4 09/26/19 14 73666-MGVJ SKIN LESIONS, OVER 4 09/17/19 15 15821-AHIK SKIN LESIONS, OVER 4 11/16/19 12 45257-ZDUR SKIN LESIONS, OVER 4 04/11/20 12 86415-NZXU SKIN LESIONS, OVER 4 05/08/20 13 63858-YDVJ SKIN LESIONS, OVER 4 01/31/20 13 69549-EEWD SKIN LESIONS, OVER 4 09/14/19 23 24423-NGCC SKIN LESIONS, OVER 4 12/31/19 23 46513-NLGN SKIN LESIONS, OVER 4 03/11/20 22 79993-WPZR SKIN LESIONS, OVER 4 06/10/20 22 15916-VQTV SKIN LESIONS, OVER 4 12/04/19 22 07795-KRXV SKIN LESIONS, OVER 4 05/22/20 24 98761-KPEK SKIN LESIONS, OVER 4 03/28/20 19 99759-ESTI SKIN LESIONS, OVER 4 10/06/19 24 61174-SHWL SKIN LESIONS, OVER 4 04/26/20 23 30305-MLEK SKIN LESIONS, OVER 4 01/19/20 24 72092-MRJU SKIN LESIONS, OVER 4 08/23/19 19 27081-DJIN SKIN LESIONS, OVER 4 11/23/19 19 77246-VQUW SKIN LESIONS, OVER 4 07/04/20 19 44823-IOFM SKIN LESIONS, OVER 4 01/17/20 20 78099-COLF SKIN LESIONS, OVER 4 04/17/20 20 41344-PCLF SKIN LESIONS, OVER 4 09/27/19 20 71346-UKIJ SKIN LESIONS, OVER 4 07/31/19 21 36148-ICBX SKIN LESIONS, OVER 4 10/31/19 21 83049-FXMI SKIN LESIONS, OVER 4 02/20/20 21 43496-NWRG SKIN LESIONS, OVER 4 05/21/20 21 46731-QAZO SKIN LESIONS, OVER 4 09/03/19 22 54712-KQPG SKIN LESIONS, OVER 4 11/11/19 16 49687-PRSH SKIN LESIONS, OVER 4 03/26/20 14 51738-SLOF SKIN LESIONS, OVER 4 01/09/20 14 01966-ZFER SKIN LESIONS, OVER 4 10/11/19 13 36309-EVDQ SKIN LESIONS, 2 TO 4 08/04/19 12 88700, D6617-NGCKO/INJECT, JOINT/BURSA 0 04/13/2011 Next Appt Details Provider Name:Sole Nuñez , 08/21/2024 10:00:00 AM, [address], [place], [address], Insurance Providers Payer Name Payer Address Payer Phone Subscriber Number Group Number Insured Name Patient Relationship to Insured Coverage Start Date Coverage End Date [employer] [address] [place] [address] [id number] Kaycee Florence Self - patient is the insured Medical (General) History Medical History History ICD Code mumps measles chicken pox diabetic asthma Surgical History Surgery Date(Month/Year) hysterectomy cataract surgery - Bilateral 11/2017 colonoscopy 06/27/19 Hospitalization History Reason Date(Month/Year) [facility] [place] 03[place]2024 [facility]- heart 2023 [facility]- heart attack 04/02/21 childbirth x2
--- OUTSIDE RECORDS SUMMARY | 2024-07-31 11:07 | XMS_ITS ---
Author Organization [facility] Address [address] [place] [address] Care Team Providers Care Purchase Analyst Name Role Phone Michael Joiner MD Primary Care Provider Terry Nuñez Sole Unavailable [phone] Allergies Allergen (clinical drug ingredient) Drug/Non Drug [...] Ordered Date Performed Result Body Sit e 16710-RDCXMTJ NAIL, 6 OR MORE 01/19/2024 N/A 31903-Zakb Destruction, 1-14 01/19/2024 N/A 46677-PNLH SKIN LESIONS, OVER 4 01/19/2024 N/A Encounters Encounter Location Date Provider Diagnosis [facility] [address] [address] 01/19/2024 Sole Black Type 2 diabetes reyes [...] INSTRUCTIONS.pdf) Pending Test Test Name Order Date 82415-QANKTSA NAIL, 6 OR MORE 01/19/2024 26847-Ulmn Destruction, 1-14 01/19/2024 69660-LZSK SKIN LESIONS, OVER 4 01/19/20 24 Next Appt Details Follow Up: prn, Reason: Provider Name:Sole Nuñez , 08/21/2024 10:00:00 AM, [address] [facility], [place], [address], Procedure Notes * Category Sub-Category Detail Notes Wart Treatment Procedure Verrucae(s) were debrided to pin-point bleeding margins with sterile surgical blade, silver nitrate chemocautery applied, recomm. immune-boosting meds such as zinc, recomm. follow up with topical chemosurgical agents, Pt CONT, , defers any other forms of tx (74754) Debride Nail 6-10 Nail debridement Nail debridem ent performed extensively to reduce/remove overall nail length and girth, subungual debris, and necrotic tissue, by manual and electrical means with use of a nail nipper and/or dremel, to more viable healthy nail plate or bed tissue 6-10. Silver nitrate used for any petechial bleeding as necessary. Patient chooses, no pharmaceutical tx (54969) Keratoma Treatment Parring or Cutting o f Benign Hyperkeratotic Lesion(s) 97468 ( >4 Lesions) - The Benign hyperkeratotic lesions, as described above were pared, and/or cut utilizing a sterile #15 blade, tissue nippers, and/or dremel Progress Notes * Kaycee CLIFFORD MDOB:[birth year] (78 yo F)Acc No.[id number]:01/19/2024 Progress Note Patient:?Kaycee Clifford Provider:?Sole Nuñez DPM :1945???Age:78 Y???Sex:Female D ate:01/19/2024 Address:[address] [place] [address], [place], [id number] Pcp:Michael Joiner MD Subjective: * Chief Complaints: [...] 06/27/19 * Hospitalization/Major Diagno stic Procedure:?childbirth x2 [facility]- heart attack 04/02/21 * Family History:?Mother: dece [...] status: . 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 * Medications:?TakingEliquis V itamin D Ventolin [...] 2.?Type 2 diabetes mellitus with diabetic polyneuropathy?Procedure: 21034-CZKI SKIN LESIONS, OVER 4 3.?Tinea unguium?Procedure: 58593-EWJSEHU NAIL, 6 OR MORE 4.?Other viral warts?Procedure: 25329-Ujul Destruction, 1-14 * Procedures:?Debride Nail 6-10:?Nail debridement?Nail debridement performed extensively to reduce/remove overall nail length and girth, subungual debris, and necrotic tissue, by manual and electrical means with use of a nail nipper and/or dremel, to more viable healthy nail plate or bed tissue 6-10. Silver nitrate used for any petechial bleeding as necessary. Patient chooses, no pharmaceutical tx (03152).?Keratoma Treatment:?Parring or Cutting of Benign Hyperkeratotic Lesion(s)?42739 ( >4 Lesions) - The Benign hyperkeratotic lesions, as described above were pared, and/or cut utilizing a sterile #15 blade, tissue nippers, and/or dremel.?Wart Treatment:?Procedure?Verrucae(s) were debrided to pin-point bleeding margins with sterile surgical blade, silver nitrate chemocautery applied, recomm. immune-boosting meds such as zinc, recomm. follow up with topical chemosurgical agents, Pt CONT, , defers any other forms of tx (76945).? * Procedure Codes:?82336 DEBRI DE NAIL, 6 OR MORE, Modifiers: XS 18775 Wart Destruction, 1-14, Modifiers: XS 50211 TRIM SKIN LESIONS, OVER 4, Modifiers: XS [...] Nuñez DPM Date:?2023 Generated for Brina bryson/Axel/Ammon on:?07/31/2024 11:06 AM EST History and Physical Notes * [...] Diabetic Retinopa thy Screening:: Yes Vascular DP PULSES (B): 2/4, B/L PT PULSES (B): 2/4, B/L CAPILLARY FILL TIME: 3 secs. per digit, B/L Nails NAILS are: elongated,overgr own,dystrophic,greater than 3mm thick,discolored and friable with crumbly malodorous subungual debris, with dull to no pain on palpation due to neuropathy, 2-5 B/L
--- OUTSIDE RECORDS SUMMARY | 2024-07-31 11:07 | XMS_ITS ---
Author Organization [facility] Address [address] [place] [address] Care Team Providers Care Material Handling Crew Supervisor Name Role Phone Rhys MURDOCK, Michael Primary Care Provider Sole Clement [phone] Encounters Encounter Location Date Provider Diagnosis [address] [address] 04/19/2024 Sole Nuñez Plan Of Treatment Next Appt Details Provider Name:Sole Nuñez , 08/21/2024 10:00:00 AM, [address] [facility], [place], [address], Progress Notes * Kaycee CLIFFORD MDOB:[birth year] (78 yo F)Acc No.[id number]:04/19/2024 Progress Note Patient:?Sarah CLIFFORDkacy Godoy Provider:?Sole Nuñez DPM :1945???Age:78 Y???Sex:Female D ate:04/19/2024 Address:[address] [place] [address] [facility] Pcp:Michael Joiner MD Subjective: * Chief Complaints: [...]
--- OUTSIDE RECORDS SUMMARY | 2024-07-31 11:07 | XMS_ITS ---
Author Organization [facility] Address [address] [place] [address] Care Team Providers Care Yarn Carrier Name Role Phone Michael Joiner MD Primary Care Provider Sole Clement Unavailable [phone] Allergies Allergen (clinical drug ingredient) Drug/Non Drug [...] Problem Status W/U Status Risk Notes Problem [id number] Skin ulcer of toe of left foot, limited to breakdown of skin (L97.521) Active confirmed Vital Signs Height 5 ft 1 in in 05/22/2024 Weight 153 lbs 05/22/2024 BMI 28.91 kg/m2 05/22/2024 Procedures Procedure Date Ordered Date Performed Result Body Sit e 03395-SGTGMXL NAIL, 6 OR MORE 05/22/2024 N/A 29469-Pvew Destruction, 1-14 05/22/2024 N/A 83308-Nvsboujm Plate 05/22/2024 N/A 21955-Evtprgfm Plate Each Additional 05/22/2024 N/A 51606- Debride <25 sq cm 05/22/2024 N/A 00744-MXKI SKIN LESIONS, OVER 4 05/22/2024 N/A Encounters Encounter Location Date Provider Diagnosis [facility] [address] [address] 05/22/2024 Sole Black Type 2 diabetes reyes [...] Treatment Pending Test Test Name Order Date 85060-INJKLBA NAIL, 6 OR MORE 05/22/2024 40081-Cmqo Destruction, 1-14 05/22/2024 18853-Lisjwznw Plate 05/22/2024 10853-Sbiemivu Plate Each Additional 46258- Debride <25 sq cm 05/22/2024 88558-YCEE SKIN LESIONS, OVER 4 05/22/20 24 Next Appt Details Follow Up: 2 Weeks, Reason: Provider Name:Sole A Joaquin , 08/21/2024 10:00:00 AM, [address] [facility], [place], [address], Procedure Notes * Category Sub-Category Detail Notes Wart Treatment Procedure Verrucae(s) were debrided to pin-point bleeding margins with sterile surgical blade, silver nitrate chemocautery applied, recomm. immune-boosting meds such as zinc, recomm. follow up with topical chemosurgical agents, Pt CONT, , defers any other forms of tx (15350) Nail Avulsion Procedure A fine sterile e [...] and future surgical procedures to prevent recurrence (54728/32) , DIABETES: Matricectomy deferred at this time [...] use of a nail nipper and/or dremel-type hob grinder, to a more viable healthy nail plate or bed tissue 6-10. Silver nitrate used for any petechial bleeding as necessary. Definitive antifungal treatment options have been reviewed and discussed with the patient. The patient chooses, no pharmaceutical tx - 17394 Debride skin< 25 sq cm Open wound [...] of the wound post debridement is stable (16798) Keratoma Treatment Parring or Cutting o f Benign Hyperkeratotic Lesion(s) 93741 ( >4 Lesions) - The Benign hyperkeratotic lesions, as described above were pared, and/or cut utilizing a sterile #15 blade, tissue nippers, and/or dremel Progress Notes * Kaycee CLIFFORD MDOB:[birth year] (78 yo F)Acc No.[id number]:05/22/2024 Progress Note Patient:?Kaycee Clifford Provider:?Sole Nuñez DPM :1945???Age:78 Y???Sex:Female D ate:05/22/2024 Address:[address] [place], [place] [address] Pcp:Michael Joiner MD Subjective: * Chief Complaints: * ???At Risk FootcareIngrown n ail(s)Open sore * HPI: ???At Risk footcare:?Pt States Last PCP Visit:?Date?05/16/2024 * Medical History:? * Surgical History:?hysterecto my cataract surgery - Bilateral 11/2017colonoscopy 06/27/19 * Hospitalization/Major Diagno stic Procedure:?childbirth x2 [facility]- heart attack [facility]/21[facility] heart 2023[facility] [place] [place] heart fluid 03/2024 * Family History:?Mother: [...] status: . 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 * Medications:?TakingEliquis V itamin D Ventolin [...] 2.?Type 2 diabetes mellitus with diabetic polyneuropathy?Procedure: 58590-TRAA SKIN LESIONS, OVER 4 3.?Tinea unguium?Procedure: 79393-WFVFXXG NAIL, 6 OR MORE 4.?Ingrown nail?Procedure: 27908-Kxcmxizq Plate ?Procedure: 64167-Uxtvdguy Plate Each Additional 5.?Skin ulcer of toe of left foot, limited to breakdown of skin?Procedure: 83683- Debride <25 sq cm * Procedures:?Debride Nail 6-10:?Nail debridement?Performance of this nail treatment by a nonprofessional would put this patients foot and overall health at risk. Therefore, nail debridement was performed extensively to reduce/remove overall nail length, girth, thickness, subungual debris, and necrotic tissue, by manual and/or electrical means through the use of a nail nipper and/or dremel-type hob grinder, to a more viable healthy nail plate or bed tissue 6-10. Silver nitrate used for any petechial bleeding as necessary. Definitive antifungal treatment options have been reviewed and discussed with the patient. The patient chooses, no pharmaceutical tx - 27641.?Debride skin< 25 sq cm:?Open wound?NEUROPATHY: Physician of [...] of the wound post debridement is stable (95485).?Keratoma Treatment:?Parring or Cutting of Benign Hyperkeratotic Lesion(s)?65767 ( >4 Lesions) - The Benign hyperkeratotic [...] and future surgical procedures to prevent recurrence (49915/32) , DIABETES: Matricectomy deferred at this time due to diabetes risk.?Wart Treatment:?Procedure?Verrucae(s) were debrided to pin-point bleeding margins with sterile surgical blade, silver nitrate chemocautery applied, recomm. immune-boosting meds such as zinc, recomm. follow up with topical chemosurgical agents, Pt CONT, , defers any other forms of tx (11334).? * Procedure Codes:?35382 Avuls ion [place], [place] [address] DEBRIDE NAIL, 6 OR MORE, Modifiers: XS 46239 Avulsion Plate Each Additional, Modifiers: T5 31218 Wart Destruction, 1-14, Modifiers: XS 23088 TRIM SKIN LESIONS, OVER 4, Modifiers: XS 90931 ACTIVE WOUND CARE/20 CM OR <, Modifiers: [...] Eye Exam:: no retin opathy Vascular DP PULSES (B): 2/4, B/L PT PULSES (B): 2/4, B/L CAPILLARY FILL TIME: Nails NAILS are: elongated,overgr own,dystrophic,greater than 3mm thick,discolored and friable with crumbly malodorous subungual debris, with dull to no pain on palpation due to neuropathy, , T2 , T3 , T4 , T6 , T7 , T8 , T9
== END 2024-07-31 11:14 | disposition home or self-care (01) ==
PROVIDERS: PCP Internal Medicine; Visit Provider Internal Medicine Cardiovascular Disease
DX: I48.0 Paroxysmal atrial fibrillation (principal); I42.9 Cardiomyopathy, unspecified; Z95.0 Presence of cardiac pacemaker; I42.2 Other hypertrophic cardiomyopathy
CPT/HCPCS: 93010; 93280; 99214; G2211

== ENCOUNTER → 2024-07-31 10:41 | Outpatient (BNVA) | payer MEDICARE, SELFPAY | PROVIDERS: PCP Internal Medicine; Visit Provider Internal Medicine Cardiovascular Disease | DX: Z45.018 Encounter for adjustment and management of other part of cardiac pacemaker (principal); I48.0 Paroxysmal atrial fibrillation; I42.9 Cardiomyopathy, unspecified; I42.2 Other hypertrophic cardiomyopathy; R94.31 Abnormal electrocardiogram [ECG] [EKG]; I51.7 Cardiomegaly | CPT/HCPCS: 93005; 93280; 99212 ==

== ENCOUNTER 2024-08-23 10:45 | Outpatient (REF) | payer MEDICARE, SELFPAY ==
--- OUTSIDE RECORDS SUMMARY | 2024-08-23 11:27 | XMS_ITS | Clinical Summary ---
Author Organization [facility] Address [address] [place] [address] Care Team Providers Care Fresh Foods Cake Decorator Name Role Phone Michael Joiner MD Primary Care Provider [phone] Social History Tobacco Use Types Packs/Day Years Used Date Smoking Tobacco: Never Assessed Sex and Gender Information Value Date Recorded Sex Assigned at Not on file Gender Identity Not on file Sexual Orientation Not on file Plan of Treatment Health Maintenance Due Date Last Done Comments DTaP,Tdap,and Td Vaccines (1 - Tdap) 1964 Zoster Vaccines (1 of 2) 11/07/1995 Pneumococcal Vaccine: 65+ Ye ars (1 of 1 - PCV) 2010 RSV Immunization Patients 60 + Years Old (1 - 1-dose 75+ series) 2020 COVID-19 Vaccine ( - 2023-2 5 season) 2024 Influenza Vaccine (#1) 2024 HIB Vaccines Aged Out No longer eligi ble based on patient's age to complete this topic HPV Vaccines Aged Out No longer eligi ble based on patient's age to complete this topic Hepatitis A Vaccines Aged Out No long er eligible based on patient's age to complete this topic Hepatitis B Vaccines Aged Out No long er eligible based on patient's age to complete this topic IPV Vaccines Aged Out No longer eligi ble based on patient's age to complete this topic MMR Vaccines Aged Out No longer eligi ble based on patient's age to complete this topic Meningococcal ACWY Vaccine Aged Out N o longer eligible based on patient's age to complete this topic RSV Immunization Patients Un umesh 20 months Aged Out No longer eligible b ased on patient's age to complete this topic Varicella Vaccines Aged Out No longer eligible based on patient's age to complete this topic Care Teams Fresh Foods Cake Decorator Relationship Specialty Start Date End Date Michael Joiner MD [address] [facility] [place] [address] PCP - General Internal Medicine 08/24/11
== END 2024-08-23 10:46 | disposition home or self-care (01) ==
LOC: HO.MAMMO 10:45
PROVIDERS: PCP Internal Medicine; Visit Provider Internal Medicine
DX: Z12.31 Encounter for screening mammogram for malignant neoplasm of breast (principal)
CPT/HCPCS: 77063; 77067

== ENCOUNTER → 2024-08-23 11:15 | Outpatient (BNV) | payer MEDICARE, SELFPAY | PROVIDERS: PCP Internal Medicine; Visit Provider Internal Medicine | DX: Z12.31 Encounter for screening mammogram for malignant neoplasm of breast (principal) | CPT/HCPCS: 77063; 77067 ==

== ENCOUNTER → 2024-10-02 23:59 | Outpatient (BNV) | payer MEDICARE, SELFPAY ==
--- NOTE | 2024-10-08 12:28 | MHC.OFFVIS ---
Intake Visit Reasons: Remote Device Check- [facility] Allergies codeine [CODEINE] Allergy (Unknown, Verified 04/12/24 10:29) HIVES [facility] Medical History (Updated 07/31/24 @ 11:15 by Gabe Tang MD) Paroxysmal atrial fibrillation Cardiac pacemaker in situ (~2008) Osteoporosis (~2013) Current use of [facility] anticoagulation Diabetes Pacemaker at end of battery life Atrial fibrillation with rapid ventricular response CRUZ (acute kidney injury) HTN (hypertension) Asymmetric septal hypertrophy Sick sinus syndrome Surgical History History of permanent cardiac pacemaker placement (~2008) Hx of cataract Family History Father CHF (congestive heart failure) Mother Diabetes Social History Household Members: Family Housing: House Do you presently have visiting nurse or other home services: No Alcohol intake: current Alcohol intake frequency: does not drink Patient Tobacco Use Status: Never used Tobacco Second Hand Smoke Exposure: No service: No Current occupational status: retired Office Procedures Cardiac Device Check Cardiac Device Check Details: Remote pacemaker report generated 10/02/2024. Pacemaker function is adequate 30914-Eyqwkh Cardiac Device Interrogation, pacemaker Procedure code (CPT) selection complete Assessment & Plan Assessment & Plan (1) Cardiac pacemaker in situ: Onset Date: ~2008 Comment: ([facility] DCPP - placed 2008, changed 2020) Code(s): Z95.0 - Presence of cardiac pacemaker Category: Medical Plan: See above Coding Level of Care Code Procedure Only Diagnoses Cardiac pacemaker in situ Z95.0 CPT Codes Cardiac Device Check - Cardiac Device 12: 37499-Kszcdo Cardiac Device Interrogation, pacemaker ([id number])
== END ==
PROVIDERS: PCP Internal Medicine; Visit Provider Internal Medicine Cardiovascular Disease
DX: Z45.018 Encounter for adjustment and management of other part of cardiac pacemaker (principal)
CPT/HCPCS: 93294

== ENCOUNTER → 2025-01-01 23:59 | Outpatient (BNV) | payer MEDICARE, SELFPAY ==
--- NOTE | 2025-01-01 16:45 | MHC.OFFVIS ---
Intake Visit Reasons: Remote Device Check- [facility] Allergies codeine [CODEINE] Allergy (Unknown, Verified 04/12/24 10:29) HIVES [facility] Medical History (Updated 07/31/24 @ 11:15 by Gabe Tang MD) Paroxysmal atrial fibrillation Cardiac pacemaker in situ (~2008) Osteoporosis (~2013) Current use of [facility] anticoagulation Diabetes Pacemaker at end of battery life Atrial fibrillation with rapid ventricular response CRUZ (acute kidney injury) HTN (hypertension) Asymmetric septal hypertrophy Sick sinus syndrome Surgical History History of permanent cardiac pacemaker placement (~2008) Hx of cataract Family History Father CHF (congestive heart failure) Mother Diabetes Social History Household Members: Family Housing: House Do you presently have visiting nurse or other home services: No Alcohol intake: current Alcohol intake frequency: does not drink Patient Tobacco Use Status: Never used Tobacco Second Hand Smoke Exposure: No service: No Current occupational status: retired Office Procedures Cardiac Device Check Cardiac Device Check Details: Remote pacemaker report generated 01/01/2025. Pacemaker function is adequate. Patient atrially pacer dependent 49752-Lrhixl Cardiac Device Interrogation, pacemaker Procedure code (CPT) selection complete Assessment & Plan Assessment & Plan (1) Cardiac pacemaker in situ: Onset Date: ~2008 Comment: ([facility] DCPP - placed 2008, changed 2020) Code(s): Z95.0 - Presence of cardiac pacemaker Category: Medical Plan: See above Coding Level of Care Code Procedure Only Diagnoses Cardiac pacemaker in situ Z95.0 CPT Codes Cardiac Device Check - Cardiac Device 12: 74287-Wafqsa Cardiac Device Interrogation, pacemaker ([id number])
== END ==
PROVIDERS: PCP Internal Medicine; Visit Provider Internal Medicine Cardiovascular Disease
DX: Z45.018 Encounter for adjustment and management of other part of cardiac pacemaker (principal)
CPT/HCPCS: 93294

== ENCOUNTER 2025-03-31 14:46 | Outpatient (AMB) | payer MEDICARE, SELFPAY ==
[2025-03-31 15:07] VITALS: BP 154/78; BMI 30.9
--- NOTE | 2025-03-31 15:07 | MHC.OFFVIS ---
Vital Signs 03/31/25 15:07 Height 4 ft 11 in Weight 153 lb 0.013 oz BMI 30.9 BP 154/78 H Blood Pressure Location Lt brachial Position Sitting Pulse Source Monitor Intake Visit Reasons: 6mth/pacer check/ekg r/s 2x 03-07-25 Intake Note: 6 mth f/u pacer check/ ekg Accompanied by: Self / Same As Patient Allergies codeine (CODEINE) Allergy (Unknown, Verified 03/31/25 15:11) HIVES HPI Comments Details: Kaycee comes for follow-up. Overall she has been doing very well from cardiac perspective. She has had no significant palpitations. No lightheadedness, syncope. However she does notice labile blood pressure at home. Denies any exertional chest pain. Takes all her medications regularly as prescribed. Taking amiodarone as prescribed. No side effects. No bleeding issues or neurologic events. 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 Diabetes Pacemaker at end of battery life Atrial fibrillation with rapid ventricular response CRUZ (acute kidney injury) HTN (hypertension) Asymmetric septal hypertrophy Sick sinus syndrome Surgical History History of permanent cardiac pacemaker placement (~2008) Hx of cataract Family History Father CHF (congestive heart failure) Mother Diabetes Social History Household Members: Family Housing: House Do you presently have visiting nurse or other home services: No Alcohol intake: current Alcohol intake frequency: does not drink Patient Tobacco Use Status: Never used Tobacco Second Hand Smoke Exposure: No service: No Current occupational status: retired Review of Systems Const Denies daytime sleepiness, Denies difficulty sleeping, Denies snoring, Denies stops breathing during sleep and Denies weakness Card Denies chest pain, Denies rapid heart rate, Denies irregular heart rhythm, Denies claudication, Denies leg edema, Denies lightheadedness, Denies palpitations, Denies dyspnea, Denies dyspnea on exertion, Denies orthopnea, Denies paroxysmal nocturnal dyspnea and Denies slow heart rate Resp Denies cough, Denies dyspnea, Denies dyspnea on exertion and Denies snoring GI Reports no additional complaints, Denies hematochezia, Denies change in stool character and Denies dyspepsia Musc Denies abnormal gait, Denies muscle weakness and Denies numbness Neuro Denies abnormal gait, Denies numbness and Denies weakness Endo Denies palpitations Physical Exam Vital Signs: Last Vital Signs BP 154/78 H 03/31/25 15:07 BMI result Body Mass Index 30.9 Const General: cooperative, healthy appearing, comfortable and no acute distress Orientation/consciousness: patient oriented x3 Neck Neck: Yes normal visual inspection Chest Chest palpation & inspection: normal inspection of the chest Resp Effort & Inspection: normal respiratory effort Auscultation: clear to auscultation bilaterally, no rales, no rhonchi and no wheezes Cardio Rate: regular rate Rhythm: regular rhythm Heart sounds: S1 normal heart sound present, S2 normal heart sound present, no murmurs and no rubs Neuro General: patient oriented x3 Extrem General: Yes normal to inspection, No no pedal edema and No calf tenderness Psych Appearance: grossly normal Mental Status: mental status grossly normal Speech and movement: Normal speech and movement present Office Procedures Cardiac Device Check Cardiac Device Check Details: Dual-chamber [facility] pacemaker in place. Programmed in DDDR at 60 beats per minute. No episodes of atrial fibrillation noted. Atrial pacing 98% of the time. Atrial ventricular sensing was adequate. Pacing thresholds in the atrium is slightly elevated with adequate safety margin. Ventricular pacing thresholds are stable. Pacing lead impedance is stable. Battery life is 6 years 66600-AC Cardiac Device Check, pacemaker dual lead Procedure code (CPT) selection complete EKG Details: EKG shows atrially paced, ventricularly sensed rhythm with left ventricular hypertrophy with lateral Q-waves consistent with hypertrophic cardiomyopathy with leftward axis 22802-Ihovaryznhpunojro, Complete Assessment & Plan Assessment & Plan (1) Paroxysmal atrial fibrillation: Code(s): I48.0 - Paroxysmal atrial fibrillation Category: Medical Plan: Paroxysmal atrial fibrillation currently suppressed on amiodarone therapy and doing well with improved LV ejection fraction. Continue rhythm control approach. Continue current dose of amiodarone. If in 6 months she has no further episodes of atrial fibrillation will reduce amiodarone to 100 mg daily. Continue full oral anticoagulation, currently on apixaban 5 mg b.i.d.. Semi annual renal function test should be pursued. Continue to monitor by pacer telemetry. Avoidance of stimulants was discussed. Stress mitigation strategies were discussed. (2) Cardiac pacemaker in situ: Onset Date: ~2008 Comment: ([facility] DCPP - placed 2008, changed 2020) Code(s): Z95.0 - Presence of cardiac pacemaker Category: Medical Plan: Cardiac pacemaker in-situ, currently working well. Atrial thresholds are slightly elevated probably suggestive of atrial myopathy. Will continue monitor it. Currently with adequate safety margin. (3) HTN (hypertension): Code(s): I10 - Essential (primary) hypertension Category: Medical Plan: Hypertension which is currently labile although blood pressure today is well optimized. Difficulty in managing this kind of blood pressure was discussed with her. Continue current therapy. Advised to maintain adequate hydration. Signs and symptoms of heart failure were discussed. Advised to call me with any worsening blood pressure readings. (4) Asymmetric septal hypertrophy: Code(s): I42.2 - Other hypertrophic cardiomyopathy Category: Medical Plan: Asymmetric hypertrophy without obstructive physiology suggestive of hypertrophic cardiomyopathy. Clinically without any symptoms related to it. Continue aggressive blood pressure control. Will follow up in the clinic in 6 months time, sooner PRN. Thank you for allowing me to partake in her care Coding Level of Care Code Est Pt Level 4 (88943) Complex EM visit Add On G2211 Diagnoses Paroxysmal atrial fibrillation I48.0 Cardiac pacemaker in situ Z95.0 HTN (hypertension) I10 Asymmetric septal hypertrophy I42.2 CPT Codes Cardiac Device Check - Cardiac Device 2: 62561-ET Cardiac Device Check, pacemaker dual lead ([id number]) EKG - CPT: 94038-Yhrqlunjpmqgmxpnr, Complete ([id number])
--- OUTSIDE RECORDS SUMMARY | 2025-03-31 17:08 | XMS_ITS | Clinical Summary ---
Author Organization [facility] Address [address] [place] [address] Care Team Providers Care Double Needle Stitcher Name Role Phone Michael Joiner MD Primary Care Provider [phone] Social History Tobacco Use Types Packs/Day Years Used Date Smoking Tobacco: Never Assessed Comments Unknown Sex and Gender Information Value Date Recorded Sex Assigned at Not on file Legal Sex Female 10:00 PM EST Gender Identity Not on file Sexual Orientation Not on file Plan of Treatment Health Maintenance Due Date Last Done Comments DTaP,Tdap,and Td Vaccines (1 - Tdap) 1964 Pneumococcal Vaccine: 50+ Ye ars (1 of 1 - PCV) 11/07/1995 Zoster Vaccines (1 of 2) 11/07/1995 RSV Immunization Adult Patie nts (1 - 1-dose 75+ series) 2020 Depression Screening 07/24/2024 COVID-19 Vaccine ( - 2023-2 5 season) 2025 Influenza Vaccine (#1) 2025 HIB Vaccines Aged Out No longer eligi [...] patient's age to complete this topic Meningococcal B Vaccine Aged Out No l onger eligible based on patient's age to complete this topic RSV Immunization Patients Un umesh 20 months Aged Out No longer eligible b ased on patient's age to complete this topic Varicella Vaccines Aged Out No longer eligible based on patient's age to complete this topic Care Teams Double Needle Stitcher Relationship Specialty Start Date End Date Michael Joiner MD [address] [place] [address] PCP - General Internal Medicine 08/24/11
--- OUTSIDE RECORDS SUMMARY | 2025-03-31 17:08 | XMS_ITS | Clinical Summary ---
Author Organization [facility] Address [address] [place] [id number] Phone Care Team Providers Care Mobile Application Development Lead Name Role Phone Sarina Steele MD Unavailable [phone] [employer] Elena browning NP Unavailable + Chris Bullock MD Unavailable [phone] Michael Joiner MD Primary Care Provider Gabe Tang MD Unavailable Allergies Active Allergy Reactions Criticality Noted Date Comments Codeine Hives 07/07/2017 Sulfamethoxazole-Trimethoprim Anaphylaxis High 03/11 Medications calcium carbonate-vitamin D3 1,500 mg (600 mg elemental)-200 units Tab Take 1 tablet by mouth daily. Active albuterol (PROAIR HFA) 90 mcg/actuation inhaler Inhale 2 puffs into the lungs every 6 (six) hours as needed for wheezing. 1 Inhaler 1 08/09/19 18 Active clotrimazole (LOTRIMIN) 1 % creamIndications:V ulvar candidiasis Apply topically 2 (two) times a day. 30 g 07/16/20 18 Active Additional Information Patient taking differently: 1 ApplicationTopical2 times daily PRN, Reported on 02/23/2024 GLUCOSE BLOOD test strip 02/03/20 20 Active FREESTYLE LITE Strp stripsIndications: Type 2 diabetes mellitus without complication, without long-term current use of insulin USE TO TEST BLOOD SUGAR EVERY DAY 50 strip 11 06/28/20 23 Active amiodarone (PACERONE) 200 MG tablet Take 200 mg by mouth daily. For 7 days then reduce to 200 mg PO QD until cardiology appt on 02/26/24. Started on 400 mg BID since [facility] on 02/13/24-noted 03/29/24 02/13/20 24 Active FREESTYLE 28 gauge lancetsIndications :Type 2 diabetes mellitus without complication, without long-term current use of insulin TEST BLOOD GLUCOSE TWICE DAILY 100 each 11 09/13/19 24 Active omeprazole (PRILOSEC) 20 MG capsuleIndications :Gastroesophageal reflux disease without esophagitis TAKE 1 CAPSULE(20 MG) BY MOUTH DAILY 90 capsule 3 02/15/20 24 Active ondansetron (ZOFRAN-ODT) 4 MG disintegrating tablet Take 1 tablet (4 mg total) by mouth every 12 (twelve) hours as needed for nausea. 30 tablet 02/28/20 24 Active cholecalciferol (VITAMIN D3) 2,000 unit capsuleIndications :Vitamin D deficiency Take 1 capsule (2,000 Units total) by mouth daily. 90 capsule 3 03/11/20 24 Active apixaban (ELIQUIS) 5 mg tablet take 1 tablet by mouth two times a day 180 tablet 1 03/13/20 24 Active metoprolol tartrate (LOPRESSOR) 50 MG tabletIndications: Atrial flutter, unspecified type Take 1.5 tablets (75 mg total) by mouth 2 (two) times a day. 270 tablet 3 03/29/20 24 Active blood-glucose meter,continuous (FREESTYLE LENYN 3 READER) MiscIndications:Ty pe 2 diabetes mellitus with diabetic polyneuropathy, with long-term current use of insulin by Miscellaneous route as needed. 1 each 04/03/20 24 Active ammonium lactate (AMLACTIN) 12 % creamIndications:D ry skin dermatitis Apply 1 Application topically as needed. 140 g G 04/29/20 24 Active ezetimibe (ZETIA) 10 mg tabletIndications: Type 2 diabetes mellitus with diabetic polyneuropathy, with long-term current use of insulin,Hyperlipid emia LDL goal <70,Type 2 diabetes mellitus with hyperglycemia, without long-term current use of insulin Take 1 tablet (10 mg total) by mouth daily. 90 tablet 1 10/24/19 25 Active insulin pen needles, disposable, 31 gauge x /16 NdleIndications:Ty pe 2 diabetes mellitus with diabetic polyneuropathy, with long-term current use of insulin,Type 2 diabetes mellitus with hyperglycemia, without long-term current use of insulin 1 each by Miscellaneous route 4 (four) times a day before meals and nightly. 400 each 3 10/24/19 25 Active FREESTYLE LENNY 3 PLUS SENSOR DeviIndications:Ty pe 2 diabetes mellitus with hyperglycemia, without long-term current use of insulin 1 each by Miscellaneous route every 15 (fifteen) days. 6 each 3 12/19/19 25 Active cetirizine (ZYRTEC) 5 MG tabletIndications: Moderate persistent asthma with exacerbation Take 1 tablet (5 mg total) by mouth daily. 30 tablet 02/06/20 25 Active insulin glargine U-300 (TOUJEO SOLOSTAR) 300 unit/mL (1.5 mL) subcutaneous injection penIndications:Typ e 2 diabetes mellitus with diabetic polyneuropathy, with long-term current use of insulin Inject 20 Units under the skin nightly at bedtime. 9 mL 02/20/20 25 Active insulin lispro U-200 (HUMALOG KWIKPEN) 200 unit/mL (3 mL) InPn subcutaneous penIndications:Typ e 2 diabetes mellitus with diabetic polyneuropathy, with long-term current use of insulin Administer Humalog 3 times a day with meals based on the correction scale below. 70-100 =2 unit 101-150 =4 units 151-200 = 6 units 201-250 =8 units 251-300 =10 units 301-350 =12 units 351-400 =14 units greater than 400 =16 units 15 mL 02/20/20 25 Active metFORMIN (GLUCOPHAGE-XR) 750 MG 24 hr tabletIndications: Type 2 diabetes mellitus with diabetic polyneuropathy, with long-term current use of insulin Take 1 tablets in the AM and 2 tablet in the PM. 270 tablet 02/20/20 25 Active rosuvastatin (CRESTOR) 40 MG tabletIndications: Type 2 diabetes mellitus with diabetic polyneuropathy, with long-term current use of insulin,Hyperlipid emia LDL goal <70 Take 1 tablet (40 mg total) by mouth daily. 90 tablet 02/20/20 25 Active Active Problems Problem Noted Date Diagnosed Date Hypertrophic cardiomyopathy 03/27/2024 Overview (03/27/2024): stable Type 2 diabetes mellitus wit h hyperglycemia, without long-term current use of insulin 06/21/2023 Assessment & Plan (10/23/2024 11:17 AM EDT): Hemoglobin A1c 7.4% which is age-appropriate. She states that she cannot afford to pay for Jardiance is costing her $450 a month. She wants to continue Toujeo and metformin but she is currently prandial insulin with meals if she is going to stop Jardiance. She cannot use pioglitazone and she cannot use GLP-1 agonists. Using sulfonylureas with insulin does not make sense. Adding DPP 4 inhibitors also does not make sense. So I will give her Humalog correction scale starting at 70-100 = 2 units increasing by 2 units every 50 mg/dL. Unfortunately this is more work for her in order to manage the diabetes. Assessment & Plan (07/10/2024 9:47 AM EST): Fair control. Hemoglobin A1c 7.4%. Based on the CGM we see that she is not in the required target range. She needs to have 70% of the glucose in target. She has 67% in target this may be due to her milk intake at nighttime. I am increasing the Jardiance to 25 mg which may help. She will continue Toujeo or Lantus 20 units in the evening. She is gagging on the metformin even though she is cutting the tablets in half. So we can consider decreasing or discontinuing in the future but we should not do it now because we just added a new medication and I want to see if there is any improved control. But the only thing we can do is probably increase the dose of Lantus if she comes off metformin. She is already at the maximum dose of pioglitazone. She will follow in 3 months time as opposed to 6 months since I made a change in her medications. Assessment & Plan (04/03/2024 10:16 AM EDT): Current hemoglobin A1c is 7.8%. Given age and comorbidities I do not recommend aggressive A1c goals of less than 7%. The [place] [employer] recommends a goal of A1c of 7.5 to 8% in older patients with moderate comorbidities and life expectancy less than 10 years. The [place] diabetes Association recommends a goal of less than 7.5% in patients with few comorbidities and significant life expectancy, a goal of less than 8% in patients with intermediate life expectancy and multiple chronic comorbidities, and a more relaxed goal of 8-8.5% in older patients with very complex medical issues/poor health and a limited health expectancy. So I would say that the patient has intermediate life expectancy with multiple chronic comorbidities and her hemoglobin A1c should be less than 8% which is currently at this range. So at this point I am not going to make any changes to her regimen. I did prescribe the Dexcom G7 which I think will be beneficial and will help us see was going on throughout the day. Assessment & Plan (06/21/2023 10:37 AM EST): Uncontrolled. She informs me that she has not had any adverse effects with the use of metformin so I am increasing the extended release 750 mg tablets to 3 tablets daily with dinner. She will continue pioglitazone 45 mg. She will continue glipizide. I have added Toujeo 20 units to be administered in the morning since she cannot get Trulicity. She should repeat hemoglobin A1c prior to the follow-up visit in 3 months. Vitamin D deficiency 12/07/2022 Assessment & Plan (03/22/2023 11:37 AM EDT): She did not repeat vitamin D level. I thought she should get this done. She apparently has a new extended visit scheduled with me for the follow-up week for management of osteoporosis and she should try to do the lab work that I requested because I did request a vitamin D. She was prescribed ergocalciferol 50,000 units weekly but she did not repeat the vitamin D levels. I suggested that she take cholecalciferol 2000 units daily. Assessment & Plan (12/07/2022 11:46 AM EDT): She was found to be vitamin D deficiency which can be associated with hair loss, osteomalacia, myalgias, joint pains, fatigue. I will prescribe ergocalciferol 50,000 units weekly and she can repeat vitamin D levels prior to the follow-up visit. Hair loss 06/08/2022 Assessment & Plan (12/07/2022 11:45 AM EDT): I requested biochemical evaluation for etiologies of conditions that can cause hair loss. The only finding was vitamin D deficiency other lab work was in the normal reference range. Testosterone, dihydrotestosterone, B12, zinc, selenium, TSH and vitamin A all in the reference range. I would not work this up further. However she will require vitamin D supplementation. Assessment & Plan (06/08/2022 11:32 AM EST): The patient is complaining of hair loss will do biochemical work-up advised the patient to do lab work fasting. Weight loss 05/22/2022 Assessment & Plan (05/22/2022 1:55 PM EDT): Await labs. Discussed that it is possible that her weight loss could be attributable to medication side effect, but regardless needs work-up. She will return next Monday for labs. Need for hepatitis C screening test 03/14/2022 Assessment & Plan (03/14/2022 10:16 AM EDT): Patient Declined testing, they acknowledge the risks/benefits Paroxysmal atrial fibrillation 03/14/2022 Overview (03/27/2024): Follows with [facility] matthew- Teresa Alves NP s/p ablation 03/2023, has pacer. Suppressed with amiodarone. She did not take anticoag due to cost. Dev thrombus on pacemaker lead. Planning holter to assess Assessment & Plan (09/07/2022 10:21 AM EST): Continue anticoagulation with Eliquis, discussed need for follow-up if any falls or trauma Assessment & Plan (05/22/2022 1:55 PM EDT): Currently asymptomatic, up to date with cardiology surveillance Assessment & Plan (03/14/2022 10:17 AM EDT): On eliquis and amiodarone Scheduled for an ablation at [facility] on Mar 23 Denies any current s/s Urinary frequency 03/24/2021 Assessment & Plan (03/24/2021 11:44 AM EDT): Urinary frequency increased, polyuria polydipsia, it is difficult to tell whether the patient is having UTI though its almost to be expected if the patient has longstanding glucosuria.. Therefore obtain urinalysis and low threshold to treat for UTI, her polyuria will resolve if we can get her blood sugars under better control. Oropharyngeal dysphagia 02/05/2020 Assessment & Plan (02/05/2020 11:13 AM EDT): Kaycee has new and worsening dysphagia. Recent endoscopy showed hiatal hernia and she had negative biopsies. Recommend swallow study as it appears issues with swallowing precede area of hernia. If needed, will refer back to GI. Continue to eat slowly. Avoid dry, [id number] foods. Recurrent UTI 02/05/2020 Assessment & Plan (05/22/2022 1:56 PM EDT): Await urine culture, consider beginning antimicrobial therapy based upon preliminary results over the weekend. If any recurrent bleeding that is excessive she will follow-up right away. I suggested that with next episode of bleeding we get her in for an office visit [facility] to check for the source Assessment & Plan (03/14/2022 10:15 AM EDT): On methanamine and nitrofurantoin Current denies any respiratory symptoms (re screening for pulm fibrosis on nitrofurantoin) Assessment & Plan (02/05/2020 11:09 AM EDT): Check clean catch u/a today. 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 She does not have dental insurance but will check with her son's dentist re: eval. Discussed given current Fosamax dosing there may be limited possibilities for dental care options until we discuss drug holiday as needed; demonstrates understanding. Bunion of left foot 11/15/2017 Assessment & Plan (11/15/2017 3:31 PM EDT): Supportive counseling re: new orthotic eval/prescription. Please f/u if any issues. Continue podiatry regular care. Anxiety 07/07/2017 Assessment & Plan (03/14/2022 10:16 AM EDT): I feel great Denies sig mood disorder Essential hypertension 07/07/2017 Overview (03/27/2024): Follows with [facility] cards op last ov 02/26/24 Teresa Alves NP Assessment & Plan (05/22/2022 1:57 PM EDT): Stable Assessment & Plan (03/14/2022 10:12 AM EDT): Controlled on meds Assessment & Plan (05/10/2021 2:42 PM EDT): Controlled on current medications. The patient is on lisinopril. She does not have microalbuminuria. Assessment & Plan (03/24/2021 11:40 AM EDT): Patient is asymptomatic regarding hypertension but we feel that the blood pressures strongly affiliated to the blood sugar being elevated. Maintain on the amlodipine and maintain follow-up appointment with Mackenzie regarding blood pressure. Low-sodium diet reinforced, hidden salt discussed with patient. Assessment & Plan (02/05/2020 11:13 AM EDT): Well-controlled. Continue all medications as prescribed. Await routine f/u with cardiology next month. Assessment & Plan (11/15/2017 3:37 PM EDT): Restart amlodipine as directed, if not already taking with daily rx. Gastroesophageal reflux disease without esophagi tis 07/07/2017 Assessment & Plan (09/07/2022 10:21 AM EST): Stable on current medication regimen Assessment & Plan (05/22/2022 1:57 PM EDT): Continue PPI Assessment & Plan (02/05/2020 11:10 AM EDT): Continue omeprazole as prescribed, given worsened symptoms off of this medication. Mild intermittent asthma without complication Assessment & Plan (02/05/2020 11:14 AM EDT): Stable. Discussed pneumonia and flu vaccines; Declines. Hyperlipidemia LDL goal <70 07/07/2017 Assessment & Plan (02/19/2025 10:58 AM EDT): Controlled. LDL 54 mg/dL continue rosuvastatin 40 mg no changes required. Assessment & Plan (10/23/2024 11:03 AM EDT): Controlled. LDL 69 mg/dL continue rosuvastatin 40 mg and ezetimibe 10 mg daily no changes required. Assessment & Plan (07/10/2024 9:46 AM EST): Controlled. LDL 55 mg/dL continue ezetimibe and rosuvastatin. Assessment & Plan (04/03/2024 10:21 AM EDT): Controlled. LDL 55 mg/dL continue rosuvastatin 40 mg and ezetimibe 10 mg daily no changes required. Assessment & Plan (09/27/2023 10:00 AM EST): Uncontrolled. LDL is 134 mg/dL. She states that she is taking the medication correctly and is not missing. Previously her LDL was 80 mg which was still elevated so at this point I am just going to add ezetimibe 10 mg daily and repeat lipid panel prior to the follow-up visit. Assessment & Plan (06/21/2023 10:37 AM EST): Uncontrolled based on last lab work. She needs to repeat the lipid panel she needs to take Crestor 40 mg not 10 mg. Assessment & Plan (03/22/2023 11:35 AM EDT): Uncontrolled. LDL was 165 mg/dL but prior it had been 79 mg/dL. She is supposed to be using rosuvastatin 40 mg. She did not repeat lab work. I asked her to make sure to do the lab work fasting. Assessment & Plan (12/07/2022 12:04 PM EDT): UNControlled. LDL 165 mg/dL. The patient believes that she is taking rosuvastatin 40 mg is on her medication list. I will repeat the lipid panel again in 3 months time but she needs to make sure that she is taking this medication regularly. Her son checked the medication profile apparently she last picked up the rosuvastatin in May. So slightly she has not been taking it. Assessment & Plan (06/08/2022 11:22 AM EST): Controlled. LDL was elevated at 79 mg/dL. She was previously taking atorvastatin 80 mg I prescribed rosuvastatin 40 mg on the last visit hopefully she has been taking this medication. When I inquired if she has been taking it that not certain. So I renewed the medication rosuvastatin 40 mg hopefully the LDL will drop below 70 mg/dL. If not she may need another agent such as ezetimibe to control the lipids. Assessment & Plan (03/14/2022 10:14 AM EDT): Not controlled Being treated by Dr. Nguyen Discussed her rosuvastatin akdina briggs today She said she's having a problem getting refills, I told her to call endo today In reviewing notes, she picked up last rx on december 16 and it had 2 refills Assessment & Plan (07/12/2021 12:37 PM EST): Uncontrolled. LDL was 101 but on the last visit I switched her from atorvastatin to rosuvastatin but she believes that she still taking the atorvastatin. I asked her to start taking rosuvastatin because her LDL needs to be less than 70 mg/dL with her cardiac condition. I requested repeat lipid panel for the follow-up visit in 3 months. Assessment & Plan (05/10/2021 2:35 PM EDT): Uncontrolled. LDL was 103 mg/dL she has coronary artery disease for myocardial infarction LDL should be less than 70 mg/dL. I stop atorvastatin and prescribed rosuvastatin 40 mg. She will repeat a lipid panel in 3 months. Assessment & Plan (02/05/2020 11:11 AM EDT): Continue atorvastatin as prescribed. Assessment & Plan (11/15/2017 2:06 PM EDT): Restart atorvastatin Osteoporosis 07/07/2017 Assessment & Plan (10/30/2024 10:24 AM EDT): He continues to take calcium vitamin D. CTX level decreased indicating decreased bone resorption so I suppose that she has increased bone mineral density. She is due for repeat DXA scan on 04/12/2025 at [facility] and I have requested this study. Today she presents for her third Prolia injection. She should repeat a renal panel prior to the follow-up visit in 6 months. Assessment & Plan (10/04/2023 10:16 AM EDT): She continues to take calcium and vitamin D. She is not doing weightbearing exercises I advised her to start. This is just 2 pound weights that she can use. She can use a weight vest or ankle weights when she walks. She has opted to use Prolia subcutaneous injections she does not need a prior authorization for this medication apparently. She will receive her first Prolia injection today. She will return for follow-up in 6 months. She needs to repeat lab work fasting 2 weeks prior to the visit. At that time I will request DXA scan. She is due for repeat study on 04/12/2025. Assessment & Plan (07/05/2023 11:57 AM EST): This is a patient with osteoporosis who apparently has had significant decrease in bone mineral density in the last 3 years. As per the patient she stopped alendronate in 2021 and she has been off the medication for at least 1 year. It is unclear if the decrease in bone mineral density occurred in the last year when she was off antiresorptive medications. I did not find any additional secondary causes for osteoporosis other than what is indicated in the HPI. She should continue her calcium and vitamin D intake I do recommend an antiresorptive medication. I informed the patient that she can use Reclast which is an IV form of bisphosphonates. But she rather not do that I said that she could also use Prolia subcutaneous injection every 6 months. With this medication she cannot miss an injection because its rapid decrease in bone mineral density and she will have to take alendronate for a year if she decides to stop it. I reviewed that Denosumab (Prolia) is a q 6 month subcutaneous injection that has good bone density and fracture data. It s mechanism of action is as a monoclonal antibody directed against RANK ligand. It acts as an antiresorptive agent on the bones by suppressing formation of osteoclasts. It is indicated for osteoporosis in women and men, bony metastases in breast, prostate and other solid tumors, and is approved for aromatase inhibitor bone loss. Potential side effects include injection site pain and swelling (short lived), rash, infection, osteonecrosis of the jaw (5.2 out 10,000 patients) and possibly atypical femur fractures (0.8 out of 10,000). It is necessary to stay current with calcium and Vitamin D intake as hypocalcemia can develop. Labs were reviewed and there is no hypocalcemia. Denosumab ten year data has been presented and shows continued increases in BMD (lumbar spine 21.7% increase in BMD, and hip was 9.2% increase in BMD over 10 years) and continued fracture risk reduction (68% vertebral and hip, 40% non-vertebral, 20% for hip over a three year period) without significant increases in potential side effects. The patient has been instructed to call our office if any symptoms develop or if pain in the thigh develops. I informed the patient that once this medication is initiated if it is discontinue it has to be followed up with alendronate 70 mg weekly for period of 1 year. If alendronate is not used one can expect to return to prior bone mineral density within 1 year. I also informed the patient that if 1 injection is missed there is increased risk of fracture starting at 8 months from the last injection. Assessment & Plan (03/29/2023 11:52 AM EDT): The patient was diagnosed with osteoporosis in 2002. She did use alendronate for 5 years from [id number]. Risk factors for osteoporosis and pain include age, surgical menopause, use of proton pump inhibitors and corticosteroids, vitamin D deficiency, and possibly calcium deficiency. She has had 2 fragility fractures and has lost 3.75 inches in height. At this point she is taking calcium carbonate 600 mg once a day with food and vitamin D 2000 units daily. I have requested biochemical work-up for secondary causes of osteopenia/osteoporosis. She needs to get a DXA scan at [facility] the order has already been placed. She should follow in 3 months. Assessment & Plan (09/07/2022 10:20 AM EST): Needs consult with endocrinology, referral generated. Assessment & Plan (05/22/2022 1:57 PM EDT): Continue care with Dr. Nguyen Assessment & Plan (03/14/2022 10:14 AM EDT): She stated today that Basilia d/c'd the Alendronate and told her to f/u with Dr. Nguyen regarding new rx for her Osteoporosis Pacemaker 07/07/2017 Overview (03/27/2024): Battery life 6.8-7.[address] jazzy dual chamber pacer in place - remote monitoring in progress Sick sinus syndrome 07/07/2017 Type 2 diabetes mellitus wit h diabetic polyneuropathy, with long-term current use of insulin 07/07/2017 Assessment & Plan (02/19/2025 11:09 AM EDT): Based on the hemoglobin A1c of 6.9% she appears to be controlled but based on the CGM only 45% in range and her hemoglobin A1c is closer to 7.9%. She has elevated glucose throughout the day and is administering Humalog at breakfast and lunch does not have hypoglycemia after administering this but develops low glucose after dinner even though she is having a higher carbohydrate meal and her insulin administration is based on the same correction scale that she uses for breakfast and lunch. Furthermore she is not exercising after dinner. She is unclear why her glucose is dropping. So I did not change the correction scale for breakfast and lunch but will decrease the correction scale by 1 unit for dinner. I suggested to her that she eat something more nutritious for her bedtime snack such as cheese, ham, carrots, celery protein instead of sweets. And if she wants to have a fruit and apple will be fine. She should repeat lab work prior to the follow-up visit. It does not have to be done fasting. Assessment & Plan (09/27/2023 9:59 AM EST): Controlled. Hemoglobin A1c 6.5% continue current regimen. Assessment & Plan (03/22/2023 11:34 AM EDT): Improved glycemic control hemoglobin A1c 7.3%. We will increase pioglitazone to 45 mg. She will continue metformin and glipizide. She should repeat hemoglobin A1c in 3 months and return for follow-up. Assessment & Plan (12/07/2022 12:05 PM EDT): Uncontrolled. Hemoglobin A1c 8.0%. Unfortunately she cannot afford to pay Trulicity. I am increasing pioglitazone to 30 mg because she has been tolerating she will continue metformin and glipizide. Maybe if she continues to tolerate the higher dose of pioglitazone we can eventually increase this to 45 mg. If her glucose levels improved we can consider using SGLT2 inhibitors this medication is also expensive so we will have to see if it is covered. Furthermore if she can afford it. If not she is going to require basal insulin on a daily basis. I will give her a follow-up appointment in 3 months. Assessment & Plan (06/08/2022 11:10 AM EST): Told her hemoglobin A1c 6.2% I would not make any changes to her regimen. She should continue glipizide 10 mg daily metformin extended release 750 mg and Trulicity 3.0 mg weekly. Assessment & Plan (05/22/2022 1:54 PM EDT): Await labs Assessment & Plan (03/14/2022 10:12 AM EDT): Remains uncontrolled Having trouble keeping appt with Endo due to relying on her son to dirve her there Had an appt in Mar but had to cancel it and it's now scheduled for Nov I asked her if she wanted me to get a sooner appt with endo for her and she declined Assessment & Plan (07/12/2021 12:39 PM EST): Uncontrolled. Hemoglobin A1c 7.7% she has had a good improvement in just a few weeks A1c dropped from 9.9 to 7.7%. Should continue Metformin and glipizide I am increasing Trulicity from 1.5 to 3.0 mg weekly hopefully she can get a good garduno on this medication. She has been denied by [employer] for financial assistance. So at this point not much more that we can do. Ozempic is not covered under her plan. She will repeat hemoglobin A1c in 3 months time. Today I gave her an additional sample of Trulicity 1.5 mg Lot number [id number] expiration May 12, 2022. She can do to 1.5 mg injections today she is due for her Trulicity injection today. Assessment & Plan (05/10/2021 2:44 PM EDT): Uncontrolled. Hemoglobin A1c 9.9%. She cannot tolerate a higher dose of Metformin she is already on glipizide 10 mg daily and I am not going to increase it. She has used pioglitazone in the past but this was discontinued possibly due to osteoporosis. She also has multiple cardiac conditions but unclear if she has heart failure. At this point I will prescribe a GLP-1 agonist Trulicity 1.5 mg weekly. She has no contraindications such as pancreatitis or medullary thyroid carcinoma. I did inform her that it could be associated with nausea, vomiting, diarrhea, constipation. If she has any vomiting she probably will not be able to tolerate this medication. But the only way to find now she can tolerate is to try it and we do start out with the smallest dose. I am giving her a sample of Trulicity Lot number [id number] expiration January 29, 2023. She was instructed on the use of this medication. She will continue Metformin extended release 750 mg daily. She will return for follow-up in 6 weeks. Assessment & Plan (03/24/2021 11:43 AM EDT): Type 2 diabetes is uncontrolled but it has been at least since September with an A1c back then greater than 10%. Now symptomatic with weight loss since January, polyuria polydipsia and blurriness of vision. At this point the patient most likely needs to go on insulin. Therefore we will refer the patient to [facility] endocrinology and obtain an A1c today. Patient feels that she might have a UTI and that is what is causing the blood sugars to rise but we feel that the blood sugar had already been elevated for many months now. Her diet at least from what she is describing does not seem excessive. Exam does not reveal signs of ketoacidosis. She may be having some moderate ketoacidosis though if she is having weight loss since January. Assessment & Plan (02/05/2020 11:11 AM EDT): Continue all medications as prescribed. Up to date on podiatry exam, and awaiting eye exam for February 2020. Await labs today. Assessment & Plan (11/15/2017 3:36 PM EDT): Reviewed trend in rising hemoglobin A1C. Discussed implications of uncontrolled DM. As she is taking metformin regularly, we discussed eliminating soda, sweets, and white bread from diet. Continue daily monitoring of FBS; f/u if any s/sx hypoglycemia. Add Januvia, reviewed dosing. No c/i, no hx pancreatitis. Please f/u if any concerns, questions, or if any s/e. Continue metformin as directed. Please f/u if FBS continues to be >200, consider insulin therapy. Pt agreeable, would like to defer insulin at this time. Microscopic hematuria 02/08/2017 Resolved Problems Problem Noted Date Diagnosed Date Resolved Date Immunization due 03/14/2022 05/22/2022 Assessment & Plan (03/14/2022 10:16 AM EDT): Patient Declined vaccine, they acknowledge the risks/benefits Uncontrolled type 2 diabetes mellitus with hyperglycemia 03/24/2021 04/03/2024 Assessment & Plan (04/03/2024 10:04 AM EDT): Uncontrolled. Hemoglobin A1c 7.9%. Assessment & Plan (09/07/2022 10:20 AM EST): We had a long discussion today regarding feasibility of prescribed diabetes treatment. Kaycee is not going to be able to afford the medications that she is currently prescribed, although they are working well for managing her diabetes. 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 We discussed insulin therapy, and although that she is wanted to avoid this in the past I do think that that may be most appropriate step forward for her treatment. Incontinence of feces with fecal urgency 02/05/2020 05/22/2022 Assessment & Plan (02/05/2020 11:10 AM EDT): Discussed newly worsened stool urgency resulting in frequent incontinence. Per pharmacy, it appears Kaycee changed to metformin XR 500 mg BID earlier this year, after colonoscopy. It is possible that her symptoms worsened despite changing metformin formulation to help improve stool symptoms. Colonoscopy is to be repeated in 3 years given polyps. Defer to endocrinology re: transition back to metformin IR 1000 mg BID. Preop examination 11/15/2017 07/27/2018 Assessment & Plan (11/15/2017 3:41 PM EDT): No contraindication to outpatient cataract extraction with IOL. BP wnl today. Please note current dentition. Orthostatic dizziness 07/07/20172020 Encounters Date Type Department Care Team Description 02/19/2025 10:30 AM EDT Office Visit [facility] [address] [place] [address] [place] [address] Chirs Nguyen DO Type 2 diabetes mellitus with diabetic polyneuropathy, with long-term current use of insulin (Primary Dx); Hyperlipidemia LDL goal <70 02/05/2025 12:22 PM EDT - 02/05/2025 11:59 PM EDT Hospital Encounter [place] [place] [address] Chris Nguyen DO Discharge Disposition: Home or Self Care 02/05/2025 Orders Only [facility] [address] Chris Nguyen DO Age-related osteoporosis without current pathological fracture (Primary Dx); Type 2 diabetes mellitus with diabetic polyneuropathy, with long-term current use of insulin from Last 3 Months Immunizations Immunization Administration Dates Next Due COVID-19 (Pre-05/15) Pfizer Vaccine, mRNA, PF ,03/30/2021 Family History Medical History Relation Comments No Known Problems Brother 2 Anxiety disorder Daughter CV disease Father Diabetes mellitus Father Heart disease Father Stroke Father Cerebral aneurysm Mother Stroke Sibling No Known Problems Son Relation Status Comments Brother 1 (Age 61) heart disease Brother 2 Alive Daughter Alive Father (Age 68) Mother (Age 43) Sibling Son Alive Social History Tobacco Use Types Packs/Day Years Used Date Smoking Tobacco: Never Smokeless Tobacco: Never Tobacco Cessation:Counseling Given: Not Answered Alcohol Use Standard Drinks/Week Comments Not Currently 0 (1 standard drink = 0.6 oz pure alcohol) drinks 1/2 cup of beer during holidays, if that Education Answer Date Recorded Are you interested in more education? Not on barbara e 11/18/2022 Are you concerned about learning? Not on file 11/18/2022 No 11/18/2022 No 11/18/2022 Digital Access Answer Date Recorded No 12/16/2022 No 12/16/2022 Reliable internet access at home? Not on file 12/16/2022 Device with a working camera? Not on file Intimate Partner Violence Answer Date R ecorded Denied Basic Needs Not on file 06/02/2023 In the past 12 months have y ou been in a relationship with a person who hurts, threatens, or tries to control you? No 06/02/2023 Worried food would run out Not on file 06/02 In the past 12 months have y ou been in a relationship with a person who hurts, threatens, or tries to control you? No 06/02/2023 Comments Unknown Sex and Gender Information Value Date Recorded Sex Assigned at Not on file Legal Sex Female 10:08 PM EDT Gender Identity Not on file Sexual Orientation Not on file Last Filed Vital Signs Vital Sign Reading Time Taken Comments Blood Pressure 122/70 10/30/2024 9:59 AM EDT Pulse 65 02/19/2025 10:24 AM EDT Temperature 36.6 C (97.8 F) 02/19/2025 10:24 AM EDT Respiratory Rate 16 09/20/2024 1:33 PM EST Oxygen Saturation 98% 02/19/2025 10:24 AM EDT Inhaled Oxygen Concentration - - Weight 68.5 kg (151 lb) 02/19/2025 10:24 AM EDT Height 150.4 cm (4' 11.21 ) 02/19/2025 10:24 AM EDT Body Mass Index 30.28 02/19/2025 10:24 AM EDT Plan of Treatment Upcoming Encounters Date Type Department Care Team (Late st Contact Info) Description 04/11/2025 10:00 AM EDT Office Visit [facility] [address] [place] [address] Michael Joiner MD [address] [place] [address] 05/02/2025 10:10 AM EDT Office Visit [facility] [address] [place] [address] Chris Nguyen DO [address] [place] [phone] 06/11/2025 12:10 PM EST Office Visit [facility] [address] [place] [address] Chris Nguyen DO [address] [place] [phone] Health Maintenance Due Date Last Done Comments Adult Td,Tdap Booster 1945 HEPATITIS C SCREENING 11/07/1963 PNEUMOCOCCAL VACCINES (50+ years) (1 of 2 - PCV) 1964 COLOGUARD 1990 FIT TEST 1990 SIGMOIDOSCOPY 1990 VIRTUAL COLONOSCOPY 1990 ZOSTER VACCINES (1 of 2) 11/07/1995 FOBT 01/31/2020 01/30/2019 RSV VACCINE (1 - 1-dose 75+ series) 2020 DIABETIC EYE EXAM 02/10/2022 02/10/2021, 12/18/2017 DEPRESSION SCREENING 06/02/2024 06/02/2023, 05/20/20 INFLUENZA VACCINE (#1) 2025 COVID-19 VACCINE ( season) 2025 04/20/2021, 03/30/2021 BLOOD PRESSURE 05/01/2025 10/30/2024 HEMOGLOBIN A1C 08/08/2025 02/05/2025, 09/22, 07/03/2024, Additional history exists ALT LEVEL (ALANINE AMINOTRANSFERASE) 10/17/2025 10/17/2024, 03/27/2024, 02/23/2024, Additional history exists CREATININE LEVEL 10/17/2025 10/17/2024, , 03/27/2024, Additional history exists TSH LEVEL 10/17/2025 10/17/2024, 01/21, 11/28/2022, Additional history exists URINE MICROALBUMIN/CREATININE RATIO 10/17/2025 10/17/2024, 03/27/2024, 11/28/2022, Additional history exists LIPID PANEL 02/05/2026 02/05/2025, 09/22, 03/27/2024, Additional history exists COLONOSCOPY 04/12/2026 04/12/2023, 12/11/2018, 05/21/2012 COLORECTAL CANCER SCREENING 04/12/2026 FOLLOW UP BONE DENSITY TESTING 10/30/2026 10/30/2024, 04/12/2023, 06/10/2020, Additional history exists SMOKING STATUS SCREENING (Once After 26 Yrs) Completed 10/23/2024 OSTEOPOROSIS SCREENING INITIAL (ONE-TIME) Completed 10/30/2024, 04/12/2023, 06/10/2020, Additional history exists HEPATITIS A VACCINES Aged Out No long er eligible based on patient's age to complete this topic HIB VACCINES Aged Out No longer eligi ble based on patient's age to complete this topic MENINGOCOCCAL VACCINES (ACWY) Aged Out No longer eligible based on patient's age to complete this topic MENINGOCOCCAL VACCINES (B) Aged Out N o longer eligible based on patient's age to complete this topic Medical Devices Not on file Procedures Procedure Name Priority Date/Time Associated Diagnosis Comments P1NP (Procollagen I NT Polypeptide) Routine 02/05/2025 12:29 PM EDT Age-related osteoporosis without current pathological fracture HEMOGLOBIN A1C Routine 02/05/2025 12:29 PM EDT Type 2 diabetes mellitus with diabetic polyneuropathy, with long-term current use of insulin COLLAGEN TYPE 1B-TELOPEPTIDE, BLOOD Routine 02/05/2025 12:29 PM EDT Age-related osteoporosis without current pathological fracture 25-OH VITAMIN D Routine 02/05/2025 12:29 PM EDT Age-related osteoporosis without current pathological fracture LIPID PANEL Routine 02/05/2025 12:29 PM EDT Type 2 diabetes mellitus with diabetic polyneuropathy, with long-term current use of insulin BD DXA MONITORING Routine 10/30/2024 10: 19 AM EDT Age-related osteoporosis without current pathological fracture MICROALBUMIN/CREATINI NE RATIO, RANDOM URINE Routine 10/17/2024 10:24 AM EDT Type 2 diabetes mellitus with diabetic polyneuropathy, with long-term current use of insulin TSH WITH REFLEX Routine 10/17/2024 10:24 AM EDT Essential hypertension COMPREHENSIVE METABOLIC PANEL Routine 10/17/2024 10:24 AM EDT Hyperlipidemia LDL goal <70 Type 2 diabetes mellitus with diabetic polyneuropathy, with long-term current use of insulin Essential hypertension COLONOSCOPY FOR RESULT ENTRY ONLY Routine 04/12/2023 DIABETES EYE EXAM FOR RESULT ENTRY ONLY Routine 02/10/2021 from Last 3 Months or Most Recently Relevant to Health Maintenance Results * P1NP (PROCOLLAGEN I NT POLYPEPTIDE) (02/05/2025 12:29 PM EDT) PROCOLL I INTACT N 21 mcg/L [facility]PATH [address] Comment: (NOTE) REFERENCE VALUE Premenopausal: 19-83 Postmenopausal: 16-96 Blood 02/05/2025 12:2 9 PM EDT 02/05/2025 12:32 PM EDT Chris Nguyen LAB BLOOD ORDERABLES Final Resul t Performing Organization Address [facility] de Phone Number [facility] MED/PATH [address] [place] [address] * (ABNORMAL) Collagen type 1b-telopeptide, blood (02/05/2025 12:29 PM EDT) Pathologist [facility] Collagen CTx 68(L) pg/mL [facility]/PATH SUPERIOR Comment: (NOTE) REFERENCE VALUE [phone] (18-29 y) 150-635 (30-39 y) 131-670 (40-49 y) [phone] (50-59 y) 171-970 (60-69 y) 152-858 (>70 y) 136-689 (Premenopausal) [phone] (Postmenopausal) Flagging is based on the age-specific reference interval and not menopausal status. Blood 02/05/2025 12:2 9 PM EDT 02/05/2025 12:32 PM EDT Chris Nguyen LAB BLOOD ORDERABLES Final Resul t Performing Organization Address [facility] de Phone Number [facility] MED/[place] [address] * (ABNORMAL) 25-OH vitamin D (02/05/2025 12:29 PM EDT) Pathologist [facility] 25 OH VIT D (TOTAL) 26(L) 30 - 60 ng/mL [facility] Blood 02/05/2025 12:2 9 PM EDT 02/05/2025 12:32 PM EDT [facility] LAB BLOOD ORDERABLES Final Resul t Performing Organization Address City/[facility] Co de Phone Number [address] [address] * (ABNORMAL) Hemoglobin A1c (02/05/2025 12:29 PM EDT) HEMOGLOBIN A1C 6.9(H) 4.3 - 5.8 % [facility] Blood 02/05/2025 12:2 9 PM EDT 02/05/2025 12:33 PM EDT [facility] LAB BLOOD ORDERABLES Final Resul t Performing Organization Address [facility] Co de Phone Number [address] [address] * (ABNORMAL) Lipid panel (02/05/2025 12:29 PM EDT) HDL 80 mg/dL [facility] Comment: Interpretation <40 mg/dL: Low HDL cholesterol (major risk factor for CHD) Greater than or equal to 60 mg/dL: High HDL cholesterol ( negative risk factor for CHD) HDL - cholesterol is affected by a number of factors, e.g. smoking, excerise, hormones, sex and age. CHOLESTEROL 145 0 - 240 mg/dL [facility] TRIGLYCERIDES 56 30 - 160 mg/dL [facility] LDL 54 50 - 129 mg/dL [facility] Comment: LDL levels in terms of risk for coronary heart disease: <100 mg/dL: Optimal 100-129 mg/dL: Near or above optimal 130-159 mg/dL: Borderline high 160-189 mg/dL: High >190 mg/dL: Very High CARDIAC RISK RATIO 1.8(L) 3.3 - 4.4 [facility] Blood 02/05/2025 12:2 9 PM EDT 02/05/2025 12:32 PM EDT us Chris Nguyen DO LAB BLOOD ORDERABLES Final Resul t [address] [address] * (ABNORMAL) Comprehensive metabolic panel (10/17/2024 10:24 AM EDT) SODIUM 142 133 - 146 mmol/L [facility] POTASSIUM 5.2(H) 3.3 - 5.1 mmol/L [facility] CHLORIDE 107 96 - 108 mmol/L [facility] CO2 25 21 - 35 mmol/L [facility] BUN 33(H) 6 - 19 mg/dL [facility] CREATININE 1.10 0.5 - 1.5 mg/dL [facility] GLUCOSE 124(H) 70 - 99 mg/dL [facility] ALBUMIN 4.2 3.9 - 4.8 g/dL [facility] TOTAL PROTEIN 7.1 6.5 - 8.0 g/dL [facility] CALCIUM 10.0 8.4 - 10.3 mg/dL [facility] ALKALINE PHOSPHATASE 59 39 - 117 U/L [facility] TOTAL BILIRUBIN 0.3 0.0 - 1.2 mg/dL [facility] AST 24 0 - 37 U/L [facility] ALT 15 0 - 40 U/L [facility] GLOBULIN 2.9 1 - 4.8 g/dL [facility] EGFR 51(L) >59 mL/min/1.7 3m2 [facility] Comment:Estimated glomerular filtration rate calculated using the CKD-EPI refit equation. ANION GAP 15 10 - 20 mmol/L [facility] Blood 10/17/2024 10:2 4 AM EDT 10/17/2024 10:30 AM EDT us Michael Joiner MD LAB BLOOD ORDERABLES Final Re sult Performing Organization Address City/[facility]/ZIP Co de Phone Number [address] [address] * TSH with reflex (10/17/2024 10:24 AM EDT) TSH 0.97 0.27 - 4.20 uIU/mL [facility] Blood 10/17/2024 10:2 4 AM EDT 10/17/2024 10:30 AM EDT Michael Joiner MD LAB BLOOD ORDERABLES Final Re sult Performing Organization Address [facility] de Phone Number [address] [address] * (ABNORMAL) Microalbumin/creatinine ratio, random urine (10/17/2024 10:24 AM EDT) URINE MICROALBUMIN 1.5 0 - 2.3 mg/dL [facility] URINE CREATININE 55 mg/dL [facility] MICROALB/CRE RATIO 27.3(H) 0 - 20 mg/g Cre [facility] Urine (Urine) 10/17/2024 10: 24 AM EDT 10/17/2024 10:32 AM EDT Michael Joiner MD URINE ORDERABLES Final Result Performing Organization Address [facility] de Phone Number [address] [address] * DXA Monitoring (04/12/2023 11:23 AM EDT) Anatomical Region Laterality Modality Bone Density Bone Density Basilia Velazquez [facility] BD BONE DENSITY DE XA Final Result * COLONOSCOPY FOR RESULT ENTRY ONLY (04/12/2023) Historical Provider HEALTH MAINTENANCE Edited Result - Final * DIABETES EYE EXAM FOR RESULT ENTRY ONLY (02/10/2021) Abhijeet Rashid MD HEALTH MAINTENANCE Edited Result - Final from Last 3 Months or Most Recently Relevant to Health Maintenance Insurance [employer] [place] [employer] H[employer] REPLACEMENT MEDICARE HMO REPLACEMENT MEDICARE HMO REPLACEMENT MEDICARE HMO REPLACEMENT MEDICARE HMO REPLACEMENT [employer] [place] [employer]ACEMENT [employer] [place] [employer] REPLACEMENT Care Teams Mobile Application Development Lead Relationship Specialty Start Date End Date Michael Joiner MD [address] [place] [phone] [email or web address] PCP - General Internal Medicine 12/15/22 Sarina Steele MD Surgeon Urology 08/07/19 Rosa Elena Veronica NP [email or web address] Endocrinology 08/09/19 Chris Bullock MD [address] [place] [address] Ophthalmology 11/11/19 Gabe Tang MD [address] [place] [phone] Night Manager Cardiology 06/02/23 Additional Source Comments The information contained in this document represents components of the legal health record. It is not the complete legal health record.[facility]
== END 2025-03-31 15:43 | disposition home or self-care (01) ==
LOC: HO.HCS 14:46
PROVIDERS: PCP Internal Medicine; Visit Provider Internal Medicine Cardiovascular Disease
DX: I48.0 Paroxysmal atrial fibrillation (principal); Z95.0 Presence of cardiac pacemaker; I10 Essential (primary) hypertension; I42.2 Other hypertrophic cardiomyopathy
CPT/HCPCS: 93010; 93280; 99214; G2211

== ENCOUNTER → 2025-03-31 14:46 | Outpatient (BNVA) | payer MEDICARE, SELFPAY | PROVIDERS: PCP Internal Medicine; Visit Provider Internal Medicine Cardiovascular Disease | DX: Z45.010 Encounter for checking and testing of cardiac pacemaker pulse generator [battery] (principal); I48.0 Paroxysmal atrial fibrillation; I10 Essential (primary) hypertension; I42.2 Other hypertrophic cardiomyopathy | CPT/HCPCS: 93005; 93280; 99212 ==

== ENCOUNTER → 2025-04-02 23:59 | Outpatient (BNV) | payer MEDICARE, SELFPAY ==
--- NOTE | 2025-04-08 16:09 | A.OFFVIS_ITS ---
Intake Visit Reasons: Remote Device Check- [facility] Allergies codeine (CODEINE) Allergy (Unknown, Verified 03/31/25 15:11) HIVES [facility] Medical History Paroxysmal atrial fibrillation Cardiac pacemaker in situ (~2008) Osteoporosis (~2013) Current use of roasterman anticoagulation Diabetes Pacemaker at end of battery life Atrial fibrillation with rapid ventricular response CRUZ (acute kidney injury) HTN (hypertension) Asymmetric septal hypertrophy Sick sinus syndrome Surgical History History of permanent cardiac pacemaker placement (~2008) Hx of cataract Family History Father CHF (congestive heart failure) Mother Diabetes Social History Household Members: Family Housing: House Do you presently have visiting nurse or other home services: No Alcohol intake: current Alcohol intake frequency: does not drink Patient Tobacco Use Status: Never used Tobacco Second Hand Smoke Exposure: No service: No Current occupational status: retired Office Procedures Cardiac Device Check Cardiac Device Check Details: Remote pacemaker report generated 04/02/2025. Pacemaker function is adequate [id number] Cardiac Device Interrogation, pacemaker Procedure code (CPT) selection complete Assessment & Plan Assessment & Plan (1) Cardiac pacemaker in situ: Onset Date: ~2008 Comment: ([facility] [facility] DCPP - placed 2008, changed 2020) Code(s): Z95.0 - Presence of cardiac pacemaker Category: Medical Plan: See above Coding Level of Care Code Procedure Only Diagnoses Cardiac pacemaker in situ Z95.0 CPT Codes Cardiac Device Check - Cardiac Device 12: [id number] Cardiac Device Interrogation, pacemaker ([id number])
== END ==
PROVIDERS: Visit Provider Internal Medicine Cardiovascular Disease
DX: Z45.018 Encounter for adjustment and management of other part of cardiac pacemaker (principal)
CPT/HCPCS: 93294

== ENCOUNTER 2025-04-16 09:32 | Outpatient (REF) | payer MEDICARE, SELFPAY ==
--- OUTSIDE RECORDS SUMMARY | 2025-04-11 10:00 | XMS_ITS | Encounter Summary ---
Author Organization [facility] Address [address] [place] [phone] Phone Care Team Providers Care Reception Specialist Name Role Phone Sarina Steele MD Unavailable [phone] Rosa Elena Veronica NP Unavailable + Chris Bullock MD Unavailable [phone] Michael Joiner MD Primary Care Provider Gabe Tang MD Unavailable Reason for Visit * Reason Comments Medicare Annual Wellness Visit Subsequen t Encounter Details Date Type Department Care Team (Late st Contact Info) Description 04/11/2025 10:00 AM EDT Office Visit [facility] [address] [place], [place] [phone] Michael Joiner MD [address] [place] [address] [email or web address] Routine general medical examination at a health care facility (Primary Dx); Essential hypertension; Hypertrophic cardiomyopathy; Pacemaker; Paroxysmal atrial fibrillation; Type 2 diabetes mellitus with diabetic polyneuropathy, with long-term current use of insulin Social History Tobacco Use Types Packs/Day Years Used Date Smoking Tobacco: Never Smokeless Tobacco: Never Alcohol Use Standard Drinks/Week Comments Not Currently [...] on file Sexual Orientation Not on file documented as of this encounter Last Filed Vital Signs Vital Sign Reading Time Taken Comments Blood Pressure 164/80 04/11/2025 10:51 AM EDT Pulse 61 04/11/2025 9:50 AM EDT Temperature 37 C (98.6 F) 04/11/2025 9:50 AM EDT Respiratory Rate 16 04/11/2025 9:50 AM EDT Oxygen Saturation 98% 04/11/2025 9:50 AM EDT Inhaled Oxygen Concentration - - Weight 68.2 kg (150 lb 6.4 oz) 04/11/2025 9:50 A M EDT Height 151 cm (4' 11.45 ) 04/11/2025 9:50 AM EDT Body Mass Index 29.92 04/11/2025 9:50 AM EDT documented in this encounter Progress Notes * Interface Provider, Scanning - 04/11/2025 12:00 AM EDT 3/3 words 5 min Breasts ok Subjective Kaycee Florence is a 79 y.o. female. History of Present Illness Kaycee Florence is a 79 year old female with hypertension and type 2 diabetes who presents for a routine medical exam. She has a recent injury to her right forearm caused by a sharp point from a microwave door, which sometimes bleeds. She has been applying Neosporin to the wound and keeping it clean. Another injury occurred at home when a box punctured her arm. She recalls receiving a tetanus shot about five to sixyears ago at [facility] after a work-related cut. She monitors her blood sugar regularly using a Freestyle monitor and reports fluctuations, with recent readings of 177 mg/dL and 120 mg/dL. She takes insulin three times a day, including Toujeo at night, and is due for blood work soon. She mentions her blood pressure fluctuates and was high during the visit. She experiences occasional headaches and dizziness upon standing. She has a history of hypertrophic cardiomyopathy and paroxysmal atrial fibrillation, for which she sees a specialist in [place]. Her blood pressure was 154/78 mmHg during a recent visit. She is scheduled for a pacemaker check. She experiences tingling in her feet and occasional numbness. She reports a 'picky feeling' in her feet. She has a history of acid reflux diagnosed during a colonoscopy. She drinks seltzer water instead of plain water due to choking sensations, possibly related to acid reflux. She works at [employer] in [place] for 12-14 hours a week and plans to retire next January. She does not engage in additional physical activity outside of work. She declines flu and pneumonia vaccinations and does not wish to receive any shots during the visit. Current Outpatient Medications Ordered in [facility] Medication Sig albuterol (PROAIR HFA) 90 mcg/actuation inhaler Inhale 2 puffs into the lungs every 6 (six) hours as needed for wheezing. amiodarone (PACERONE) 200 MG tablet Take 200 mg by mouth daily. For 7 days then reduce to 200 mg POQD until cardiology appt on 02/26/24. Started on 400 mg BID since [facility] on 02/13/24-noted 03/29/24 ammonium lactate (AMLACTIN) 12 % cream Apply 1 Application topically as needed. apixaban (ELIQUIS) 5 mg tablet take 1 tablet by mouth two times a day calcium carbonate-vitamin D3 1,500 mg (600 mg elemental)-200 units Tab Take 1 tablet by mouth daily. cetirizine (ZYRTEC) 5 MG tablet Take 1 tablet (5 mg total) by mouth daily. cholecalciferol (VITAMIN D3) 2,000 unit capsule Take 1 capsule (2,000 Units total) by mouth daily. clotrimazole (LOTRIMIN) 1 % cream Apply topically 2 (two) times a day. (Patient taking differently:Apply 1 Application topically 2 (two) times a day as needed.) ezetimibe (ZETIA) 10 mg tablet Take 1 tablet (10 mg total) by mouth daily. FREESTYLE 28 gauge lancets TEST BLOOD GLUCOSE TWICE DAILY FREESTYLE LENNY 3 PLUS SENSOR Marya 1 each by Miscellaneous route every 15 (fifteen) days. FREESTYLE LITE Strp strips USE TO TEST BLOOD SUGAR EVERY DAY insulin glargine U-300 (TOUJEO SOLOSTAR) 300 unit/mL (1.5 mL) subcutaneous injection pen Inject 20 Units under the skin nightly at bedtime. insulin lispro U-200 (HUMALOG KWIKPEN) 200 unit/mL (3 mL) InPn subcutaneous pen Administer Humalog 3 times a day with meals based on the correction scale below. 70-100 =2 unit 101-150 =4 units 151-200 = 6 units 201-250 =8 units 251-300 =10 units 301-350 =12 units 351-400 =14 units greater than 400 =16 units insulin pen needles, disposable, 31 gauge x 5/16 Ndle 1 each by Miscellaneous route 4 (four) timesa day before meals and nightly. metFORMIN (GLUCOPHAGE-XR) 750 MG 24 hr tablet Take 1 tablets in the AM and 2 tablet in the PM. metoprolol tartrate (LOPRESSOR) 50 MG tablet Take 1.5 tablets (75 mg total) by mouth 2 (two) times a day. omeprazole (PRILOSEC) 20 MG capsule TAKE 1 CAPSULE(20 MG) BY MOUTH DAILY ondansetron (ZOFRAN-ODT) 4 MG disintegrating tablet Take 1 tablet (4 mg total) by mouth every 12 (twelve) hours as needed for nausea. rosuvastatin (CRESTOR) 40 MG tablet Take 1 tablet (40 mg total) by mouth daily. blood-glucose meter,continuous (FREESTYLE LENNY 3 READER) Misc by Miscellaneous route as needed. (Patient not taking: Reported on 04/11/2025) GLUCOSE BLOOD test strip (Patient not taking: Reported on 04/11/2025) Review of Systems Denies headaches/chest pains Objective BP (!) 164/80 (BP Location: Left arm, Patient Position: Sitting) Pulse 61 Temp 37 ??C(98.6 ??F) (Oral) Resp 16 Ht 151 cm (4' 11.45 ) Wt 68.2 kg (150 lb 6.4 oz) SpO2 98% BMI 29.92 kg/m?? CONSTITUTIONAL: Appears well- developed and well nourished. Cooperative, patient is alert. HEENT:PERRTL, EOM intact, fundi benign, TM's clear, throat clear. NECK: supple, no thyroid megaly, no adenopathy. LUNGS: clear to A&P,no wheezing/rhonichi/rales. HEART: RRR S1S2 without murmurs, rubs or gallops. ABDOMEN: bowel sounds: normal, soft non tender without masses. EXTREMITIES: without edema, clubbing or cyanosis. Physical Exam NEUROLOGICAL: Absent monofilament and vibration sensation in feet. SKIN: Scrape on right forearm, slowly healing. Assessment & Plan Essential hypertension, poorly controlled Blood pressure remains elevated, complicated by hypertrophic cardiomyopathy and atrial fibrillation. - Discuss hypertension management with Dr. Harris, considering hypertrophic cardiomyopathy and atrial fibrillation. Hypertrophic cardiomyopathy Condition is monitored by Dr. aHrris. Paroxysmal atrial fibrillation Condition is managed by Dr. Harris. Type 2 diabetes mellitus with diabetic polyneuropathy, on insulin Blood glucose levels are variable with recent readings of 177 mg/dL and 120 mg/dL. Polyneuropathy is present with absent monofilament and vibration sensation in the feet. - Monitor blood glucose levels regularly. - Plan for blood work at next visit with Dr. Nguyen. Right forearm puncture wound, healing Puncture wound is slowly healing. Advised to stop Neosporin and keep the wound clean. - Keep the wound covered at work and uncovered at home. - Discontinue use of Neosporin. - Monitor wound for signs of infection or lack of improvement. I obtained verbal consent from the patient or their proxy to record this visit for purposes of producing a draft of the encounter documentation. documented in this encounter Plan of Treatment Upcoming Encounters Date Type Department Care Team (Late st Contact Info) Description 05/02/2025 10:10 AM EDT Office Visit [facility] [address] [place] [address] [address] [address] 06/11/2025 12:10 PM EST Office Visit [facility] [address] [place] [address] Chris Nguyen [address] [address] 08/13/2025 10:30 AM EST Office Visit [facility] [address] [place] [address] Michael Joiner MD [address], [place] [phone] [email or web address] documented as of this encounter Results * (ABNORMAL) Microalbumin/creatinine ratio, random urine (04/11/2025 11:16 AM EDT) URINE MICROALBUMIN 2.2 0 - 2.3 mg/dL [facility] URINE CREATININE 98 mg/dL [facility] MICROALB/CRE RATIO 22.4(H) 0 - 20 mg/g Cre [facility] Urine (Urine) 04/11/2025 11: 16 AM EDT 04/11/2025 11:19 AM EDT us Michael Joiner MD URINE ORDERABLES Final Result [facility] [address] [place] [address] * (ABNORMAL) Urinalysis w/reflex Urine Culture (04/11/2025 11:15 AM EDT) COLOR Yellow Yellow [facility] CLARITY HAZY [facility] GLUCOSE Trace(A) Negative [facility] BILI Negative Negative [facility] KETONES Negative Negative [facility] SPECIFIC GRAVITY 1.025 1.005 - 1.030 [facility] BLOOD Negative Negative [facility] PH 6.0 5.0 - 8.0 [facility] Protein-UA Negative Negative [facility] NITRITE Positive(A) Negative [facility] Leukocyte esterase, ur 1+(A) Negative [facility] Urine (Urine) 04/11/2025 11: 15 AM EDT 04/11/2025 11:19 AM EDT us Michael Joiner MD URINE ORDERABLES Final Result Performing Organization Address [facility]/ZIP Co de Phone Number [address] [phone] * Magnesium (04/11/2025 10:58 AM EDT) MAGNESIUM 1.9 1.6 - 2.6 mg/dL [facility] Blood 04/11/2025 10:5 8 AM EDT 04/11/2025 11:03 AM EDT us Michael Joiner MD LAB BLOOD ORDERABLES Final Re sult [address] [address] * TSH with reflex (04/11/2025 10:58 AM EDT) TSH 1.47 0.27 - 4.20 uIU/mL [facility] Blood 04/11/2025 10:5 8 AM EDT 04/11/2025 11:03 AM EDT us Michael Joiner MD LAB BLOOD ORDERABLES Final Re sult [address] [address] * (ABNORMAL) Comprehensive metabolic panel (04/11/2025 10:58 AM EDT) SODIUM 138 133 - 146 mmol/L [facility] POTASSIUM 4.4 3.3 - 5.1 mmol/L [facility] CHLORIDE 104 96 - 108 mmol/L [facility] CO2 23 21 - 35 mmol/L [facility] BUN 22(H) 6 - 19 mg/dL [facility] CREATININE 0.90 0.5 - 1.5 mg/dL [facility] GLUCOSE 202(H) 70 - 99 mg/dL [facility] ALBUMIN 4.3 3.9 - 4.8 g/dL [facility] TOTAL PROTEIN 7.5 6.5 - 8.0 g/dL [facility] CALCIUM 9.8 8.4 - 10.3 mg/dL [facility] ALKALINE PHOSPHATASE 61 39 - 117 U/L [facility] TOTAL BILIRUBIN 0.4 0.0 - 1.2 mg/dL [facility] AST 19 0 - 37 U/L [facility] ALT 15 0 - 40 U/L [facility] GLOBULIN 3.2 1 - 4.8 g/dL [facility] EGFR 65 >59 mL/min/1.7 3m2 [facility] Comment:Estimated glomerular filtration rate calculated using the CKD-EPI refit equation. ANION GAP 15 10 - 20 mmol/L [facility] Blood 04/11/2025 10:5 8 AM EDT 04/11/2025 11:03 AM EDT us Michael Joiner MD LAB BLOOD ORDERABLES Final Re sult [address] [phone] documented in this encounter Visit Diagnoses Diagnosis Routine general medical examination at a health care facility- Primary Essential hypertension Unspecified essential hypertension Hypertrophic cardiomyopathy Other primary cardiomyopathies Pacemaker Cardiac pacemaker in situ Paroxysmal atrial fibrillation Atrial fibrillation Type 2 diabetes mellitus with diabetic polyneuropathy, with long-term current use of insulin documented in this encounter Additional Health Concerns Assessment Noted Time PHQ-9 Depression Total Score: 0 05/20/20 22 11:09 AM EDT PHQ-2 Depression Total Score: 0 06/02/20 23 9:48 AM EST documented as of this encounter Care Teams Reception Specialist Relationship Specialty Start Date End Date Michael Joiner MD [address] [place] [address] [email or web address] PCP - General Internal Medicine 12/15/22 Sarina Steele MD Surgeon Urology 08/07/19 Rosa Elena Veronica NP [email or web address] Endocrinology 08/09/19 Chris Bullock MD [address] [place] [address] Ophthalmology 11/11/19 Gabe Tang MD [address] [place] [phone] [employer] Cardiology 06/02/23 documented as of this encounter Additional Source Comments The information contained in this document represents components of the legal health record. It is not the complete legal health record.[facility]
--- OUTSIDE RECORDS SUMMARY | 2025-04-11 10:58 | XMS_ITS | Encounter Summary ---
Author Organization [facility] Address [address] [place] [address] Phone Care Team Providers Care Hide Inspector And Sorter Name Role Phone Sarina Steele MD Unavailable Rosa Elena Veronica NP Unavailable + Chris Bullock MD Unavailable Michael Joiner MD Primary Care Provider Gabe Tang MD Unavailable [phone] Encounter Details Date Type Department Care Team (Latest Contact Info) Description 04/11/2025 10:58 AM EDT - 04/11/2025 11:59 PM EDT Hospital Encounter [facility] [address] [place], [place] [id number] Michael Joiner MD [address] [place] [address] [email or web address] Discharge Disposition: Home or Self Care Social History Tobacco Use Types Packs/Day Years [...] on file documented as of this encounter Medications at Time of Discharge albuterol (PROAIR HFA) 90 mcg/actuation inhaler Inhale 2 puffs into the lungs every 6 (six) hours as needed for wheezing. 1 Inhaler 1 8 amiodarone (PACERONE) 200 MG tablet Take 200 mg by mouth daily. For 7 days then reduce to 200 mg PO QD until cardiology appt on 02/26/24. Started on 400 mg BID since [facility] Discharge on 02/13/24-noted 03/29/24 4 ammonium lactate (AMLACTIN) 12 % creamIndications:Dr woodruff skin dermatitis Apply 1 Application topically as needed. 140 g G 4 apixaban (ELIQUIS) 5 mg tablet take 1 tablet by mouth two times a day 180 tablet 1 4 blood-glucose meter,continuous (FREESTYLE LENNY 3 READER) MiscIndications:Typ e 2 diabetes mellitus with diabetic polyneuropathy, with long-term current use of insulin by Miscellaneous route as needed. 1 each 4 calcium carbonate-vitamin D3 1,500 mg (600 mg elemental)-200 units Tab Take 1 tablet by mouth daily. cetirizine (ZYRTEC) 5 MG tabletIndications:M oderate persistent asthma with exacerbation Take 1 tablet (5 mg total) by mouth daily. 30 tablet 11 5 cholecalciferol (VITAMIN D3) 2,000 unit capsuleIndications: Vitamin D deficiency Take 1 capsule (2,000 Units total) by mouth daily. 90 capsule 3 4 clotrimazole (LOTRIMIN) 1 % creamIndications:Vu lvar candidiasis Apply topically 2 (two) times a day. 30 g 8 ezetimibe (ZETIA) 10 mg tabletIndications:T ype 2 diabetes mellitus with diabetic polyneuropathy, with long-term current use of insulin,Hyperlipide aiden LDL goal <70,Type 2 diabetes mellitus with hyperglycemia, without long-term current use of insulin Take 1 tablet (10 mg total) by mouth daily. 90 tablet 1 5 FREESTYLE 28 gauge lancetsIndications: Type 2 diabetes mellitus without complication, without long-term current use of insulin TEST BLOOD GLUCOSE TWICE DAILY 100 each 11 4 FREESTYLE LENNY 3 PLUS SENSOR DeviIndications:Typ e 2 diabetes mellitus with hyperglycemia, without long-term current use of insulin 1 each by Miscellaneous route every 15 (fifteen) days. 6 each 3 5 FREESTYLE LITE Strp stripsIndications:T ype 2 diabetes mellitus without complication, without long-term current use of insulin USE TO TEST BLOOD SUGAR EVERY DAY 50 strip 11 3 GLUCOSE BLOOD test strip 0 insulin glargine U-300 (TOUJEO SOLOSTAR) 300 unit/mL (1.5 mL) subcutaneous injection penIndications:Type 2 diabetes mellitus with diabetic polyneuropathy, with long-term current use of insulin Inject 20 Units under the skin nightly at bedtime. 9 mL 1 5 insulin lispro U-200 (HUMALOG KWIKPEN) 200 unit/mL (3 mL) InPn subcutaneous penIndications:Type 2 diabetes mellitus with diabetic polyneuropathy, with long-term current use of insulin Administer Humalog 3 times a day with meals based on the correction scale below. 70-100 =2 unit 101-150 =4 units 151-200 = 6 units 201-250 =8 units 251-300 =10 units 301-350 =12 units 351-400 =14 units greater than 400 =16 units 15 mL 1 5 insulin pen needles, disposable, 31 gauge x 12/06 NdleIndications:Typ e 2 diabetes mellitus with diabetic polyneuropathy, with long-term current use of insulin,Type 2 diabetes mellitus with hyperglycemia, without long-term current use of insulin 1 each by Miscellaneous route 4 (four) times a day before meals and nightly. 400 each 3 5 metFORMIN (GLUCOPHAGE-XR) 750 MG 24 hr tabletIndications:T ype 2 diabetes mellitus with diabetic polyneuropathy, with long-term current use of insulin Take 1 tablets in the AM and 2 tablet in the PM. 270 tablet 1 5 metoprolol tartrate (LOPRESSOR) 50 MG tabletIndications:A trial flutter, unspecified type Take 1.5 tablets (75 mg total) by mouth 2 (two) times a day. 270 tablet 3 4 omeprazole (PRILOSEC) 20 MG capsuleIndications: Gastroesophageal reflux disease without esophagitis TAKE 1 CAPSULE(20 MG) BY MOUTH DAILY 90 capsule 3 4 ondansetron (ZOFRAN-ODT) 4 MG disintegrating tablet Take 1 tablet (4 mg total) by mouth every 12 (twelve) hours as needed for nausea. 30 tablet 4 rosuvastatin (CRESTOR) 40 MG tabletIndications:T ype 2 diabetes mellitus with diabetic polyneuropathy, with long-term current use of insulin,Hyperlipide aiden LDL goal <70 Take 1 tablet (40 mg total) by mouth daily. 90 tablet 1 5 documented as of this encounter Plan of Treatment Upcoming Encounters Date Type Department Care Team (Late st Contact Info) Description 05/02/2025 10:10 AM EDT Office Visit [facility] [address] [place] [address] Chris Nguyen DO [address] [place] [id number] 06/11/2025 12:10 PM EST Office Visit [facility] [address] [place] [address] Chris Nguyen DO [address] [place] [address] [email or web address] 08/13/2025 10:30 AM EST Office Visit [facility] Internal Medicine [address] [place] [address] Michael Joiner MD [address] [place] [address] [email or web address] documented as of this encounter Procedures Procedure Name Priority Date/Time Associated Diagnosis Comments MICROALBUMIN/CREATINI NE RATIO, RANDOM URINE Routine 04/11/2025 11:16 AM EDT Type 2 diabetes mellitus with diabetic polyneuropathy, with long-term current use of insulin URINALYSIS W/REFLEX URINE CULTURE Routine 04/11/2025 11:15 AM EDT Type 2 diabetes mellitus with diabetic polyneuropathy, with long-term current use of insulin URINE CULTURE Routine 04/11/2025 11:15 AM EDT URINE SEDIMENT Routine 04/11/2025 11:15 AM EDT COMPREHENSIVE METABOLIC PANEL Routine 04/11/2025 10:58 AM EDT Essential hypertension Type 2 diabetes mellitus with diabetic polyneuropathy, with long-term current use of insulin TSH WITH REFLEX Routine 04/11/2025 10:58 AM EDT Essential hypertension Paroxysmal atrial fibrillation Type 2 diabetes mellitus with diabetic polyneuropathy, with long-term current use of insulin MAGNESIUM Routine 04/11/2025 10:58 AM EDT Essential hypertension documented in this encounter Results * (ABNORMAL) Microalbumin/creatinine ratio, random urine (04/11/2025 11:16 AM EDT) URINE MICROALBUMIN 2.2 0 - 2.3 mg/dL [facility] URINE CREATININE 98 mg/dL [employer] [facility] MICROALB/CRE RATIO 22.4(H) 0 - 20 mg/g Cre [facility] Urine (Urine) 04/11/2025 11: 16 AM EDT 04/11/2025 11:19 AM EDT us Michael Joiner MD URINE ORDERABLES Final Result Performing Organization Address City/State/[facility] Co de Phone Number [address] [address] * (ABNORMAL) Urine Culture (04/11/2025 11:15 AM EDT) Special Requests None Reflexed from [id number] 04/11/2025 9:11 PM EDT [facility] Urine Culture >100,000 colony forming units per mL KLEBSIELLA PNEUMONIAE(A) 04/13/2025 9:51 AM EDT [facility] Urine Culture >100,000 colony forming units per mL ALPHA HEMOLYTIC STREPTOCOCCUS (VIRIDANS)(A) 04/13/2025 9:51 AM EDT [facility] Urine 04/11/2025 11:1 5 AM EDT 04/11/2025 11:19 AM EDT Narrative Organism Antibiotic Method Susceptibility Klebsiella pneumoniae Ampicillin SCOTTY METHOD >=32: Resistant Klebsiella pneumoniae Ampicillin + Sulbactam SCOTTY METHO D 4: Susceptible Klebsiella pneumoniae Cefepime SCOTTY METHOD <=0.12: Susceptible Klebsiella pneumoniae Ceftazidime SCOTTY METHOD <=0.5: Susceptible Klebsiella pneumoniae Ceftriaxone SCOTTY METHOD <=0.25: Susceptible Klebsiella pneumoniae Ciprofloxacin SCOTTY METHOD <=0.06: Susceptible Klebsiella pneumoniae Extended Spectrum B-lactamase [place] C METHOD Negative Klebsiella pneumoniae Gentamicin SCOTTY METHOD <=1: Susceptible Klebsiella pneumoniae Levofloxacin SCOTTY METHOD <=0.12: Susceptible Klebsiella pneumoniae Nitrofurantoin SCOTTY METHOD 32: Susceptible Klebsiella pneumoniae Piperacillin-tazobactam SCOTTY METH OD <=4: Susceptible Klebsiella pneumoniae Trimethoprim/sulfamethoxazole [place] C METHOD <=20: Susceptible Klebsiella pneumoniae Cefazolin(urine) SCOTTY METHOD 2: Susceptible Comment: us Michael Joiner MD MICROBIOLOGY - GENERAL ORDERA BLES Final Result Performing Organization Address [facility]/ZIP Co de Phone Number [address] [address] * (ABNORMAL) Urine sediment (04/11/2025 11:15 AM EDT) WBC 11-20(A) NONE SEEN /hpf [facility] RBC NONE SEEN NONE SEEN /hpf [facility] URINE EPITHELIAL 0-4(A) NONE SEEN [facility] MUCUS NONE SEEN NONE SEEN /hpf [facility] BACTERIA 3+(A) NONE SEEN /hpf [facility] 04/11/2025 11:1 5 AM EDT 04/11/2025 11:19 AM EDT us Michael Joiner MD URINE ORDERABLES Final Result Performing Organization Address [facility] [place] [facility] Co de Phone Number [address] [address] * (ABNORMAL) Urinalysis w/reflex Urine Culture (04/11/2025 11:15 AM EDT) COLOR Yellow Yellow [facility] CLARITY HAZY [facility] GLUCOSE Trace(A) Negative [facility] BILI Negative Negative [facility] KETONES Negative Negative [facility] SPECIFIC GRAVITY 1.025 1.005 - 1.030 [facility] BLOOD Negative Negative [facility] PH 6.0 5.0 - 8.0 [facility] Protein-UA Negative Negative [facility] NITRITE Positive(A) Negative [facility] Leukocyte esterase, ur 1+(A) Negative [facility] Urine (Urine) 04/11/2025 11: 15 AM EDT 04/11/2025 11:19 AM EDT Michael Joiner MD URINE ORDERABLES Final Result Performing Organization Address [facility] Co de Phone Number [address] [phone] * (ABNORMAL) Comprehensive metabolic panel (04/11/2025 10:58 AM EDT) SODIUM 138 133 - 146 mmol/L [facility] POTASSIUM 4.4 3.3 - 5.1 mmol/L [facility] CHLORIDE 104 96 - 108 mmol/L [facility] CO2 23 21 - 35 mmol/L [facility] BUN 22(H) 6 - 19 mg/dL [facility] CREATININE 0.90 0.5 - 1.5 mg/dL [facility] GLUCOSE 202(H) 70 - 99 mg/dL [facility] ALBUMIN 4.3 3.9 - 4.8 g/dL [facility] TOTAL PROTEIN 7.5 6.5 - 8.0 g/dL [facility] CALCIUM 9.8 8.4 - 10.3 mg/dL [facility] ALKALINE PHOSPHATASE 61 39 - 117 U/L [facility] TOTAL BILIRUBIN 0.4 0.0 - 1.2 mg/dL [facility] AST 19 0 - 37 U/L [facility] ALT 15 0 - 40 U/L [facility] GLOBULIN 3.2 1 - 4.8 g/dL [facility] EGFR 65 >59 mL/min/1.7 3m2 [facility] Comment:Estimated glomerular filtration rate calculated using the CKD-EPI refit equation. ANION GAP 15 10 - 20 mmol/L [facility] Blood 04/11/2025 10:5 8 AM EDT 04/11/2025 11:03 AM EDT us Michael Joiner MD LAB BLOOD ORDERABLES Final Re sult Performing Organization Address City/State/[facility] Co de Phone Number [address] [address] * TSH with reflex (04/11/2025 10:58 AM EDT) TSH 1.47 0.27 - 4.20 uIU/mL [facility] Blood 04/11/2025 10:5 8 AM EDT 04/11/2025 11:03 AM EDT us Michael Joiner MD LAB BLOOD ORDERABLES Final Re sult [address] [address] * Magnesium (04/11/2025 10:58 AM EDT) MAGNESIUM 1.9 1.6 - 2.6 mg/dL [facility] Blood 04/11/2025 10:5 8 AM EDT 04/11/2025 11:03 AM EDT us Michael Joiner MD LAB BLOOD ORDERABLES Final Re sult Performing Organization Address City/[facility]/ZIP Co de Phone Number [address] [address] documented in this encounter Visit Diagnoses Diagnosis Essential hypertension Unspecified essential hypertension Paroxysmal atrial fibrillation Atrial fibrillation Type 2 diabetes mellitus with diabetic polyneuropathy, with long-term current use of insulin documented in this encounter Additional Health Concerns Assessment Noted Time PHQ-9 Depression Total Score: 0 05/20/20 22 11:09 AM EDT PHQ-2 Depression Total Score: 0 06/02/20 23 9:48 AM EST documented as of this encounter Care Teams Hide Inspector And Sorter Relationship Specialty Start Date End Date Michael Joiner MD [address] [place] [address] PCP - General Internal Medicine 12/15/22 Sarina Steele MD Surgeon Urology 08/07/19 Rosa Elena Veronica NP [email or web address] Endocrinology 08/09/19 Chris Bullock MD [address] [place] [id number] Ophthalmology 11/11/19 Gabe Tang MD [address] [place] [address] [address] [place] [address] Bicycle Technician Cardiology 06/02/23 documented as of this encounter Additional Source Comments The information contained in this document represents components of the legal health record. It is not the complete legal health record.[facility]
--- NOTE | ~2025-04-16 | MM_ITS ---
STUDY: DUAL ENERGY X-RAY ABSORPTIOMETRY / DXA REASON FOR EXAM: Female, 79 years old M81.0 TECHNIQUE: Bone Mineral Density (BMD) measurements of the lumbar spine and left hip were obtained using [employer] COMPARISON: April 12, 2023 FINDINGS: L1-L4 BMD: 1.040 g/cm2 L1-L4 T score: -1.2. This corresponds to osteopenia. This represents a 11.1* % increase in bone density compared with prior exam from April 12, 2023. Left femoral neck BMD: 0.733 g/cm2 Left femoral neck T score: -2.2. This corresponds to osteopenia. Left total hip BMD: 0.801 g/cm2 Left total hip T score: -1.6. This corresponds to osteopenia. This represents a 7.2* % increase in bone density compared with prior exam from April 12, 2023. * - Indicates a statistically significant change. MM/XR DEXA axial skeleton IMPRESSION: Osteopenia Reference Information: The T-score is the number of standard deviations above or below the standard which is normal for young adults at their peak bone mineral density. The World Health Organization (WHO) interprets the T-scores as follows: At or above -1 SD Normal bone density Between -1 and -2.5 SD Osteopenia At or below -2.5 SD Osteoporosis Electronically signed by: Blas Leyva MD 04/16/2025 12:56 PM EDT
--- OUTSIDE RECORDS SUMMARY | 2025-04-16 11:26 | XMS_ITS | Clinical Summary ---
Author Organization [facility] Address [address] [place] [phone] Phone Care Team Providers Care Manager Animal Name Role Phone Sarina Steele MD Unavailable PitsRosa Elena browning NP Unavailable + Chris [...] 08/09/19 18 Active clotrimazole (LOTRIMIN) 1 % creamIndications: Vulvar candidiasis Apply topically 2 (two) times a day. 30 g 07/16/20 18 Active Additional Information Patient taking differently: 1 ApplicationTopical2 times daily PRN, Reported on 04/11/2025 GLUCOSE BLOOD test strip 02/03/20 20 Active FREESTYLE LITE Strp stripsIndications :Type 2 diabetes mellitus without complication, without long-term current use of insulin USE TO TEST BLOOD SUGAR EVERY DAY 50 strip 11 06/28/20 Active amiodarone (PACERONE) 200 MG tablet Take 200 mg by mouth daily. For 7 days then reduce to 200 mg PO QD until cardiology appt on 02/26/24. Started on 400 mg BID since [facility] Discharge on 02/13/24-noted 03/29/24 02/13/20 Active FREESTYLE 28 gauge lancetsIndication s:Type 2 diabetes mellitus without complication, without long-term current use of insulin TEST BLOOD GLUCOSE TWICE DAILY 100 each 11 09/13/19 24 Active omeprazole (PRILOSEC) 20 MG capsuleIndication s:Gastroesophagea l reflux disease without esophagitis TAKE 1 CAPSULE(20 MG) BY MOUTH DAILY 90 capsule 3 02/15/20 24 Active ondansetron (ZOFRAN-ODT) 4 MG disintegrating tablet Take 1 tablet (4 mg total) by mouth every 12 (twelve) hours as needed for nausea. 30 tablet 02/28/20 24 Active cholecalciferol (VITAMIN D3) 2,000 unit capsuleIndication s:Vitamin D deficiency Take 1 capsule (2,000 Units total) by mouth daily. 90 capsule 3 03/11/20 24 Active apixaban (ELIQUIS) 5 mg tablet take 1 tablet by mouth two times a day 180 tablet 1 03/13/20 24 Active metoprolol tartrate (LOPRESSOR) 50 MG tabletIndications :Atrial flutter, unspecified type Take 1.5 tablets (75 mg total) by mouth 2 (two) times a day. 270 tablet 3 03/29/20 24 Active blood-glucose meter,continuous (FREESTYLE LENNY 3 READER) MiscIndications:T ype 2 diabetes mellitus with diabetic polyneuropathy, with long-term current use of insulin by Miscellaneous route as needed. 1 each 04/03/20 Active Additional Information Patient not taking.Reported on 04/11/2025 ammonium lactate (AMLACTIN) 12 % creamIndications: Dry skin dermatitis Apply 1 Application topically as needed. 140 g G 04/29/20 Active ezetimibe (ZETIA) 10 mg tabletIndications :Type 2 diabetes mellitus with diabetic polyneuropathy, with long-term current use of insulin,Hyperlipi demia LDL goal <70,Type 2 diabetes mellitus with hyperglycemia, without long-term current use of insulin Take 1 tablet (10 mg total) by mouth daily. 90 tablet 1 10/24/19 25 Active insulin pen needles, disposable, 31 gauge x 12/06 NdleIndications:T ype 2 diabetes mellitus with diabetic polyneuropathy, with long-term current use of insulin,Type 2 diabetes mellitus with hyperglycemia, without long-term current use of insulin 1 each by Miscellaneous route 4 (four) times a day before meals and nightly. 400 each 3 10/24/19 25 Active FREESTYLE LENNY 3 PLUS SENSOR DeviIndications:T ype 2 diabetes mellitus with hyperglycemia, without long-term current use of insulin 1 each by Miscellaneous route every 15 (fifteen) days. 6 each 3 12/19/19 25 Active cetirizine (ZYRTEC) 5 MG tabletIndications :Moderate persistent asthma with exacerbation Take 1 tablet (5 mg total) by mouth daily. 30 tablet 11 02/06/20 25 Active insulin glargine U-300 (TOUJEO SOLOSTAR) 300 unit/mL (1.5 mL) subcutaneous injection penIndications:Ty pe 2 diabetes mellitus with diabetic polyneuropathy, with long-term current use of insulin Inject 20 Units under the skin nightly at bedtime. 9 mL 02/20/20 25 Active insulin lispro U-200 (HUMALOG KWIKPEN) 200 unit/mL (3 mL) InPn subcutaneous penIndications:Ty pe 2 diabetes mellitus with diabetic polyneuropathy, [...] Active metFORMIN (GLUCOPHAGE-XR) 750 MG 24 hr tabletIndications :Type 2 diabetes mellitus with diabetic polyneuropathy, with long-term current use of insulin Take 1 tablets in the AM and 2 tablet in the PM. 270 tablet 02/20/20 25 Active rosuvastatin (CRESTOR) 40 MG tabletIndications :Type 2 diabetes mellitus with diabetic polyneuropathy, with long-term current use of insulin,Hyperlipi demia LDL goal <70 Take 1 tablet (40 mg total) by mouth daily. 90 tablet 1 02/20/20 25 Active cephalexin (KEFLEX) 500 MG capsuleIndication s:Acute cystitis without hematuria Take 1 capsule (500 mg total) by mouth 3 (three) times a day for 5 days. 15 capsule 04/14/20 25 025 Active cephalexin (KEFLEX) 500 MG capsuleIndication s:Acute cystitis without hematuria Take 1 capsule (500 mg total) by mouth 3 (three) times a day for 5 days. 15 capsule 04/13/20 25 025 Discontin ued(Reord er) Active Problems Problem Noted Date Diagnosed Date [...] A1c goals of less than 7%. The [place] [employer] recommends a goal of A1c of 7.5 to 8% in older patients with moderate comorbidities and life expectancy less than 10 years. The [place] diabetes Association recommends a goal of less [...] atrial fibrillation 03/14/2022 Overview (03/27/2024): Follows with [facility] santi Alves NP s/p ablation 03/2023, has pacer. [...] and amiodarone Scheduled for an ablation at [facility] on Mar 23 Denies any current [...] GI. Continue to eat slowly. Avoid dry, [id number] foods. Recurrent UTI 02/05/2020 Assessment & Plan [...] Essential hypertension 07/07/2017 Overview (03/27/2024): Follows with [facility] cards op last ov 02/26/24 Teresa Alves [...] treated by Dr. Nguyen Discussed her rosuvastatin aka crestor today She said she's having a problem [...] for repeat DXA scan on 04/12/2025 at [facility] and I have requested this study. Today [...] did use alendronate for 5 years from [id number]. Risk factors for osteoporosis and pain include [...] needs to get a DXA scan at [facility] the order has already been placed. She [...] this medication. She has been denied by [employer] for financial assistance. So at this point not much more that we can do. Ozempic is not covered under her plan. She will repeat hemoglobin A1c in 3 months time. Today I gave her an additional sample of Trulicity 1.5 mg Lot number [id number] expiration May 12, 2022. She can do [...] her a sample of Trulicity Lot number [id number] expiration January 29, 2023. She was instructed [...] Therefore we will refer the patient to [facility] endocrinology and obtain an A1c today. Patient [...] FBS; f/u if any s/sx hypoglycemia. Add Yajaira, reviewed dosing. No c/i, no hx pancreatitis. 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 We discussed insulin [...] Encounters Date Type Department Care Team Description 04/13/2025 Telephone [facility] Internal Medicine [address] [place] [address] Michael Joiner MD 04/11/2025 10:58 AM EDT - 04/11/2025 11:59 PM EDT Hospital Encounter [facility] Laboratory [address] [place] [address] Michael Joiner MD Discharge Disposition: Home or Self Care 04/11/2025 10:00 AM EDT Office Visit [facility] Internal Medicine [address] [place] [address] Michael Joiner MD Routine general medical examination at a health care facility (Primary Dx); Essential hypertension; Hypertrophic cardiomyopathy; Pacemaker; Paroxysmal atrial fibrillation; Type 2 diabetes mellitus with diabetic polyneuropathy, with long-term current use of insulin 02/19/2025 10:30 AM EDT Office Visit [facility] [address] [place] [address] Chris Nguyen DO Type 2 diabetes mellitus with diabetic polyneuropathy, with long-term current use of insulin (Primary Dx); Hyperlipidemia LDL goal <70 02/05/2025 12:22 PM EDT - 02/05/2025 11:59 PM EDT Hospital Encounter [facility] Laboratory [address] [place] [address] Chris Nguyen DO Discharge Disposition: Home or Self Care 02/05/2025 Orders Only [facility] [address] [place] [address] Chris Nguyen DO Age-related osteoporosis without current [...] Mass Index 29.92 04/11/2025 9:50 AM EDT Plan of Treatment Upcoming Encounters Date Type Department Care Team (Late st Contact Info) Description 05/02/2025 10:10 AM EDT Office Visit [facility] [address] [place] [address] Chris Nguyen DO [address] [place] [address] 06/11/2025 12:10 PM EST Office Visit [facility] [address] [place] [address] Chris Nguyen DO [address] [place] [address] 08/13/2025 10:30 AM EST Office Visit [facility] Internal Medicine [address] [place] [address] Michael Joiner MD [address] [place] [address] [email or web address] Health Maintenance Due Date Last Done Comments Adult Td,Tdap Booster 1945 HEPATITIS C SCREENING 11/07/1963 PNEUMOCOCCAL VACCINES (50+ years) (1 of 2 - PCV) 1964 COLOGUARD 1990 FIT TEST 1990 SIGMOIDOSCOPY 1990 VIRTUAL COLONOSCOPY 1990 ZOSTER VACCINES (1 of 2) 11/07/1995 FOBT 01/31/2020 01/30/2019 RSV VACCINE (1 - 1-dose 75+ series) 2020 DIABETIC EYE EXAM 02/10/2022 02/10/2021, 12/18/2017 DEPRESSION SCREENING 06/02/2024 06/02/2023, 05/20/20 22 INFLUENZA VACCINE (#1) 2025 COVID-19 VACCINE (3 - 2024- season) 2025 04/20/2021, 03/30/2021 HEMOGLOBIN A1C 08/08/2025 02/05/2025, 03/2 01/2025, 07/03/2024, Additional history exists BLOOD PRESSURE 10/09/2025 04/11/2025 LIPID PANEL 02/05/2026 02/05/2025, 09/22, 03/27/2024, Additional history exists ALT LEVEL (ALANINE AMINOTRANSFERASE) 04/11/2026 04/11/2025, 10/17/2024, 03/27/2024, Additional history exists CREATININE LEVEL 04/11/2026 04/11/2025, , 04/15/2024, Additional history exists TSH LEVEL 04/11/2026 04/11/2025, 09/22, 02/08/2024, Additional history exists URINE MICROALBUMIN/CREATININE RATIO 04/11/2026 04/11/2025, 10/17/2024, 03/27/2024, Additional history exists COLONOSCOPY 04/12/2026 04/12/2023, 12/0 11/2018, 05/21/2012 COLORECTAL CANCER SCREENING 04/12/2026 FOLLOW UP BONE DENSITY TESTING 10/30/2026 10/30/2024, 04/12/2023, 06/10/2020, Additional history exists OSTEOPOROSIS SCREENING INITIAL (ONE-TIME) Completed 10/30/2024, 04/12/2023, 06/10/2020, Additional history exists SMOKING STATUS SCREENING (Once After 26 Yrs) Completed 04/11/2025 HEPATITIS A VACCINES Aged Out No long [...] with long-term current use of insulin URINE SEDIMENT Routine 04/11/2025 11:15 AM EDT URINALYSIS W/REFLEX URINE CULTURE Routine 04/11/2025 11:15 AM EDT Type 2 diabetes mellitus with diabetic polyneuropathy, with long-term current use of insulin URINE CULTURE Routine 04/11/2025 11:15 AM EDT COMPREHENSIVE METABOLIC PANEL Routine 04/11/2025 10:58 AM EDT Essential hypertension Type 2 diabetes mellitus with diabetic polyneuropathy, with long-term current use of insulin TSH WITH REFLEX Routine 04/11/2025 10:58 AM EDT Essential hypertension Paroxysmal atrial fibrillation Type 2 diabetes mellitus with diabetic polyneuropathy, with long-term current use of insulin MAGNESIUM Routine 04/11/2025 10:58 AM EDT Essential hypertension P1NP (Procollagen I NT Polypeptide) Routine 02/05/2025 [...] EDT Age-related osteoporosis without current pathological fracture COLONOSCOPY FOR RESULT ENTRY ONLY Routine 04/12/2023 DIABETES EYE EXAM FOR RESULT ENTRY ONLY Routine 02/10/2021 from Last 3 Months or Most Recently Relevant to Health Maintenance Results * (ABNORMAL) Microalbumin/creatinine ratio, random urine (04/11/2025 11:16 AM EDT) [facility] URINE MICROALBUMIN 2.2 0 - 2.3 mg/dL [facility] URINE CREATININE 98 mg/dL [facility] MICROALB/CRE RATIO 22.4(H) 0 - 20 mg/g Cre [facility] Urine (Urine) 04/11/2025 11: 16 AM EDT 04/11/2025 11:19 AM EDT Michael Joiner MD URINE ORDERABLES Final Result Performing Organization Address City/[facility] Co de Phone Number [address] [address] * (ABNORMAL) Urinalysis w/reflex Urine Culture (04/11/2025 11:15 AM EDT) COLOR Yellow Yellow [facility] CLARITY HAZY [facility] GLUCOSE Trace(A) Negative [facility] BILI Negative Negative [facility] KETONES Negative Negative [facility] SPECIFIC GRAVITY 1.025 1.005 - 1.030 [facility] BLOOD Negative Negative [facility] PH 6.0 5.0 - 8.0 [facility] Protein-UA Negative Negative [facility] NITRITE Positive(A) Negative [facility] Leukocyte esterase, ur 1+(A) Negative [facility] Urine (Urine) 04/11/2025 11: 15 AM EDT 04/11/2025 11:19 AM EDT Michael Joiner MD URINE ORDERABLES Final Result Performing Organization Address City/[facility] Co de Phone Number [address] [address] * (ABNORMAL) Urine Culture (04/11/2025 11:15 AM EDT) Special Requests None Reflexed from [id number] 04/11/2025 9:11 PM EDT [facility] Urine Culture >100,000 colony forming units per mL KLEBSIELLA PNEUMONIAE(A) 04/13/2025 9:51 AM EDT [facility] Urine Culture >100,000 colony forming units per mL ALPHA HEMOLYTIC STREPTOCOCCUS (VIRIDANS)(A) 04/13/2025 9:51 AM EDT [facility] Urine 04/11/2025 11:1 5 AM EDT 04/11/2025 11:19 AM EDT Narrative Organism Antibiotic Method Susceptibility Klebsiella pneumoniae Ampicillin SCOTTY METHOD >=32: Resistant Klebsiella pneumoniae Ampicillin + Sulbactam SOCTTY METHO D 4: Susceptible Klebsiella pneumoniae Cefepime SCOTTY METHOD <=0.12: Susceptible Klebsiella pneumoniae Ceftazidime SCOTTY METHOD <=0.5: Susceptible Klebsiella pneumoniae Ceftriaxone SCOTTY METHOD <=0.25: Susceptible Klebsiella pneumoniae Ciprofloxacin SCOTTY METHOD <=0.06: Susceptible Klebsiella pneumoniae Extended Spectrum B-lactamase PR C METHOD Negative Klebsiella pneumoniae Gentamicin SCOTTY METHOD <=1: Susceptible Klebsiella pneumoniae Levofloxacin SCOTTY METHOD <=0.12: Susceptible Klebsiella pneumoniae Nitrofurantoin SCOTTY METHOD 32: Susceptible Klebsiella pneumoniae Piperacillin-tazobactam SCOTTY METH OD <=4: Susceptible Klebsiella pneumoniae Trimethoprim/sulfamethoxazole PR C METHOD <=20: Susceptible Klebsiella pneumoniae Cefazolin(urine) SCOTTY METHOD 2: Susceptible Comment: Michael Joiner MD MICROBIOLOGY - GENERAL ORDERA BLES Final Result Performing Organization Address City/[facility]/ZIP Co de Phone Number [address] [address] * (ABNORMAL) Urine sediment (04/11/2025 11:15 AM EDT) WBC 11-20(A) NONE SEEN /hpf [facility] RBC NONE SEEN NONE SEEN /hpf [facility] URINE EPITHELIAL 0-4(A) NONE SEEN [facility] MUCUS NONE SEEN NONE SEEN /hpf [facility] BACTERIA 3+(A) NONE SEEN /hpf [facility] 04/11/2025 11:1 5 AM EDT 04/11/2025 11:19 AM EDT Michael Joiner MD URINE ORDERABLES Final Result Performing Organization Address City/[facility]/ZIP Co de Phone Number [address] [address] * (ABNORMAL) Comprehensive metabolic panel (04/11/2025 10:58 AM EDT) SODIUM 138 133 - 146 mmol/L [facility] POTASSIUM 4.4 3.3 - 5.1 mmol/L [facility] CHLORIDE 104 96 - 108 mmol/L [facility] CO2 23 21 - 35 mmol/L [facility] BUN 22(H) 6 - 19 mg/dL [facility] CREATININE 0.90 0.5 - 1.5 mg/dL [facility] GLUCOSE 202(H) 70 - 99 mg/dL [facility] ALBUMIN 4.3 3.9 - 4.8 g/dL [facility] TOTAL PROTEIN 7.5 6.5 - 8.0 g/dL [facility] CALCIUM 9.8 8.4 - 10.3 mg/dL [facility] ALKALINE PHOSPHATASE 61 39 - 117 U/L [facility] TOTAL BILIRUBIN 0.4 0.0 - 1.2 mg/dL [facility] AST 19 0 - 37 U/L [facility] ALT 15 0 - 40 U/L [facility] GLOBULIN 3.2 1 - 4.8 g/dL [facility] EGFR 65 >59 mL/min/1.7 3m2 [facility] Comment:Estimated glomerular filtration rate calculated using the CKD-EPI refit equation. ANION GAP 15 10 - 20 mmol/L [facility] Blood 04/11/2025 10:5 8 AM EDT 04/11/2025 11:03 AM EDT us Michael Joiner MD LAB BLOOD ORDERABLES Final Re sult Performing Organization Address City/[facility]/ZIP Co de Phone Number [address] [address] * TSH with reflex (04/11/2025 10:58 AM EDT) TSH 1.47 0.27 - 4.20 uIU/mL [facility] Blood 04/11/2025 10:5 8 AM EDT 04/11/2025 11:03 AM EDT us Michael Joiner MD LAB BLOOD ORDERABLES Final Re sult [address] [address] * Magnesium (04/11/2025 10:58 AM EDT) MAGNESIUM 1.9 1.6 - 2.6 mg/dL [facility] Blood 04/11/2025 10:5 8 AM EDT 04/11/2025 11:03 AM EDT us Michael Joiner MD LAB BLOOD ORDERABLES Final Re sult Performing Organization Address [facility] Co de Phone Number [address] [address] * P1NP (PROCOLLAGEN I NT POLYPEPTIDE) (02/05/2025 12:29 PM EDT) PROCOLL I INTACT N 21 mcg/L [facility] Comment: (NOTE) REFERENCE VALUE Premenopausal: 19-83 Postmenopausal: 16-96 Blood 02/05/2025 12:2 9 PM EDT 02/05/2025 12:32 PM EDT us Chris Nguyen DO LAB BLOOD ORDERABLES Final Resul t Performing Organization Address [facility] Co de Phone Number [facility] [address] [address] [place] [address] * (ABNORMAL) Collagen type 1b-telopeptide, blood (02/05/2025 12:29 PM EDT) Collagen CTx 68(L) pg/mL [facility] Comment: (NOTE) REFERENCE VALUE [phone] (18-29 y) 150-635 (30-39 y) 131-670 (40-49 y) [phone] (50-59 y) 171-970 (60-69 y) 152-858 (>70 y) 136-689 (Premenopausal) [phone] (Postmenopausal) Flagging is based on the age-specific reference interval and not menopausal status. Blood 02/05/2025 12:2 9 PM EDT 02/05/2025 12:32 PM EDT Chris Nguyen LAB BLOOD ORDERABLES Final Resul t [facility] [address] [place] [address] * (ABNORMAL) 25-OH vitamin D (02/05/2025 12:29 PM EDT) 25 OH VIT D (TOTAL) 26(L) 30 - 60 ng/mL [facility] Blood 02/05/2025 12:2 9 PM EDT 02/05/2025 12:32 PM EDT Chris Nguyen LAB BLOOD ORDERABLES Final Resul t Performing Organization Address [facility] Co de Phone Number [address] [address] * (ABNORMAL) Hemoglobin A1c (02/05/2025 12:29 PM EDT) HEMOGLOBIN A1C 6.9(H) 4.3 - 5.8 % [facility] Blood 02/05/2025 12:2 9 PM EDT 02/05/2025 12:33 PM EDT [facility]LOOD ORDERABLES Final Resul t Performing Organization Address City/[facility] Co de Phone Number [address] [address] * (ABNORMAL) Lipid panel (02/05/2025 12:29 PM EDT) HDL 80 mg/dL [facility] Comment: Interpretation <40 mg/dL: Low HDL cholesterol (major risk factor for CHD) Greater than or equal to 60 mg/dL: High HDL cholesterol ( negative risk factor for CHD) HDL - cholesterol is affected by a number of factors, e.g. smoking, excerise, hormones, sex and age. CHOLESTEROL 145 0 - 240 mg/dL [facility] TRIGLYCERIDES 56 30 - 160 mg/dL [facility] LDL 54 50 - 129 mg/dL [facility] Comment: LDL levels in terms of risk for coronary heart disease: <100 mg/dL: Optimal 100-129 mg/dL: Near or above optimal 130-159 mg/dL: Borderline high 160-189 mg/dL: High >190 mg/dL: Very High CARDIAC RISK RATIO 1.8(L) 3.3 - 4.4 [facility] Blood 02/05/2025 12:2 9 PM EDT 02/05/2025 12:32 PM EDT Chris Nguyen DO LAB BLOOD ORDERABLES Final Resul t [facility] [address] [place] [address] * DXA Monitoring (04/12/2023 11:23 AM EDT) Anatomical Region Laterality Modality Bone Density Bone Density us Basilia Velazquez PROGRAM DIRECTOR GROUP WORK IMG BD BONE DENSITY DE XA Final Result * COLONOSCOPY FOR RESULT ENTRY ONLY (04/12/2023) Historical Provider HEALTH MAINTENANCE Edited Result - Final * DIABETES EYE EXAM FOR RESULT ENTRY ONLY (02/10/2021) Historical Provider HEALTH MAINTENANCE Edited Result - Final from Last 3 Months or Most Recently Relevant to Health Maintenance Insurance MEDICARE HMO REPLACEMENT MEDICARE HMO REPLACEMENT MEDICARE HMO REPLACEMENT MEDICARE HMO REPLACEMENT MEDICARE HMO REPLACEMENT [place] MEDICARE HMO REPLACEMENT MEDICARE HMO REPLACEMENT [place] MEDICARE HMO REPLACEMENT [place] MEDIC[employer] HMO REPLACEMENT Care Teams Manager Animal Relationship Specialty Start Date End Date Michael Joiner MD [address] [place] [id number] PCP - General Internal Medicine 12/15/22 Sarina Steele MD Surgeon Urology 08/07/19 Rosa Elena Veronica NP [email or web address] Endocrinology 08/09/19 Chris Bullock MD [address] [place] [address] Ophthalmology 11/11/19 Gabe Tang MD [address] [place] [phone] [employer] Card[facility] 06/02/23 Additional Source Comments The information contained in this document represents components of the legal health record. It is not the complete legal health record.[facility]
--- OUTSIDE RECORDS SUMMARY | 2025-04-16 11:26 | XMS_ITS | Encounter Summary ---
Author Organization [facility] Address [address] [place] [id number] Phone Care Team Providers Care Clinical Rn Liaison Name Role Phone Sarina Steele MD Unavailable [phone] Rosa Elena Veronica NP Unavailable + Chris Bullock MD Unavailable [phone] Michael Joiner MD Primary Care Provider Gabe Tang MD Unavailable Encounter Details Date Type Department Care Team (Late st Contact Info) Description 04/13/2025 Telephone [facility] Internal Medicine [address], [place] [id number] Michael Joiner MD [address], [place] [id number] [email or web address] Social History Tobacco Use Types Packs/Day Years [...] on file documented as of this encounter Progress Notes * Michael Joiner MD - 04/13/2025 7:43 PM EDT See results. Has uti treat with keflex. Sent script let her know. documented in this encounter Plan of Treatment Upcoming Encounters Date Type Department Care Team (Late st Contact Info) Description 05/02/2025 10:10 AM EDT Office Visit [facility] [address] [place] [address] Chris Nguyen DO [address] [place] [phone] 06/11/2025 12:10 PM EST Office Visit [facility] [address] [place] [address] Chris Nguyen DO [address] [place] [address] 08/13/2025 10:30 AM EST Office Visit [facility] Internal Medicine [address] [place] [address] Michael Joiner MD [address] [place] [address] [email or web address] documented as of this encounter Visit Diagnoses Diagnosis Acute cystitis without hematuria- Primary documented in this encounter Additional Health Concerns Assessment Noted Time PHQ-9 Depression Total Score: 0 05/20/20 22 11:09 AM EDT PHQ-2 Depression Total Score: 0 06/02/20 23 9:48 AM EST documented as of this encounter Care Teams Clinical Rn Liaison Relationship Specialty Start Date End Date Michael Joiner MD [address] [place] [address] [email or web address] PCP - General Internal Medicine 12/15/22 Sarina Steele MD [email or web address] Surgeon Urology 08/07/19 Rosa Elena Veronica NP [email or web address] Endocrinology 08/09/19 [place] [address] [place] [id number] Ophthalmology 11/11/19 Gabe Tang MD [address] [place] [address] [place] [address] Director Packaging Cardiology 06/02/23 documented as of this encounter Additional Source Comments The information contained in this document represents components of the legal health record. It is not the complete legal health record.[facility]
--- OUTSIDE RECORDS SUMMARY | 2025-04-16 11:26 | XMS_ITS | Clinical Summary ---
Author Organization [facility] ity Address [id number] [place] [id number] Care Team Providers Care Refuse Collector Name Role Phone Michael Joiner MD Primary Care Provider [phone] Social History Tobacco Use Types Packs/Day Years [...] age to complete this topic Care Teams Refuse Collector Relationship Specialty Start Date End Date Michael Joiner MD [address] [place] [address] PCP - General Internal Medicine 08/24/11
== END 2025-04-16 09:33 | disposition home or self-care (01) ==
LOC: HO.MAMMO 09:32
PROVIDERS: Visit Provider Internal Medicine Endocrinology, Diabetes & Metabolism
DX: M81.0 Age-related osteoporosis without current pathological fracture (principal)
CPT/HCPCS: 77080

== ENCOUNTER → 2025-04-16 10:00 | Outpatient (BNV) | payer MEDICARE, SELFPAY | PROVIDERS: Visit Provider Radiology Body Imaging | DX: E28.39 Other primary ovarian failure (principal) | CPT/HCPCS: 77080 ==

== ENCOUNTER → 2025-07-18 16:06 | Outpatient (BNV) | payer MEDICARE, SELFPAY | PROVIDERS: Visit Provider Internal Medicine Cardiovascular Disease | DX: Z45.018 Encounter for adjustment and management of other part of cardiac pacemaker (principal) | CPT/HCPCS: 93294 ==